=== PATIENT | male | born 1945 | race African-American/Black ===

== ENCOUNTER 2017-02-12 17:04 | Emergency (ER) | payer MEDICARE ==
[~2017-02-12] VITALS: Ht 185.4 cm; Wt 130.0 kg
[~2017-02-12 17:04] MED LIST: ARTISOL2 EACH EYE; ATOR40TA49 PO; BENA25TA5 PO; DILT90 PO; DOXA1 PO; GABA400C5 PO; METO25 PO; MORP30SU PO; MSIR15 PO; PRIL20CA PO; REME30TA PO; SERT100 PO; WARF7.5 PO
[2017-02-12] MEDS ORDERED: SODIUM CHLOR 0.9% 1000 ML INJ 1,000 ML IV ONE (17:12)
[2017-02-12] MEDS ORDERED: NALOXONE HCL 0.4 MG/ML AMP ONE (17:12)
--- NOTE | 2017-02-12 17:14 | PD ---
Physical Exam Time Seen by Provider: 17:14 Narrative 71 year old male presents to the ED by EVAC for evaluation following a fall. Family is concerned the patient has been acting differently than he typically does. Pt was assisted to the stretcher by EVAC and has appeared altered. Per EVAC reports using heroin since his pain medication has been stopped. His family does not know this. Currently patient is not offering any information for me. He arouses briefly with clear speech but does not answer any of my questions. GENERAL: Pt lying on the stretcher, diaphoretic, humming to self, uncooperative with exam. SKIN: Warm and diaphoretic. HEAD: Atraumatic. Normocephalic. EYES: Pupils equal; pinpoint. No scleral icterus. No injection or drainage. ENT: No nasal bleeding or discharge. Mucous membranes pink and moist. NECK: Trachea midline. No JVD. CARDIOVASCULAR: Elevated rate and rhythm. RESPIRATORY: No accessory muscle use. Diminshed; likely due to poor inspiratory effort. to auscultation. Breath sounds equal bilaterally. GASTROINTESTINAL: Abdomen soft, non-tender, nondistended. Hepatic and splenic margins not palpable. MUSCULOSKELETAL: Extremities without clubbing, cyanosis, or edema. No obvious deformities. NEUROLOGICAL: Pt arouses to voice and painful stimuli. Unable to assess cranial nerves at this time Moves all extremities. Normal speech and clear when patient does respond. Data Data Orders Orders Naloxone Inj (Narcan Inj) (02/12/17 17:12) Electrocardiogram (02/12/17 17:12) Complete Blood Count With Diff (02/12/17 17:12) Comprehensive Metabolic Panel (02/12/17 17:12) Prothrombin Time / Inr (Pt) (02/12/17 17:12) Act Partial Throm Time (Ptt) (02/12/17 17:12) Urinalysis - C+S If Indicated (02/12/17 17:12) Chest, Single Ap (02/12/17 17:12) Ct Brain W/O Iv Contrast(Rout) (02/12/17 17:12) Iv Access Insert/Monitor (02/12/17 17:12) Ecg Monitoring (02/12/17 17:12) Oximetry (02/12/17 17:12) Naloxone Inj (Narcan Inj) (02/12/17 17:15) Sodium Chloride 0.9% Flush (Ns Flush) (02/12/17 17:15) Sodium Chlor 0.9% 1000 Ml Inj (Ns 1000 M (02/12/17 17:12) Drug Screen, Random Urine (02/12/17 17:12) Alcohol (Ethanol) (02/12/17 17:12) Salicylates (Aspirin) (02/12/17 17:12) Tylenol (Acetaminophen) (02/12/17 17:12) MDM Medical Record Reviewed: Yes Supervised Visit with YESSI: No Narrative Course Pt arrives via EVAC; diaphoretic, limited responsiveness with pinpoint pupils. IV access has been unable to be obtained by both EVAC and nursing staff. NARCAN 2mg IM is given. Workup has been initiated in the ambulance young. Once a medical bed becomes available, patient will be transferred and care assumed by that provider. Condition: Stable Laurel Bear Feb 12, 2017 17:14
[2017-02-12] MEDS ORDERED: SODIUM CHLORIDE 0.9% FLUSH 10 ML FLUSH IVF PRN (17:15)
[2017-02-12] MEDS ORDERED: NALOXONE HCL 2 MG/2 ML VIAL IM ONE (17:15)
[2017-02-12 17:37] VITALS: BP 131/75; PULSE 94; RESP 20; TEMP 99; O2SAT 96
[2017-02-12 17:40] VITALS: O2SAT 95
--- NOTE | 2017-02-12 17:43 | PD ---
HPI Chief Complaint: fall Time Seen by Provider: 17:28 Travel History International Travel<30 days: No Contact w/Intl Traveler<30days: No Traveled to known affect area: No History of Present Illness HPI Patient is a 71-year-old male brought in EMS after a fall today. Patient was confused and somnolent on arrival, he was given 2 mg of Narcan IM and woke up. He currently has no complaints. He does admit to using morphine and heroin today. He says he has chronic back pain and he was recently taken off of his medications, so he used the drugs due to the pain. His daughter reports that he has had issues with drugs for a while. She lives with him, and says that they went to his doctor's appointments this morning, and she dropped him off at the house where she went to poultry picking machine tender her son. She said she then left the room at the house where she went to the store quickly, when she came back her son said that he had fallen. He denied his head. There was no loss of consciousness. Currently he has no complaints. He denies chest pain or shortness of breath. He denies nausea or vomiting. PFSH Past Medical History Arthritis: Yes Asthma: No Atrial Fibrillation: Yes Autoimmune Disease: No Anxiety: Yes Depression: Yes Heart Rhythm Problems: No Cancer: No Cardiovascular Problems: Yes High Cholesterol: Yes Chemotherapy: No Chest Pain: Yes Congestive Heart Failure: No COPD: No Cerebrovascular Accident: No Coronary Artery Disease: Yes Diabetes: Yes Diminished Hearing: No Diverticulitis: Yes Endocrine: No Gastrointestinal Disorders: Yes GERD: Yes Genitourinary: No Headaches: No Hepatitis: Yes (HEP C) Hypertension: Yes Immune Disorder: No Implanted Vascular Access Dvce: Yes Musculoskeletal: Yes (CHRONIC BACK PAIN) Neurologic: No Psychiatric: No Reproductive: No Respiratory: Yes Immunizations Current: Yes Migraines: No Myocardial Infarction: Yes (2014) Pneumonia: Yes Radiation Therapy: No Renal Failure: No Seizures: No Sickle Cell Disease: No Sleep Apnea: No Thyroid Disease: No Past Surgical History Abdominal Surgery: No AICD: No Arteriovenous Shunt: No Body Medical Devices: CARDIAC STENTS Cardiac Surgery: No Ear Surgery: No Endocrine Surgery: No Eye Surgery: No Genitourinary Surgery: Yes Joint Replacement: No Neurologic Surgery: No Oral Surgery: No Pacemaker: No Thoracic Surgery: No Other Surgery: Yes Social History Alcohol Use: No Tobacco Use: Yes Substance Use: No Allergies-Medications (Allergen,Severity, Reaction): Coded Allergies: diatrizoate meglumine (Unverified Adverse Reaction, Severe, SEVERE VOMITING, 01/30/17) gadobenic acid (Unverified Adverse Reaction, Severe, SEVERE VOMITING, 01/30) gadodiamide (Unverified Adverse Reaction, Severe, SEVERE VOMITING, 01/30/17 ) gadoteridol (Unverified Adverse Reaction, Severe, SEVERE VOMITING, 01/30/17 ) iodixanol (Unverified Adverse Reaction, Severe, SEVERE VOMITING, 01/30/17) iohexol (Unverified Adverse Reaction, Severe, SEVERE VOMITING, 01/30/17) Reported Meds & Prescriptions Reported Meds & Active Scripts Active Reported Zoloft (Sertraline HCl) 100 Mg Tab 150 Mg PO HS Diphenhydramine (Diphenhydramine HCl) 25 Mg Cap 25 Mg PO Q6HR PRN Doxazosin (Doxazosin Mesylate) 2 Mg Tab 2 Mg PO HS Gabapentin 800 Mg Tab 1,200 Mg PO TID Metoprolol Tartrate 25 Mg Tab 25 Mg PO Q12HR Mirtazapine 30 Mg Tab 30 Mg PO HS Diltiazem (Diltiazem HCl) 90 Mg Tab 90 Mg PO Q6HR Warfarin 7.5 Mg Tab 7.5 Mg PO DAILY Artificial Tears Opth Drops (Propylene Glycol-Glycerin Opth Drops) 1-0.3% Drops 1-2 Drop EACH EYE QID PRN Atorvastatin (Atorvastatin Calcium) 40 Mg Tab 40 Mg PO HS Review of Systems Except as stated in HPI: all other systems reviewed are Neg General / Constitutional: No: Fever, Chills Eyes: No: Blurred Vision HENT: No: Headaches, Lightheadedness Cardiovascular: No: Chest Pain or Discomfort Respiratory: No: Shortness of Breath Gastrointestinal: No: Nausea, Vomiting, Abdominal Pain Genitourinary: No: Dysuria Skin: No Rash, No Itching Neurologic: No: Weakness, Dizziness, Syncope Physical Exam Narrative GENERAL: Awake and alert, in no acute distress. SKIN: Focused skin assessment warm/dry. HEAD: Atraumatic. Normocephalic. EYES: Pupils equal and round. No scleral icterus. ENT: Mucous membranes pink and moist. NECK: Trachea midline. No JVD. CARDIOVASCULAR: Regular rate and rhythm. No murmur appreciated. RESPIRATORY: No accessory muscle use. Clear to auscultation. Breath sounds equal bilaterally. GASTROINTESTINAL: Abdomen soft, non-tender, nondistended. MUSCULOSKELETAL: No obvious deformities. No clubbing. No cyanosis. Mild bilateral lower extremity edema. NEUROLOGICAL: Awake and alert. No obvious cranial nerve deficits. Motor grossly within normal limits. Normal speech. PSYCHIATRIC: Appropriate mood and affect; insight and judgment normal. Data Data Last Documented VS Vital Signs Date Time Temp Pulse Resp B/P (MAP) Pulse Ox O2 Delivery O2 Flow Rate FiO2 02/12/17 19:40 02/12/17 19:16 92 19 95 Room Air 02/12/17 17:37 99.0 Orders Orders Naloxone Inj (Narcan Inj) (02/12/17 17:12) Electrocardiogram (02/12/17 17:12) Complete Blood Count With Diff (02/12/17 17:12) Comprehensive Metabolic Panel (02/12/17 17:12) Prothrombin Time / Inr (Pt) (02/12/17 17:12) Act Partial Throm Time (Ptt) (02/12/17 17:12) Chest, Single Ap (02/12/17 17:12) Ct Brain W/O Iv Contrast(Rout) (02/12/17 17:12) Iv Access Insert/Monitor (02/12/17 17:12) Ecg Monitoring (02/12/17 17:12) Oximetry (02/12/17 17:12) Naloxone Inj (Narcan Inj) (02/12/17 17:15) Sodium Chloride 0.9% Flush (Ns Flush) (02/12/17 17:15) Sodium Chlor 0.9% 1000 Ml Inj (Ns 1000 M (02/12/17 17:12) Alcohol (Ethanol) (02/12/17 17:12) Troponin I (02/12/17 17:45) Labs Laboratory Tests Test 02/12/17 17:45 White Blood Count 6.2 TH/MM3 Red Blood Count 5.28 MIL/MM3 Hemoglobin 14.5 GM/DL Hematocrit 44.2 % Mean Corpuscular Volume 83.7 FL Mean Corpuscular Hemoglobin 27.4 PG Mean Corpuscular Hemoglobin Concent 32.7 % Red Cell Distribution Width 17.9 % Platelet Count 212 TH/MM3 Mean Platelet Volume 9.0 FL Neutrophils (%) (Auto) 71.8 % Lymphocytes (%) (Auto) 18.3 % Monocytes (%) (Auto) 8.8 % Eosinophils (%) (Auto) 0.8 % Basophils (%) (Auto) 0.3 % Neutrophils # (Auto) 4.4 TH/MM3 Lymphocytes # (Auto) 1.1 TH/MM3 Monocytes # (Auto) 0.5 TH/MM3 Eosinophils # (Auto) 0.1 TH/MM3 Basophils # (Auto) 0.0 TH/MM3 CBC Comment DIFF FINAL Differential Comment Prothrombin Time 27.1 SEC Prothromb Time International Ratio 2.4 RATIO Activated Partial Thromboplast Time 30.6 SEC Blood Urea Nitrogen 10 MG/DL Creatinine 1.28 MG/DL Random Glucose 124 MG/DL Total Protein 9.6 GM/DL Albumin 3.7 GM/DL Calcium Level 8.6 MG/DL Alkaline Phosphatase 121 U/L Aspartate Amino Transf (AST/SGOT) 11 U/L Alanine Aminotransferase (ALT/SGPT) 21 U/L Total Bilirubin 0.4 MG/DL Sodium Level 136 MEQ/L Potassium Level 3.9 MEQ/L Chloride Level 103 MEQ/L Carbon Dioxide Level 26.2 MEQ/L Anion Gap 7 MEQ/L Estimat Glomerular Filtration Rate 68 ML/MIN Troponin I LESS THAN 0.02 NG/ML Ethyl Alcohol Level 3 MG/DL [facility] Medical Decision Making Medical Screen Exam Complete: Yes Emergency Medical Condition: Yes Medical Record Reviewed: Yes Interpretation(s) ECG shows atrial fibrillation, rate controlled at 92, no ST elevation or depression. Differential Diagnosis Drug overdose versus intoxication versus electrolyte abnormality versus UTI versus pneumonia Narrative Course Patient is a 71-year-old male who comes in after she took morphine and heroin today. He was given Narcan due to unresponsiveness. He has been awake and alert in the ED since then. He currently has no complaints. IV established, labs sent. Labs show no acute abnormalities. Patient was unable to provide a urine for sample while here, and his daughter needs to take him home. He has no urinary symptoms or signs or symptoms of infection, I believe it is safe for him to be discharged at this time. CT head and chest x-ray show no acute abnormalities. Patient has a history of atrial fibrillation, and ECG shows A. fib that is rate controlled. Patient is advised to avoid opiate use. He is advised follow-up with his doctor. Advised to return to the ED as needed for any worsening symptoms. Diagnosis Primary Impression: Accidental drug overdose Qualified Codes: T50.901A - Poisoning by unspecified drugs, medicaments and biological substances, accidental (unintentional), initial encounter Patient Instructions: General Instructions, Narcotic Abuse (ED) Additional Instructions: Avoid drug use. Follow-up with her doctor. Return to the ED as needed for any worsening symptoms. Disposition: 01 DISCHARGE HOME Condition: Stable Halley Carter MD Feb 12, 2017 17:43
--- NOTE | 2017-02-12 18:00 | RADRPT ---
EXAM DATE/TIME: 02/12/2017 17:32 [facility] COMPARISON: CHEST SINGLE AP, January 31, 2015, 13:56. INDICATIONS : Overdose. MEDICAL HISTORY : Hypertension. Myocardial infarction. Hypercholesterolemia. AFIB, Coronary artery disease, pneumon ia. SURGICAL HISTORY : None. ENCOUNTER: Initial ACUITY: 1 day PAIN SCORE: 5/10 LOCATION: Bilateral chest FINDINGS: There is cardiomegaly with mild interstitial edema. There is no outlet consolidation, pleural effusi on or pneumothorax. Patient status post corpectomy and fixation of lower thoracic spine. CONCLUSION: Mild interstitial edema with cardiomegaly. Jerzy Brown MD FACR on February 12, 2017 at 17:58 Board Certified Radiologist. This report was verified electronically.
[2017-02-12 18:15] LABS: AUTOMATED NEUTROPHIL # 4.4 TH/MM3 (1.8-7.7); BASOPHIL % 0.3 % (0.0-2.0); EOSINOPHIL # 0.1 TH/MM3 (0-0.4); EOSINOPHIL % 0.8 % (0.0-4.0); HEMATOCRIT 44.2 % (39.0-51.0); HEMO FLAGS DIFF FINAL; LYMPH % 18.3 % (9.0-44.0); LYMPHOCYTE # 1.1 TH/MM3 (1.0-4.8); MEAN CELL VOLUME 83.7 FL (80.0-100.0); MEAN CORPUSCULAR HEMOGLOBIN 27.4 PG (27.0-34.0); MEAN CORPUSCULAR HGB CONC 32.7 % (32.0-36.0); MONO % 8.8 % (0.0-8.0); NEUT % 71.8 % (16.0-70.0); PLATELET COUNT 212 TH/MM3 (150-450); RED BLOOD COUNT 5.28 MIL/MM3 (4.50-5.90); RED CELL DISTRIBUTION WIDTH 17.9 % (11.6-17.2); WHITE BLOOD COUNT 6.2 TH/MM3 (4.0-11.0)
[2017-02-12 18:23] LABS: APTT (PATIENT) 30.6 SEC (24.3-30.1); INTERNATIONAL NORMALIZED RATIO 2.4 RATIO; PROTHROMBIN TIME - PATIENT 27.1 SEC (9.8-11.6)
[2017-02-12 18:38] LABS: ANION GAP 7 MEQ/L (5-15); AST (GOT) 11 U/L (15-37); BICARBONATE 26.2 MEQ/L (21.0-32.0); BLOOD UREA NITROGEN 10 MG/DL (7-18); CHLORIDE 103 MEQ/L (98-107); GLOMERULAR FILTRATION RATE 68 ML/MIN (>89); POTASSIUM 3.9 MEQ/L (3.5-5.1); SODIUM (NA) 136 MEQ/L (136-145)
[2017-02-12 18:39] LABS: ALT (GPT) 21 U/L (12-78)
[2017-02-12 18:42] LABS: ALKALINE PHOSPHATASE 121 U/L (45-117); TOTAL BILIRUBIN ADULT 0.4 MG/DL (0.2-1.0)
[2017-02-12 18:45] LABS: ALCOHOL 3 MG/DL (0-5)
--- NOTE | 2017-02-12 19:11 | RADRPT ---
EXAM DATE/TIME: 02/12/2017 18:14 [facility] COMPARISON: CT BRAIN W/O CONTRAST, September 01, 2014, 21:07. INDICATIONS : Altered mental status. Patient fell today. RADIATION DOSE: 56.35 CTDIvol (mGy) MEDICAL HISTORY : Cerebrovascular disease. Hypertension. Diabetes mellitus type 1.Hepatitis C SURGICAL HISTORY : None. ENCOUNTER: Initial ACUITY: 1 day PAIN SCALE: 7/10 LOCATION: cranial TECHNIQUE: Multiple contiguous axial images were obtained of the head. Using automated exposure control and adj ustment of the mA and/or kV according to patient size, radiation dose was kept as low as reasonably a chievable to obtain optimal diagnostic quality images. DICOM format image data is available electro nically for review and comparison. FINDINGS: CEREBRUM: The ventricles are normal for age. No evidence of midline shift, mass lesion, hemorrhage or acute in farction. No extra-axial fluid collections are seen. There is a small stable calcification in the le ft caudate POSTERIOR FOSSA: The cerebellum and brainstem are intact. The 4th ventricle is midline. The cerebellopontine angle i s unremarkable. EXTRACRANIAL: The visualized portion of the orbits is intact. SKULL: The calvaria is intact. No evidence of skull fracture. CONCLUSION: No acute disease. Remi Mcgill MD on February 12, 2017 at 19:07 Board Certified Radiologist. This report was verified electronically.
[2017-02-12 19:16] VITALS: BP 101/69; PULSE 92; RESP 19; O2SAT 95
[2017-02-12] MEDS ORDERED: WARF-21 PO (19:29)
[2017-02-12] MEDS ORDERED: ARTIDRO EACH EYE (19:29)
[2017-02-12] MEDS ORDERED: ATOR40TA16 PO (19:29)
[2017-02-12] MEDS ORDERED: DOXA1TAB35 PO (19:34)
[2017-02-12] MEDS ORDERED: DILT90TA PO (19:34)
[2017-02-12] MEDS ORDERED: MIRT30TA PO (19:34)
[2017-02-12] MEDS ORDERED: METO25TA3 PO (19:34)
[2017-02-12] MEDS ORDERED: GABA800T PO (19:34)
[2017-02-12] MEDS ORDERED: DIPH25CA PO (19:34)
[2017-02-12] MEDS ORDERED: ZOLO100T PO (19:34)
--- NOTE | 2017-02-13 11:21 | EKG ---
Date Performed: 02/12/2017 Time Performed: 18:29:21 PTAGE: 71 years EKG: ATRIAL FIBRILLATION ABNORMAL RHYTHM ECG PREVIOUS TRACING : 01/31/2015 17.34 Atrial fibrillation is new from the old tracing. DOCTOR: Naveen Garibay Interpretating Date/Time 02/13/2017 11:19:17
== END 2017-02-12 20:26 | disposition home or self-care (01) ==
LOC: NEPD 17:04
DX: T40.1X1A Poisoning by heroin, accidental (unintentional), initial encounter (principal); I48.91 Unspecified atrial fibrillation; Z72.0 Tobacco use
CPT/HCPCS: 70450; 71010; 80053; 80307; 84484; 85025; 85610; 85730; 93005; 96372; 99285; J2310

== ENCOUNTER 2017-02-16 17:38 | Emergency (ER) | payer MEDICARE ==
[~2017-02-16] VITALS: Ht 182.9 cm; Wt 125.0 kg
[~2017-02-16 17:38] MED LIST changes: +ARTIDRO EACH EYE; -ARTISOL2 EACH EYE; +ATOR40TA16 PO; -ATOR40TA49 PO; -BENA25TA5 PO; -DILT90 PO; +DILT90TA PO; +DIPH25CA PO; -DOXA1 PO; +DOXA1TAB35 PO; -GABA400C5 PO; +GABA800T PO; -METO25 PO; +METO25TA3 PO; +MIRT30TA PO; -MORP30SU PO; -MSIR15 PO; -PRIL20CA PO; -REME30TA PO; -SERT100 PO; +WARF-21 PO; -WARF7.5 PO; +ZOLO100T PO
[2017-02-16 17:43] VITALS: PULSE 77; RESP 18; TEMP 97.5; O2SAT 96
[2017-02-16 18:02] VITALS: BP 98/55
== END 2017-02-16 18:56 | disposition left against medical advice (07) ==
LOC: NED 17:38
DX: R53.1 Weakness (principal); R55 Syncope and collapse; Z53.21 Procedure and treatment not carried out due to patient leaving prior to being seen by health care provider
CPT/HCPCS: 99281

== ENCOUNTER 2017-02-17 09:29 | Observation (INO) | payer MEDICARE, OTHER ==
[~2017-02-17] VITALS: Ht 185.4 cm; Wt 125.5 kg
[2017-02-17] VITALS (8 sets, daily range): BP systolic 106–138; BP diastolic 67–90; PULSE 65–77; RESP 16–20; TEMP 98–98.2; O2SAT 96–99
[2017-02-17] MEDS ORDERED: SODIUM CHLORID 0.9% 500 ML INJ 500 ML IV ONE (10:15)
[2017-02-17] MEDS ORDERED: SODIUM CHLORIDE 0.9% FLUSH 10 ML FLUSH IVF PRN (10:15)
--- NOTE | 2017-02-17 10:37 | PD ---
HPI Chief Complaint: Syncope/Near-Syncope Time Seen by Provider: 09:56 Travel History International Travel<30 days: No Contact w/Intl Traveler<30days: No Traveled to known affect area: No History of Present Illness HPI Is a 71-year-old man who presents to the emergency department complaining of a syncopal episode. He reports that he was in the [employer] store yesterday sitting in a chair where he began to feel dizzy. Almost immediately after he told his started he felt dizzy he collapsed, fell backward, and was shaking some. She reports that he appeared sweaty. She denies any chest pain or shortness of breath at that time. He's had several falls recently decubitus his legs going out on him but denies any previous syncopal episodes. He reports that a month or so ago he had some left-sided chest pain that went away shortly after. He was taken off [facility] his [facility]. She had a previous visit for opiate overdose were he apparently is related to using illicit opiates. His family apparently is unaware of this. His daughter is now moved in with him because of his falls. He's not had any syncopal episodes or seizures in the past. He does have a history of A. fib and is on warfarin. He also has a history of CAD and AR. History Past Medical History Narrative Medical A. fib, warfarin Arthritis and chronic back pain Anxiety/depression Hyperlipidemia CAD, history of AR Hepatitis C Denies any history diabetes. Social History Alcohol Use: No Tobacco Use: Yes Allergies-Medications (Allergen,Severity, Reaction): Coded Allergies: diatrizoate meglumine (Unverified Adverse Reaction, Severe, SEVERE VOMITING, 02/17/17) gadobenic acid (Unverified Adverse Reaction, Severe, SEVERE VOMITING, ) gadodiamide (Unverified Adverse Reaction, Severe, SEVERE VOMITING, 02/17/17) gadoteridol (Unverified Adverse Reaction, Severe, SEVERE VOMITING, 02/17/17) iodixanol (Unverified Adverse Reaction, Severe, SEVERE VOMITING, 02/17/17) iohexol (Unverified Adverse Reaction, Severe, SEVERE VOMITING, 02/17/17) Reported Meds & Prescriptions Reported Meds & Active Scripts Active Reported Zoloft (Sertraline HCl) 100 Mg Tab 150 Mg PO HS Diphenhydramine (Diphenhydramine HCl) 25 Mg Cap 25 Mg PO Q6HR PRN Doxazosin (Doxazosin Mesylate) 2 Mg Tab 2 Mg PO HS Gabapentin 800 Mg Tab 1,200 Mg PO TID Metoprolol Tartrate 25 Mg Tab 25 Mg PO Q12HR Diltiazem (Diltiazem HCl) 90 Mg Tab 90 Mg PO Q6HR Warfarin 7.5 Mg Tab 7.5 Mg PO DAILY Artificial Tears Opth Drops (Propylene Glycol-Glycerin Opth Drops) 1-0.3% Drops 1-2 Drop EACH EYE QID PRN Atorvastatin (Atorvastatin Calcium) 40 Mg Tab 40 Mg PO HS Review of Systems Except as stated in HPI: all other systems reviewed are Neg Physical Exam Narrative GENERAL: Generally well-appearing 71-year-old man, no acute distress. SKIN: Focused skin assessment warm/dry. HEAD: Atraumatic. Normocephalic. EYES: Pupils equal and round. No scleral icterus. No injection or drainage. ENT: No nasal bleeding or discharge. Mucous membranes pink and moist. NECK: Trachea midline. No JVD. CARDIOVASCULAR: Heart rates little bit irregular. No appreciable murmurs. RESPIRATORY: No accessory muscle use. Clear to auscultation. Breath sounds equal bilaterally. GASTROINTESTINAL: Abdomen soft, non-tender, nondistended. Hepatic and splenic margins not palpable. MUSCULOSKELETAL: No obvious deformities. No edema. NEUROLOGICAL: Awake and alert. No obvious cranial nerve deficits. Motor grossly within normal limits. Normal speech. PSYCHIATRIC: Appropriate mood and affect; insight and judgment normal. Data Data Last Documented VS Vital Signs Date Time Temp Pulse Resp B/P (MAP) Pulse Ox O2 Delivery O2 Flow Rate FiO2 02/17/17 13:44 18 02/17/17 12:07 97 Room Air 02/17/17 12:07 74 106/75 (85) 02/17/17 09:30 98.1 Orders Orders Electrocardiogram (02/17/17 10:10) Complete Blood Count With Diff (02/17/17 10:10) Comprehensive Metabolic Panel (02/17/17 10:10) Magnesium (Mg) (02/17/17 10:10) Prothrombin Time / Inr (Pt) (02/17/17 10:10) Act Partial Throm Time (Ptt) (02/17/17 10:10) Troponin I (02/17/17 10:10) Chest, Single Ap (02/17/17 10:10) Ecg Monitoring (02/17/17 10:10) Iv Access Insert/Monitor (02/17/17 10:10) Oximetry (02/17/17 10:10) Oxygen Administration (02/17/17 10:10) Sodium Chloride 0.9% Flush (Ns Flush) (02/17/17 10:15) Sodium Chlorid 0.9% 500 Ml Inj (Ns 500 M (02/17/17 10:15) Urinalysis - C+S If Indicated (02/17/17 10:10) Drug Screen, Random Urine (02/17/17 10:10) Acetaminophen (Tylenol) (02/17/17 11:15) Vascular Access Team Consult/P PRN (02/17/17 11:06) Vascular Poc Ultrasound (02/17/17 ) Labs Laboratory Tests Test 02/17/17 10:20 02/17/17 10:35 02/17/17 11:40 White Blood Count 7.3 TH/MM3 Red Blood Count 5.23 MIL/MM3 Hemoglobin 14.5 GM/DL Hematocrit 43.3 % Mean Corpuscular Volume 82.8 FL Mean Corpuscular Hemoglobin 27.7 PG Mean Corpuscular Hemoglobin Concent 33.5 % Red Cell Distribution Width 18.3 % Platelet Count 218 TH/MM3 Mean Platelet Volume 9.1 FL Neutrophils (%) (Auto) 77.0 % Lymphocytes (%) (Auto) 14.7 % Monocytes (%) (Auto) 6.0 % Eosinophils (%) (Auto) 1.9 % Basophils (%) (Auto) 0.4 % Neutrophils # (Auto) 5.6 TH/MM3 Lymphocytes # (Auto) 1.1 TH/MM3 Monocytes # (Auto) 0.4 TH/MM3 Eosinophils # (Auto) 0.1 TH/MM3 Basophils # (Auto) 0.0 TH/MM3 CBC Comment DIFF FINAL Differential Comment Urine Color YELLOW Urine Turbidity CLEAR Urine pH 5.5 Urine Specific [place] 1.014 Urine Protein TRACE mg/dL Urine Glucose (UA) NEG mg/dL Urine Ketones NEG mg/dL Urine Occult Blood TRACE Urine Nitrite NEG Urine Bilirubin NEG Urine Urobilinogen 2.0 MG/DL Urine Leukocyte Esterase TRACE Urine RBC 1 /hpf Urine WBC 1 /hpf Urine Squamous Epithelial Cells 2 /hpf Urine Mucus FEW /lpf Microscopic Urinalysis Comment CULT NOT INDICATED Urine Opiates Screen NEG Urine Barbiturates Screen NEG Urine Amphetamines Screen NEG Urine Benzodiazepines Screen NEG Urine Cocaine Screen NEG Urine Cannabinoids Screen POS Prothrombin Time 22.6 SEC Prothromb Time International Ratio 2.0 RATIO Activated Partial Thromboplast Time 30.6 SEC Blood Urea Nitrogen 12 MG/DL Creatinine 0.97 MG/DL Random Glucose 101 MG/DL Total Protein 9.2 GM/DL Albumin 3.4 GM/DL Calcium Level 8.6 MG/DL Magnesium Level 2.0 MG/DL Alkaline Phosphatase 110 U/L Aspartate Amino Transf (AST/SGOT) 11 U/L Alanine Aminotransferase (ALT/SGPT) 16 U/L Total Bilirubin 0.6 MG/DL Sodium Level 137 MEQ/L Potassium Level 4.1 MEQ/L Chloride Level 101 MEQ/L Carbon Dioxide Level 30.2 MEQ/L Anion Gap 6 MEQ/L Estimat Glomerular Filtration Rate 93 ML/MIN Troponin I LESS THAN 0.02 NG/ML MDM Medical Decision Making Medical Screen Exam Complete: Yes Emergency Medical Condition: Yes Interpretation(s) My review of EKG: A. fib, QTC of 485, no definite evidence of acute ischemia. LABS: CBC is unremarkable. CMP is unremarkable. Trouble troponin 9.2 Coags mildly elevated, INR 2.0 UA unremarkable. Urine drug screen positive for cannabinoids. Chest x-ray negative. Differential Diagnosis Arrhythmia, seizure, syncope, adverse effect of illicit drugs, other Narrative Course Medical decision making 71-year-old male with a syncopal episode yesterday. Of concern is his long QT but could suggest an arrhythmia as etiology. 485 is not super high. We'll check labs, EKG, x-ray. Of concern is his recent opiate overdose. Denies taking anything now. We'll check urine drug screen. Diagnosis Primary Impression: Syncope Joel Hickman MD Feb 17, 2017 10:37
--- NOTE | 2017-02-17 10:39 | RADRPT ---
EXAM DATE/TIME: 02/17/2017 10:31 [facility] COMPARISON: CHEST SINGLE AP, February 12, 2017, 17:32. INDICATIONS : Head, neck, and chest pain. MEDICAL HISTORY : Hypertension. Myocardial infarction. Hypercholesterolemia. AFIB, Coronary artery disease, pneumonia. SURGICAL HISTORY : None. ENCOUNTER: Initial ACUITY: 2 days PAIN SCORE: 1/10 LOCATION: Bilateral chest FINDINGS: A single view of the chest demonstrates the lungs to be symmetrically aerated without evidence of mas s, infiltrate or effusion. The cardiomediastinal contours are unremarkable. Osseous structures demo nstrate lateral chanel and screw fixation of the lower thoracic spine with metallic cage placement.. CONCLUSION: No acute disease. Sohail Willett MD on February 17, 2017 at 10:37 Board Certified Radiologist. This report was verified electronically.
[2017-02-17 10:44] LABS: AUTOMATED NEUTROPHIL # 5.6 TH/MM3 (1.8-7.7); BASOPHIL % 0.4 % (0.0-2.0); EOSINOPHIL # 0.1 TH/MM3 (0-0.4); EOSINOPHIL % 1.9 % (0.0-4.0); HEMATOCRIT 43.3 % (39.0-51.0); HEMO FLAGS DIFF FINAL; LYMPH % 14.7 % (9.0-44.0); LYMPHOCYTE # 1.1 TH/MM3 (1.0-4.8); MEAN CELL VOLUME 82.8 FL (80.0-100.0); MEAN CORPUSCULAR HEMOGLOBIN 27.7 PG (27.0-34.0); MEAN CORPUSCULAR HGB CONC 33.5 % (32.0-36.0); PLATELET COUNT 218 TH/MM3 (150-450); RED BLOOD COUNT 5.23 MIL/MM3 (4.50-5.90); RED CELL DISTRIBUTION WIDTH 18.3 % (11.6-17.2); WHITE BLOOD COUNT 7.3 TH/MM3 (4.0-11.0)
[2017-02-17 11:06] LABS: BLOOD, URINE TRACE (NEG); COMMENT (UR) CULT NOT INDICATED; CULTURE IF INDICATED CULT NOT INDICATED; GLUCOSE,URINE NEG (NEG); KETONE, URINE NEG (NEG); MUCUS URINE FEW /lpf (OCC); NITRITE,URINE NEG (NEG); PH, URINE 5.5 (5.0-8.5); SQUAMOUS EPITHELIAL CELL URINE 2 /hpf (0-5); URINE COLOR YELLOW (YELLW/STRAW)
[2017-02-17] MEDS ORDERED: ACETAMINOPHEN 500 MG CPLT PO ONE (11:15)
[2017-02-17 12:22] LABS: APTT (PATIENT) 30.6 SEC (24.3-30.1); PROTHROMBIN TIME - PATIENT 22.6 SEC (9.8-11.6)
[2017-02-17 12:51] LABS: ALT (GPT) 16 U/L (12-78); ANION GAP 6 MEQ/L (5-15); AST (GOT) 11 U/L (15-37); BICARBONATE 30.2 MEQ/L (21.0-32.0); BLOOD UREA NITROGEN 12 MG/DL (7-18); CHLORIDE 101 MEQ/L (98-107); GLOMERULAR FILTRATION RATE 93 ML/MIN (>89); POTASSIUM 4.1 MEQ/L (3.5-5.1); SODIUM (NA) 137 MEQ/L (136-145)
[2017-02-17 12:55] LABS: ALKALINE PHOSPHATASE 110 U/L (45-117); TOTAL BILIRUBIN ADULT 0.6 MG/DL (0.2-1.0)
[2017-02-17] MEDS ORDERED: diphenhydrAMINE HCL 25 MG CAP PO PRN (14:00)
[2017-02-17] MEDS ORDERED: ARTIFICIAL TEARS OPTH SOLN 15 ML BTL EACH EYE PRN (14:00)
[2017-02-17] MEDS: NS + KCL 20 MEQ INJ 1,000 ML IV SCH (14:48)
--- NOTE | 2017-02-17 15:33 | HHI.HP ---
[facility] Admission Diagnosis Syncope Diagnoses: (1) Syncope Chief Complaint: Syncopal episode. Travel History International Travel<30 Days: No Contact w/Intl Traveler <30 Da: No Traveled to Known Affected Are: No History of Present Illness Written by Halley Matias, acting as scribe for Dr. Brown on 02/17/17 at 15: 33. Mr. Chatterjee is a 71-year-old male patient with a known medical history of atrial fibrillation on Coumadin, CAD with history of WA, Hepatitic C history, and borderline diabetes who presented to the ED after a syncopal episode. Patient states he was in [employer] with his daughter, sitting watching her pick out phones when all of a sudden he started to feel dizzy and passed out. He also admits to urine incontinence and headache upon awakening. Per his daughter, one of his arms was shaking. Denies any prior similar episodes or seizure history. Denies any associated nausea or vomiting. Per records patient has had multiple falls in the past. Denies any recent illness including fever, chills, cough, shortness of breath, abdominal pain, nausea, vomiting, diarrhea or dysuria. Review of Systems Constitutional: COMPLAINS OF: Diaphoretic episodes, Dizziness Genitourinary: COMPLAINS OF: Urinary incontinence Neurologic: COMPLAINS OF: Headache Except as stated in HPI: all other systems reviewed are Neg Past Family Social History Past Medical History Atrial fibrillation on Coumadin Arthritis Chronic back pain Anxiety Depression Hyperlipidemia CAD with history of [place] Hepatitis C Borderline diabetes Hypertension Past Surgical History Back fusion Left temporal cyst removal. Reported Medications Reported Meds & Active Scripts Active Reported Zoloft (Sertraline HCl) 100 Mg Tab 150 Mg PO HS Diphenhydramine (Diphenhydramine HCl) 25 Mg Cap 25 Mg PO Q6HR PRN Doxazosin (Doxazosin Mesylate) 2 Mg Tab 2 Mg PO HS Gabapentin 800 Mg Tab 1,200 Mg PO TID Metoprolol Tartrate 25 Mg Tab 25 Mg PO Q12HR Diltiazem (Diltiazem HCl) 90 Mg Tab 90 Mg PO Q6HR Warfarin 7.5 Mg Tab 7.5 Mg PO DAILY Artificial Tears Opth Drops (Propylene Glycol-Glycerin Opth Drops) 1-0.3% Drops 1-2 Drop EACH EYE QID PRN Atorvastatin (Atorvastatin Calcium) 40 Mg Tab 40 Mg PO HS Allergies: Coded Allergies: diatrizoate meglumine (Unverified Adverse Reaction, Severe, SEVERE VOMITING, 02/17/17) gadobenic acid (Unverified Adverse Reaction, Severe, SEVERE VOMITING, ) gadodiamide (Unverified Adverse Reaction, Severe, SEVERE VOMITING, 02/17/17) gadoteridol (Unverified Adverse Reaction, Severe, SEVERE VOMITING, 02/17/17) iodixanol (Unverified Adverse Reaction, Severe, SEVERE VOMITING, 02/17/17) iohexol (Unverified Adverse Reaction, Severe, SEVERE VOMITING, 02/17/17) Active Ordered Medications Current Medications Medications (Trade) Dose Ordered Sig/Raeann Route Start Time Stop Time Status Last Admin (NS Flush) 2 ml UNSCH PRN IVF 02/17/17 10:15 Potassium Chloride/Sodium Chloride 1,000 ml @ 70 mls/hr [id number] IV 02/17/17 14:00 02/17/17 14:48 (Lipitor) 40 mg HS PO 02/17/17 21:00 (Cardizem) 90 mg Q6HR PO 02/17/17 18:00 (Benadryl) 25 mg Q6HR PRN PO 02/17/17 14:00 (Cardura) 2 mg HS PO 02/17/17 21:00 (Neurontin) 1,200 mg TID PO 02/17/17 18:00 (Tears Naturale Opth Soln) 1 drop QID PRN EACH EYE 02/17/17 14:00 (Zoloft) 150 mg HS PO 02/17/17 21:00 (Coumadin Booklet) 1 ONCE ONCE OTHER 02/18/17 09:00 02/18/17 09:01 (Coumadin) 7.5 mg DAILY@1600 PO 02/17/17 16:00 Family History Patient states that both his mother and father had cardiovascular disease. Denies any seizure history. Social History Admits to smoking 1/2ppd cigarettes for almost 50 years. Denies any alcohol use. Does admit to occasional marijuana use. Physical Exam Vital Signs Vital Signs Date Time Temp Pulse Resp B/P (MAP) Pulse Ox O2 Delivery O2 Flow Rate FiO2 02/17/17 14:51 72 20 112/67 (82) 97 Room Air 02/17/17 13:44 18 02/17/17 12:07 97 Room Air 02/17/17 12:07 74 18 106/75 (85) 97 Room Air 02/17/17 12:07 65 18 106/75 (85) 97 Room Air 02/17/17 09:49 18 02/17/17 09:30 98.1 69 17 126/77 (93) 99 Physical Exam GENERAL: This is a well-nourished, well-developed patient, in no apparent distress. SKIN: No rashes, ecchymoses or lesions. Warm and dry. HEAD: Atraumatic. Normocephalic. EYES: Pupils equal round and reactive. Extraocular motions intact. No scleral icterus. No injection or drainage. ENT: Nose without bleeding, purulent drainage or septal hematoma. Throat without erythema, tonsillar hypertrophy or exudate. Uvula midline. Airway patent. NECK: Trachea midline. No JVD. Supple. CARDIOVASCULAR: Irregularly irregular rhythm, controlled. RESPIRATORY: Clear to auscultation. Breath sounds equal bilaterally. No wheezes , rales, or rhonchi. GASTROINTESTINAL: Abdomen soft, non-tender, nondistended. No guarding. MUSCULOSKELETAL: Extremities without clubbing, cyanosis, or edema. No joint tenderness, effusion, or edema noted. NEUROLOGICAL: Awake and alert. Cranial nerves II through XII intact. Motor and sensory grossly within normal limits. Five out of 5 muscle strength in all muscle groups. Normal speech. Laboratory Laboratory Tests Test 02/17/17 10:20 02/17/17 10:35 02/17/17 11:40 White Blood Count 7.3 Red Blood Count 5.23 Hemoglobin 14.5 Hematocrit 43.3 Mean Corpuscular Volume 82.8 Mean Corpuscular Hemoglobin 27.7 Mean Corpuscular Hemoglobin Concent 33.5 Red Cell Distribution Width 18.3 Platelet Count 218 Mean Platelet Volume 9.1 Neutrophils (%) (Auto) 77.0 Lymphocytes (%) (Auto) 14.7 Monocytes (%) (Auto) 6.0 Eosinophils (%) (Auto) 1.9 Basophils (%) (Auto) 0.4 Neutrophils # (Auto) 5.6 Lymphocytes # (Auto) 1.1 Monocytes # (Auto) 0.4 Eosinophils # (Auto) 0.1 Basophils # (Auto) 0.0 CBC Comment DIFF FINAL Differential Comment Urine Color YELLOW Urine Turbidity CLEAR Urine pH 5.5 Urine Specific [place] 1.014 Urine Protein TRACE Urine Glucose (UA) NEG Urine Ketones NEG Urine Occult Blood TRACE Urine Nitrite NEG Urine Bilirubin NEG Urine Urobilinogen 2.0 Urine Leukocyte Esterase TRACE Urine RBC 1 Urine WBC 1 Urine Squamous Epithelial Cells 2 Urine Mucus FEW Microscopic Urinalysis Comment CULT NOT INDICATED Urine Opiates Screen NEG Urine Barbiturates Screen NEG Urine Amphetamines Screen NEG Urine Benzodiazepines Screen NEG Urine Cocaine Screen NEG Urine Cannabinoids Screen POS Prothrombin Time 22.6 Prothromb Time International Ratio 2.0 Activated Partial Thromboplast Time 30.6 Blood Urea Nitrogen 12 Creatinine 0.97 Random Glucose 101 Total Protein 9.2 Albumin 3.4 Calcium Level 8.6 Magnesium Level 2.0 Alkaline Phosphatase 110 Aspartate Amino Transf (AST/SGOT) 11 Alanine Aminotransferase (ALT/SGPT) 16 Total Bilirubin 0.6 Sodium Level 137 Potassium Level 4.1 Chloride Level 101 Carbon Dioxide Level 30.2 Anion Gap 6 Estimat Glomerular Filtration Rate 93 Troponin I LESS THAN 0.02 Result Diagram: 02/17/17 1020 02/17/17 1140 Imaging Last Impressions Chest X-Ray 02/17/17 1010 Signed Impressions: Service Date/Time: Friday, February 17, 2017 10:31 - CONCLUSION: No acute disease. MD Cheyenne Weissi VTE Risk Assessment Caprini VTE Risk Assessment: Mod/High Risk (score >= 2) Caprini Risk Assessment Model Point Value = 1 Point Value = 2 Point Value = 3 Point Value = 5 Age 41-60 Minor surgery BMI > 25 kg/m2 Swollen legs Varicose veins or History of unexplained or recurrent spontaneous Oral contraceptives or hormone replacement Sepsis (< 1 month) Serious lung disease, including pneumonia (< 1 month) Abnormal pulmonary function Acute myocardial infarction Congestive heart failure (< 1 month) History of inflammatory bowel disease Medical patient at bed rest Age 61-74 Arthroscopic surgery Major open surgery (> 45 min) Laparoscopic surgery (> 45 min) Malignancy Confined to bed (> 72 hours) Immobilizing plaster cast Central venous access Age >= 75 History of VTE Family history of VTE Factor V Leiden Prothrombin [id number] Lupus anticoagulant Anticardiolipin antibodies Elevated serum homocysteine Heparin-induced thrombocytopenia Other congenital or acquired thrombophilia Stroke (< 1 month) Elective arthroplasty Hip, pelvis, or leg fracture Acute spinal cord injury (< 1 month) Prophylaxis Regimen Total Risk Factor Score Risk Level Prophylaxis Regimen 0-1 Low Early ambulation 2 Moderate Order ONE of the following: *Sequential Compression Device (SCD) *Heparin 5000 units SQ BID 3-4 Higher Order ONE of the following medications: *Heparin 5000 units SQ TID *Enoxaparin/Lovenox 40 mg SQ daily (WT < 150 kg, CrCl > 30 mL/min) *Enoxaparin/Lovenox 30 mg SQ daily (WT < 150 kg, CrCl > 10-29 mL/min) *Enoxaparin/Lovenox 30 mg SQ BID (WT < 150 kg, CrCl > 30 mL/min) AND/OR *Sequential Compression Device (SCD) 5 or more Highest Order ONE of the following medications: *Heparin 5000 units SQ TID (Preferred with Epidurals) *Enoxaparin/Lovenox 40 mg SQ daily (WT < 150 kg, CrCl > 30 mL/min) *Enoxaparin/Lovenox 30 mg SQ daily (WT < 150 kg, CrCl > 10-29 mL/min) *Enoxaparin/Lovenox 30 mg SQ BID (WT < 150 kg, CrCl > 30 mL/min) AND *Sequential Compression Device (SCD) Assessment and Plan Assessment and Plan Mr. Chatterjee is a 71-year-old male patient with a known medical history of atrial fibrillation on Coumadin, CAD with history of [place], Hepatitic C history, and borderline diabetes who presented to the ED after a syncopal episode. Patient states he was in [employer] with his daughter, sitting watching her pick out phones when all of a sudden he started to feel dizzy and passed out. He also admits to urine incontinence and headache upon awakening. Syncopal episode - Will consult Neurology for further recommendations, appreciate input. - EEG to rule out seizures. - Will obtain 2D-ECHO. Follow. - Cardiology consulted, appreciate input. - Chest x-ray reviewed showing no acute disease. - Continue neuro checks. - Initial troponin flat. Monitor serial troponins. Follow. EKG reviewed with lengthen OTC. Atrial fibrillation, chronic: Continue home Coumadin. Continue Cardizem. Continue telemetry. Monitor INR. 2.0 today. Hypertension, chronic: Continue home Cardura 2 mg PO HS. Dyslipidemia, chronic: Continue home atorvastatin. Tobacco abuse: Encouraged cessation. Cannibis use: Encouraged cessation. DVT prophylaxis: SCDs/Coumadin This note was transcribed by kristofer Matias. I, Dr. Benito Brown personally performed the history, physical exam, and medical decision making; and confirmed the accuracy of the information in the transcribed note. Authenticated by Dr. Benito Brown on 02/17/17 at 15:44. Halley Matias Feb 17, 2017 15:33 Benito Brown MD Feb 17, 2017 15:45
[2017-02-17] MEDS: GABAPENTIN 400 MG CAP PO SCH (17:08)
[2017-02-17] MEDS: DILTIAZEM HCL 90 MG TAB PO SCH (17:09)
[2017-02-17] MEDS: WARFARIN SOD 7.5 MG TAB PO SCH (17:09)
--- NOTE | 2017-02-17 17:42 | EKG ---
Date Performed: 02/17/2017 Time Performed: 09:49:37 PTAGE: 71 years EKG: ATRIAL FIBRILLATION PROLONGED QT INTERVAL ABNORMAL ECG PREVIOUS TRACING : 02/12/2017 18.29 DOCTOR: Joel Soliman Interpretating Date/Time 02/17/2017 17:41:16
[2017-02-17 19:02] LABS: CREATINE KINASE 38 U/L (39-308)
--- NOTE | 2017-02-17 21:20 | MB ---
cc: TIBURCIO JANG M.D. DATE OF CONSULTATION 02/17/17 HISTORY OF PRESENT ILLNESS Breann is a very pleasant 71-year-old gentleman with no significant past cardiovascular history per him, although, in the ER it says he has a history of coronary artery disease and myocardial infarction and he is on Coumadin for a-fib. The patient had a syncopal episode. He does not recall the onset of it. There appeared to be some confusion post syncopal event. ER notes that he felt dizzy prior to the event. There was some shaking noted and diaphoresis. He told me he is not having any chest pain but again per the ER note he had left-sided chest pain about a month ago. He was recently taken off morphine at the [place]. He otherwise denies any fevers, chills, cough, GI or bleeding, PND, orthopnea. PAST MEDICAL HISTORY As per history of present illness. He has a history of arthritis, chronic back pain, anxiety, depression, hyperlipidemia, coronary artery disease, history of myocardial infarction, hepatitis C. SOCIAL HISTORY He smokes. Denies alcohol use. ALLERGIES DIATRIZOATE, GADOBENIC ACID, GADODIAMIDE, GADOTERIDOL, IODIXANOL, IOHEXOL. MEDICATIONS PRIOR TO ADMISSION 1. Zoloft. 2. Diphenhydramine. 3. Doxazosin. 4. Gabapentin. 5. Metoprolol 25 q. 12 hours. 6. Diltiazem 90 q. 6 hours. 7. Warfarin 7.5 milligrams daily. 8. Artificial tears. 9. Atorvastatin 40 h.s. MEDICATIONS IN THE HOSPITAL 1. Atorvastatin 40 h.s. 2. Cardura 10 milligrams h.s. 3. Zoloft 150 h.s. 4. Diltiazem 90 q. 6 hours. 5. Gabapentin 1200 milligrams t.i.d. 6. Warfarin 7.5 milligrams daily. 7. Potassium supplementation. PHYSICAL EXAMINATION VITAL SIGNS: Pulse ranging between 65 and 78, respiratory rate 16, blood pressure 138/76, sats 96% on room air. GENERAL: He is alert and oriented times three. In no acute distress. NECK: Supple. No JVD or bruit. CARDIOVASCULAR: S1-S2. No murmurs, rubs or gallops. LUNGS: Clear to auscultation bilaterally. ABDOMEN: Soft, nontender, nondistended with positive bowel sounds EXTREMITIES: No lower extremity edema. LABORATORY DATA White count is 7.3, hemoglobin 14.5, hematocrit 42.3, platelet count is 218, sodium 317, potassium 4.1, chloride 101, bicarb 30.2, BUN 12, creatinine 0.97. Troponin is less than 0.02. INR is 2.0. Toxicology positive for cannabinoids. IMAGING STUDIES Chest x-ray no acute disease. CARDIOLOGY STUDIES EKG a-fib at a rate of 69 beats per minute. DIAGNOSIS 1. Syncope. 2. A-fib. 3. Cannabis use. 4. History of coronary artery disease. 5. History of myocardial infarction. 6. Remote history of chest pain. 7. Arthritis. 8. Anxiety, depression. 9. Hyperlipidemia. 10. Hepatitis C. 11. Tobacco use. 12. Prolonged corrected QT interval equal to 483 milliseconds. DISCUSSION Recommend 2-D echo, carotid ultrasound, consider neurology consult. Recommend tobacco and inhaled marijuana cessation. Continue Coumadin. INR is therapeutic currently. Continue telemetry monitoring. Further recommendations based on the results of carotid ultrasound, 2-D echo and neurologic evaluation. MD MARISELA Jean/DANII /6:19 PM /8:54 PM
[2017-02-17] MEDS: DOXAZOSIN MESYLATE 2 MG TAB PO SCH (22:18)
[2017-02-17] MEDS: ATORVASTATIN 40 MG TAB PO SCH (22:19)
[2017-02-17] MEDS: SERTRALINE HCL 50 MG TAB PO SCH (22:19)
[2017-02-18] VITALS (9 sets, daily range): BP systolic 103–153; BP diastolic 60–90; PULSE 57–90; RESP 18–20; TEMP 97.9–98.2; O2SAT 96–98
[2017-02-18] MEDS: DILTIAZEM HCL 90 MG TAB PO SCH ×5 (00:07→22:26)
[2017-02-18 00:09] LABS: CREATINE KINASE 47 U/L (39-308)
[2017-02-18] MEDS: ACETAMINOPHEN 325 MG TAB PO PRN ×2 (01:25→09:03)
[2017-02-18] MEDS: NS + KCL 20 MEQ INJ 1,000 ML IV SCH ×2 (05:15→17:42)
[2017-02-18] MEDS ORDERED: WARFARIN SOD 7.5 MG TAB PO SCH (09:00)
[2017-02-18] MEDS: GABAPENTIN 400 MG CAP PO SCH ×3 (09:05→17:41)
--- NOTE | 2017-02-18 11:43 | HHI.PR ---
Subjective Remarks Follow-up syncopal episode. Patient denies headache, dizziness, lightheadedness , chest pain, dyspnea. No nausea or vomiting. No numbness/tingling/weakness of his extremities. He had short runs of V. tach, approximately 7 beats. He remained asymptomatic during these episodes. Objective Vitals Vital Signs Date Time Temp Pulse Resp B/P (MAP) Pulse Ox O2 Delivery O2 Flow Rate FiO2 02/18/17 08:28 98.2 60 20 103/60 (74) 97 02/18/17 07:30 57 02/18/17 06:04 98.1 66 18 119/80 (93) 97 02/18/17 06:02 63 02/18/17 00:43 74 02/17/17 23:16 98.0 66 18 135/90 (105) 98 02/17/17 20:06 98.2 76 18 133/73 (93) 98 02/17/17 18:33 75 02/17/17 16:28 98.0 77 16 138/76 (96) 96 02/17/17 16:20 78 126/78 (94) 98 02/17/17 14:51 72 20 112/67 (82) 97 Room Air 02/17/17 13:44 18 02/17/17 12:07 97 Room Air 02/17/17 12:07 74 18 106/75 (85) 97 Room Air 02/17/17 12:07 65 18 106/75 (85) 97 Room Air I/O 02/17/17 02/17/17 02/17/17 02/18/17 02/18/17 02/18/17 07:00 15:00 23:00 07:00 15:00 23:00 Intake Total 500 ml 500 ml Output Total 1600 ml Balance 500 ml 500 ml -1600 ml Intake Oral 500 ml IV Total 500 ml Output Urine Total 1600 ml # Voids 5 Result Diagram: 02/17/17 1020 02/17/17 1140 Imaging Last Impressions Chest X-Ray 02/17/17 1010 Signed Impressions: Service Date/Time: Friday, February 17, 2017 10:31 - CONCLUSION: No acute disease. Sohail Willett MD Objective Remarks General: No acute distress. Heart: Irregular rhythm. Lungs: Clear to auscultation bilaterally. No wheezes, rales, or rhonchi. Breathing is nonlabored. Abdomen: Soft, nontender, nondistended. Extremities: No lower extremity edema. Psych: Alert and oriented. Procedures None Urinary Catheter: No Vascular Central Line Catheter: No A/P Problem List: (1) Syncope ICD Code: R55 - Syncope and collapse Status: Acute (2) Hypertension ICD Code: I10 - Essential (primary) hypertension Status: Chronic (3) Hyperlipidemia ICD Code: E78.5 - Hyperlipidemia, unspecified Status: Chronic (4) Atrial fibrillation ICD Code: I48.91 - Atrial fibrillation Status: Chronic (5) CAD (coronary artery disease) ICD Code: I25.10 - CAD (coronary artery disease) Status: Chronic Assessment and Plan 1. Syncopal episode: Appreciate cardiology recommendations. Continue telemetry monitoring. Echocardiogram ordered. Neurology consult pending. EEG and carotid artery ultrasound ordered. No further symptoms today. Patient did have apparent 7 beat runs of V. tach today remained asymptomatic. 2. Atrial fibrillation: Chronic. Continue Coumadin. INR is therapeutic. 3. Hypertension: Continue Cardura. 4. Hyperlipidemia: Continue atorvastatin. 5. Tobacco abuse: Counseled to quit. 6. Marijuana abuse: Counseled. 7. DVT prophylaxis: INR is therapeutic on Coumadin. Benito Brown MD Feb 18, 2017 11:43
--- NOTE | 2017-02-18 12:04 | RADRPT ---
EXAM DATE/TIME: 02/18/2017 11:15 [facility] COMPARISON: No previous studies available for comparison. INDICATIONS : Syncope. MEDICAL HISTORY : Myocardial infarction. Hypercholesterolemia. Hypertension. Glasses. Missing teeth. Dizziness. Syncope . Coronary artery disease. Anticoagulant therapy, warfarin. Chest pain. Atrial fibrillation. Dyspnea. Gastroesophageal reflux disease. Arthritis. Chronic back pain. Hepatitis C. Substance abuse. SURGICAL HISTORY : Back surgery. ENCOUNTER: Initial ACUITY: 1 day PAIN SCORE: 0/10 LOCATION: Bilateral neck PEAK SYSTOLIC VELOCITIES (cm/sec): ICA/CCA RATIO: Right: 0.8 Left: 0.5 ICA: Right: 45.3 Left: 37.0 CCA: Right: 56.8 Left: 81.4 ECA: Right: 42.7 Left: 49.3 VERTEBRAL: Right: 53.2 antegrade Left: 42.0 antegrade Elevated flow velocities and ICA/CCA ratios have been found to correlate with increased degrees of vessel stenosis, calculated as percentage of diameter relative to a normal segment of distal ICA/CCA FINDINGS: RIGHT CAROTID: No significant stenosis is visualized. The waveforms are within normal limits. LEFT CAROTID: No significant stenosis is visualized. The waveforms are within normal limits. VERTEBRAL ARTERIES: Antegrade flow is seen in both vertebral arteries. MISCELLANEOUS: None. CONCLUSION: 1. No evidence for hemodynamically significant stenosis. 2. Antegrade flow in the bilateral vertebral arteries. Sohail Willett MD on February 18, 2017 at 12:02 Board Certified Radiologist. This report was verified electronically.
--- NOTE | 2017-02-18 12:34 | PD.CARD.PN ---
Subjective Subjective Remarks alert in nad Objective Vital Signs / I&O Vital Signs Date Time Temp Pulse Resp B/P (MAP) Pulse Ox O2 Delivery O2 Flow Rate FiO2 02/18/17 08:28 98.2 60 20 103/60 (74) 97 02/18/17 07:30 57 02/18/17 06:04 98.1 66 18 119/80 (93) 97 02/18/17 06:02 63 02/18/17 00:43 74 02/17/17 23:16 98.0 66 18 135/90 (105) 98 02/17/17 20:06 98.2 76 18 133/73 (93) 98 02/17/17 18:33 75 02/17/17 16:28 98.0 77 16 138/76 (96) 96 02/17/17 16:20 78 126/78 (94) 98 02/17/17 14:51 72 20 112/67 (82) 97 Room Air 02/17/17 13:44 18 I/O 02/17/17 02/17/17 02/17/17 02/18/17 02/18/17 02/18/17 07:00 15:00 23:00 07:00 15:00 23:00 Intake Total 500 ml 500 ml Output Total 1600 ml Balance 500 ml 500 ml -1600 ml Intake Oral 500 ml IV Total 500 ml Output Urine Total 1600 ml # Voids 5 Physical Exam GENERAL: SKIN: Warm and dry. HEAD: Normocephalic. EYES: No scleral icterus. No injection or drainage. NECK: Supple, trachea midline. No JVD or lymphadenopathy. CARDIOVASCULAR: Regular rate and rhythm without murmurs, gallops, or rubs. RESPIRATORY: Breath sounds equal bilaterally. No accessory muscle use. GASTROINTESTINAL: Abdomen soft, non-tender, nondistended. MUSCULOSKELETAL: No cyanosis, or edema. BACK: Nontender without obvious deformity. No CVA tenderness. Laboratory Laboratory Tests Test 02/17/17 18:05 02/17/17 23:09 Total Creatine Kinase 38 U/L 47 U/L Troponin I LESS THAN 0.02 NG/ML LESS THAN 0.02 NG/ML Assessment and Plan Problem List: (1) Syncope ICD Codes: R55 - Syncope and collapse Status: Acute (2) Hypertension ICD Codes: I10 - Essential (primary) hypertension Status: Chronic (3) Hyperlipidemia ICD Codes: E78.5 - Hyperlipidemia, unspecified Status: Chronic (4) Mural thrombus of heart ICD Codes: I21.3 - Mural thrombus of heart Status: Acute (5) Atrial fibrillation ICD Codes: I48.91 - Atrial fibrillation Status: Chronic (6) CAD (coronary artery disease) ICD Codes: I25.10 - CAD (coronary artery disease) Status: Chronic (7) Chronic anticoagulation ICD Codes: Z79.01 - Chronic anticoagulation Status: Chronic Assessment and Plan 1.) Syncope - carotid us wnl, f/u echo, neurology consult 2.) Afib - continue coumadin, rate controlled, assymptomatic 3.) CAD - continue coumadin, check lipids Michael Torre MD Feb 18, 2017 12:34
[2017-02-18] MEDS: WARFARIN SOD 7.5 MG TAB PO SCH (17:41)
--- NOTE | 2017-02-18 19:06 | ECHRPT ---
Indication: syncope CONCLUSIONS The left ventricular systolic function is normal with an estimated ejection fraction in the range of 55-60%. Normal left ventricular size. [id number] mitral valve regurgitation. No mitral valve stenosis. Mild aortic valve regurgitation. No aortic valve stenosis. There is mild tricuspid valve regurgitation. The pulmonary valve is not well visualized. BP: / HR: Rhythm: MEASUREMENTS (Male / Female) Normal Values Technical Quality:Fair 2D ECHO LV Diastolic Diameter PLAX 5.5 cm 4.2 - 5.9 / 3.9 - 5.3 cm LV Systolic Diameter PLAX 4.2 cm IVS Diastolic Thickness 1.4 cm 0.6 - 1.0 / 0.6 - 0.9 cm LVPW Diastolic Thickness 1.3 cm 0.6 - 1.0 / 0.6 - 0.9 cm LV Relative Wall Thickness 0.5 RV Internal Dim ED PLAX 3.3 cm M-MODE Aortic Root Diameter MM 4.2 cm LA Systolic Diameter MM 5.0 cm LA Ao Ratio MM 1.2 AV Cusp Separation MM 2.8 cm DOPPLER TR Peak Velocity 274.0 cm/s TR Peak Gradient 30.0 mmHg FINDINGS LEFT VENTRICLE The left ventricular systolic function is normal with an estimated ejection fraction in the range of 55-60%. Normal left ventricular size. RIGHT VENTRICLE Normal right ventricular size and systolic function. LEFT ATRIUM The left atrial size is normal. RIGHT ATRIUM The right atrial size is normal. ATRIAL SEPTUM Normal atrial septal thickness without atrial level shunting by limited color doppler interrogation. AORTA The aortic root and proximal ascending aorta are normal in size on limited imaging. MITRAL VALVE Structurally normal mitral valve. [id number]-zv-[id number] mitral valve regurgitation. No mitral valve stenosis. AORTIC VALVE Trileaflet aortic valve. Mild aortic valve regurgitation. No aortic valve stenosis. TRICUSPID VALVE Structurally normal tricuspid valve. There is mild tricuspid valve regurgitation. PULMONARY VALVE The pulmonary valve is not well visualized. VESSELS The inferior vena cava is normal in size. PERICARDIUM No pericardial effusion. Bibiana Reaves MD (Electronically Signed) Final Date:18 February 2017 19:04
--- NOTE | 2017-02-18 19:50 | MB ---
cc: JES DOUGLAS M.D. DATE OF 1945, 71 years old DATE OF CONSULTATION 02/18/2017 REASON FOR CONSULTATION Seizure versus syncope. HISTORY OF THE PRESENT ILLNESS A 71-year-old man with a history of atrial fibrillation on anticoagulation, Coumadin, heart disease, myocardial infarction, hep C, borderline diabetes presented after he had a spell that was described as sitting, shaking of the extremities, incontinence. When he came to he was very fatigued afterwards. Apparently this is never happened to him before. Per chart notes states that he was picking out phones when he became dizzy. As stated he did have urinary incontinence and shaking. He denies ever having such episode and currently in the hospital has not had anything like this. PAST MEDICAL HISTORY He has a history of: 1. Atrial fibrillation on Coumadin. 2. Arthritis. 3. Chronic back pain. 4. Anxiety. 5. Depression. 6. Hyperlipidemia. 7. Heart disease with PR. 8. Hepatitis C. 9. Borderline diabetes. 10. Hypertension. PAST SURGICAL HISTORY 1. Back fusion. 2. Left temporal cyst removal. MEDICATIONS Home medications are: 1. Zoloft. 2. Diphenhydramine. 3. Doxazosin. 4. Gabapentin. 5. Metoprolol. 6. Diltiazem. 7. Warfarin. 8. Tears. 9. Atorvastatin. ALLERGIES Please refer to chart. FAMILY HISTORY Noncontributory. SOCIAL HISTORY Smokes half a pack a day. No alcohol. Occasional marijuana. PHYSICAL EXAMINATION VITAL SIGNS: Temperature 97.9, pulse 90, respiratory rate 28, blood pressure 142/89. NEUROLOGIC: He is awake and alert and fluent. Pupils reactive. His face symmetrical. Tongue midline. Motor: No significant weakness noted. No lateralizing weakness. DTRs are trace. Sensory normal. Gait is with baseline a cane, I did not assess at this time. HEART: Regular. NECK: Carotids no bruit. LABORATORY DATA The labs are reviewed. Cardiac enzymes were negative. INR is 2.0. Toxicology positive for marijuana. Carotid ultrasound unremarkable. IMPRESSION Syncope versus seizure. EEG is still pending to be reported. However, it was just completed today. Carotid ultrasound was negative. Echocardiogram has not been completed thus far. Continue to monitor him. Apparently had some short run of V-tach, 7 beats per chart note. May have been asymptomatic but if his workup from my perspective is unremarkable, I would probably recommend that he have an outpatient Holter versus loop recorder as well. Continue current care and recommendations. MD JOS Blandon/JOSEPHINE /6:09 PM /7:40 PM
--- NOTE | 2017-02-18 21:29 | MG ---
cc: JES DOUGLAS M.D. Lab No: Date: 02/18/2017 Age: Sex: M Race: DATE OF 1945, 71 years old EEG NUMBER [id number]. REFERRING PHYSICIAN Dr. Brown. ROOM H88. Hyperventilation was not done only photic. Awake, drowsy, asleep study EEG in 15 showed mild theta slowing. This is a 71-year-old man who had possible syncope versus seizure while sitting with some incontinence and shaking. History of head trauma as a child. Hyperlipidemia. Substance use in the past. On warfarin for atrial fibrillation. Hepatitis C. DESCRIPTION OF RECORD The patient has an alpha rhythm of 8-9 Hz, 20-40 microvolts, well-organized symmetrical background with a bit of eye movement artifact. EKG looks irregular like atrial fibrillation pattern. There is a definitely a dysrhythmia noted. Overall EEG is fairly well-organized. Photic stimulation does elicit a posterior driving response. IMPRESSION Normal EEG. No epileptiform features in this one recording. Clinical correlation with the patient's history and examination. MD JOS Blandon/JOSEPHINE /8:28 PM /9:19 PM
[2017-02-18 21:31] LABS: INTERNATIONAL NORMALIZED RATIO 2.6 RATIO; PROTHROMBIN TIME - PATIENT 29.6 SEC (9.8-11.6)
[2017-02-18 21:48] LABS: BICARBONATE 26.1 MEQ/L (21.0-32.0); POTASSIUM 4.5 MEQ/L (3.5-5.1)
[2017-02-18] MEDS: ATORVASTATIN 40 MG TAB PO SCH (22:26)
[2017-02-18] MEDS: DOXAZOSIN MESYLATE 2 MG TAB PO SCH (22:26)
[2017-02-18] MEDS: SERTRALINE HCL 50 MG TAB PO SCH (22:26)
[2017-02-19] VITALS (11 sets, daily range): BP systolic 139–176; BP diastolic 74–94; PULSE 66–90; RESP 18–20; TEMP 98–98.6; O2SAT 93–98
[2017-02-19] MEDS: DILTIAZEM HCL 90 MG TAB PO SCH ×3 (06:55→19:10)
[2017-02-19] MEDS: NS + KCL 20 MEQ INJ 1,000 ML IV SCH (08:33)
[2017-02-19] MEDS: GABAPENTIN 400 MG CAP PO SCH ×3 (08:34→19:10)
[2017-02-19] MEDS: ACETAMINOPHEN 325 MG TAB PO PRN (08:35)
--- NOTE | 2017-02-19 11:48 | HHI.PR ---
Subjective Remarks Follow-up syncopal episode. Patient has not had any lightheadedness or dizziness. Denies chest pain, dyspnea, nausea, vomiting. Objective Vitals Vital Signs Date Time Temp Pulse Resp B/P (MAP) Pulse Ox O2 Delivery O2 Flow Rate FiO2 02/19/17 11:23 98.2 76 19 139/84 (102) 96 02/19/17 08:15 83 02/19/17 07:42 98.0 72 18 176/94 (121) 97 02/19/17 03:25 98.2 70 18 152/84 (106) 93 02/19/17 00:22 98.6 80 18 141/74 (96) 98 02/18/17 21:00 98.2 72 18 153/90 (111) 98 02/18/17 16:42 97.9 90 20 142/89 (106) 96 02/18/17 15:26 71 02/18/17 12:32 98.0 60 20 103/60 (74) 96 I/O 02/18/17 02/18/17 02/18/17 02/19/17 02/19/17 02/19/17 07:00 15:00 23:00 07:00 15:00 23:00 Intake Total 200 ml Output Total 1600 ml Balance -1600 ml 200 ml Intake Oral 200 ml Output Urine Total 1600 ml # Voids 5 2 # Bowel Movements 1 Result Diagram: 02/17/17 1020 02/18/17 2040 Imaging Last Impressions Carotid Artery Ultrasound 02/18/17 0000 Signed Impressions: Service Date/Time: Saturday, February 18, 2017 11:15 - CONCLUSION: 1. No evidence for hemodynamically significant stenosis. 2. Antegrade flow in the bilateral vertebral arteries. Sohail Willett MD Chest X-Ray 02/17/17 1010 Signed Impressions: Service Date/Time: Friday, February 17, 2017 10:31 - CONCLUSION: No acute disease. Sohail Willett MD Objective Remarks General: No acute distress. Heart: Irregular rhythm. Lungs: Clear to auscultation bilaterally. No wheezes, rales, or rhonchi. Breathing is nonlabored. Abdomen: Soft, nontender, nondistended. Extremities: No lower extremity edema. Psych: Alert and oriented. Procedures None Urinary Catheter: No Vascular Central Line Catheter: No A/P Problem List: (1) Syncope ICD Code: R55 - Syncope and collapse Status: Acute (2) Hypertension ICD Code: I10 - Essential (primary) hypertension Status: Chronic (3) Hyperlipidemia ICD Code: E78.5 - Hyperlipidemia, unspecified Status: Chronic (4) Atrial fibrillation ICD Code: I48.91 - Atrial fibrillation Status: Chronic (5) CAD (coronary artery disease) ICD Code: I25.10 - CAD (coronary artery disease) Status: Chronic Assessment and Plan 1. Syncopal episode: Appreciate cardiology recommendations. Continue telemetry monitoring. Echocardiogram report reviewed. Appreciate neurology recommendations. EEG is unremarkable. Carotid artery ultrasound negative. No further symptoms today. Patient did have apparent 7 beat runs of V. tach yesterday, but remained asymptomatic. No further episodes of V. tach noted on telemetry overnight. 2. Atrial fibrillation: Chronic. Continue Coumadin. INR is therapeutic. 3. Hypertension: Continue Cardura. 4. Hyperlipidemia: Continue atorvastatin. 5. Tobacco abuse: Counseled to quit. 6. Marijuana abuse: Counseled. 7. DVT prophylaxis: INR is therapeutic on Coumadin. Benito Brown MD Feb 19, 2017 11:48
[2017-02-19] MEDS: WARFARIN SOD 7.5 MG TAB PO SCH (13:01)
--- NOTE | 2017-02-19 14:35 | PD.CARD.PN ---
Subjective Subjective Remarks alert in nad Objective Vital Signs / I&O Vital Signs Date Time Temp Pulse Resp B/P (MAP) Pulse Ox O2 Delivery O2 Flow Rate FiO2 02/19/17 11:23 98.2 76 19 139/84 (102) 96 02/19/17 08:15 83 02/19/17 07:42 98.0 72 18 176/94 (121) 97 02/19/17 03:25 98.2 70 18 152/84 (106) 93 02/19/17 00:22 98.6 80 18 141/74 (96) 98 02/18/17 21:00 98.2 72 18 153/90 (111) 98 02/18/17 16:42 97.9 90 20 142/89 (106) 96 02/18/17 15:26 71 I/O 02/18/17 02/18/17 02/18/17 02/19/17 02/19/17 02/19/17 06:59 14:59 22:59 06:59 14:59 22:59 Intake Total 200 ml Output Total 1600 ml Balance -1600 ml 200 ml Intake Oral 200 ml Output Urine Total 1600 ml # Voids 5 2 # Bowel Movements 1 Physical Exam GENERAL: SKIN: Warm and dry. HEAD: Normocephalic. EYES: No scleral icterus. No injection or drainage. NECK: Supple, trachea midline. No JVD or lymphadenopathy. CARDIOVASCULAR: Regular rate and rhythm without murmurs, gallops, or rubs. RESPIRATORY: Breath sounds equal bilaterally. No accessory muscle use. GASTROINTESTINAL: Abdomen soft, non-tender, nondistended. MUSCULOSKELETAL: No cyanosis, or edema. BACK: Nontender without obvious deformity. No CVA tenderness. Laboratory Laboratory Tests Test 02/18/17 20:40 Prothrombin Time 29.6 SEC Prothromb Time International Ratio 2.6 RATIO Blood Urea Nitrogen 13 MG/DL Creatinine 0.97 MG/DL Random Glucose 116 MG/DL Calcium Level 8.5 MG/DL Sodium Level 137 MEQ/L Potassium Level 4.5 MEQ/L Chloride Level 106 MEQ/L Carbon Dioxide Level 26.1 MEQ/L Anion Gap 5 MEQ/L Estimat Glomerular Filtration Rate 93 ML/MIN Assessment and Plan Problem List: (1) Syncope ICD Codes: R55 - Syncope and collapse Status: Acute (2) Hypertension ICD Codes: I10 - Essential (primary) hypertension Status: Chronic (3) Hyperlipidemia ICD Codes: E78.5 - Hyperlipidemia, unspecified Status: Chronic (4) Mural thrombus of heart ICD Codes: I21.3 - Mural thrombus of heart Status: Acute (5) Atrial fibrillation ICD Codes: I48.91 - Atrial fibrillation Status: Chronic (6) CAD (coronary artery disease) ICD Codes: I25.10 - CAD (coronary artery disease) Status: Chronic (7) Chronic anticoagulation ICD Codes: Z79.01 - Chronic anticoagulation Status: Chronic Assessment and Plan 1.) Syncope - carotid us wnl, f/u echo, neurology consult 2.) Afib - continue coumadin, rate controlled, assymptomatic 3.) CAD - continue coumadin, check lipids 4.) NSVT - rec [facility], patient undecided, nurse, Carolynn Owen at the bedside Michael Torre MD Feb 19, 2017 14:35
[2017-02-19] MEDS: DOXAZOSIN MESYLATE 2 MG TAB PO SCH (20:38)
[2017-02-19] MEDS: SERTRALINE HCL 50 MG TAB PO SCH (20:38)
[2017-02-19] MEDS: ATORVASTATIN 40 MG TAB PO SCH (20:38)
[2017-02-20] VITALS (8 sets, daily range): BP systolic 128–180; BP diastolic 69–92; PULSE 76–102; RESP 18–20; TEMP 97.6–98.7; O2SAT 94–97
[2017-02-20] MEDS: DILTIAZEM HCL 90 MG TAB PO SCH ×4 (01:33→18:23)
[2017-02-20] MEDS: NS + KCL 20 MEQ INJ 1,000 ML IV SCH ×2 (01:35→12:06)
[2017-02-20 06:46] LABS: INTERNATIONAL NORMALIZED RATIO 2.3 RATIO; PROTHROMBIN TIME - PATIENT 26.2 SEC (9.8-11.6)
[2017-02-20] MEDS: GABAPENTIN 400 MG CAP PO SCH ×3 (09:48→18:23)
--- NOTE | 2017-02-20 12:43 | HHI.PR ---
Subjective Remarks Follow up for syncope, NSVT. The patient denies any lightheadedness, dizziness, chest pain, palpitations, or shortness of breath. He would like to proceed with cardiac catheterization. Objective Vitals Vital Signs Date Time Temp Pulse Resp B/P (MAP) Pulse Ox O2 Delivery O2 Flow Rate FiO2 02/20/17 11:35 98.2 90 19 139/85 (103) 97 02/20/17 07:38 98.4 79 19 165/88 (113) 95 02/20/17 03:44 98.4 79 18 151/92 (111) 97 02/20/17 03:35 76 02/19/17 23:56 66 02/19/17 23:24 98.3 88 19 144/91 (108) 94 02/19/17 21:25 90 02/19/17 19:26 98.2 85 18 152/81 (104) 98 02/19/17 15:22 98.5 83 20 150/78 (102) 96 02/19/17 15:00 70 I/O 02/19/17 02/19/17 02/19/17 02/20/17 02/20/17 02/20/17 07:00 15:00 23:00 07:00 15:00 23:00 Output Total 710 ml 500 ml Balance -710 ml -500 ml Output Urine Total 710 ml 500 ml Result Diagram: 02/17/17 1020 02/18/17 2040 Imaging Last Impressions Carotid Artery Ultrasound 02/18/17 0000 Signed Impressions: Service Date/Time: Saturday, February 18, 2017 11:15 - CONCLUSION: 1. No evidence for hemodynamically significant stenosis. 2. Antegrade flow in the bilateral vertebral arteries. Sohail Willett MD Chest X-Ray 02/17/17 1010 Signed Impressions: Service Date/Time: Friday, February 17, 2017 10:31 - CONCLUSION: No acute disease. Sohail Willett MD Objective Remarks GENERAL: Well-nourished, well-developed obese male patient in [facility]. SKIN: Warm and dry. No rash. HEENT: Normocephalic. Atraumatic.Pupils equal and round. Mucous membranes pink and moist. CARDIOVASCULAR: Regular rate and rhythm. S1, S2 noted. No murmur appreciated. RESPIRATORY: No accessory muscle use. Clear to auscultation. Breath sounds equal bilaterally. GASTROINTESTINAL: Abdomen soft, non-tender, nondistended. Normoactive bowel sounds x4. MUSCULOSKELETAL: No obvious deformities. Extremities without clubbing, cyanosis , or edema. BLE chronic venous stasis changes. NEUROLOGICAL: Awake and alert. No obvious cranial nerve deficits. Motor grossly within normal limits. Normal speech. PSYCHIATRIC: Appropriate mood and affect; insight and judgment normal. Procedures None Medications and IVs Current Medications Medications (Trade) Dose Ordered Sig/Raeann Route Start Time Stop Time Status Last Admin (NS Flush) 2 ml UNSCH PRN IVF 02/17/17 10:15 Potassium Chloride/Sodium Chloride 1,000 ml @ 70 mls/hr [id number] IV 02/17/17 14:00 02/20/17 12:06 (Lipitor) 40 mg HS PO 02/17/17 21:00 02/19/17 20:38 (Cardizem) 90 mg Q6HR PO 02/17/17 18:00 02/20/17 12:05 (Benadryl) 25 mg Q6HR PRN PO 02/17/17 14:00 02/18/17 22:26 (Cardura) 2 mg HS PO 02/17/17 21:00 02/19/17 20:38 (Neurontin) 1,200 mg TID PO 02/17/17 18:00 02/20/17 12:05 (Tears Naturale Opth Soln) 1 drop QID PRN EACH EYE 02/17/17 14:00 (Zoloft) 150 mg HS PO 02/17/17 21:00 02/19/17 20:38 (Coumadin) 7.5 mg DAILY@1600 PO 02/17/17 16:00 02/18/17 17:41 (Tylenol) 650 mg Q4H PRN PO 02/18/17 01:00 02/19/17 08:35 A/P Problem List: (1) Syncope ICD Code: R55 - Syncope and collapse Status: Acute (2) Hypertension ICD Code: I10 - Essential (primary) hypertension Status: Chronic (3) Hyperlipidemia ICD Code: E78.5 - Hyperlipidemia, unspecified Status: Chronic (4) Atrial fibrillation ICD Code: I48.91 - Atrial fibrillation Status: Chronic (5) CAD (coronary artery disease) ICD Code: I25.10 - CAD (coronary artery disease) Status: Chronic Assessment and Plan 71-year-old male with history of afib on Coumadin, CAD, borderline DM, HTN, HLD , anxiety, depression, chronic back pain, arthritis, presents after a syncopal episode Syncope: patient felt dizzy and passed out, with urinary incontinence and headache upon awakening. -Carotid U/S unremarkable. -CXR images reviewed, unremarkable. -Echocardiogram with normal systolic function EF 55-60%, trace MR, mild AR, mild TR. -EEG unremarkable. -Monitor on telemetry, patient had 7beat run of V. tach -Appreciate neurology recommendations. -Appreciate cardiology recommendations, Dr. Torre plan for [facility] likely tomorrow, hold coumadin, NPO after midnight. Atrial fibrillation: Chronic. Continue Coumadin. INR is therapeutic, however hold Coumadin today for possible cath tomorrow. Hypertension: Continue Cardura. Hyperlipidemia: Continue atorvastatin. Tobacco abuse: Counseled to quit. Marijuana abuse: Counseled. Obesity: will camp head counselor on weight reduction. Heart Healthy diet. DVT prophylaxis: INR is therapeutic on Coumadin. Discharge Planning Patient likely going for [facility] tomorrow or next day with INR within range. Laura Garza PA-C Feb 20, 2017 12:43 pm
[2017-02-20] MEDS: SERTRALINE HCL 50 MG TAB PO SCH (21:08)
[2017-02-20] MEDS: DOXAZOSIN MESYLATE 2 MG TAB PO SCH (21:08)
[2017-02-20] MEDS: ATORVASTATIN 40 MG TAB PO SCH (21:08)
[2017-02-21] VITALS (12 sets, daily range): BP systolic 132–159; BP diastolic 78–98; PULSE 71–97; RESP 18–20; TEMP 97.7–98.6; O2SAT 95–98
[2017-02-21] MEDS: DILTIAZEM HCL 90 MG TAB PO SCH ×4 (00:11→18:15)
[2017-02-21] MEDS: NS + KCL 20 MEQ INJ 1,000 ML IV SCH ×2 (06:04→18:06)
--- NOTE | 2017-02-21 08:29 | HHI.PR ---
Subjective Remarks Follow up for syncope, NSVT, chest pain. The patient reports an episode of chest pain last night, described as sharp, radiated across anterior chest, lasted less than a minute then went away on its own. He denies any lightheadedness, dizziness, palpitations, or shortness of breath. Objective Vitals Vital Signs Date Time Temp Pulse Resp B/P (MAP) Pulse Ox O2 Delivery O2 Flow Rate FiO2 02/21/17 07:56 98.0 84 20 132/78 (96) 97 02/21/17 05:29 97.7 82 19 139/81 (100) 96 02/21/17 04:00 84 02/21/17 00:48 98.0 84 18 139/79 (99) 95 02/21/17 00:01 78 02/21/17 00:00 90 02/20/17 20:35 98.7 95 18 136/82 (100) 94 180/86 (117) 02/20/17 20:00 102 02/20/17 15:48 97.6 98 20 128/69 (88) 95 02/20/17 15:00 83 02/20/17 11:35 98.2 90 19 139/85 (103) 97 I/O 02/20/17 02/20/17 02/20/17 02/21/17 02/21/17 02/21/17 06:59 14:59 22:59 06:59 14:59 22:59 Output Total 500 ml Balance -500 ml Output Urine Total 500 ml Result Diagram: 02/17/17 1020 02/18/17 2040 Imaging Last Impressions Carotid Artery Ultrasound 02/18/17 0000 Signed Impressions: Service Date/Time: Saturday, February 18, 2017 11:15 - CONCLUSION: 1. No evidence for hemodynamically significant stenosis. 2. Antegrade flow in the bilateral vertebral arteries. Sohail Willett MD Chest X-Ray 02/17/17 1010 Signed Impressions: Service Date/Time: Friday, February 17, 2017 10:31 - CONCLUSION: No acute disease. Sohail Willett MD Objective Remarks GENERAL: Well-nourished, well-developed obese male patient in [facility]. SKIN: Warm and dry. No rash. HEENT: Normocephalic. Atraumatic.Pupils equal and round. Mucous membranes pink and moist. CARDIOVASCULAR: Regular rate and rhythm. S1, S2 noted. No murmur appreciated. RESPIRATORY: No accessory muscle use. Clear to auscultation. Breath sounds equal bilaterally. GASTROINTESTINAL: Abdomen soft, non-tender, nondistended. Normoactive bowel sounds x4. MUSCULOSKELETAL: No obvious deformities. Extremities without clubbing, cyanosis , or edema. BLE chronic venous stasis changes. NEUROLOGICAL: Awake and alert. No obvious cranial nerve deficits. Motor grossly within normal limits. Normal speech. PSYCHIATRIC: Appropriate mood and affect; insight and judgment normal. Procedures None Medications and IVs Current Medications Medications (Trade) Dose Ordered Sig/Raeann Route Start Time Stop Time Status Last Admin (NS Flush) 2 ml UNSCH PRN IVF 02/17/17 10:15 02/20/17 21:07 Potassium Chloride/Sodium Chloride 1,000 ml @ 70 mls/hr [id number] IV 02/17/17 14:00 02/21/17 06:04 (Lipitor) 40 mg HS PO 02/17/17 21:00 02/20/17 21:08 (Cardizem) 90 mg Q6HR PO 02/17/17 18:00 02/21/17 06:03 (Benadryl) 25 mg Q6HR PRN PO 02/17/17 14:00 02/18/17 22:26 (Cardura) 2 mg HS PO 02/17/17 21:00 02/20/17 21:08 (Neurontin) 1,200 mg TID PO 02/17/17 18:00 02/20/17 18:23 (Tears Naturale Opth Soln) 1 drop QID PRN EACH EYE 02/17/17 14:00 (Zoloft) 150 mg HS PO 02/17/17 21:00 02/20/17 21:08 (Coumadin) 7.5 mg DAILY@1600 PO 02/17/17 16:00 Future Hold 02/18/17 17:41 (Tylenol) 650 mg Q4H PRN PO 02/18/17 01:00 02/19/17 08:35 A/P Problem List: (1) Syncope ICD Code: R55 - Syncope and collapse Status: Acute (2) Hypertension ICD Code: I10 - Essential (primary) hypertension Status: Chronic (3) Hyperlipidemia ICD Code: E78.5 - Hyperlipidemia, unspecified Status: Chronic (4) Atrial fibrillation ICD Code: I48.91 - Atrial fibrillation Status: Chronic (5) CAD (coronary artery disease) ICD Code: I25.10 - CAD (coronary artery disease) Status: Chronic Assessment and Plan 71-year-old male with history of afib on Coumadin, CAD, borderline DM, HTN, HLD , anxiety, depression, chronic back pain, arthritis, presents after a syncopal episode Syncope: patient felt dizzy and passed out, with urinary incontinence and headache upon awakening. -Carotid U/S unremarkable. -CXR images reviewed, unremarkable. -Echocardiogram with normal systolic function EF 55-60%, trace MR, mild AR, mild TR. -EEG unremarkable. -Monitor on telemetry, patient had 7beat run of V. tach -Appreciate neurology recommendations. -Appreciate cardiology recommendations, Dr. Torre plan for [facility], when INR within range, hold coumadin, NPO after midnight. Atrial fibrillation: Chronic. Continue Coumadin. INR is therapeutic, however hold Coumadin for heart cath. Hypertension: Continue Cardura. Hyperlipidemia: Continue atorvastatin. Tobacco abuse: Counseled to quit. Marijuana abuse: Counseled. Obesity: will branch credit counselor on weight reduction. Heart Healthy diet. DVT prophylaxis: INR is therapeutic on Coumadin. Discharge Planning Patient going for [facility] today or tomorrow when INR within range. Laura Garza PA-C Feb 21, 2017 8:29 am
[2017-02-21] MEDS: GABAPENTIN 400 MG CAP PO SCH ×3 (08:48→18:15)
[2017-02-21] MEDS: ACETAMINOPHEN 325 MG TAB PO PRN (08:49)
[2017-02-21 10:50] LABS: HEMATOCRIT 44.7 % (39.0-51.0); MEAN CELL VOLUME 83.7 FL (80.0-100.0); MEAN CORPUSCULAR HEMOGLOBIN 27.1 PG (27.0-34.0); MEAN CORPUSCULAR HGB CONC 32.4 % (32.0-36.0); PLATELET COUNT 152 TH/MM3 (150-450); RED BLOOD COUNT 5.35 MIL/MM3 (4.50-5.90); RED CELL DISTRIBUTION WIDTH 18.1 % (11.6-17.2); REVIEW FLAG FINAL; WHITE BLOOD COUNT 5.3 TH/MM3 (4.0-11.0)
[2017-02-21 10:58] LABS: INTERNATIONAL NORMALIZED RATIO 1.5 RATIO; PROTHROMBIN TIME - PATIENT 16.9 SEC (9.8-11.6)
[2017-02-21 11:09] LABS: MAGNESIUM 2.1 MG/DL (1.5-2.5); POTASSIUM 4.2 MEQ/L (3.5-5.1)
[2017-02-21] MEDS ORDERED: HEPARIN SODIUM - IV 10,000 UNITS/10 ML VIAL IV ONE (12:45)
--- NOTE | 2017-02-21 13:30 | PD.CARD.PN ---
Subjective Subjective Remarks alert in nad Objective Vital Signs / I&O Vital Signs Date Time Temp Pulse Resp B/P (MAP) Pulse Ox O2 Delivery O2 Flow Rate FiO2 02/21/17 12:32 98.3 90 18 159/98 (118) 96 02/21/17 07:56 98.0 84 20 132/78 (96) 97 02/21/17 05:29 97.7 82 19 139/81 (100) 96 02/21/17 04:00 84 02/21/17 00:48 98.0 84 18 139/79 (99) 95 02/21/17 00:01 78 02/21/17 00:00 90 02/20/17 20:35 98.7 95 18 136/82 (100) 94 180/86 (117) 02/20/17 20:00 102 02/20/17 15:48 97.6 98 20 128/69 (88) 95 02/20/17 15:00 83 I/O 02/20/17 02/20/17 02/20/17 02/21/17 02/21/17 02/21/17 06:59 14:59 22:59 06:59 14:59 22:59 Output Total 500 ml Balance -500 ml Output Urine Total 500 ml Physical Exam GENERAL: SKIN: Warm and dry. HEAD: Normocephalic. EYES: No scleral icterus. No injection or drainage. NECK: Supple, trachea midline. No JVD or lymphadenopathy. CARDIOVASCULAR: Regular rate and rhythm without murmurs, gallops, or rubs. RESPIRATORY: Breath sounds equal bilaterally. No accessory muscle use. GASTROINTESTINAL: Abdomen soft, non-tender, nondistended. MUSCULOSKELETAL: No cyanosis, or edema. BACK: Nontender without obvious deformity. No CVA tenderness. Laboratory Laboratory Tests Test 02/21/17 09:32 White Blood Count 5.3 TH/MM3 Red Blood Count 5.35 MIL/MM3 Hemoglobin 14.5 GM/DL Hematocrit 44.7 % Mean Corpuscular Volume 83.7 FL Mean Corpuscular Hemoglobin 27.1 PG Mean Corpuscular Hemoglobin Concent 32.4 % Red Cell Distribution Width 18.1 % Platelet Count 152 TH/MM3 Mean Platelet Volume 8.7 FL Prothrombin Time 16.9 SEC Prothromb Time International Ratio 1.5 RATIO Blood Urea Nitrogen 11 MG/DL Creatinine 0.85 MG/DL Random Glucose 100 MG/DL Calcium Level 9.1 MG/DL Magnesium Level 2.1 MG/DL Sodium Level 136 MEQ/L Potassium Level 4.2 MEQ/L Chloride Level 103 MEQ/L Carbon Dioxide Level 28.0 MEQ/L Anion Gap 5 MEQ/L Estimat Glomerular Filtration Rate 108 ML/MIN Assessment and Plan Problem List: (1) Syncope ICD Codes: R55 - Syncope and collapse Status: Acute (2) Hypertension ICD Codes: I10 - Essential (primary) hypertension Status: Chronic (3) Hyperlipidemia ICD Codes: E78.5 - Hyperlipidemia, unspecified Status: Chronic (4) Mural thrombus of heart ICD Codes: I21.3 - Mural thrombus of heart Status: Acute (5) Atrial fibrillation ICD Codes: I48.91 - Atrial fibrillation Status: Chronic (6) CAD (coronary artery disease) ICD Codes: I25.10 - CAD (coronary artery disease) Status: Chronic (7) Chronic anticoagulation ICD Codes: Z79.01 - Chronic anticoagulation Status: Chronic Assessment and Plan 1.) Syncope - carotid us wnl, f/u echo, neurology consult 2.) Afib - coumadin held, rate controlled, assymptomatic, heparin drio started 3.) CAD/nsvt/syncope - cath 02/22/17 Michael Torre MD Feb 21, 2017 13:30
[2017-02-21] MEDS: HEPARIN 25,000 UNITS-D5W 250 ML - PREMIX IV SCH (14:23)
[2017-02-21 15:55] LABS: APTT (PATIENT) 145.9 SEC (24.3-30.1)
[2017-02-21 17:38] LABS: APTT (PATIENT) 69.3 SEC (24.3-30.1)
[2017-02-21] MEDS: SERTRALINE HCL 50 MG TAB PO SCH (20:55)
[2017-02-21] MEDS: DOXAZOSIN MESYLATE 2 MG TAB PO SCH (20:55)
[2017-02-21] MEDS: ATORVASTATIN 40 MG TAB PO SCH (20:55)
[2017-02-22] VITALS: PULSE 94
[2017-02-22 00:01] VITALS: BP 113/57; PULSE 87; RESP 18; TEMP 98.1; O2SAT 96
[2017-02-22] MEDS: DILTIAZEM HCL 90 MG TAB PO SCH ×5 (00:03→23:16)
[2017-02-22 01:02] LABS: APTT (PATIENT) 51.3 SEC (24.3-30.1)
[2017-02-22 04:00] VITALS: BP 130/74; PULSE 79; PULSE 84; RESP 18; TEMP 98; O2SAT 96
[2017-02-22] MEDS: ACETAMINOPHEN 325 MG TAB PO PRN (06:27)
[2017-02-22] MEDS: HEPARIN 25,000 UNITS-D5W 250 ML - PREMIX IV SCH (06:52)
[2017-02-22 08:32] LABS: APTT (PATIENT) 68.9 SEC (24.3-30.1)
[2017-02-22 08:42] LABS: INTERNATIONAL NORMALIZED RATIO 1.3 RATIO; PROTHROMBIN TIME - PATIENT 14.9 SEC (9.8-11.6)
[2017-02-22 09:00] VITALS: BP 137/88; PULSE 73; RESP 18; TEMP 98.2; O2SAT 95
[2017-02-22] MEDS: GABAPENTIN 400 MG CAP PO SCH ×3 (09:09→20:33)
[2017-02-22] MEDS: NS + KCL 20 MEQ INJ 1,000 ML IV SCH ×2 (09:09→23:18)
--- NOTE | 2017-02-22 09:33 | HHI.PR ---
Subjective Remarks Follow up for syncope, NSVT, chest pain. The patient reports feeling well today. Denies any further chest pains. Denies any shortness of breath. He's going for heart cath today. He has no other medical complaints at this time. Objective Vitals Vital Signs Date Time Temp Pulse Resp B/P (MAP) Pulse Ox O2 Delivery O2 Flow Rate FiO2 02/22/17 07:27 12 02/22/17 04:00 98.0 84 18 130/74 (92) 96 02/22/17 04:00 79 02/22/17 00:01 98.1 87 18 113/57 (75) 96 02/22/17 00:00 94 02/21/17 20:09 98.0 88 18 143/85 (104) 97 02/21/17 20:00 97 02/21/17 17:00 98.6 79 20 156/98 (117) 98 02/21/17 12:38 71 02/21/17 12:32 98.3 90 18 159/98 (118) 96 Result Diagram: 02/21/17 0932 02/21/17 0932 Imaging Last Impressions Carotid Artery Ultrasound 02/18/17 0000 Signed Impressions: Service Date/Time: Saturday, February 18, 2017 11:15 - CONCLUSION: 1. No evidence for hemodynamically significant stenosis. 2. Antegrade flow in the bilateral vertebral arteries. Sohail Willett MD Chest X-Ray 02/17/17 1010 Signed Impressions: Service Date/Time: Friday, February 17, 2017 10:31 - CONCLUSION: No acute disease. Sohail Willett MD Objective Remarks GENERAL: Well-nourished, well-developed obese male patient in [facility]. SKIN: Warm and dry. No rash. HEENT: Normocephalic. Atraumatic.Pupils equal and round. Mucous membranes pink and moist. CARDIOVASCULAR: Regular rate and rhythm. S1, S2 noted. No murmur appreciated. RESPIRATORY: No accessory muscle use. Clear to auscultation. Breath sounds equal bilaterally. GASTROINTESTINAL: Abdomen soft, non-tender, nondistended. Normoactive bowel sounds x4. MUSCULOSKELETAL: No obvious deformities. Extremities without clubbing, cyanosis , or edema. BLE chronic venous stasis changes. NEUROLOGICAL: Awake and alert. No obvious cranial nerve deficits. Motor grossly within normal limits. Normal speech. PSYCHIATRIC: Appropriate mood and affect; insight and judgment normal. Procedures None Medications and IVs Current Medications Medications (Trade) Dose Ordered Sig/Raeann Route Start Time Stop Time Status Last Admin (NS Flush) 2 ml UNSCH PRN IVF 02/17/17 10:15 02/20/17 21:07 Potassium Chloride/Sodium Chloride 1,000 ml @ 70 mls/hr [id number] IV 02/17/17 14:00 02/22/17 09:09 (Lipitor) 40 mg HS PO 02/17/17 21:00 02/21/17 20:55 (Cardizem) 90 mg Q6HR PO 02/17/17 18:00 02/22/17 05:55 (Benadryl) 25 mg Q6HR PRN PO 02/17/17 14:00 02/18/17 22:26 (Cardura) 2 mg HS PO 02/17/17 21:00 02/21/17 20:55 (Neurontin) 1,200 mg TID PO 02/17/17 18:00 02/22/17 09:09 (Tears Naturale Opth Soln) 1 drop QID PRN EACH EYE 02/17/17 14:00 (Zoloft) 150 mg HS PO 02/17/17 21:00 02/21/17 20:55 (Coumadin) 7.5 mg DAILY@1600 PO 02/17/17 16:00 Future Hold 02/18/17 17:41 (Tylenol) 650 mg Q4H PRN PO 02/18/17 01:00 02/22/17 06:27 Heparin Sodium/ Dextrose 250 ml @ 18 mls/hr TITRATE IV 02/21/17 12:30 02/22/17 06:52 A/P Problem List: (1) Syncope ICD Code: R55 - Syncope and collapse Status: Acute (2) Hypertension ICD Code: I10 - Essential (primary) hypertension Status: Chronic (3) Hyperlipidemia ICD Code: E78.5 - Hyperlipidemia, unspecified Status: Chronic (4) Atrial fibrillation ICD Code: I48.91 - Atrial fibrillation Status: Chronic (5) CAD (coronary artery disease) ICD Code: I25.10 - CAD (coronary artery disease) Status: Chronic Assessment and Plan 71-year-old male with history of afib on Coumadin, CAD, borderline DM, HTN, HLD , anxiety, depression, chronic back pain, arthritis, presents after a syncopal episode Syncope: patient felt dizzy and passed out, with urinary incontinence and headache upon awakening. -Carotid U/S unremarkable. -CXR images reviewed, unremarkable. -Echocardiogram with normal systolic function EF 55-60%, trace MR, mild AR, mild TR. -EEG unremarkable. -Monitor on telemetry, patient had 7beat run of V. tach -Appreciate neurology recommendations. -Appreciate cardiology recommendations, Dr. Torre plan for [facility] today, coumadin on hold, on heparin drip. Atrial fibrillation: Chronic. Continue Coumadin. INR is therapeutic, however hold Coumadin for heart cath. Hypertension: Continue Cardura. Hyperlipidemia: Continue atorvastatin. Tobacco abuse: Counseled to quit. Marijuana abuse: Counseled. Obesity: will counseling services manager on weight reduction. Heart Healthy diet. DVT prophylaxis: on heparin drip Discharge Planning Patient going for [facility] today. Further disposition to follow. Laura Garza PA-C Feb 22, 2017 9:33 am
[2017-02-22] MEDS ORDERED: IOHEXOL 350 MG/ML 100 ML BTL (for Cath Lab) OTHER ONE (10:42)
[2017-02-22] MEDS ORDERED: HEPARIN-NS/PF INJ 500 ML ONE (10:47)
[2017-02-22] MEDS ORDERED: methylPREDNISolone SOD SUCC 125 MG/2 ML VIAL ONE (10:53)
[2017-02-22] MEDS ORDERED: FAMOTIDINE 20 MG/2 ML VIAL ONE (10:53)
[2017-02-22] MEDS ORDERED: diphenhydrAMINE HCL 50 MG/ML VIAL ONE (10:53)
[2017-02-22] MEDS ORDERED: MIDAZOLAM HCL 2 MG/2 ML VIAL ONE ×2 (10:53→11:50)
[2017-02-22] MEDS ORDERED: NITROGLYCERIN 2% OINT 1 GM PACKET ONE (11:51)
--- NOTE | 2017-02-22 12:01 | CATHPROC ---
[facility]ura Processing HIS Report Study Information Study Number Admission Scheduled Start Study Start [id number] Feb 17 2017 1:48PM 02/22/2017 Feb 22 2017 10:42AM [place] [facility] Cardiac Catheterization Admit Source Facility Department Emergency department [facility] - Repairer Screen Crusher Physician and Clinical Staff Initial Michael Berumen Auxiliary Power Equipment OperatorXochitl Ordaz RN Auxiliary Power Equipment Operatoreliza Haas RN, Noah Recorder Sneha Peters,RT(R) Recorder Ray Verma RCIS(BS) Scrub Yoly Woodard,RT(R) (BS) Procedures Performed Procedure Location (Site) Vessel Name Coronary Angiograms LCA Left Coronary Coronary Angiograms RCA Right Coronary L Heart Cath Equipment Time Mathematics Teacher Description Size Mfg Part Number Used/Scraped TRANSDUCER, TRUWAVE [id number] 11:01 JOHNSON MORALES * Used W/STOCKCOCK *[id number] 533-422 *[id number] [id number] *[id number] 11:01 MEDLINE [employer] PACK, CCL CUSTOM * Used *[id number] 11:01 [employer] PACER PEN, SKIN DUAL W/ RULER * Used *[id number] 11:01 Cirrascale WIRE, 3MMJ .035 180CM 180CM Used *[id number] 11:01 NAMIC MANIFOLD, 4 PORT * Used *[id number] 11:01 NYCOMED OMNIPAQUE, 350 MG, 150ML 150ML [id number] Used [id number] 11:01 AGUILAR MEDICAL BLANKET,WARM AIR CCL * Used *[id number] 11:01 TERUMO MEDICAL SHEATH, FR4 TERUMO (10CM) FR 4 Used *[id number] [id number] Scrap: Physician *[id number] choice History: Current Medications Medication Dosage/Unit Route Frequency Last Date/Time Taken Coumadin Beta Nidia Statins (any) History: Allergies Allergy Reaction iohexol SEVERE VOMITING diatrizoate meglumine SEVERE VOMITING gadoteridol SEVERE VOMITING gadodiamide SEVERE VOMITING iodixanol SEVERE VOMITING gadobenic acid SEVERE VOMITING History: Risk Factors Family History of Hypertension Dyslipidemia Previous [place] Previous Heart Failure Premature CAD Yes Yes No Yes No Prior Valve Prior PCI Prior CABG Surgery No No No Cerebrovascular Peripheral Artery Chronic Lung On Dialysis Diabetes Disease Disease Disease No No No No No History: Symptoms/Diagnosis Selection Items Chest pain History: Stress Tests Stress or Imaging Studies Performed No History: Arrhythmias Selection Items Atrial fibrillation History: Other Disease Selection Items CAD Hepatitis HTN History: Other Current Smoker Method Packs a Day Years Used Pack Years Yes Cigarettes 1 25 25 Labs Hgb (g/dl) Hct (%) WBC (l/cumm) Platelets (thousands) 11.60-17.00 35.00-51.00 4.00-11.00 150.00-450.00 14.5 44.7 5.3 152 Glucose (mg/dl) BUN (mg/dl) Creatinine (mg/dl) BUN:Creatinine (1:x) 74.00-106.00 7.00-18.00 0.50-1.30 10.00-20.00 100 5 0.8 6.3 Na (meq/l) K (meq/l) 136.00-145.00 3.50-5.10 136 4.2 INR (PTT:PT) 0.90-1.10 1.3 Troponin I (ng/ml) CPK (u/l) CPK-MB (ng/ML) 0.02-0.05 26.00-308.00 0.50-3.60 0.02 47 Not Drawn Medication Medication Total Dose (Bolus/Oral) Medication Total Dosage/Unit 1% XYLOCAINE 10 mL BENADRYL 50 mg NITRO OINTMENT 2 inches PEPCID 20 mg SOLU-MEDROL 125 mg VERSED 2 mg Medications (Bolus/Oral) Medication Time Given Dosage/Unit Administered By Reason SOLU-MEDROL 02/22/2017 11:27:00 AM 125 mg Noah Haas RN 125 mg SOLU-MEDROL given in lab by Noah Haas RN in Right Forearm via Peripheral IV. Ordered by Michael Stewart. BENADRYL 02/22/2017 11:28:00 AM 50 mg Noah Haas RN 50 mg BENADRYL given in lab by Noah Haas RN in Right Forearm via Peripheral IV. Ordered by Michael Edge. PEPCID 02/22/2017 11:29:00 AM 20 mg Noah Haas RN 20 mg PEPCID given in lab by Noah Haas RN in Right Forearm via Peripheral IV. Ordered by Michael Torre. VERSED 02/22/2017 11:30:00 AM 1 mg Noah Haas RN 1 mg VERSED given in lab by Noah Haas RN in Right Forearm via Peripheral IV. Ordered by Michael Torre. 1% XYLOCAINE 02/22/2017 11:31:32 AM 10 mL Michael Torre 10 mL 1% XYLOCAINE given in lab by Michael Torre in Right Groin via Subcutaneous. Ordered by Michael Fierro. VERSED 02/22/2017 11:50:00 AM 1 mg Waldo BOSS, Noah 1 mg VERSED given in lab by Noah Haas RN in Right Forearm via Peripheral IV. Ordered by Michael Torre. NITRO OINTMENT 02/22/2017 11:50:00 AM 2 inches Waldo BOSS, Noah 2 inches NITRO OINTMENT given in lab by Noah Haas RN via Topical. Ordered by Michael Torer. Initial Case Assessment Cardiovascular HR Rhythm NIBP Chest Pain 88 A-fib 160/99 0 Edema Present Skin color Skin None Normal Warm Dry Neurological State Oriented to time-place- Alert Moves all extremities person Respiration - General Respiration Rate SpO2 (%) (B/min) 11 98 Chronological Log Time Study Chronological Log 10:42:16 Patient arrived via Bed. 10:42:17 Patient Name, D.O.B, / Armband Verified By R.N. 10:42:18 Consent signed by the physician and the patient and verified by the Repairer Screen Crusher staff. 10:42:20 Pre-op and post- op instructions given; patient acknowledges understanding of instructions . 10:42:21 Verbal Stimulation=2 Physical Stimulation=2 Airway=2 Respiration=2 TOTAL=8. (0=absent, 1=l imited, 2=present) 10:42:28 Patient has been NPO for Less than 6Hrs. 10:42:31 Skin Breakdown- none per pt 10:42:35 Patient Warmer Placed on the Table. 10:42:38 A # 20 IV was noted in the Forearm (right). Grade = 0 10:42:39 History and physical on the chart or being dictated. Assessment: Initial Case, HR=88 BPM, Rhythm=A-fib, OXSC=080/99 mmhg, Chest Pain=0, Edema=None, Color=Normal, Skin = Warm, Dry 10:42:40 Neurological: State=Alert, Ox3, KEEN Respiration: Resp=11 B/min, SpO2=98 % 10:42:42 Bilateral groins prepped with 2% chlorhexidine, and with a 3 min. waiting time. 10:44:40 Reference ECG taken Vitals capture started with the following parameters, Patient=Adult, Interval=5 min, Initial Pr jhfggu=898 mmHg, 10:45:46 Deflation Rate=5 mmHg, Cuff placed on Left Arm 10:46:24 HR=75 bpm, AGRF=191/99 mmhg, SpO2=99.0 %, Resp=14 B/min, Pain=0, Palak=10, Bailey=2 10:51:25 HR=79 bpm, TSHU=217/99 mmhg, SpO2=98.0 %, Resp=16 B/min, Pain=0, Palak=10, Bailey=2 10:56:26 HR=87 bpm, KFCU=734/91 mmhg, SpO2=98.0 %, Resp=18 B/min, Pain=0, Palak=10, Bailey=2 10:59:57 MD paged 11:00:34 MD responded 11:01:27 HR=77 bpm, OBRN=821/100 mmhg, SpO2=98.0 %, Resp=12 B/min, Pain=0, Palak=10, Bailey=2 11:01:29 Pressure channel 1 zeroed. 11:06:29 HR=84 bpm, XBEK=219/90 mmhg, SpO2=99.0 %, Resp=9 B/min, Pain=0, Palak=10, Bailey=2 11:11:23 HR=80 bpm, PFGT=811/96 mmhg, SpO2=98.0 %, Resp=13 B/min, Pain=0, Palak=10, Bailey=2 11:16:29 HR=69 bpm, HBLI=430/85 mmhg, SpO2=97.0 %, Resp=12 B/min, Pain=0, Palak=10, Bailey=2 11:21:56 HR=78 bpm, OBCN=817/92 mmhg, SpO2=97.0 %, Resp=8 B/min, Pain=0, Palak=10, Bailey=2 11:25:47 MD arrived. 11:26:29 HR=77 bpm, IMJH=186/88 mmhg, SpO2=96.0 %, Resp=16 B/min, Pain=0, Palak=10, Bailey=2 125 mg SOLU-MEDROL given in lab by Noah Haas RN in Right Forearm via Peripheral IV. Ordered by Nicho 11:27:00 Michael. 11:28:00 50 mg BENADRYL given in lab by Noah Haas RN in Right Forearm via Peripheral IV. Ordered by Michael Torre. 11:29:00 20 mg PEPCID given in lab by Noah Haas RN in Right Forearm via Peripheral IV. Ordered by Michael Torre. 11:30:00 1 mg VERSED given in lab by Waldo BOSS, Noah in Right Forearm via Peripheral IV. Ordered by Michael Torre. Time Out. Correct patient, correct procedure, correct physician, power injector not loaded with contrast with surgical 11::42 team present. Time Out Concurred by MD, individual staff in procedure. 11:31:25 Case Start 11::26 HR=77 bpm, KJRD=666/101 mmhg, SpO2=97.0 %, Resp=16 B/min, Pain=0, Palak=10, Bailey=2 10 mL 1% XYLOCAINE given in lab by Michael Torre in Right Groin via Subcutaneous. Ordered by Nicho, 11:31:32 Michael. 11:32:52 Access site was Right Femoral Artery. 11:33:03 A SHEATH, FR4 TERUMO (10CM) FR 4 was advanced into the Fem Art (right) using the Percutaneo us technique. A JR 4.0 INFINITI CATHETER FR 4 was advanced over a wire. OMNIPAQUE, 350 MG, 150ML 150ML was us ed for 11:34:08 injections. 11:35:32 The RCA was injected and visualized at various angles. OMNIPAQUE, 350 MG, 150ML 150ML used . Recorded Pressure: LV, HR=50, Condition=Condition 1 11:35:38 (Left Ventricle) LV 161/13/17 Recorded Pressure: LV, Ao, HR=75, Condition=Condition 1 11:35:42 (Left Ventricle) LV 164/12/19, (Aorta) Ao 157/87/118 11:36:29 HR=73 bpm, QRXB=791/99 mmhg, SpO2=97.0 %, Resp=15 B/min, Pain=0, Palak=10, Bailey=2 After removing the current catheter a JL 5.0 INFINITI CATHETER FR 4 was advanced over a WIRE, 3 MMJ .035 180CM 11:37:32 180CM. 11:37:43 The LCA was injected and visualized at various angles. OMNIPAQUE, 350 MG, 150ML 150ML used . Recorded Pressure: Ao, HR=77, Condition=Condition 1 11:38:25 (Aorta) Ao 158/90/120 11:41:26 Catheter was removed 11:41:30 HR=92 bpm, LHZM=828/100 mmhg, SpO2=96.0 %, Resp=15 B/min, Pain=0, Palak=10, Bailey=2 11:41:33 Case End 11:46:06 Vitals capture stopped. 11:46:12 Sterile dressing applied to site 11:46:13 No case complications noted. 11:46:14 Cine recording checked. 11:46:26 Bedside Report will be given. 11:46:28 Contrast Scanned 11:46:31 A Left Heart Cath was performed. 11:50:00 1 mg VERSED given in lab by Noah Haas RN in Right Forearm via Peripheral IV. Ordered by Michael Torre. 11:50:00 2 inches NITRO OINTMENT given in lab by Noah Haas RN via Topical. Ordered by Michael Torre. 11:51:00 Patient moved to [facility] End Study - Contrast Media Used In Study Contrast Total Opened (mL) Total Used (mL) Total Wasted (mL) Omnipaque 60 60 0 End Study - Maximum Contrast Load Max Contrast Load (mL) 784.1 End Study - Radiation Exposure Fluoro Time (minutes) 2.0 End Study - Patient Disposition Complications Transferred To Interventional Outcome No Telemetry Bed No attempt made
[2017-02-22] MEDS ORDERED: BACITRACIN OINT 0.9 GM PKT TOP ONE (12:45)
[2017-02-22] MEDS ORDERED: MISC INFORMATION XX ONE (12:45)
[2017-02-22] MEDS ORDERED: SODIUM CHLORIDE 0.9% FLUSH 10 ML FLUSH PRN (12:45)
--- NOTE | 2017-02-22 13:39 | MA ---
cc: TIBURCIO JANG M.D. DATE 02/22/2017 PROCEDURE PERFORMED A left heart catheterization, left ventriculography, coronary angiography INDICATIONS Arrhythmia, nonsustained V-tach, syncope, coronary artery disease, A. Fib, multiple cardiac risk factors. PROCEDURAL STATEMENT The patient was brought to the cardiac catheterization laboratory, prepped and draped in the usual sterile fashion. 10 cc's of 1% lidocaine was used to locally anesthetize the right common femoral artery. A 4-Moldovan sheath was successfully placed in the right common femoral artery. A 4-Moldovan sheath. JR-4, JL-5 catheters were used to perform left and right coronary angiography, left ventriculography. FINDINGS LV pressure is 125/15-6, EF 60%. The right coronary artery is codominant. It is a small vessel probably 2 mm in diameter throughout most of its length. It has a focal aneurysmal/ectatic segment in the proximal mid segment that is slightly oval-shaped in two dimensions with the longest diameter probably being 7 mm, shortest diameter of 5-6 mm, otherwise there is no focal stenosis identified. The left main coronary artery has no significant disease angiographically. The left circumflex is a large codominant vessel with mild diffuse disease up to 20% angiographically. The first obtuse marginal vessel has an ostial 50% stenosis. It is difficult to tell whether this is actually obstruction or if is relative ectasia distal to it. It does appear to be slightly ectatic distal to the lesion so it is really difficult to determine what the actual normal reference vessel diameter is. Again, compared to the ectatic segment it appears to be 50% stenotic. There is a second obtuse marginal vessel which is a medium to large-sized vessel which also appears to have possibly a 60-70% ostial proximal stenosis. However, just distal to this lesion, the vessel appears to be ectatic and again it is difficult to determine whether this is truly a 70% stenosis as there is no definite normal reference vessel diameter to compare to. There is a distal posterolateral artery which is poorly imaged and does not appear to have any significant obstructive disease. The LAD is transapical. There is possibly a 50% stenosis in the proximal mid LAD and it has a bifurcation with a medium to large size diagonal vessel in the mid segment. There is also diffuse disease up to 20%. Again, the vessel appears to be diffusely ectatic with a more focal ectatic segment in the [id number] segment. The second diagonal artery is a small to medium sized vessel with no significant disease angiographically. CONCLUSION 1. Moderate to severe two-vessel coronary disease in a co-dominant system as detailed above. 2. Normal LV systolic function with ejection fraction 60%. 3. 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 RECOMMENDATIONS 1. Recommend medical management of coronary disease. 2. We will resume the patient's Coumadin today to achieve an INR of 2.0 to 3.0. In the meantime, we will continue IV heparin given the patient's history of A. fib and pulmonary embolus. MD MARISELA Jean/EMILEE /11:45 AM /1:21 PM
[2017-02-22] MEDS ORDERED: cloNIDine HCL 0.1 MG TAB ONE (15:42)
[2017-02-22 18:00] VITALS: BP 140/90; PULSE 130; RESP 20; TEMP 99; O2SAT 95
[2017-02-22 20:30] VITALS: BP 135/84; PULSE 107; RESP 17; TEMP 97.6; O2SAT 96
[2017-02-22] MEDS: cloNIDine HCL 0.1 MG TAB PO SCH ×2 (22:00→23:17)
[2017-02-22] MEDS: DOXAZOSIN MESYLATE 2 MG TAB PO SCH (23:16)
[2017-02-22] MEDS: ATORVASTATIN 40 MG TAB PO SCH (23:16)
[2017-02-22] MEDS: SERTRALINE HCL 50 MG TAB PO SCH (23:17)
[2017-02-22] MEDS: SODIUM CHLORIDE 0.9% FLUSH 10 ML FLUSH SCH (23:18)
[2017-02-23 00:07] LABS: APTT (PATIENT) 27.8 SEC (24.3-30.1)
[2017-02-23 00:30] VITALS: BP 121/86; PULSE 97; RESP 17; TEMP 98.4; O2SAT 96
[2017-02-23] MEDS: HEPARIN 25,000 UNITS-D5W 250 ML - PREMIX IV SCH (01:43)
[2017-02-23] MEDS: cloNIDine HCL 0.1 MG TAB PO SCH ×3 (04:00→14:58)
[2017-02-23 04:30] VITALS: BP 151/76; PULSE 87; RESP 16; TEMP 98.1; O2SAT 95
[2017-02-23] MEDS: ACETAMINOPHEN 325 MG TAB PO PRN (05:20)
[2017-02-23] MEDS: DILTIAZEM HCL 90 MG TAB PO SCH ×2 (05:21→14:58)
[2017-02-23 08:00] VITALS: BP 153/113; PULSE 85; RESP 20; TEMP 97.3; O2SAT 97
[2017-02-23] MEDS: GABAPENTIN 400 MG CAP PO SCH ×2 (08:52→14:57)
[2017-02-23] MEDS: SODIUM CHLORIDE 0.9% FLUSH 10 ML FLUSH SCH (09:00)
--- NOTE | 2017-02-23 09:11 | PD.CARD.PN ---
Subjective Subjective Remarks alert in nad Objective Vital Signs / I&O Vital Signs Date Time Temp Pulse Resp B/P (MAP) Pulse Ox O2 Delivery O2 Flow Rate FiO2 02/23/17 04:30 98.1 87 16 151/76 (101) 95 02/23/17 00:30 98.4 97 17 121/86 (98) 96 02/22/17 20:30 97.6 107 17 135/84 (101) 96 02/22/17 18:00 99.0 130 20 140/90 (107) 95 02/22/17 12:04 96 Room Air I/O 02/22/17 02/22/17 02/22/17 02/23/17 02/23/17 02/23/17 06:59 14:59 22:59 06:59 14:59 22:59 Intake Total 480 ml Output Total 850 ml Balance -370 ml Intake Oral 480 ml Output Urine Total 850 ml Physical Exam GENERAL: SKIN: Warm and dry. HEAD: Normocephalic. EYES: No scleral icterus. No injection or drainage. NECK: Supple, trachea midline. No JVD or lymphadenopathy. CARDIOVASCULAR: Regular rate and rhythm without murmurs, gallops, or rubs. RESPIRATORY: Breath sounds equal bilaterally. No accessory muscle use. GASTROINTESTINAL: Abdomen soft, non-tender, nondistended. MUSCULOSKELETAL: No cyanosis, or edema. BACK: Nontender without obvious deformity. No CVA tenderness. Laboratory Laboratory Tests Test 02/22/17 23:12 Activated Partial Thromboplast Time 27.8 SEC Assessment and Plan Problem List: (1) Syncope ICD Codes: R55 - Syncope and collapse Status: Acute (2) Hypertension ICD Codes: I10 - Essential (primary) hypertension Status: Chronic (3) Hyperlipidemia ICD Codes: E78.5 - Hyperlipidemia, unspecified Status: Chronic (4) Mural thrombus of heart ICD Codes: I21.3 - Mural thrombus of heart Status: Acute (5) Atrial fibrillation ICD Codes: I48.91 - Atrial fibrillation Status: Chronic (6) CAD (coronary artery disease) ICD Codes: I25.10 - CAD (coronary artery disease) Status: Chronic (7) Chronic anticoagulation ICD Codes: Z79.01 - Chronic anticoagulation Status: Chronic Assessment and Plan 1.) Syncope - carotid us wnl, f/u echo, neurology consult 2.) Afib - coumadin held, rate controlled, assymptomatic, heparin drio started 3.) CAD/nsvt/syncope - moderate cad, continue coumadin, heparin until inr>2 Michael Torre MD Feb 23, 2017 09:11
[2017-02-23 11:17] LABS: AUTOMATED NEUTROPHIL # 16.6 TH/MM3 (1.8-7.7); BASOPHIL % 0.2 % (0.0-2.0); HEMATOCRIT 43.6 % (39.0-51.0); HEMO FLAGS DIFF FINAL; LYMPHOCYTE # 0.5 TH/MM3 (1.0-4.8); MEAN CELL VOLUME 83.4 FL (80.0-100.0); MEAN CORPUSCULAR HEMOGLOBIN 27.1 PG (27.0-34.0); MEAN CORPUSCULAR HGB CONC 32.4 % (32.0-36.0); MONO % 1.8 % (0.0-8.0); PLATELET COUNT 141 TH/MM3 (150-450); RED BLOOD COUNT 5.22 MIL/MM3 (4.50-5.90); WHITE BLOOD COUNT 17.5 TH/MM3 (4.0-11.0)
[2017-02-23 11:27] LABS: INTERNATIONAL NORMALIZED RATIO 1.1 RATIO; PROTHROMBIN TIME - PATIENT 12.5 SEC (9.8-11.6)
[2017-02-23 11:28] LABS: APTT (PATIENT) 42.3 SEC (24.3-30.1)
[2017-02-23 11:42] LABS: BICARBONATE 23.8 MEQ/L (21.0-32.0); POTASSIUM 4.2 MEQ/L (3.5-5.1)
[2017-02-23 12:00] VITALS: BP 128/78; PULSE 85; RESP 20; TEMP 98; O2SAT 97
[2017-02-23] MEDS ORDERED: APIX5TAB PO (14:44)
[2017-02-23] MEDS ORDERED: APIXABAN 5 MG TABLET PO ONE (14:45)
[2017-02-23] MEDS ORDERED: DILT-64 PO (14:45)
--- NOTE | 2017-02-23 14:47 | HHI.DS ---
Discharge Summary Admission Date Feb 17, 2017 at 13:48 Discharge Date: Feb 23, 2017 Admitting Diagnosis Syncope (1) Syncope ICD Code: R55 - Syncope and collapse Status: Acute (2) Hypertension ICD Code: I10 - Essential (primary) hypertension Status: Chronic (3) Hyperlipidemia ICD Code: E78.5 - Hyperlipidemia, unspecified Status: Chronic (4) Atrial fibrillation ICD Code: I48.91 - Atrial fibrillation Status: Chronic (5) CAD (coronary artery disease) ICD Code: I25.10 - CAD (coronary artery disease) Status: Chronic Procedures None Brief History - From Admission Written by Halley Matias, acting as scribe for Dr. Brown on 02/17/17 at 15: 33. Mr. Chatterjee is a 71-year-old male patient with a known medical history of atrial fibrillation on Coumadin, CAD with history of SC, Hepatitic C history, and borderline diabetes who presented to the ED after a syncopal episode. Patient states he was in [employer] with his daughter, sitting watching her pick out phones when all of a sudden he started to feel dizzy and passed out. He also admits to urine incontinence and headache upon awakening. Per his daughter, one of his arms was shaking. Denies any prior similar episodes or seizure history. Denies any associated nausea or vomiting. Per records patient has had multiple falls in the past. Denies any recent illness including fever, chills, cough, shortness of breath, abdominal pain, nausea, vomiting, diarrhea or dysuria. CBC/BMP: 02/23/17 1007 02/23/17 1007 Significant Findings Laboratory Tests Test 02/21/17 09:32 02/21/17 14:30 02/21/17 16:48 02/21/17 23:49 Red Cell Distribution Width 18.1 % (11.6-17.2) Prothrombin Time 16.9 SEC (9.8-11.6) Activated Partial Thromboplast Time 145.9 SEC (24.3-30.1) 69.3 SEC (24.3-30.1) 51.3 SEC (24.3-30.1) Test 02/22/17 07:51 02/22/17 23:12 02/23/17 10:07 Prothrombin Time 14.9 SEC (9.8-11.6) 12.5 SEC (9.8-11.6) Activated Partial Thromboplast Time 68.9 SEC (24.3-30.1) 42.3 SEC (24.3-30.1) White Blood Count 17.5 TH/MM3 (4.0-11.0) Red Cell Distribution Width 18.0 % (11.6-17.2) Platelet Count 141 TH/MM3 (150-450) Neutrophils (%) (Auto) 95.0 % (16.0-70.0) Lymphocytes (%) (Auto) 3.0 % (9.0-44.0) Neutrophils # (Auto) 16.6 TH/MM3 (1.8-7.7) Lymphocytes # (Auto) 0.5 TH/MM3 (1.0-4.8) Random Glucose 166 MG/DL (74-106) Sodium Level 134 MEQ/L (136-145) Estimat Glomerular Filtration Rate 86 ML/MIN (>89) Imaging Last Impressions Carotid Artery Ultrasound 02/18/17 0000 Signed Impressions: Service Date/Time: Saturday, February 18, 2017 11:15 - CONCLUSION: 1. No evidence for hemodynamically significant stenosis. 2. Antegrade flow in the bilateral vertebral arteries. Sohail Willett MD Chest X-Ray 02/17/17 1010 Signed Impressions: Service Date/Time: Friday, February 17, 2017 10:31 - CONCLUSION: No acute disease. Sohail Willett MD PE at Discharge GENERAL: Well-nourished, well-developed obese male patient in [facility]. SKIN: Warm and dry. No rash. HEENT: Normocephalic. Atraumatic.Pupils equal and round. Mucous membranes pink and moist. CARDIOVASCULAR: Regular rate and rhythm. S1, S2 noted. No murmur appreciated. RESPIRATORY: No accessory muscle use. Clear to auscultation. Breath sounds equal bilaterally. GASTROINTESTINAL: Abdomen soft, non-tender, nondistended. Normoactive bowel sounds x4. MUSCULOSKELETAL: No obvious deformities. Extremities without clubbing, cyanosis , or edema. BLE chronic venous stasis changes. NEUROLOGICAL: Awake and alert. No obvious cranial nerve deficits. Motor grossly within normal limits. Normal speech. PSYCHIATRIC: Appropriate mood and affect; insight and judgment normal. Pt update on day of discharge Mr. Chatterjee is doing well. He is resting in bed, currently on room air. No fever , chills. He reports no CP, SOB. Tolerating diet well and had BM. Hospital Course 71-year-old male with history of afib on Coumadin, CAD, borderline DM, HTN, HLD , anxiety, depression, chronic back pain, arthritis, presents after a syncopal episode Syncope: patient felt dizzy and passed out, with urinary incontinence and headache upon awakening. -Carotid U/S unremarkable. -CXR images reviewed, unremarkable. -Echocardiogram with normal systolic function EF 55-60%, trace MR, mild AR, mild TR. -EEG unremarkable. -Monitor on telemetry, patient had 7beat run of V. tach - non-sustained -Appreciate neurology recommendations. -Appreciate cardiology recommendations, Dr. Torre performed cardiac cath. Atrial fibrillation: Chronic. Continue metoprolol 25mg Q12hrs. Continue Diltiazem 240mg Qday. - Although patient was started on warfarin. INR was 1.1. Patient does not have any artificial heart valves. Does not have any contraindications to use one of the newer anti-coagulation meds (Apixaban). - I discussed with patient at length regarding positive and negatives of both anti-coagulation medications (warfarin, apixaban) - Patient decided to go with Apixaban. - We discontinued warfarin and heparin drip. We then gave patient first dose of Apixaban and few hours after the first dose, patient was discharged home. Hypertension: Continue Cardura. Hyperlipidemia: Continue atorvastatin. Tobacco abuse: Counseled to quit. Marijuana abuse: Counseled. Obesity: will counseling specialist on weight reduction. Heart Healthy diet. Pt Condition on Discharge: Good Discharge Disposition: Discharge Home Discharge Time: > 30 minutes Discharge Instructions DIET: Follow Instructions for: Heart Healthy Diet Activities you can perform: Regular-No Restrictions Follow up Referrals: Cardiology - 2 Weeks with Randy Oglesby MD PCP Follow-up - 1 Week New Medications: Diltiazem CD 24 HR (Diltiazem CD 24 HR) 240 Mg Caper 240 MG PO DAILY, #30 CAP 0 Refills Apixaban (Eliquis) 5 Mg Tab 5 MG PO Q12HR for Blood Clot Prevention, #60 TAB START at 8AM on 02/24/2017. Continued Medications: Atorvastatin (Atorvastatin) 40 Mg Tab 40 MG PO HS for Cholesterol Management, #30 TAB 0 Refills Diphenhydramine (Diphenhydramine) 25 Mg Cap 25 MG PO Q6HR PRN for INSOMNIA, CAP 0 Refills Doxazosin (Doxazosin) 2 Mg Tab 2 MG PO HS, #30 TAB 0 Refills Gabapentin (Gabapentin) 800 Mg Tab 1200 MG PO TID, #90 TAB 0 Refills Metoprolol Tartrate (Metoprolol Tartrate) 25 Mg Tab 25 MG PO Q12HR, #60 TAB 0 Refills Propylene Glycol-Glycerin Opth Drops (Artificial Tears Opth Drops) 1-0.3% Drops 1-2 DROP EACH EYE QID PRN for DRY EYE, #15 ML 0 Refills Sertraline (Zoloft) 100 Mg Tab 150 MG PO HS, #30 TAB 0 Refills Discontinued Medications: Diltiazem (Diltiazem) 90 Mg Tab 90 MG PO Q6HR for Angina, #120 TAB 0 Refills Warfarin (Warfarin) 7.5 Mg Tab 7.5 MG PO DAILY for Blood Clot Prevention, #30 TAB 0 Refills Keisha Conklin DO Feb 23, 2017 14:47
[2017-02-23] MEDS ORDERED: APIXABAN 5 MG TABLET PO SCH (21:00)
== END 2017-02-23 16:54 | disposition home or self-care (01) ==
LOC: NEPC 09:29 → NEDA 13:48 → NEPHCDU 16:15 → HCIS 02-22 11:38 → INTOOBSV 02-22 12:33 → OBSVTOIN 02-22 12:33 → N05A 02-22 16:50
PROVIDERS: ADMIT Hospitalist; ATTEND Hospitalist
DX: R55 Syncope and collapse (principal); I25.10 Atherosclerotic heart disease of native coronary artery without angina pectoris; I48.2 Chronic atrial fibrillation; I10 Essential (primary) hypertension; E78.5 Hyperlipidemia, unspecified; F17.200 Nicotine dependence, unspecified, uncomplicated; F12.10 Cannabis abuse, uncomplicated; E66.9 Obesity, unspecified; Z68.36 Body mass index [BMI] 36.0-36.9, adult; I47.2 Ventricular tachycardia; I26.99 Other pulmonary embolism without acute cor pulmonale; R73.03 Prediabetes
CPT/HCPCS: 71010; 76937; 80048; 80053; 80307; 81001; 82550; 83735; 84484; 85025; 85027; 85610; 85730; 93005; 93306; 93458; 93880; 95819; 96361; 96365; 96366; 96375; 99285; C1769; C1893; G0378; J1200; J1644; J2250; J2930; J3480; J7040; Q9967

== ENCOUNTER 2017-06-12 11:27 | Emergency (ER) | payer OTHER ==
[~2017-06-12 11:27] MED LIST changes: +APIX5TAB PO; +DILT240C44 PO; -DILT90TA PO; -MIRT30TA PO; -WARF-21 PO
[2017-06-12 11:29] VITALS: BP 156/87; PULSE 97; RESP 16; TEMP 97.7; O2SAT 97
[2017-06-12] MEDS ORDERED: SODIUM CHLOR 0.9% 1000 ML INJ 1,000 ML IV SCH (11:35)
--- NOTE | 2017-06-12 11:40 | PD ---
HPI Chief Complaint: Abdominal Pain Time Seen by Provider: 11:34 Travel History International Travel<30 days: No Contact w/Intl Traveler<30days: No Traveled to known affect area: No History of Present Illness HPI 71 YO M with PMH of NSTEMI, A. fib, PE, DVT, HTN, diverticulitis on ELIQUIS presents to the ED for evaluation of "over a year" history of intermittent, sharp, right upper quadrant pain with associated nausea. No pain on presentation. Patient endorses occasional loose stools. He states that he's had "very thin" stools times weeks. States that he feels as if his belly is a little more bloated than usual. He endorses passing gas from above and below. Patient denies fever, chills, changes in appetite, vomiting, melena, hematochezia, dysuria, back pain. States that he had a colonoscopy over 10 years ago. He states that he is expecting an upcoming appointment for [place] sometime early next [place]. He endorses a history of chronic alcoholism, stopped drinking over 15 years ago. He states that he had an outpatient CT with oral contrast through [place] and was told that he has "a cyst" and to come to the emergency room for evaluation. PFSH Past Medical History Hx Anticoagulant Therapy: Yes (Eloquis) Arthritis: Yes Asthma: No Atrial Fibrillation: Yes Autoimmune Disease: No Blood Disorders: No Anxiety: No Depression: No Heart Rhythm Problems: No Cancer: No Cardiovascular Problems: Yes (htn, mi) High Cholesterol: Yes Chemotherapy: No Chest Pain: Yes Congestive Heart Failure: No COPD: No Cerebrovascular Accident: No Coronary Artery Disease: Yes Diabetes: No Diminished Hearing: No Diverticulitis: Yes Endocrine: No Gastrointestinal Disorders: Yes GERD: Yes Genitourinary: No Headaches: No Hepatitis: Yes (HEP C) Hiatal Hernia: No Hypertension: Yes Immune Disorder: No Implanted Vascular Access Dvce: No Musculoskeletal: Yes (CHRONIC BACK PAIN) Neurologic: No Psychiatric: No Reproductive: No Respiratory: No Immunizations Current: Yes Migraines: No Myocardial Infarction: Yes (2014) Pneumonia: Yes Radiation Therapy: No Renal Failure: No Seizures: No Sickle Cell Disease: No Sleep Apnea: No Thyroid Disease: No Ulcer: No Past Surgical History Abdominal Surgery: No AICD: No Arteriovenous Shunt: No Body Medical Devices: CARDIAC STENTS Cardiac Surgery: No Ear Surgery: No Endocrine Surgery: No Eye Surgery: No Genitourinary Surgery: Yes (urethral dilation) Insulin Pump: No Joint Replacement: No Neurologic Surgery: No Oral Surgery: No Pacemaker: No Thoracic Surgery: No Other Surgery: Yes Social History Alcohol Use: No Tobacco Use: Yes Substance Use: Yes (heroin, morphine, marijuana (per pt he used them in the past) Allergies-Medications (Allergen,Severity, Reaction): Coded Allergies: diatrizoate meglumine (Unverified Adverse Reaction, Severe, SEVERE VOMITING, 06/12/17) gadobenic acid (Unverified Adverse Reaction, Severe, SEVERE VOMITING, ) gadodiamide (Unverified Adverse Reaction, Severe, SEVERE VOMITING, ) gadoteridol (Unverified Adverse Reaction, Severe, SEVERE VOMITING, ) iodixanol (Unverified Adverse Reaction, Severe, SEVERE VOMITING, 06/12/17) iohexol (Unverified Adverse Reaction, Severe, SEVERE VOMITING, 06/12/17) Reported Meds & Prescriptions Reported Meds & Active Scripts Active Diltiazem CD 24 HR 240 Mg Caper 240 Mg PO DAILY Eliquis (Apixaban) 5 Mg Tab 5 Mg PO Q12HR START at 8AM on 02/24/2017. Reported Zoloft (Sertraline HCl) 100 Mg Tab 150 Mg PO HS Diphenhydramine (Diphenhydramine HCl) 25 Mg Cap 25 Mg PO Q6HR PRN Doxazosin (Doxazosin Mesylate) 2 Mg Tab 2 Mg PO HS Gabapentin 800 Mg Tab 1,200 Mg PO TID Metoprolol Tartrate 25 Mg Tab 25 Mg PO Q12HR Artificial Tears Opth Drops (Propylene Glycol-Glycerin Opth Drops) 1-0.3% Drops 1-2 Drop EACH EYE QID PRN Atorvastatin (Atorvastatin Calcium) 40 Mg Tab 40 Mg PO HS Review of Systems Except as stated in HPI: all other systems reviewed are Neg Physical Exam Narrative GENERAL: Well-nourished, well-developed obese black male in no acute distress. SKIN: Focused skin assessment warm/dry. HEAD: Normocephalic. EYES: No scleral icterus. No injection or drainage. NECK: Supple, trachea midline. No JVD or lymphadenopathy. CARDIOVASCULAR: Regular rate and rhythm without murmurs, gallops, or rubs. RESPIRATORY: Breath sounds clear and equal bilaterally. No accessory muscle use. GASTROINTESTINAL: Abdomen protuberant, nontender. No palpable masses. Active bowel sounds. MUSCULOSKELETAL: No cyanosis, or edema. BACK: Nontender without obvious deformity. No CVA tenderness. Data Data Last Documented VS Vital Signs Date Time Temp Pulse Resp B/P (MAP) Pulse Ox O2 Delivery O2 Flow Rate FiO2 06/12/17 12:15 97 Room Air 06/12/17 11:29 97.7 97 16 Orders Orders Complete Blood Count With Diff (06/12/17 11:35) Comprehensive Metabolic Panel (06/12/17 11:35) Lipase (06/12/17 11:35) Lactic Acid (06/12/17 11:35) Prothrombin Time / Inr (Pt) (06/12/17 11:35) Act Partial Throm Time (Ptt) (06/12/17 11:35) Iv Access Insert/Monitor (06/12/17 11:35) Ecg Monitoring (06/12/17 11:35) Oximetry (06/12/17 11:35) Ondansetron Inj (Zofran Inj) (06/12/17 11:45) Sodium Chloride 0.9% Flush (Ns Flush) (06/12/17 11:45) Ct Abd/Pel W/O Iv Contrast (06/12/17 ) Oral Contrast - Adult (06/12/17 12:09) Diatrizoate Liq ( Gastroaminata Liq) (06/12/17 12:26) Oral Contrast - Adult (06/12/17 12:42) Ed Discharge Order (06/12/17 15:44) Labs Laboratory Tests Test 06/12/17 13:00 White Blood Count 6.1 TH/MM3 Red Blood Count 4.93 MIL/MM3 Hemoglobin 14.1 GM/DL Hematocrit 42.5 % Mean Corpuscular Volume 86.3 FL Mean Corpuscular Hemoglobin 28.7 PG Mean Corpuscular Hemoglobin Concent 33.3 % Red Cell Distribution Width 16.8 % Platelet Count 210 TH/MM3 Mean Platelet Volume 9.5 FL Neutrophils (%) (Auto) 72.4 % Lymphocytes (%) (Auto) 16.0 % Monocytes (%) (Auto) 9.7 % Eosinophils (%) (Auto) 1.4 % Basophils (%) (Auto) 0.5 % Neutrophils # (Auto) 4.4 TH/MM3 Lymphocytes # (Auto) 1.0 TH/MM3 Monocytes # (Auto) 0.6 TH/MM3 Eosinophils # (Auto) 0.1 TH/MM3 Basophils # (Auto) 0.0 TH/MM3 CBC Comment DIFF FINAL Differential Comment Prothrombin Time 10.9 SEC Prothromb Time International Ratio 1.1 RATIO Activated Partial Thromboplast Time 26.1 SEC Blood Urea Nitrogen 19 MG/DL Creatinine 0.93 MG/DL Random Glucose 102 MG/DL Total Protein 9.2 GM/DL Albumin 3.4 GM/DL Calcium Level 9.7 MG/DL Alkaline Phosphatase 111 U/L Aspartate Amino Transf (AST/SGOT) 29 U/L Alanine Aminotransferase (ALT/SGPT) 17 U/L Total Bilirubin 1.0 MG/DL Sodium Level 135 MEQ/L Potassium Level 5.5 MEQ/L Chloride Level 101 MEQ/L Carbon Dioxide Level 29.8 MEQ/L Anion Gap 4 MEQ/L Estimat Glomerular Filtration Rate 98 ML/MIN Lactic Acid Level 1.1 mmol/L Lipase 107 U/L [facility] Medical Decision Making Medical Screen Exam Complete: Yes Emergency Medical Condition: Yes Differential Diagnosis Intra-abdominal mass versus cholecystitis versus pancreatitis versus colon ca versus other Narrative Course 71-year-old male presents to the ED for evaluation of abnormal result. Patient states that he had a [place] with oral contrast [place] and was told that he had "a cyst" and needed to come to [place] for evaluation. On presentation he states that he's had intermittent right upper quadrant abdominal pain with nausea for "about a year or so." Currently asymptomatic. Vitals reviewed. Physical exam reveals an obese black male in no acute distress. Abdominal exam is completely unremarkable. IV was established. Patient was administered 4 mg Zofran. CBC, CMP, coags all very reassuring. CT of the abdomen does reveal a hepatic cyst but in light of the fact that his LFTs are all normal and the patient is asymptomatic I don't think this needs further evaluation on an inpatient basis. I discussed the results of the workup with the patient. He was provided a copy of his CT. He is instructed to follow up on an outpatient basis for further evaluation. He indicated understanding of these instructions and is agreeable to the care plan. The patient is stable and discharged home. Diagnosis Primary Impression: Renal cyst Additional Impression: Hepatic cyst Referrals: Primary Care Physician Additional Instructions: Rest, hydrate. Resume normal, gentle activities as tolerated. Take the CT report to your primary care for further evaluation. Return to ED for any urgent or emergent medical condition. Disposition: 01 DISCHARGE HOME Condition: Stable Cha Skinner Jun 12, 2017 11:39
[2017-06-12] MEDS ORDERED: ONDANSETRON HCL 4 MG/2 ML VIAL IVP ONE (11:45)
[2017-06-12] MEDS ORDERED: SODIUM CHLORIDE 0.9% FLUSH 10 ML FLUSH IV FLUSH PRN (11:45)
[2017-06-12 12:15] VITALS: O2SAT 97
[2017-06-12] MEDS ORDERED: DIATRIZOATE MEGLUM/DIATRIZOATE SOD 9 ML CUP ONE (12:26)
[2017-06-12 13:18] LABS: AUTOMATED NEUTROPHIL # 4.4 TH/MM3 (1.8-7.7); BASOPHIL % 0.5 % (0.0-2.0); EOSINOPHIL # 0.1 TH/MM3 (0-0.4); EOSINOPHIL % 1.4 % (0.0-4.0); HEMATOCRIT 42.5 % (39.0-51.0); HEMOGLOBIN 14.1 GM/DL (13.0-17.0); INTERNATIONAL NORMALIZED RATIO 1.1 RATIO; MEAN CELL VOLUME 86.3 FL (80.0-100.0); MEAN CORPUSCULAR HEMOGLOBIN 28.7 PG (27.0-34.0); MEAN CORPUSCULAR HGB CONC 33.3 % (32.0-36.0); MEAN PLATELET VOLUME 9.5 FL (7.0-11.0); MONO % 9.7 % (0.0-8.0); MONOCYTE # 0.6 TH/MM3 (0-0.9); NEUT % 72.4 % (16.0-70.0); PLATELET COUNT 210 TH/MM3 (150-450); PROTHROMBIN TIME - PATIENT 10.9 SEC (9.8-11.6); RED BLOOD COUNT 4.93 MIL/MM3 (4.50-5.90); RED CELL DISTRIBUTION WIDTH 16.8 % (11.6-17.2); WHITE BLOOD COUNT 6.1 TH/MM3 (4.0-11.0)
[2017-06-12 13:36] LABS: ALKALINE PHOSPHATASE 111 U/L (45-117); TOTAL PROTEIN 9.2 GM/DL (6.4-8.2)
[2017-06-12 13:43] LABS: ALBUMIN 3.4 GM/DL (3.4-5.0); ALT (GPT) 17 U/L (12-78); AST (GOT) 29 U/L (15-37); BICARBONATE 29.8 MEQ/L (21.0-32.0); BLOOD UREA NITROGEN 19 MG/DL (7-18); CALCIUM 9.7 MG/DL (8.5-10.1); CHLORIDE 101 MEQ/L (98-107); CREATININE 0.93 MG/DL (0.60-1.30); GLOMERULAR FILTRATION RATE 98 ML/MIN (>89); GLUCOSE,RANDOM 102 MG/DL (74-106); LIPASE 107 U/L (73-393); SODIUM (NA) 135 MEQ/L (136-145)
[2017-06-12] MEDS ORDERED: POTASSIUM CHLORIDE 20 MEQ CONTROLLED RELEASE TAB PO ONE (14:00)
--- NOTE | 2017-06-12 15:38 | RADRPT ---
EXAM DATE/TIME: 06/12/2017 13:28 [facility] COMPARISON: CT ABDOMEN & PELVIS W/O CONTRAST, September 01, 2014, 23:22. INDICATIONS : Abdomen pain in right lower region for one year. ORAL CONTRAST: Prescribed oral contrast ingested. RADIATION DOSE: 29.12 CTDIvol (mGy) ; Patient body habitus MEDICAL HISTORY : Cardiovascular disease. Hypertension. Hepatitis C.Diverticulitus. SURGICAL HISTORY : Fusion, thoracic. ENCOUNTER: Initial ACUITY: >1 yr PAIN SCALE: 7/10 LOCATION: Right lower quadrant TECHNIQUE: Volumetric scanning of the abdomen and pelvis was performed. Using automated exposure control and ad justment of the mA and/or kV according to patient size, radiation dose was kept as low as reasonably achievable to obtain optimal diagnostic quality images. DICOM format image data is available electro nically for review and comparison. FINDINGS: LOWER LUNGS: The visualized lower lungs are clear. LIVER: Homogeneous density without lesion. There is no dilation of the biliary tree. A 1.3 cm cyst is ident ified in the right hepatic lobe. No calcified gallstones. SPLEEN: Normal size without lesion. PANCREAS: Within normal limits. KIDNEYS: A 2.2 cm cyst is identified in the mid to upper pole of the right kidney. Left kidney demonstrates perinephric soft tissue or fluid extending from the upper pole to the l ower pole. It is crescent shape outlining the kidney margin. Kidneys are otherwise unremarkable. Ther e is no evidence of hydronephrosis. ADRENAL GLANDS: Small low density nodules in the left adrenal gland are stable.. VASCULAR: There is no aortic aneurysm. Inferior vena cava filter is identified. BOWEL/MESENTERY: Scattered diverticula are present throughout the colon especially in the descending and sigmoid segme nts. In the mid sigmoid colon appears adherent to the dome of the bladder. There is focal of the blad mary wall and adjacent soft tissue appears small air collections are identified within the soft tissue extending beyond the lumen of the sigmoid colon. The surrounding fat a lies fails to reveal any sign ificant induration or inflammatory change. ABDOMINAL WALL: Within normal limits. RETROPERITONEUM: There is no lymphadenopathy. BLADDER: Focal thickening and scarring is seen along the superior anterior margin of the urinary bladder which appears adherent to the mid sigmoid colon. REPRODUCTIVE: Within normal limits. INGUINAL: There is no lymphadenopathy or hernia. MUSCULOSKELETAL: Within normal limits for patient age. CONCLUSION: 1. Focal thickening along the anterior dome of the urinary bladder which appears adherent to the sigm oid colon most characteristic of post inflammatory scarring from diverticulitis. Small localized air collection adjacent to sigmoid colon likely represents a chronic walled off contained perforation. 2. Left perinephric fluid and/or soft tissue. Focal contained perinephric hemorrhage should be consid ered. 3. Stable left adrenal gland nodules. 4. Colonic diverticulosis without other acute or chronic findings. Wilbur Wolff MD on June 12, 2017 at 15:17 Board Certified Radiologist. This report was verified electronically.
== END 2017-06-12 16:33 | disposition home or self-care (01) ==
LOC: NEPC 11:27
DX: N28.1 Cyst of kidney, acquired (principal); K76.89 Other specified diseases of liver; I10 Essential (primary) hypertension; I48.91 Unspecified atrial fibrillation; E78.00 Pure hypercholesterolemia, unspecified; B19.20 Unspecified viral hepatitis C without hepatic coma; Z79.01 Long term (current) use of anticoagulants; Z72.0 Tobacco use
CPT/HCPCS: 74176; 80053; 83605; 83690; 85025; 85610; 85730; 96374; 99285; J2405; Q9963

== ENCOUNTER 2017-07-13 17:01 | Inpatient (IN) | payer OTHER, MEDICARE ==
[~2017-07-13] VITALS: Ht 185.4 cm; Wt 136.6 kg
[2017-07-13 17:03] VITALS: BP 203/88; PULSE 93; RESP 16; TEMP 98; O2SAT 97
[2017-07-13] MEDS ORDERED: ONDANSETRON HCL 4 MG/2 ML VIAL IV PUSH ONE (18:30)
[2017-07-13] MEDS ORDERED: metroNIDAZOLE 500 MG INJ 100 ML IV ONE (18:30)
[2017-07-13] MEDS ORDERED: CIPROFLOXACIN 400 MG PREMIX 200 ML IV ONE (18:30)
[2017-07-13] MEDS ORDERED: MORPHINE SULFATE 4 MG/ML INJ IV PUSH ONE (18:30)
--- NOTE | 2017-07-13 18:49 | PD ---
HPI Chief Complaint: Abdominal Pain Time Seen by Provider: 17:54 Travel History International Travel<30 days: No Contact w/Intl Traveler<30days: No Traveled to known affect area: No History of Present Illness HPI 72-year-old male that presents to the ED for evaluation of abdominal pain. Patient has been having right lower quadrant pain for about "2 months ". Per patient he has been evaluated multiple times and had CAT scans that showed diverticulitis. He has a history of diverticulitis. Per patient he went to the MD to see his doctor who ordered CAT scans for him. He got called back today after getting his CAT scan to his CAT scan showed severe diverticulitis with possible abscesses. He was sent here for evaluation. Per patient the MD send records and we were able to get them from the MD. Patient voices to his pain is 5 out of 10. He denies any blood in his stool. Patient states only in the right lower quadrant does not radiate anywhere else. He states having some chills and sweats on occasion. He denies any recent surgeries. He last ate around 2:00. He has no general surgeon or colorectal surgeon at this time. She does have a history of chronic back pain as well as history of atrial fibrillation and cardiac disease taking eliquis, history of hepatitis C. He denies any trauma or injury. No nausea or vomiting. Allergies to different medications. Has not taken anything for this. He was told to come here from home to the ED. PFSH Past Medical History Hx Anticoagulant Therapy: Yes (Eloquis) Arthritis: Yes Asthma: No Atrial Fibrillation: Yes Autoimmune Disease: No Blood Disorders: No Anxiety: No Depression: No Heart Rhythm Problems: No Cancer: No Cardiac Catheterization: Yes Cardiovascular Problems: Yes (htn, mi) High Cholesterol: Yes Chemotherapy: No Chest Pain: Yes Congestive Heart Failure: No COPD: No Cerebrovascular Accident: No Coronary Artery Disease: Yes Diabetes: No Diminished Hearing: No Diverticulitis: Yes Endocrine: No Gastrointestinal Disorders: Yes GERD: Yes Genitourinary: No Headaches: No Hepatitis: Yes (HEP C) Hiatal Hernia: No Hypertension: Yes Immune Disorder: No Implanted Vascular Access Dvce: No Musculoskeletal: Yes (CHRONIC BACK PAIN) Neurologic: No Psychiatric: No Reproductive: No Respiratory: No Immunizations Current: Yes Migraines: No Myocardial Infarction: Yes (2014) Pneumonia: Yes Radiation Therapy: No Renal Failure: No Seizures: No Sickle Cell Disease: No Sleep Apnea: No Thyroid Disease: No Ulcer: No ?: Not Past Surgical History Abdominal Surgery: No AICD: No Arteriovenous Shunt: No Body Medical Devices: CARDIAC STENTS Cardiac Surgery: No Ear Surgery: No Endocrine Surgery: No Eye Surgery: No Genitourinary Surgery: Yes (urethral dilation) Insulin Pump: No Joint Replacement: No Neurologic Surgery: No Oral Surgery: No Pacemaker: No Thoracic Surgery: No Other Surgery: Yes (back surgery) Social History Alcohol Use: No Tobacco Use: Yes (1/2ppd) Substance Use: No (heroin, morphine, marijuana (per pt he used them in the past ) Allergies-Medications (Allergen,Severity, Reaction): Coded Allergies: diatrizoate meglumine (Unverified Adverse Reaction, Severe, SEVERE VOMITING, 06/12/17) gadobenic acid (Unverified Adverse Reaction, Severe, SEVERE VOMITING, ) gadodiamide (Unverified Adverse Reaction, Severe, SEVERE VOMITING, ) gadoteridol (Unverified Adverse Reaction, Severe, SEVERE VOMITING, ) iodixanol (Unverified Adverse Reaction, Severe, SEVERE VOMITING, 06/12/17) iohexol (Unverified Adverse Reaction, Severe, SEVERE VOMITING, 06/12/17) Reported Meds & Prescriptions Reported Meds & Active Scripts Active Diltiazem CD 24 HR 240 Mg Caper 240 Mg PO DAILY Eliquis (Apixaban) 5 Mg Tab 5 Mg PO Q12HR START at 8AM on 02/24/2017. Reported Zoloft (Sertraline HCl) 100 Mg Tab 150 Mg PO HS Diphenhydramine (Diphenhydramine HCl) 25 Mg Cap 25 Mg PO Q6HR PRN Doxazosin (Doxazosin Mesylate) 2 Mg Tab 2 Mg PO HS Gabapentin 800 Mg Tab 1,200 Mg PO TID Metoprolol Tartrate 25 Mg Tab 25 Mg PO Q12HR Artificial Tears Opth Drops (Propylene Glycol-Glycerin Opth Drops) 1-0.3% Drops 1-2 Drop EACH EYE QID PRN Atorvastatin (Atorvastatin Calcium) 40 Mg Tab 40 Mg PO HS Review of Systems Except as stated in HPI: all other systems reviewed are Neg Physical Exam Narrative GENERAL: SKIN: Warm and dry. HEAD: Atraumatic. Normocephalic. EYES: Pupils equal and round. No scleral icterus. No injection or drainage. ENT: No nasal bleeding or discharge. Mucous membranes pink and moist. Tongue is midline. No uvula deviation. NECK: Trachea midline. No JVD. CARDIOVASCULAR: Regular rate and rhythm. No murmurs, S3, S4. RESPIRATORY: No accessory muscle use. Clear to auscultation. Breath sounds equal bilaterally. GASTROINTESTINAL: Abdomen soft, tender to palpation on the right lower quadrant , nondistended. Hepatic and splenic margins not palpable. Very obese patient. MUSCULOSKELETAL: Extremities without clubbing, cyanosis, or edema. No obvious deformities. Full range of motion of the upper and lower extremities bilaterally. 2+ pulses bilaterally. NEUROLOGICAL: Awake and alert. No obvious cranial nerve deficits. Motor grossly within normal limits. Five out of 5 muscle strength in the arms and legs. Normal speech. PSYCHIATRIC: Appropriate mood and affect; insight and judgment normal. Data Data Last Documented VS Vital Signs Date Time Temp Pulse Resp B/P (MAP) Pulse Ox O2 Delivery O2 Flow Rate FiO2 07/13/17 19:04 81 18 138/78 (98) 96 Room Air 07/13/17 17:03 98.0 Orders Orders Complete Blood Count With Diff (07/13/17 17:13) Comprehensive Metabolic Panel (07/13/17 17:13) Lipase (07/13/17 17:13) Prothrombin Time / Inr (Pt) (07/13/17 17:13) Act Partial Throm Time (Ptt) (07/13/17 17:13) Lactic Acid Sepsis Protocol (07/13/17 17:54) Ciprofloxacin 400 Mg Premix (Cipro 400 M (07/13/17 18:30) Metronidazole 500 Mg Inj (Flagyl 500 Mg (07/13/17 18:30) Morphine Inj (Morphine Inj) (07/13/17 18:30) Ondansetron Inj (Zofran Inj) (07/13/17 18:30) Blood Culture (07/13/17 18:41) Morphine Inj (Morphine Inj) (07/13/17 20:15) Ciprofloxacin 400 Mg Premix (Cipro 400 M (07/14/17 06:00) Metronidazole 500 Mg Inj (Flagyl 500 Mg (07/14/17 02:00) Admit To Inpatient (07/13/17 ) Vital Signs (Adult) Q4H (07/13/17 20:21) Activity Oob Ad Pam (07/13/17 20:21) Intake + Output FRANCISCO.QSHIFT (07/13/17 20:21) Diet Regular Basic (07/14/17 Breakfast) Sodium Chlor 0.9% 1000 Ml Inj (Ns 1000 M (07/13/17 20:21) Sodium Chloride 0.9% Flush (Ns Flush) (07/13/17 20:30) Sodium Chloride 0.9% Flush (Ns Flush) (07/13/17 21:00) Ondansetron Inj (Zofran Inj) (07/13/17 20:30) Comprehensive Metabolic Panel (07/14/17 06:00) Complete Blood Count With Diff (07/14/17 06:00) Scd Bilateral/Knee High FRANCISCO.BID (07/13/17 20:21) Ulices Bilateral/Knee High FRANCISCO.QSHIFT (07/13/17 20:24) Acetaminophen (Tylenol) (07/13/17 20:30) Acetamin-Hydrocod 325-5 Mg (Claude 5-325 (07/13/17 20:30) Morphine Inj (Morphine Inj) (07/13/17 20:30) Docusate Sodium-Senna (Sagrario-Colace) (07/13/17 21:00) Magnesium Hydroxide Liq (Milk Of Magnesi (07/13/17 20:30) Sennosides (Senokot) (07/13/17 20:30) Bisacodyl Supp (Dulcolax Supp) (07/13/17 20:30) Lactulose Liq (Lactulose Liq) (07/13/17 20:30) Inpatient Certification (07/13/17 ) Atorvastatin (Lipitor) (07/13/17 21:00) Diltiazem Cd (Cardizem Cd) (07/14/17 09:00) Doxazosin (Cardura) (07/13/17 21:00) Gabapentin (Neurontin) (07/14/17 09:00) Metoprolol Tartrate (Lopressor) (07/13/17 21:00) Artificial Tears Opth Soln (Tears Natura (07/13/17 20:30) Sertraline (Zoloft) (07/13/17 21:00) Admit Order (Ed Use Only) (07/13/17 20:21) Consult Colorectal Surgery (07/13/17 ) Ct Guided Aspiration (07/13/17 ) Electrocardiogram (07/13/17 ) Labs Laboratory Tests Test 07/13/17 18:40 07/13/17 19:05 Lactic Acid Level 1.2 mmol/L White Blood Count 5.6 TH/MM3 Red Blood Count 4.53 MIL/MM3 Hemoglobin 13.0 GM/DL Hematocrit 38.9 % Mean Corpuscular Volume 85.9 FL Mean Corpuscular Hemoglobin 28.7 PG Mean Corpuscular Hemoglobin Concent 33.4 % Red Cell Distribution Width 15.9 % Platelet Count 150 TH/MM3 Mean Platelet Volume 9.1 FL Neutrophils (%) (Auto) 74.5 % Lymphocytes (%) (Auto) 11.2 % Monocytes (%) (Auto) 12.5 % Eosinophils (%) (Auto) 1.1 % Basophils (%) (Auto) 0.7 % Neutrophils # (Auto) 4.2 TH/MM3 Lymphocytes # (Auto) 0.6 TH/MM3 Monocytes # (Auto) 0.7 TH/MM3 Eosinophils # (Auto) 0.1 TH/MM3 Basophils # (Auto) 0.0 TH/MM3 CBC Comment DIFF FINAL Differential Comment Prothrombin Time 10.9 SEC Prothromb Time International Ratio 1.1 RATIO Activated Partial Thromboplast Time 26.0 SEC Blood Urea Nitrogen 15 MG/DL Creatinine 0.90 MG/DL Random Glucose 83 MG/DL Total Protein 8.2 GM/DL Albumin 3.1 GM/DL Calcium Level 8.4 MG/DL Alkaline Phosphatase 106 U/L Aspartate Amino Transf (AST/SGOT) 21 U/L Alanine Aminotransferase (ALT/SGPT) 17 U/L Total Bilirubin 0.5 MG/DL Sodium Level 134 MEQ/L Potassium Level 4.4 MEQ/L Chloride Level 103 MEQ/L Carbon Dioxide Level 26.2 MEQ/L Anion Gap 5 MEQ/L Estimat Glomerular Filtration Rate 101 ML/MIN Lipase 136 U/L MDM Medical Decision Making Medical Screen Exam Complete: Yes Emergency Medical Condition: Yes Medical Record Reviewed: Yes Interpretation(s) CBC & BMP Diagram 07/13/17 19:05 Total Protein 8.2, Albumin 3.1 L, Calcium Level 8.4 L, Alkaline Phosphatase 106 , Aspartate Amino Transf (AST/SGOT) 21, Alanine Aminotransferase (ALT/SGPT) 17, Total Bilirubin 0.5 lactic acid WNL Differential Diagnosis Diverticulitis versus abscess versus right lower quadrant pain versus abdominal pain versus sepsis versus acute pain Narrative Course 72-year-old male that presents to the ED for evaluation of right lower quadrant pain. Patient was properly evaluated and was found to have signs and symptoms which appear to be consistent with diverticulitis. Patient comes here were reports that were provided by the MD clinic. Patient's CT of the abdomen shows "active diverticulitis with persistent 3 cm abscess interposed between the rectosigmoid colon and the urinary bladder with multiple fistula and a potential 2.5 cm second abscess. Negative for pneumatosis of the colon. Persistent grossly abnormal appearance of the left kidney. Recommending clinical correlation, considerations included infection, posttraumatic sequela, malignancy." Labs were drawn. Labs did show slightly elevated also account but no sign of other acute disease. Case was discussed with Dr. Alva from colorectal was made aware of findings from the CT scan and she agrees to see the patient in consultation. She wanted to see we could put an order for a CT- guided aspiration of the abscess. She wants the patient admitted to medicine. This was discussed with Dr. brady who agrees to admission. Patient was admitted. Diagnosis Primary Impression: Diverticulitis large intestine Qualified Codes: K57.20 - Diverticulitis of large intestine with perforation and abscess without bleeding Admitting Information Admitting Physician Requests: Admit Sanya Taylor Jul 13, 2017 18:49
[2017-07-13 19:04] VITALS: BP 138/78; PULSE 81; RESP 18; O2SAT 96
[2017-07-13 19:25] LABS: AUTOMATED NEUTROPHIL # 4.2 TH/MM3 (1.8-7.7); BASOPHIL % 0.7 % (0.0-2.0); EOSINOPHIL # 0.1 TH/MM3 (0-0.4); EOSINOPHIL % 1.1 % (0.0-4.0); HEMATOCRIT 38.9 % (39.0-51.0); LYMPH % 11.2 % (9.0-44.0); LYMPHOCYTE # 0.6 TH/MM3 (1.0-4.8); MEAN CELL VOLUME 85.9 FL (80.0-100.0); MEAN CORPUSCULAR HEMOGLOBIN 28.7 PG (27.0-34.0); MEAN CORPUSCULAR HGB CONC 33.4 % (32.0-36.0); MEAN PLATELET VOLUME 9.1 FL (7.0-11.0); MONO % 12.5 % (0.0-8.0); MONOCYTE # 0.7 TH/MM3 (0-0.9); NEUT % 74.5 % (16.0-70.0); PLATELET COUNT 150 TH/MM3 (150-450); RED BLOOD COUNT 4.53 MIL/MM3 (4.50-5.90); RED CELL DISTRIBUTION WIDTH 15.9 % (11.6-17.2); WHITE BLOOD COUNT 5.6 TH/MM3 (4.0-11.0)
[2017-07-13 19:38] LABS: INTERNATIONAL NORMALIZED RATIO 1.1 RATIO; PROTHROMBIN TIME - PATIENT 10.9 SEC (9.8-11.6)
[2017-07-13 19:53] LABS: ALT (GPT) 17 U/L (12-78)
[2017-07-13 19:55] LABS: ALKALINE PHOSPHATASE 106 U/L (45-117); TOTAL BILIRUBIN ADULT 0.5 MG/DL (0.2-1.0); TOTAL PROTEIN 8.2 GM/DL (6.4-8.2)
[2017-07-13 19:58] LABS: ALBUMIN 3.1 GM/DL (3.4-5.0); AST (GOT) 21 U/L (15-37); BICARBONATE 26.2 MEQ/L (21.0-32.0); BLOOD UREA NITROGEN 15 MG/DL (7-18); CALCIUM 8.4 MG/DL (8.5-10.1); CHLORIDE 103 MEQ/L (98-107); GLOMERULAR FILTRATION RATE 101 ML/MIN (>89); GLUCOSE,RANDOM 83 MG/DL (74-106); LIPASE 136 U/L (73-393); SODIUM (NA) 134 MEQ/L (136-145)
[2017-07-13 20:00] VITALS: BP 128/82; PULSE 91; RESP 18; TEMP 95.4; O2SAT 94
[2017-07-13] MEDS ORDERED: MORPHINE SULFATE 2 MG/ML INJ IV PUSH ONE (20:15)
--- NOTE | 2017-07-13 20:25 | HHI.HP ---
[facility] Admission Diagnosis Diagnoses: (1) Diverticulitis of intestine with abscess Diagnosis: Principal (2) A-fib Diagnosis: Principal (3) HTN (hypertension) Diagnosis: Principal (4) Tobacco abuse Diagnosis: Principal Travel History International Travel<30 Days: No Contact w/Intl Traveler <30 Da: No Traveled to Known Affected Are: No History of Present Illness This is a 72-year-old male with a PMH of HTN, Hyperlipidemia, A. fib on Eliquis , Hepatitis C, Diverticulosis and Tobacco Abuse who was referred to the ER by the [place] secondary to abnormal CT results. Per patient he's had ongoing abdominal pain for approx 2 months. Pain is cramping, intermittent, 6/10, non- radiating, worse w/ movement. Was seen at the [place] and sent for CT Abd/Pelvis which showed rectosigmoid diverticulitis w/ fistula and 4cm abscess between colon and urinary bladder, report in chart. Denies fever, chills, nausea, vomiting or diarrhea. On arrival, BP 203/88, HR 93, O2 sat 97% on RA, Afebrile. CBC essentially unremarkable. Chemistry essentially unremarkable. Dr. Alva w/ CRS consulted by ER physician, recommended CT Guided Aspiration and will eval in am for possible surgical intervention. S/p Cipro/Flagyl in ER. Review of Systems Except as stated in HPI: all other systems reviewed are Neg ROS: 14 point review of systems otherwise negative. Past Family Social History Past Medical History PMH: HTN, Hyperlipidemia, A. fib on Eliquis, Hepatitis C, Diverticulosis and Tobacco Abuse Past Surgical History PAST SURGICAL HISTORY: Urethral Dilatation Allergies: Coded Allergies: diatrizoate meglumine (Unverified Adverse Reaction, Severe, SEVERE VOMITING, 06/12/17) gadobenic acid (Unverified Adverse Reaction, Severe, SEVERE VOMITING, ) gadodiamide (Unverified Adverse Reaction, Severe, SEVERE VOMITING, ) gadoteridol (Unverified Adverse Reaction, Severe, SEVERE VOMITING, ) iodixanol (Unverified Adverse Reaction, Severe, SEVERE VOMITING, 06/12/17) iohexol (Unverified Adverse Reaction, Severe, SEVERE VOMITING, 06/12/17) Family History PAST FAMILY HISTORY: Reviewed. No h/o DM or CAD Social History PAST SOCIAL HISTORY: Negative for alcohol. Smokes 1/2ppd. H/o IVDU, no recent use. Physical Exam Vital Signs Vital Signs Date Time Temp Pulse Resp B/P (MAP) Pulse Ox O2 Delivery O2 Flow Rate FiO2 07/13/17 19:04 81 18 138/78 (98) 96 Room Air 07/13/17 17:03 98.0 93 16 203/88 (126) 97 Physical Exam PE: GENERAL: Pleasant elderly black male in no acute distress. HEENT: PERRLA, EOMI. No scleral icterus or conjunctival pallor. No lid lag or facial droop. CARDIOVASCULAR: Regular rate and rhythm. No obvious murmurs to auscultation. No chest tenderness to palpation. RESPIRATORY: No obvious rhonchi or wheezing. Clear to auscultation. Breath sounds equal bilaterally. GASTROINTESTINAL: Abdomen soft, mild generalized tenderness to palpation, nondistended. BS normal. MUSCULOSKELETAL: Extremities without clubbing, cyanosis, or edema. No obvious deformities. NEUROLOGICAL: Awake, alert and oriented x4. No focal neurologic deficits. Moving both upper and lower extremities spontaneously. Laboratory Laboratory Tests Test 07/13/17 18:40 07/13/17 19:05 Lactic Acid Level 1.2 White Blood Count 5.6 Red Blood Count 4.53 Hemoglobin 13.0 Hematocrit 38.9 Mean Corpuscular Volume 85.9 Mean Corpuscular Hemoglobin 28.7 Mean Corpuscular Hemoglobin Concent 33.4 Red Cell Distribution Width 15.9 Platelet Count 150 Mean Platelet Volume 9.1 Neutrophils (%) (Auto) 74.5 Lymphocytes (%) (Auto) 11.2 Monocytes (%) (Auto) 12.5 Eosinophils (%) (Auto) 1.1 Basophils (%) (Auto) 0.7 Neutrophils # (Auto) 4.2 Lymphocytes # (Auto) 0.6 Monocytes # (Auto) 0.7 Eosinophils # (Auto) 0.1 Basophils # (Auto) 0.0 CBC Comment DIFF FINAL Differential Comment Prothrombin Time 10.9 Prothromb Time International Ratio 1.1 Activated Partial Thromboplast Time 26.0 Blood Urea Nitrogen 15 Creatinine 0.90 Random Glucose 83 Total Protein 8.2 Albumin 3.1 Calcium Level 8.4 Alkaline Phosphatase 106 Aspartate Amino Transf (AST/SGOT) 21 Alanine Aminotransferase (ALT/SGPT) 17 Total Bilirubin 0.5 Sodium Level 134 Potassium Level 4.4 Chloride Level 103 Carbon Dioxide Level 26.2 Anion Gap 5 Estimat Glomerular Filtration Rate 101 Lipase 136 Date/Time Source Procedure Growth Status 07/13/17 18:55 Blood Peripheral Aerobic Blood Culture Pending Received 07/13/17 18:55 Blood Peripheral Anaerobic Blood Culture Pending Received Result Diagram: 07/13/17190407/13/17 190 Caprini VTE Risk Assessment Caprini VTE Risk Assessment: No/Low Risk (score <= 1) Caprini Risk Assessment Model Point Value = 1 Point Value = 2 Point Value = 3 Point Value = 5 Age 41-60 Minor surgery BMI > 25 kg/m2 Swollen legs Varicose veins or History of unexplained or recurrent spontaneous Oral contraceptives or hormone replacement Sepsis (< 1 month) Serious lung disease, including pneumonia (< 1 month) Abnormal pulmonary function Acute myocardial infarction Congestive heart failure (< 1 month) History of inflammatory bowel disease Medical patient at bed rest Age 61-74 Arthroscopic surgery Major open surgery (> 45 min) Laparoscopic surgery (> 45 min) Malignancy Confined to bed (> 72 hours) Immobilizing plaster cast Central venous access Age >= 75 History of VTE Family history of VTE Factor V Leiden Prothrombin [id number] Lupus anticoagulant Anticardiolipin antibodies Elevated serum homocysteine Heparin-induced thrombocytopenia Other congenital or acquired thrombophilia Stroke (< 1 month) Elective arthroplasty Hip, pelvis, or leg fracture Acute spinal cord injury (< 1 month) Prophylaxis Regimen Total Risk Factor Score Risk Level Prophylaxis Regimen 0-1 Low Early ambulation 2 Moderate Order ONE of the following: *Sequential Compression Device (SCD) *Heparin 5000 units SQ BID 3-4 Higher Order ONE of the following medications: *Heparin 5000 units SQ TID *Enoxaparin/Lovenox 40 mg SQ daily (WT < 150 kg, CrCl > 30 mL/min) *Enoxaparin/Lovenox 30 mg SQ daily (WT < 150 kg, CrCl > 10-29 mL/min) *Enoxaparin/Lovenox 30 mg SQ BID (WT < 150 kg, CrCl > 30 mL/min) AND/OR *Sequential Compression Device (SCD) 5 or more Highest Order ONE of the following medications: *Heparin 5000 units SQ TID (Preferred with Epidurals) *Enoxaparin/Lovenox 40 mg SQ daily (WT < 150 kg, CrCl > 30 mL/min) *Enoxaparin/Lovenox 30 mg SQ daily (WT < 150 kg, CrCl > 10-29 mL/min) *Enoxaparin/Lovenox 30 mg SQ BID (WT < 150 kg, CrCl > 30 mL/min) AND *Sequential Compression Device (SCD) Assessment and Plan Problem List: (1) Diverticulitis of intestine with abscess ICD Code: K57.80 - Diverticulitis of intestine, part unspecified, with perforation and abscess without bleeding (2) A-fib ICD Code: I48.91 - Unspecified atrial fibrillation (3) HTN (hypertension) ICD Code: I10 - Essential (primary) hypertension (4) Tobacco abuse ICD Code: Z72.0 - Tobacco use Assessment and Plan A/P: 1. Diverticulitis: w/ Abscess and fistula from outpatient CT done by [place], records reviewed by me. Dr. Alva w/ CRS consulted by ER physician, recommended CT Guided Aspiration, with possible surgical intervention if needed. Continue IV Cipro/Flagyl, monitor I/O, analgesics/antiemetics as needed. 2. A-fib: Chronic. On Eliquis, last dose taken last night (07/12/17), will hold Eliquis in light of CT Guided aspiration/surgical intervention. Resume home Cardizem. 3. HTN: Uncontrolled. BP 203/88, HR 93 on arrival, likely compounded by pain complaints. Resume home medications, monitor BP, start antihypertensives for persistent BP >180 4. Tobacco Abuse: Pt counselled. NicoDerm prn if needed. 5. DVT Prophylaxis: Hold Eliquis 6. Social work for d/c planning as needed. 7. Labs/records reviewed by me, case discussed at length w/ ER physician. Physician Certification 2 Midnight Certification Type: Admission for Inpatient Services Order for Inpatient Services The services are ordered in accordance with Medicare regulations or non- Medicare payer requirements, as applicable. In the case of services not specified as inpatient-only, they are appropriately provided as inpatient services in accordance with the 2-midnight benchmark. Estimated LOS (days): 2 days is the estimated time the patient will need to remain in the hospital, assuming treatment plan goals are met and no additional complications. Post-Hospital Plan: Not yet determined Devika House MD Jul 13, 2017 20:25
[2017-07-13 20:30] VITALS: BP 142/80; PULSE 91; RESP 18; O2SAT 97
[2017-07-13] MEDS ORDERED: MORPHINE SULFATE 2 MG/ML INJ IV PUSH PRN (20:30)
[2017-07-13] MEDS ORDERED: ACETAMINOPHEN 325 MG TAB PO PRN (20:30)
[2017-07-13] MEDS ORDERED: LACTULOSE SYRUP 20 GM/30 ML CUP PO PRN (20:30)
[2017-07-13] MEDS ORDERED: SODIUM CHLORIDE 0.9% FLUSH 10 ML FLUSH IV FLUSH PRN (20:30)
[2017-07-13] MEDS ORDERED: SENNOSIDES 8.6 MG TAB PO PRN (20:30)
[2017-07-13] MEDS ORDERED: BISACODYL 10 MG SUPP RECTAL PRN (20:30)
[2017-07-13] MEDS ORDERED: MAGNESIUM HYDROXIDE SUSP 30 ML CUP PO PRN (20:30)
[2017-07-13] MEDS ORDERED: ONDANSETRON HCL 4 MG/2 ML VIAL IVP PRN (20:30)
[2017-07-13] MEDS: SODIUM CHLOR 0.9% 1000 ML INJ 1,000 ML IV SCH (20:36)
[2017-07-13] MEDS ORDERED: ARTIFICIAL TEARS OPTH SOLN 15 ML BTL EACH EYE PRN (21:00)
[2017-07-13] MEDS: DOCUSATE SODIUM 50 MG/SENNA 8.6 MG TAB PO SCH (21:00)
[2017-07-13] MEDS: METOPROLOL TARTRATE 25 MG TAB PO SCH (22:58)
[2017-07-13] MEDS: DOXAZOSIN MESYLATE 2 MG TAB PO SCH (22:58)
[2017-07-13] MEDS: SERTRALINE HCL 50 MG TAB PO SCH (22:58)
[2017-07-13] MEDS: ATORVASTATIN 40 MG TAB PO SCH (22:59)
[2017-07-13] MEDS: ACETAMINOPHEN/HYDROcodone 325 MG/5 MG TAB PO PRN (22:59)
[2017-07-13] MEDS: SODIUM CHLORIDE 0.9% FLUSH 10 ML FLUSH IV FLUSH SCH (23:04)
[2017-07-14] VITALS: BP 123/83; PULSE 93; RESP 18; TEMP 95.9; O2SAT 94
[2017-07-14] MEDS: metroNIDAZOLE 500 MG INJ 100 ML IV SCH ×3 (03:36→17:59)
[2017-07-14] MEDS: ACETAMINOPHEN/HYDROcodone 325 MG/5 MG TAB PO PRN ×4 (03:40→18:40)
[2017-07-14] MEDS: SODIUM CHLOR 0.9% 1000 ML INJ 1,000 ML IV SCH ×2 (03:41→08:34)
[2017-07-14 07:51] LABS: BACTERIA, URINE FEW /hpf; BILIRUBIN, URINE NEG (NEG); BLOOD, URINE SMALL (NEG); GLUCOSE,URINE NEG (NEG); KETONE, URINE NEG (NEG); MUCUS URINE FEW /lpf (OCC); NITRITE,URINE NEG (NEG); SQUAMOUS EPITHELIAL CELL URINE 12 /hpf (0-5); URINE COLOR YELLOW (YELLW/STRAW); URINE LEUKOCYTE ESTERASE LARGE (NEG)
[2017-07-14 08:00] VITALS: BP 118/80; PULSE 96; RESP 18; TEMP 98.4; O2SAT 95
[2017-07-14] MEDS: DOCUSATE SODIUM 50 MG/SENNA 8.6 MG TAB PO SCH ×2 (08:13→21:00)
[2017-07-14] MEDS: CIPROFLOXACIN 400 MG PREMIX 200 ML IV SCH ×2 (08:13→21:19)
[2017-07-14] MEDS: METOPROLOL TARTRATE 25 MG TAB PO SCH ×2 (08:13→21:20)
[2017-07-14] MEDS: DILTIAZEM-CD 240 MG CAP ER PO SCH (08:13)
[2017-07-14] MEDS: GABAPENTIN 400 MG CAP PO SCH ×3 (08:27→17:59)
[2017-07-14] MEDS: SODIUM CHLORIDE 0.9% FLUSH 10 ML FLUSH IV FLUSH SCH ×2 (08:29→21:22)
[2017-07-14 09:22] LABS: HEMATOCRIT 37.1 % (39.0-51.0); MEAN CELL VOLUME 86.3 FL (80.0-100.0); MEAN CORPUSCULAR HEMOGLOBIN 27.8 PG (27.0-34.0); MEAN CORPUSCULAR HGB CONC 32.2 % (32.0-36.0); MEAN PLATELET VOLUME 9.1 FL (7.0-11.0); PLATELET COUNT 124 TH/MM3 (150-450)
[2017-07-14 09:53] LABS: AST (GOT) 15 U/L (15-37); BICARBONATE 27.1 MEQ/L (21.0-32.0); BLOOD UREA NITROGEN 13 MG/DL (7-18); CALCIUM 8.4 MG/DL (8.5-10.1); CHLORIDE 104 MEQ/L (98-107); CREATININE 0.91 MG/DL (0.60-1.30); GLOMERULAR FILTRATION RATE 100 ML/MIN (>89); GLUCOSE,RANDOM 89 MG/DL (74-106); SODIUM (NA) 137 MEQ/L (136-145)
[2017-07-14 09:58] LABS: ALKALINE PHOSPHATASE 93 U/L (45-117); ALT (GPT) 12 U/L (12-78); TOTAL BILIRUBIN ADULT 0.5 MG/DL (0.2-1.0); TOTAL PROTEIN 7.7 GM/DL (6.4-8.2)
[2017-07-14 10:06] LABS: BANDS 3 % (0-6); LYMPHOCYTES 19 % (9-44); MONOCYTES 12 % (0-8); NEUTROPHIL # MANUAL DIFF 2.8 TH/MM3 (1.8-7.7); POLYS (SEG NEUTROPHILS) 66 % (16-70)
[2017-07-14 12:00] VITALS: BP 115/65; PULSE 82; RESP 21; TEMP 99; O2SAT 99
--- NOTE | 2017-07-14 13:28 | EKG ---
Date Performed: 07/13/2017 Time Performed: 20:36:50 PTAGE: 72 years EKG: ATRIAL FIBRILLATION Since the prior tracing, there has been no significant change ABNORMAL RHYTHM ECG PREVIOUS TRACING : 02/17/2017 09.49 DOCTOR: Kaiser Zavaleta Interpretating Date/Time 07/14/2017 13:25:44
--- NOTE | 2017-07-14 13:44 | MB ---
cc: JOSÉ MIGUEL GUEVARA M.D. DATE OF CONSULTATION: 07/14/2017 CHIEF COMPLAINT Diverticulitis with abscess HISTORY OF PRESENT ILLNESS The patient is a 71-year-old male who came to the emergency room late yesterday. He was sent [place] by his [place] doctor. HISTORY OF PRESENT ILLNESS He has a history of multiple episodes of diverticulitis and he was recommended to have CT pelvis, He has had a right lower quadrant pain for about 2-3 months and he was at [facility] back in May, a CT scan at that point was consistent with chronic diverticulitis with possible colovesical fistula. He reports right lower quadrant pain. Denies any dysuria, hematuria, pneumaturia he denies fevers, chills with nausea, vomiting or diarrhea. When discussed with him he says that he has had multiple attacks going back for a multiple years. He is not sure when he was last on antibiotics for his diverticulitis. PAST MEDICAL HISTORY 1. DVT 1. Hypertension 2. History of DVT 3. Atrial fibrillation. 4. Hepatitis C. PAST SURGICAL HISTORY 1. Urethral dilatation 2. Back surgery. ALLERGIES DYAZIDE Gadobenic acid Gadodiamide Gadoteridol IoXL SOCIAL HISTORY The patient is of the distant history of alcohol abuse per the chart. He has not report this to the smokes a half-pack per day PHYSICAL EXAMINATION: IN GENERAL: An obese male who appears comfortable. NEUROLOGIC: Neuro is grossly intact. DERMATOLOGIC: Skin is warm and dry. CARDIOVASCULAR SYSTEM: Cardiovascular is of irregular but rate is. RESPIRATORY: The patient is seen mildly short of breath but is moving air easily. ABDOMEN: Soft, nondistended. She is mildly tender in the right lower quadrant. EXTREMITIES: Reveal no edema. LABORATORY FINDINGS: Laboratory work as a white count of 5.6, hemoglobin of 13.0, platelets of 150. Chemistry shows testing 134. Sodium 134 fashion 4.4, chloride is 103, bicarb is 26.2, BUN is 15, creatinine 0.9 and a glucose is 83. Coags are normal. Urinalysis has not yet been completed imaging is pending. 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 PLAN: I think repeat CT scan this morning with possible drainage of the abscess is available would be prudent in addition, we will call him down IV antibiotics and I will continue to follow with you. Mr. Chatterjee and I spoke briefly about the fact that he will ultimately need resection but hopefully we can get the acute infection and inflammation under control prior to report was surgery. We will check a urinalysis to be sure that he is not also have a Urinary tract infection. I thank you very much for your kind referral MD MALA Bustillos/kurt /6:23 AM /11:18 AM
--- NOTE | 2017-07-14 15:01 | HHI.PR ---
Subjective Remarks Symptoms of acute diverticulitis remain. Patient has slight drop in his hemoglobin level. No signs of sepsis. Objective Vital Signs Date Time Temp Pulse Resp B/P (MAP) Pulse Ox O2 Delivery O2 Flow Rate FiO2 07/14/17 12:00 99.0 82 21 115/65 (82) 99 07/14/17 08:00 98.4 96 18 118/80 (93) 95 07/14/17 00:00 95.9 93 18 123/83 (96) 94 07/13/17 21:27 07/13/17 20:30 91 18 142/80 (100) 97 Room Air 07/13/17 20:00 95.4 91 18 128/82 (97) 94 07/13/17 19:04 81 18 138/78 (98) 96 Room Air 07/13/17 17:03 98.0 93 16 203/88 (126) 97 I/O 07/13/17 07/13/17 07/13/17 07/14/17 07/14/17 07/14/17 07:00 15:00 23:00 07:00 15:00 23:00 Intake Total 100 ml 680 ml Output Total 525 ml 400 ml Balance -425 ml 280 ml Intake Oral 480 ml IV Total 100 ml 200 ml Output Urine Total 525 ml 400 ml # Voids 1 # Bowel Movements 0 Result Diagram: 07/14/17 0810 07/14/17 0810 Objective Remarks GENERAL: NAD, A&Ox3 HEAD: Normocephalic. NECK: Supple, trachea midline. No lymphadenopathy. EYES: No scleral icterus. No injection or drainage. CARDIOVASCULAR: Regular rate and rhythm without murmurs, gallops, or rubs. RESPIRATORY: Breath sounds equal bilaterally. No accessory muscle use. GASTROINTESTINAL: Abdomen soft, mild tenderness and distention of the lower abdomen. MUSCULOSKELETAL: No cyanosis, or edema. SKIN: Warm and dry. NEURO: No focal neurological deficitis. A/P Problem List: (1) Diverticulitis large intestine ICD Code: K57.32 - Diverticulitis of large intestine without perforation or abscess without bleeding Status: Acute Assessment and Plan 72-year-old male admitted secondary to diverticulitis Diverticulitis Abscess and fistula with diverticulitis Colorectal surgery following Continue IV Cipro and Flagyl Atrial fibrillation Hold Eliquis for possible aspiration or surgical intervention Continue Cardizem Follow on telemetry Hypertension Continue baseline treatment Follow blood pressures Adjust treatments as needed Tobacco dependence NicoDerm DVT prophylaxis SCDs Eliquis on hold Problem Qualifiers (1) Diverticulitis large intestine: Qualified Codes: K57.20 - Diverticulitis of large intestine with perforation and abscess without bleeding Colt Quick MD Jul 14, 2017 15:01
[2017-07-14 16:00] VITALS: BP 116/72; PULSE 86; RESP 20; TEMP 98.9; O2SAT 98
--- NOTE | 2017-07-14 16:03 | RADRPT ---
EXAM DATE/TIME: 07/14/2017 15:24 [facility] COMPARISON: CT ABDOMEN & PELVIS W/O CONTRAST, June 12, 2017, 13:28. INDICATIONS : Low abdomen pain. ORAL CONTRAST: No oral contrast ingested. RADIATION DOSE: 45.01 CTDIvol (mGy) ; Patient body habitus MEDICAL HISTORY : Diverticulitis. Cardiovascular disease Hypertension.Hep. C. SURGICAL HISTORY : Back. ENCOUNTER: Initial ACUITY: 3 days PAIN SCALE: 4/10 LOCATION: Bilateral lower quadrant TECHNIQUE: Volumetric scanning of the abdomen and pelvis was performed. Using automated exposure control and ad justment of the mA and/or kV according to patient size, radiation dose was kept as low as reasonably achievable to obtain optimal diagnostic quality images. DICOM format image data is available electro nically for review and comparison. FINDINGS: LOWER LUNGS: Of prior rib resection posterolaterally in the right lower hemithorax. Subjacent pleural thickening/a telectasis and scarring. Lung bases are otherwise clear. LIVER: Stable 1.5-1.6 cm probable cyst posteriorly in the right hepatic lobe. There is no dilation of the b iliary tree. No calcified gallstones. SPLEEN: Normal size without lesion. PANCREAS: Within normal limits. KIDNEYS: Perinephric soft tissue density around the left kidney is unchanged from prior. Benign-appearing jennie ical cyst in the anterior upper/mid pole cortex of the right kidney. Kidneys are otherwise radiograph ically intact.. ADRENAL GLANDS: Stable to 2.0 x 2.9 cm nodule in the left adrenal gland. Right adrenal gland is radiographically norm al. VASCULAR: There is no aortic aneurysm. Vena cava IVC filter just above the confluence of the left and right jagdish ac veins BOWEL/MESENTERY: Diverticular disease throughout the colon, most severe in the region of the descending and sigmoid. T here appears to be chronic diverticulitis in the region of the sigmoid with regional scarring. The si gmoid appears to be intimately associated with, and probably adherent to the bladder dome. There appe ars to be a small, chronic fistula extending rightward off of the sigmoid and bladder dome but no aline inable abscess collection. There is some stranding identified in the region of the suspected fistula which may represent chronic inflammation. No free air. The appendix is radiographically normal. ABDOMINAL WALL: Within normal limits. RETROPERITONEUM: There is no lymphadenopathy. BLADDER: No wall thickening or mass. REPRODUCTIVE: Within normal limits. INGUINAL: There is no lymphadenopathy or hernia. MUSCULOSKELETAL: Within normal limits for patient age. CONCLUSION: 1. Diverticular disease throughout the colon most prominent in the descending and sigmoid. There may be a chronic diverticulitis with regional scarring. Sigmoid appears to be adherent to the bladder dom e with possibly a small associated colonic fistula extending rightward off the bladder dome. Regional stranding in the area of the suspected fistula probably represents chronic inflammation. 2. Stable soft tissue prominence along the convexity of the left kidney in the perinephric space. Marlena gnostic considerations include chronic hematoma. Entities such as lymphoma should also be considered. 3. 2.0 x 2.9 cm stable left adrenal mass lesion, likely an adenoma. 4. Postsurgical changes in the right hemithorax with posterolateral resection and subjacent pleural s carring. Franki Sorto MD on July 14, 2017 at 15:36 Board Certified Radiologist. This report was verified electronically.
--- NOTE | 2017-07-14 16:05 | RADRPT ---
EXAM DATE/TIME: 07/14/2017 00:00 [facility] COMPARISON: CT scan of the abdomen and pelvis performed at [facility] earlier today. INDICATIONS : Reported diverticular abscess FINDINGS: CT from today reviewed. No drainable abscess. CONCLUSION: Chronic diverticulitis. No drainable abscess. Franki Sorto MD on July 14, 2017 at 16:01 Board Certified Radiologist. This report was verified electronically.
[2017-07-14 20:00] VITALS: BP 146/87; PULSE 84; RESP 20; TEMP 99.1; O2SAT 94
[2017-07-14] MEDS: SERTRALINE HCL 50 MG TAB PO SCH (21:19)
[2017-07-14] MEDS: ATORVASTATIN 40 MG TAB PO SCH (21:19)
[2017-07-14] MEDS: DOXAZOSIN MESYLATE 2 MG TAB PO SCH (21:19)
[2017-07-14] MEDS: guaiFENesin SOLUTION 200 MG/10 ML CUP PO PRN (21:20)
[2017-07-15] VITALS: BP 141/83; PULSE 82; RESP 18; TEMP 99.6; O2SAT 100
[2017-07-15] MEDS: ACETAMINOPHEN/HYDROcodone 325 MG/5 MG TAB PO PRN ×3 (00:48→16:16)
[2017-07-15] MEDS: metroNIDAZOLE 500 MG INJ 100 ML IV SCH ×3 (01:10→16:17)
--- NOTE | 2017-07-15 01:46 | RADRPT ---
EXAM DATE/TIME: 07/15/2017 01:28 [facility] COMPARISON: CHEST SINGLE AP, February 17, 2017, 10:31. INDICATIONS : Congestion and cough MEDICAL HISTORY : Hypertension. Myocardial infarction. Hypercholesterolemia. CAD, A-Fib SURGICAL HISTORY : None. ENCOUNTER: Initial ACUITY: 1 day PAIN SCORE: 7/10 LOCATION: Bilateral chest FINDINGS: The patient is status post corpectomy and stabilization of procedure in the mid to lower thoracic spi ne. The heart size is normal. The lungs are clear. CONCLUSION: No acute disease. Remi Mcgill MD on July 15, 2017 at 1:42 Board Certified Radiologist. This report was verified electronically.
[2017-07-15] MEDS: guaiFENesin SOLUTION 200 MG/10 ML CUP PO PRN ×4 (01:51→18:19)
[2017-07-15] MEDS: RESP: ALBUTEROL 2.5 MG/IPRATROPIUM 0.5 MG NEB (PRN) NEB ×2 (02:00→13:23)
[2017-07-15 02:03] VITALS: O2SAT 97
[2017-07-15] MEDS: SODIUM CHLOR 0.9% 1000 ML INJ 1,000 ML IV SCH ×2 (02:30→18:20)
[2017-07-15 04:00] VITALS: TEMP 99.2
[2017-07-15 08:00] VITALS: BP 136/79; PULSE 96; RESP 18; TEMP 98.3; O2SAT 91
[2017-07-15] MEDS: SODIUM CHLORIDE 0.9% FLUSH 10 ML FLUSH IV FLUSH SCH (08:20)
[2017-07-15] MEDS: METOPROLOL TARTRATE 25 MG TAB PO SCH (08:20)
[2017-07-15] MEDS: CIPROFLOXACIN 400 MG PREMIX 200 ML IV SCH (08:20)
[2017-07-15] MEDS: DOCUSATE SODIUM 50 MG/SENNA 8.6 MG TAB PO SCH (08:21)
[2017-07-15] MEDS: DILTIAZEM-CD 240 MG CAP ER PO SCH (08:21)
[2017-07-15] MEDS: GABAPENTIN 400 MG CAP PO SCH ×3 (08:21→16:16)
[2017-07-15 09:23] LABS: AUTOMATED NEUTROPHIL # 2.2 TH/MM3 (1.8-7.7); BASOPHIL % 0.7 % (0.0-2.0); HEMATOCRIT 36.1 % (39.0-51.0); HEMOGLOBIN 11.9 GM/DL (13.0-17.0); LYMPH % 15.5 % (9.0-44.0); LYMPHOCYTE # 0.5 TH/MM3 (1.0-4.8); MEAN CELL VOLUME 85.6 FL (80.0-100.0); MEAN CORPUSCULAR HEMOGLOBIN 28.1 PG (27.0-34.0); MEAN CORPUSCULAR HGB CONC 32.9 % (32.0-36.0); MEAN PLATELET VOLUME 8.9 FL (7.0-11.0); MONO % 17.4 % (0.0-8.0); MONOCYTE # 0.6 TH/MM3 (0-0.9); NEUT % 65.4 % (16.0-70.0); PLATELET COUNT 110 TH/MM3 (150-450); RED BLOOD COUNT 4.22 MIL/MM3 (4.50-5.90); RED CELL DISTRIBUTION WIDTH 15.8 % (11.6-17.2); WHITE BLOOD COUNT 3.4 TH/MM3 (4.0-11.0)
[2017-07-15 09:40] LABS: AST (GOT) 10 U/L (15-37); BLOOD UREA NITROGEN 9 MG/DL (7-18); CALCIUM 8.4 MG/DL (8.5-10.1); CHLORIDE 102 MEQ/L (98-107); CREATININE 0.86 MG/DL (0.60-1.30); GLOMERULAR FILTRATION RATE 107 ML/MIN (>89); GLUCOSE,RANDOM 106 MG/DL (74-106); SODIUM (NA) 136 MEQ/L (136-145)
[2017-07-15 09:44] LABS: ALKALINE PHOSPHATASE 97 U/L (45-117); ALT (GPT) 13 U/L (12-78); TOTAL BILIRUBIN ADULT 0.4 MG/DL (0.2-1.0); TOTAL PROTEIN 7.8 GM/DL (6.4-8.2)
--- NOTE | 2017-07-15 11:28 | HHI.PR ---
Subjective Remarks Chronic diverticulitis with presumed colovesical fistula comfortable Objective Vital Signs Date Time Temp Pulse Resp B/P (MAP) Pulse Ox O2 Delivery O2 Flow Rate FiO2 07/15/17 08:00 98.3 96 18 136/79 (98) 91 07/15/17 04:00 99.2 07/15/17 02:03 97 Nasal Cannula 2.00 07/15/17 00:00 99.6 82 18 141/83 (102) 100 07/14/17 20:00 99.1 84 20 146/87 (106) 94 07/14/17 16:00 98.9 86 20 116/72 (87) 98 07/14/17 12:00 99.0 82 21 115/65 (82) 99 I/O 07/14/17 07/14/17 07/14/17 07/15/17 07/15/17 07/15/17 07:00 15:00 23:00 07:00 15:00 23:00 Intake Total 680 ml 1550 ml 820 ml Output Total 400 ml 950 ml 1225 ml Balance 280 ml 600 ml -405 ml Intake Oral 480 ml 1250 ml 720 ml IV Total 200 ml 300 ml 100 ml Output Urine Total 400 ml 950 ml 1225 ml # Voids 1 # Bowel Movements 0 0 0 Result Diagram: 07/15/1735 07/15/1735 Objective Remarks Abdomen soft, obese, mildly tender Assessment and Plan Assessment and Plan OK for d/c when ok with Medical team followup with me in office 3-4 weeks Mariah Alva MD Jul 15, 2017 11:28
[2017-07-15 12:00] VITALS: BP 143/79; PULSE 76; RESP 22; TEMP 97.5; O2SAT 92
[2017-07-15 16:00] VITALS: BP 137/65; PULSE 80; RESP 28; TEMP 99; O2SAT 96
[2017-07-15] MEDS ORDERED: METR1TAB76 PO (18:41)
[2017-07-15] MEDS ORDERED: CIPR500T2 PO (18:41)
[2017-07-15] MEDS ORDERED: VENTAER INH (18:41)
--- NOTE | 2017-07-15 18:47 | HHI.DS ---
Discharge Summary Admission Date Jul 13, 2017 at 20:27 Discharge Date: Jul 15, 2017 Admitting Diagnosis Diverticulitis (1) Diverticulitis of intestine with abscess ICD Code: K57.80 - Diverticulitis of intestine, part unspecified, with perforation and abscess without bleeding (2) A-fib ICD Code: I48.91 - Unspecified atrial fibrillation (3) HTN (hypertension) ICD Code: I10 - Essential (primary) hypertension (4) Tobacco abuse ICD Code: Z72.0 - Tobacco use Procedures none Brief History - From Admission This is a 72-year-old male with a PMH of HTN, Hyperlipidemia, A. fib on Eliquis , Hepatitis C, Diverticulosis and Tobacco Abuse who [facility]. Per patient he's had ongoing abdominal pain for approx 2 months. Pain is cramping, intermittent, 6/10, non- radiating, worse w/ movement. Was seen at the [facility] and sent for CT Abd/Pelvis which showed rectosigmoid diverticulitis w/ fistula and 4cm abscess between colon and urinary bladder, report in chart. Denies fever, chills, nausea, vomiting or diarrhea. On arrival, BP 203/88, HR 93, O2 sat 97% on RA, Afebrile. CBC essentially unremarkable. Chemistry essentially unremarkable. Dr. Alva w/ CRS consulted by ER physician, recommended CT Guided Aspiration and will eval in am for possible surgical intervention. S/p Cipro/Flagyl in ER. CBC/BMP: 07/15/17 0835 07/15/17 0835 Significant Findings Laboratory Tests Test 07/13/17 18:40 07/13/17 19:05 07/14/17 07:30 07/14/17 08:10 Hematocrit 38.9 % (39.0-51.0) 37.1 % (39.0-51.0) Neutrophils (%) (Auto) 74.5 % (16.0-70.0) Monocytes (%) (Auto) 12.5 % (0.0-8.0) Lymphocytes # (Auto) 0.6 TH/MM3 (1.0-4.8) Albumin 3.1 GM/DL (3.4-5.0) 3.0 GM/DL (3.4-5.0) Calcium Level 8.4 MG/DL (8.5-10.1) 8.4 MG/DL (8.5-10.1) Sodium Level 134 MEQ/L (136-145) Urine Turbidity HAZY (CLEAR) Urine Protein 30 mg/dL (NEG-TRACE) Urine Occult Blood SMALL (NEG) Urine Leukocyte Esterase LARGE (NEG) Urine RBC 4 /hpf (0-3) Urine WBC 25 /hpf (0-5) Urine Bacteria FEW /hpf (NONE) Urine Mucus FEW /lpf (OCC) Red Blood Count 4.30 MIL/MM3 (4.50-5.90) Hemoglobin 12.0 GM/DL (13.0-17.0) Platelet Count 124 TH/MM3 (150-450) Monocytes % 12 % (0-8) Platelet Estimate LOW (NORMAL) Test 07/15/17 08:35 White Blood Count 3.4 TH/MM3 (4.0-11.0) Red Blood Count 4.22 MIL/MM3 (4.50-5.90) Hemoglobin 11.9 GM/DL (13.0-17.0) Hematocrit 36.1 % (39.0-51.0) Platelet Count 110 TH/MM3 (150-450) Monocytes (%) (Auto) 17.4 % (0.0-8.0) Lymphocytes # (Auto) 0.5 TH/MM3 (1.0-4.8) Albumin 3.0 GM/DL (3.4-5.0) Calcium Level 8.4 MG/DL (8.5-10.1) Aspartate Amino Transf (AST/SGOT) 10 U/L (15-37) Hospital Course 72M admitted for flare up of diverticulitis and possible abscess vs. early fistula formation. He has done well on IV antibiotics and was cleared by GI today. I asked patient if he would prefer to stay until the morning, but he requests to go home tonight. He has been free of diverticulitis pain for at least 3 days, free of fevers, and ready for home. Pt Condition on Discharge: Good Discharge Disposition: Discharge Home Discharge Time: <= 30 minutes Discharge Instructions DIET: Follow Instructions for: Heart Healthy Diet Activities you can perform: Regular-No Restrictions Julio C Quick MD Jul 15, 2017 18:47
== END 2017-07-15 19:26 | disposition home or self-care (01) | DRG 392 ==
LOC: NEPE 17:01 → NEDA 20:27 → N07B 21:32
PROVIDERS: ADMIT Family Medicine; ATTEND Family Medicine
DX: K57.20 Diverticulitis of large intestine with perforation and abscess without bleeding (principal); I48.2 Chronic atrial fibrillation; Z79.02 Long term (current) use of antithrombotics/antiplatelets; Z86.718 Personal history of other venous thrombosis and embolism; I25.2 Old myocardial infarction; I10 Essential (primary) hypertension; E78.5 Hyperlipidemia, unspecified; B19.20 Unspecified viral hepatitis C without hepatic coma; F17.210 Nicotine dependence, cigarettes, uncomplicated
CPT/HCPCS: 71045; 74176; 80053; 81001; 83605; 83690; 85007; 85025; 85027; 85610; 85730; 87040; 87086; 93005; 94640; 94664; 96365; 96367; 96375; J0744; J2270; J2405; J7030

== ENCOUNTER 2017-10-28 13:23 | Emergency (ER) | payer OTHER, MEDICARE ==
[~2017-10-28] VITALS: Ht 182.9 cm; Wt 135.0 kg
[~2017-10-28 13:23] MED LIST changes: +CIPR500T2 PO; +METR1TAB76 PO; +VENTAER INH
[2017-10-28] MEDS ORDERED: HALOPERIDOL LACTATE 5 MG/ML AMP IM ONE (13:45)
[2017-10-28] MEDS ORDERED: LORazepam 2 MG/ML VIAL IM ONE (13:45)
--- NOTE | 2017-10-28 13:51 | PD ---
HPI . Quiroga Act Chief Complaint: Psychiatric Time Seen by Provider: 13:37 Travel History International Travel<30 days: No Contact w/Intl Traveler<30days: No History of Present Illness HPI This patient is brought to us by the Police Department as a Quiroga Act. They report that they were called to his house probably by him. They found the patient to be very agitated. He has told the police that he wants to and he has also told the police that he would like for them to kill him. No further history is available from the patient at this time. PFSH Past Medical History Hx Anticoagulant Therapy: Yes (Eloquis) Arthritis: Yes Asthma: No Atrial Fibrillation: Yes Autoimmune Disease: No Blood Disorders: No Anxiety: No Depression: No Heart Rhythm Problems: No Cancer: No Cardiac Catheterization: Yes Cardiovascular Problems: Yes (htn, mi) High Cholesterol: Yes Chemotherapy: No Chest Pain: Yes Congestive Heart Failure: No COPD: No Cerebrovascular Accident: No Coronary Artery Disease: Yes Diabetes: No Diminished Hearing: No Diverticulitis: Yes Endocrine: No Gastrointestinal Disorders: Yes GERD: Yes Genitourinary: No Headaches: No Hepatitis: Yes (HEP C) Hiatal Hernia: No Hypertension: Yes Immune Disorder: No Implanted Vascular Access Dvce: No Musculoskeletal: Yes (CHRONIC BACK PAIN) Neurologic: No Psychiatric: No Reproductive: No Respiratory: Yes Immunizations Current: Yes Migraines: No Myocardial Infarction: Yes (2014) Pneumonia: Yes Radiation Therapy: No Renal Failure: No Seizures: No Sickle Cell Disease: No Sleep Apnea: No Thyroid Disease: No Ulcer: No Past Surgical History Abdominal Surgery: No AICD: No Arteriovenous Shunt: No Body Medical Devices: CARDIAC STENTS Cardiac Surgery: No Ear Surgery: No Endocrine Surgery: No Eye Surgery: No Genitourinary Surgery: Yes (urethral dilation) Insulin Pump: No Joint Replacement: No Neurologic Surgery: No Oral Surgery: No Pacemaker: No Thoracic Surgery: No Other Surgery: Yes (back surgery) Social History Alcohol Use: No Tobacco Use: Yes (1/2ppd) Substance Use: No (heroin, morphine, marijuana (per pt he used them in the past ) Allergies-Medications (Allergen,Severity, Reaction): Coded Allergies: diatrizoate meglumine (Unverified Adverse Reaction, Severe, SEVERE VOMITING, 06/12/17) gadobenic acid (Unverified Adverse Reaction, Severe, SEVERE VOMITING, ) gadodiamide (Unverified Adverse Reaction, Severe, SEVERE VOMITING, ) gadoteridol (Unverified Adverse Reaction, Severe, SEVERE VOMITING, ) iodixanol (Unverified Adverse Reaction, Severe, SEVERE VOMITING, 06/12/17) iohexol (Unverified Adverse Reaction, Severe, SEVERE VOMITING, 06/12/17) Reported Meds & Prescriptions Reported Meds & Active Scripts Active Ventolin Hfa 18 GM Inh (Albuterol Sulfate) 90 Mcg/Act Aer 2 Puff INH Q4-6H PRN Reported Omeprazole 20 Mg Tab 20 Mg PO DAILY Lasix (Furosemide) 40 Mg Tab 40 Mg PO DAILY Spironolactone 25 Mg Tab 25 Mg PO BID Effexor (Venlafaxine HCl) 75 Mg Tab 75 Mg PO DAILY Zolpidem (Zolpidem Tartrate) 5 Mg Tab 2.5 Mg PO HS PRN Diltiazem (Diltiazem HCl) 60 Mg Tab 60 Mg PO QID Gabapentin 300 Mg Cap 900 Mg PO TID Metoprolol Tartrate 25 Mg Tab 25 Mg PO Q12HR Artificial Tears Opth Drops (Propylene Glycol-Glycerin Opth Drops) 1-0.3% Drops 1-2 Drop EACH EYE QID PRN Atorvastatin (Atorvastatin Calcium) 40 Mg Tab 40 Mg PO HS Review of Systems ROS Limitations: Uncooperative Physical Exam Narrative GENERAL: Awake and alert. He is extremely loud and agitated. SKIN: Warm and dry. HEAD: Normocephalic/atraumatic. EYES: Pupils are equal. Extraocular movements are intact. NECK: Normal range of motion. RESPIRATORY: Nonlabored respirations. MUSCULOSKELETAL: Atraumatic. NEUROLOGICAL: Awake and alert. Ambulatory. Moving all 4 extremities equally. No obvious cranial nerve deficits. PSYCHIATRIC: Markedly agitated. Data Data Last Documented VS Vital Signs Date Time Temp Pulse Resp B/P (MAP) Pulse Ox O2 Delivery O2 Flow Rate FiO2 10/28/17 15:32 84 20 152/69 (96) 96 Room Air 10/28/17 14:02 98.5 Orders Orders Lorazepam Inj (Ativan Inj) (10/28/17 13:45) Haloperidol Inj (Haldol Inj) (10/28/17 13:45) Restraints Violent (10/28/17 13:37) Complete Blood Count With Diff (5/13/18 13:40) Comprehensive Metabolic Panel (10/28/17 13:40) Thyroid Stimulating Hormone (10/28/17 13:40) Cath For Specimen (10/28/17 13:40) Psych Screen (10/28/17 13:40) Drug Screen, Random Urine (10/28/17 13:40) Alcohol (Ethanol) (10/28/17 13:40) Ziprasidone Inj (Geodon Inj) (10/28/17 14:45) Labs Laboratory Tests Test 10/28/17 14:50 10/28/17 15:30 White Blood Count 5.6 TH/MM3 Red Blood Count 5.22 MIL/MM3 Hemoglobin 14.2 GM/DL Hematocrit 43.3 % Mean Corpuscular Volume 82.9 FL Mean Corpuscular Hemoglobin 27.1 PG Mean Corpuscular Hemoglobin Concent 32.7 % Red Cell Distribution Width 18.6 % Platelet Count 230 TH/MM3 Mean Platelet Volume 8.9 FL Neutrophils (%) (Auto) 78.4 % Lymphocytes (%) (Auto) 11.3 % Monocytes (%) (Auto) 8.7 % Eosinophils (%) (Auto) 1.0 % Basophils (%) (Auto) 0.6 % Neutrophils # (Auto) 4.4 TH/MM3 Lymphocytes # (Auto) 0.6 TH/MM3 Monocytes # (Auto) 0.5 TH/MM3 Eosinophils # (Auto) 0.1 TH/MM3 Basophils # (Auto) 0.0 TH/MM3 CBC Comment DIFF FINAL Differential Comment Blood Urea Nitrogen 15 MG/DL Creatinine 1.04 MG/DL Random Glucose 125 MG/DL Total Protein 9.2 GM/DL Albumin 3.0 GM/DL Calcium Level 8.9 MG/DL Alkaline Phosphatase 125 U/L Aspartate Amino Transf (AST/SGOT) 21 U/L Alanine Aminotransferase (ALT/SGPT) 23 U/L Total Bilirubin 0.5 MG/DL Sodium Level 137 MEQ/L Potassium Level 4.4 MEQ/L Chloride Level 101 MEQ/L Carbon Dioxide Level 28.0 MEQ/L Anion Gap 8 MEQ/L Estimat Glomerular Filtration Rate 86 ML/MIN Thyroid Stimulating Hormone 3rd Gen 1.380 uIU/ML Ethyl Alcohol Level LESS THAN 3 MG/DL Urine Opiates Screen NEG Urine Barbiturates Screen NEG Urine Amphetamines Screen NEG Urine Benzodiazepines Screen NEG Urine Cocaine Screen NEG Urine Cannabinoids Screen NEG MDM Medical Decision Making Medical Screen Exam Complete: Yes Emergency Medical Condition: Yes Medical Record Reviewed: Yes (He has a history of IV drug abuse. He also has a history of coronary artery disease status post non-STEMI, atrial fibrillation , PE, osteomyelitis, hypertension, hyperlipidemia and previous mural thrombus) Differential Diagnosis My differential diagnosis of Quiroga Act includes but is not limited to malingering, acute psychosis, depression with suicidal ideation, homicidal ideation, poor education of the police detective Narrative Course This patient presents to us by the Police Department as a Quiroga Act. He is extremely agitated. He will be restrained and medicated. Routine psychiatric medical clearance exam has been initiated. The rest of our patients would be better served if he were treated J pod. The patient is now quiet after being treated with first Haldol and Ativan and then Geodon. CBC & BMP Diagram 10/28/17 14:50 Total Protein 9.2 H, Albumin 3.0 L, Calcium Level 8.9, Alkaline Phosphatase 125 H, Aspartate Amino Transf (AST/SGOT) 21, Alanine Aminotransferase (ALT/SGPT) 23 , Total Bilirubin 0.5 TSH 1.380 Tox screen is negative as is his alcohol level. This patient is now medically clear for psychiatric evaluation. Diagnosis Primary Impression: Medical clearance for psychiatric admission Condition: Stable Brittnee Wren MD October 28, 2017 13:51
[2017-10-28 14:02] VITALS: BP 136/96; PULSE 105; RESP 22; TEMP 98.5; O2SAT 98
[2017-10-28] MEDS ORDERED: ZIPRASIDONE MESYLATE 20 MG VIAL IM ONE (14:45)
[2017-10-28 15:32] VITALS: BP 152/69; PULSE 84; RESP 20; O2SAT 96
[2017-10-28] MEDS ORDERED: FURO1TAB60 PO (15:44)
[2017-10-28] MEDS ORDERED: ZOLP5TAB3 PO (15:44)
[2017-10-28] MEDS ORDERED: VENL75TA PO (15:44)
[2017-10-28] MEDS ORDERED: OMEP20TA93 PO (15:44)
[2017-10-28] MEDS ORDERED: DILT60TA PO (15:44)
[2017-10-28] MEDS ORDERED: GABA300C5 PO (15:44)
[2017-10-28] MEDS ORDERED: SPIR25TA PO (15:44)
[2017-10-28 15:48] LABS: AUTOMATED NEUTROPHIL # 4.4 TH/MM3 (1.8-7.7); BASOPHIL % 0.6 % (0.0-2.0); EOSINOPHIL # 0.1 TH/MM3 (0-0.4); HEMATOCRIT 43.3 % (39.0-51.0); HEMOGLOBIN 14.2 GM/DL (13.0-17.0); LYMPH % 11.3 % (9.0-44.0); LYMPHOCYTE # 0.6 TH/MM3 (1.0-4.8); MEAN CELL VOLUME 82.9 FL (80.0-100.0); MEAN CORPUSCULAR HEMOGLOBIN 27.1 PG (27.0-34.0); MEAN CORPUSCULAR HGB CONC 32.7 % (32.0-36.0); MEAN PLATELET VOLUME 8.9 FL (7.0-11.0); MONO % 8.7 % (0.0-8.0); MONOCYTE # 0.5 TH/MM3 (0-0.9); NEUT % 78.4 % (16.0-70.0); PLATELET COUNT 230 TH/MM3 (150-450); RED BLOOD COUNT 5.22 MIL/MM3 (4.50-5.90); RED CELL DISTRIBUTION WIDTH 18.6 % (11.6-17.2); WHITE BLOOD COUNT 5.6 TH/MM3 (4.0-11.0)
[2017-10-28 16:18] LABS: ALT (GPT) 23 U/L (12-78); AST (GOT) 21 U/L (15-37); BLOOD UREA NITROGEN 15 MG/DL (7-18); CALCIUM 8.9 MG/DL (8.5-10.1); CHLORIDE 101 MEQ/L (98-107); CREATININE 1.04 MG/DL (0.60-1.30); GLOMERULAR FILTRATION RATE 86 ML/MIN (>89); GLUCOSE,RANDOM 125 MG/DL (74-106); SODIUM (NA) 137 MEQ/L (136-145)
[2017-10-28 16:28] LABS: ALKALINE PHOSPHATASE 125 U/L (45-117); TOTAL BILIRUBIN ADULT 0.5 MG/DL (0.2-1.0); TOTAL PROTEIN 9.2 GM/DL (6.4-8.2)
[2017-10-28 18:00] VITALS: BP 132/69; PULSE 91; RESP 19; O2SAT 96
[2017-10-28] MEDS ORDERED: IBUPROFEN 600 MG TAB PO ONE (22:15)
[2017-10-29] MEDS ORDERED: ACETAMINOPHEN 325 MG TAB PO ONE (05:00)
[2017-10-29] MEDS ORDERED: HALOPERIDOL LACTATE 5 MG/ML AMP IM ONE (10:30)
--- NOTE | 2017-10-29 11:07 | PD ---
Physical Exam Time Seen by Provider: 11:06 NICOLAS Nance has evaluated patient, lifted Quiroga act and cleared the patient for discharge. Data Data Last Documented VS Vital Signs Date Time Temp Pulse Resp B/P (MAP) Pulse Ox O2 Delivery O2 Flow Rate FiO2 10/28/17 18:00 91 19 132/69 (90) 96 Room Air 10/28/17 14:02 98.5 Orders Orders Lorazepam Inj (Ativan Inj) (10/28/17 13:45) Haloperidol Inj (Haldol Inj) (10/28/17 13:45) Restraints Violent (10/28/17 13:37) Complete Blood Count With Diff (10/28/17 13:40) Comprehensive Metabolic Panel (10/28/17 13:40) Thyroid Stimulating Hormone (10/28/17 13:40) Cath For Specimen (10/28/17 13:40) Psych Screen (10/28/17 13:40) Drug Screen, Random Urine (10/28/17 13:40) Alcohol (Ethanol) (10/28/17 13:40) Ziprasidone Inj (Geodon Inj) (10/28/17 14:45) Ibuprofen (Motrin) (10/28/17 22:15) Acetaminophen (Tylenol) (10/29/17 05:00) Diet Regular Basic (10/29/17 Breakfast) Haloperidol Inj (Haldol Inj) (10/29/17 10:30) Diet Regular Basic (10/29/17 Lunch) Ed Discharge Order (10/29/17 11:07) Labs Laboratory Tests Test 10/28/17 14:50 10/28/17 15:30 White Blood Count 5.6 TH/MM3 Red Blood Count 5.22 MIL/MM3 Hemoglobin 14.2 GM/DL Hematocrit 43.3 % Mean Corpuscular Volume 82.9 FL Mean Corpuscular Hemoglobin 27.1 PG Mean Corpuscular Hemoglobin Concent 32.7 % Red Cell Distribution Width 18.6 % Platelet Count 230 TH/MM3 Mean Platelet Volume 8.9 FL Neutrophils (%) (Auto) 78.4 % Lymphocytes (%) (Auto) 11.3 % Monocytes (%) (Auto) 8.7 % Eosinophils (%) (Auto) 1.0 % Basophils (%) (Auto) 0.6 % Neutrophils # (Auto) 4.4 TH/MM3 Lymphocytes # (Auto) 0.6 TH/MM3 Monocytes # (Auto) 0.5 TH/MM3 Eosinophils # (Auto) 0.1 TH/MM3 Basophils # (Auto) 0.0 TH/MM3 CBC Comment DIFF FINAL Differential Comment Blood Urea Nitrogen 15 MG/DL Creatinine 1.04 MG/DL Random Glucose 125 MG/DL Total Protein 9.2 GM/DL Albumin 3.0 GM/DL Calcium Level 8.9 MG/DL Alkaline Phosphatase 125 U/L Aspartate Amino Transf (AST/SGOT) 21 U/L Alanine Aminotransferase (ALT/SGPT) 23 U/L Total Bilirubin 0.5 MG/DL Sodium Level 137 MEQ/L Potassium Level 4.4 MEQ/L Chloride Level 101 MEQ/L Carbon Dioxide Level 28.0 MEQ/L Anion Gap 8 MEQ/L Estimat Glomerular Filtration Rate 86 ML/MIN Thyroid Stimulating Hormone 3rd Gen 1.380 uIU/ML Ethyl Alcohol Level LESS THAN 3 MG/DL Urine Opiates Screen NEG Urine Barbiturates Screen NEG Urine Amphetamines Screen NEG Urine Benzodiazepines Screen NEG Urine Cocaine Screen NEG Urine Cannabinoids Screen NEG MDM Supervised Visit with YESSI: No Narrative Course NICOLAS Rm has evaluated patient, lifted Junaid herron and cleared the patient for discharge. Patient contracts safety. Denies suicidal or homicidal ideations. Patient will be provided community resource packet to [facility] for follow-up. Has friends and family for support. Patient was medically cleared by alternate provider prior to psych screening. Patient has been evaluated by psychiatry and and is now cleared for discharge. Diagnosis Primary Impression: Adjustment disorder Qualified Codes: F43.20 - Adjustment disorder, unspecified Referrals: [facility] (Out patient) [facility] Primary Care Physician Psychiatrist Rhoda [facility] Behavioral Patient Instructions: General Instructions, Mood Disorders (ED) Additional Instruction: Contract safety to your self and others Follow-up with psychiatry Follow-up with primary care provider Follow-up with Yony Kapoor Return to the emergency department immediately with worsening of symptoms Med/Other Pt SpecificInfo: No Change to Meds, No Meds Exist/No RX given Disposition: 01 DISCHARGE HOME Condition: Stable Kira Alvarez October 29, 2017 11:07
--- NOTE | 2017-10-29 11:09 | PD ---
History of Present Illness Chief Complaint: Psychiatric Symptoms Time Seen by Provider: 10:50 Travel History International Travel<30 Days: No (unable to obtain) Contact w/Intl Traveler<30days: No (unable to obtain) Known affected area: No (unable to obtain) Legal Status Legal Status: Quiroga Act Quiroga Act Signed By: Reina Davis History of Present Illness: History of Present Illness HPI This patient is a 72-year-old -Serbian, single male, with no psychiatric history brought to us by the Police Department as a Quiroga Act. The Quiroga act alleges that the patient without treatment or care will become a threat to him or others due to statements he has made to law enforcement and family members such as that he no longer wanted to live and God to take him away. He also allegedly stated that he wished for law enforcement to kill him and that he said something such as I or I kill. The patient did not make any attempt to harm himself or harm anyone else prior to being brought to the ED. The patient in the ED has been somewhat cantankerous and demanding. On initial arrival to the ED he was verbally abusive towards staff and required ETO. EMR is reviewed. No previous contact with [facility] psychiatry. Current toxicology is negative. Patient is seen in Main ED. He is awake, alert, oriented, engaging and cooperative. Patient is angry with his daughter because he states that she is living in his house along with her girlfriend and he does not approve of that lifestyle. He also states that she keeps his grandson away from him and he is unable to see the grandson because the grandson is staying in [place]. The patient does not present any evidence of any psychosis, no deysi, no hypomania. He does not present any suicidal or homicidal ideation, intent or plan. He states that he has been having a lot of difficulty with his daughter and is in the process of initiating a eviction from his house. He also talked about getting a restraining order against her. He does state that he has been arguing with his daughter prior to the police being called. He also states that the police have been called many times to the home before due to arguments between him and his daughter. He states that the police have threatened him that they do not want to keep coming out to his house anymore. PFSH Past Medical History Hx Anticoagulant Therapy: Yes (Eloquis) Arthritis: Yes Asthma: No Atrial Fibrillation: Yes Autoimmune Disease: No Blood Disorders: No Anxiety: No Depression: No Heart Rhythm Problems: No Cancer: No Cardiac Catheterization: Yes Cardiovascular Problems: Yes High Cholesterol: Yes Chemotherapy: No Chest Pain: Yes Congestive Heart Failure: No COPD: No Cerebrovascular Accident: No Coronary Artery Disease: Yes Diabetes: No Diminished Hearing: No Diverticulitis: Yes Endocrine: No Gastrointestinal Disorders: Yes GERD: Yes Genitourinary: No Headaches: No Hepatitis: Yes (HEP C) Hiatal Hernia: No Hypertension: Yes Immune Disorder: No Implanted Vascular Access Dvce: No Musculoskeletal: Yes (CHRONIC BACK PAIN) Neurologic: No Psychiatric: No Reproductive: No Respiratory: Yes Immunizations Current: Yes Migraines: No Myocardial Infarction: Yes (2014) Pneumonia: Yes Radiation Therapy: No Renal Failure: No Seizures: No Sickle Cell Disease: No Sleep Apnea: No Thyroid Disease: No Ulcer: No Tetanus Vaccination: Unknown Past Surgical History Abdominal Surgery: No AICD: No Arteriovenous Shunt: No Body Medical Devices: CARDIAC STENTS Cardiac Surgery: No Ear Surgery: No Endocrine Surgery: No Eye Surgery: No Genitourinary Surgery: Yes (urethral dilation) Insulin Pump: No Joint Replacement: No Neurologic Surgery: No Oral Surgery: No Pacemaker: No Thoracic Surgery: No Other Surgery: Yes (back surgery) Psychiatric History Psychiatric History Hx Psychiatric Treatment: None. No previous suicide attempt. No history of self-injurious behavior. Denies any history of legal involvement. History of Inpatient Treatment: No Guns or firearms in home: No Social History Patient is single. Retired. He is a of the [place] conflict and the [place] War. Patient lives in his own home with his daughter and her partner. Hx Alcohol Use: No Hx Tobacco Use: Yes (1ppd) Hx Substance Use: No (denies) Hx of Substance Use Treatment: No Family Psychiatric History Negative Allergies-Medications (Allergen,Severity, Reaction): Coded Allergies: diatrizoate meglumine (Unverified Adverse Reaction, Severe, SEVERE VOMITING, 06/12/17) gadobenic acid (Unverified Adverse Reaction, Severe, SEVERE VOMITING, ) gadodiamide (Unverified Adverse Reaction, Severe, SEVERE VOMITING, ) gadoteridol (Unverified Adverse Reaction, Severe, SEVERE VOMITING, ) iodixanol (Unverified Adverse Reaction, Severe, SEVERE VOMITING, 06/12/17) iohexol (Unverified Adverse Reaction, Severe, SEVERE VOMITING, 06/12/17) Reported Meds & Prescriptions Reported Meds & Active Scripts Active Ventolin Hfa 18 GM Inh (Albuterol Sulfate) 90 Mcg/Act Aer 2 Puff INH Q4-6H PRN Reported Omeprazole 20 Mg Tab 20 Mg PO DAILY Lasix (Furosemide) 40 Mg Tab 40 Mg PO DAILY Spironolactone 25 Mg Tab 25 Mg PO BID Effexor (Venlafaxine HCl) 75 Mg Tab 75 Mg PO DAILY Zolpidem (Zolpidem Tartrate) 5 Mg Tab 2.5 Mg PO HS PRN Diltiazem (Diltiazem HCl) 60 Mg Tab 60 Mg PO QID Gabapentin 300 Mg Cap 900 Mg PO TID Metoprolol Tartrate 25 Mg Tab 25 Mg PO Q12HR Artificial Tears Opth Drops (Propylene Glycol-Glycerin Opth Drops) 1-0.3% Drops 1-2 Drop EACH EYE QID PRN Atorvastatin (Atorvastatin Calcium) 40 Mg Tab 40 Mg PO HS Review of Systems Gastrointestinal: COMPLAINS OF: Abdominal pain Psychiatric: DENIES: Anxiety, Confusion, Mood changes, Depression, Hallucinations, Agitation, Suicidal Ideation, Homicidal Ideation, Delusions Mental Status Examination Appearance: Disheveled Consciousness: Alert Orientation: x4 Speech: Unremarkable Language: Adequate Fund of Knowledge: Adequate Attention and Concentration: Adequate Memory: Unremarkable Mood: Appropriate, Angry Affect: Appropriate Thought Process & Associations: Intact, Logical, Goal directed Thought Content: Appropriate Hallucination Type: None Delusion Type: None Suicidal Ideation: No Suicidal Plan: No Suicidal Intention: No Homicidal Ideation: No Homicidal Plan: No Homicidal Intention: No Insight: Fair Judgment: Adequate [facility] Medical Decision Making Medical Record Reviewed: Yes Assessment/Plan History of Present Illness HPI This patient is a 72-year-old -Serbian, single male, with no psychiatric history brought to us by the Police Department as a Quiroga Act. The Quiroga act alleges that the patient without treatment or care will become a threat to him or others due to statements he has made to law enforcement and family members such as that he no longer wanted to live and God to take him away. He also allegedly stated that he wished for law enforcement to kill him and that he said something such as I or I kill. The patient did not make any attempt to harm himself or harm anyone else prior to being brought to the ED. the patient presents no previous psychiatric history. There is no evidence of unstable mental illness as defined under the Quiroga act. The patient is cognitively intact. There is no psychosis or deysi. The patient does not meet criteria to remain under the Quiroga act and therefore it will be lifted. Psychiatric clear for discharge from the ED. He is advised to follow up with the courts for his legal concerns. Orders Orders Lorazepam Inj (Ativan Inj) (10/28/17 13:45) Haloperidol Inj (Haldol Inj) (10/28/17 13:45) Restraints Violent (10/28/17 13:37) Complete Blood Count With Diff (10/28/17 13:40) Comprehensive Metabolic Panel (10/28/17 13:40) Thyroid Stimulating Hormone (10/28/17 13:40) Cath For Specimen (10/28/17 13:40) Psych Screen (10/28/17 13:40) Drug Screen, Random Urine (10/28/17 13:40) Alcohol (Ethanol) (10/28/17 13:40) Ziprasidone Inj (Geodon Inj) (10/28/17 14:45) Ibuprofen (Motrin) (10/28/17 22:15) Acetaminophen (Tylenol) (10/29/17 05:00) Diet Regular Basic (10/29/17 Breakfast) Haloperidol Inj (Haldol Inj) (10/29/17 10:30) Diet Regular Basic (10/29/17 Lunch) Results Vital Signs Date Time Temp Pulse Resp B/P (MAP) Pulse Ox O2 Delivery O2 Flow Rate FiO2 10/28/17 18:00 91 19 132/69 (90) 96 Room Air 10/28/17 15:32 84 20 152/69 (96) 96 Room Air 10/28/17 14:02 98.5 105 22 136/96 (109) 98 Laboratory Tests Test 10/28/17 14:50 5/13/18 15:30 White Blood Count 5.6 Red Blood Count 5.22 Hemoglobin 14.2 Hematocrit 43.3 Mean Corpuscular Volume 82.9 Mean Corpuscular Hemoglobin 27.1 Mean Corpuscular Hemoglobin Concent 32.7 Red Cell Distribution Width 18.6 Platelet Count 230 Mean Platelet Volume 8.9 Neutrophils (%) (Auto) 78.4 Lymphocytes (%) (Auto) 11.3 Monocytes (%) (Auto) 8.7 Eosinophils (%) (Auto) 1.0 Basophils (%) (Auto) 0.6 Neutrophils # (Auto) 4.4 Lymphocytes # (Auto) 0.6 Monocytes # (Auto) 0.5 Eosinophils # (Auto) 0.1 Basophils # (Auto) 0.0 CBC Comment DIFF FINAL Differential Comment Blood Urea Nitrogen 15 Creatinine 1.04 Random Glucose 125 Total Protein 9.2 Albumin 3.0 Calcium Level 8.9 Alkaline Phosphatase 125 Aspartate Amino Transf (AST/SGOT) 21 Alanine Aminotransferase (ALT/SGPT) 23 Total Bilirubin 0.5 Sodium Level 137 Potassium Level 4.4 Chloride Level 101 Carbon Dioxide Level 28.0 Anion Gap 8 Estimat Glomerular Filtration Rate 86 Thyroid Stimulating Hormone 3rd Gen 1.380 Ethyl Alcohol Level LESS THAN 3 Urine Opiates Screen NEG Urine Barbiturates Screen NEG Urine Amphetamines Screen NEG Urine Benzodiazepines Screen NEG Urine Cocaine Screen NEG Urine Cannabinoids Screen NEG Diagnosis Primary Impression: Adjustment disorder Psychiatrically Cleared: Yes Referrals: [facility] (Out patient) [facility] Primary Care Physician Psychiatrist [facility] Patient Instructions: General Instructions, Mood Disorders (ED) Additional Instructions: Contract safety to your self and others Follow-up with psychiatry Follow-up with primary care provider Follow-up with Yony Kapoor Return to the emergency department immediately with worsening of symptoms Med/ Other Pt Specific Info: No Meds Exist/No RX given Disposition: 01 DISCHARGE HOME Condition: Stable Problem Qualifiers Primary Impression: Adjustment disorder Qualified Codes: F43.20 - Adjustment disorder, unspecified Sujey Mchugh October 29, 2017 11:09
== END 2017-10-29 11:55 | disposition home or self-care (01) ==
LOC: NEPD 13:23
DX: F43.20 Adjustment disorder, unspecified (principal); I10 Essential (primary) hypertension; I25.10 Atherosclerotic heart disease of native coronary artery without angina pectoris; I48.91 Unspecified atrial fibrillation; I25.2 Old myocardial infarction; E78.00 Pure hypercholesterolemia, unspecified; B19.20 Unspecified viral hepatitis C without hepatic coma; F17.210 Nicotine dependence, cigarettes, uncomplicated; Z95.5 Presence of coronary angioplasty implant and graft; Z88.8 Allergy status to other drugs, medicaments and biological substances; Z79.899 Other long term (current) drug therapy
CPT/HCPCS: 80053; 80307; 84443; 85025; 96372; 99284; J1630; J2060; J3486

== ENCOUNTER 2017-12-05 15:10 | Emergency (ER) | payer OTHER, MEDICARE ==
[~2017-12-05] VITALS: Ht 182.9 cm; Wt 150.0 kg
[~2017-12-05 15:10] MED LIST changes: -APIX5TAB PO; -CIPR500T2 PO; -DILT240C44 PO; +DILT60TA PO; -DIPH25CA PO; -DOXA1TAB35 PO; +FURO1TAB60 PO; +GABA300C5 PO; -GABA800T PO; -METR1TAB76 PO; +OMEP20TA93 PO; +SPIR25TA PO; +VENL75TA PO; -ZOLO100T PO; +ZOLP5TAB3 PO
[2017-12-05 15:19] VITALS: BP 156/104; PULSE 103; RESP 24; TEMP 98.1; O2SAT 98
[2017-12-05] MEDS ORDERED: SODIUM CHLORIDE 0.9% FLUSH 10 ML FLUSH IV FLUSH PRN (17:30)
--- NOTE | 2017-12-05 17:38 | PD ---
HPI Chief Complaint: GI Complaint Time Seen by Provider: 17:14 Travel History International Travel<30 days: No Contact w/Intl Traveler<30days: No Traveled to known affect area: No History of Present Illness HPI 72-year-old male with a history of diverticulitis, hypertension, NSTEMI, A. fib on Eliquis, chronic pain presents emergency department for multiple medical complaints. Patient is a poor historian says that his "stomach" has been hurting him for the last 3-4 days. Says that his pain has been persistent for quite some time however, the last 3-4 days it has been worse. He is unable to characterize this further. Patient says that he is having difficulty with urination as well but has been urinating every day. He is also complaining of sores on his legs and believe that the bites have been the cause of this. His last colonoscopy was 10 years ago. Says he has been trying to get all of his primary care physician at the [place] [facility] however, he is been unsuccessful. Patient has affirmative answers to nearly all of my ROS questions but is unable to characterize further. PFSH Past Medical History Hx Anticoagulant Therapy: Yes (Eloquis) Arthritis: Yes Asthma: No Atrial Fibrillation: Yes Autoimmune Disease: No Blood Disorders: No Anxiety: No Depression: No Heart Rhythm Problems: No Cancer: No Cardiac Catheterization: Yes Cardiovascular Problems: Yes High Cholesterol: Yes Chemotherapy: No Chest Pain: Yes Congestive Heart Failure: No COPD: No Cerebrovascular Accident: No Coronary Artery Disease: Yes Diabetes: No Diminished Hearing: No Diverticulitis: Yes Endocrine: No Gastrointestinal Disorders: Yes GERD: Yes Genitourinary: No Headaches: No Hepatitis: Yes (HEP C) Hiatal Hernia: No Heparin Induced Thrombocytopen: No Hypertension: Yes Immune Disorder: No Implanted Vascular Access Dvce: No Musculoskeletal: Yes (CHRONIC BACK PAIN) Neurologic: No Psychiatric: No Reproductive: No Respiratory: Yes Immunizations Current: Yes Migraines: No Myocardial Infarction: Yes (2014) Pneumonia: Yes Radiation Therapy: No Renal Failure: No Seizures: No Sickle Cell Disease: No Sleep Apnea: No Thyroid Disease: No Ulcer: No Past Surgical History Abdominal Surgery: No AICD: No Arteriovenous Shunt: No Body Medical Devices: CARDIAC STENTS Cardiac Surgery: No Ear Surgery: No Endocrine Surgery: No Eye Surgery: No Genitourinary Surgery: Yes (urethral dilation) Insulin Pump: No Joint Replacement: No Neurologic Surgery: No Oral Surgery: No Pacemaker: No Thoracic Surgery: No Other Surgery: Yes (back surgery) Social History Alcohol Use: No Tobacco Use: Yes (1ppd) Substance Use: No (denies) Allergies-Medications (Allergen,Severity, Reaction): Coded Allergies: diatrizoate meglumine (Unverified Adverse Reaction, Severe, SEVERE VOMITING, 12/05/17) gadobenic acid (Unverified Adverse Reaction, Severe, SEVERE VOMITING, 12/05) gadodiamide (Unverified Adverse Reaction, Severe, SEVERE VOMITING, 12/05/17 ) gadoteridol (Unverified Adverse Reaction, Severe, SEVERE VOMITING, 12/05/17 ) iodixanol (Unverified Adverse Reaction, Severe, SEVERE VOMITING, 12/05/17) iohexol (Unverified Adverse Reaction, Severe, SEVERE VOMITING, 12/05/17) Reported Meds & Prescriptions Reported Meds & Active Scripts Active Ventolin Hfa 18 GM Inh (Albuterol Sulfate) 90 Mcg/Act Aer 2 Puff INH Q4-6H PRN Reported Omeprazole 20 Mg Tab 20 Mg PO DAILY Lasix (Furosemide) 40 Mg Tab 40 Mg PO DAILY Spironolactone 25 Mg Tab 25 Mg PO BID Effexor (Venlafaxine HCl) 75 Mg Tab 75 Mg PO DAILY Zolpidem (Zolpidem Tartrate) 5 Mg Tab 2.5 Mg PO HS PRN Diltiazem (Diltiazem HCl) 60 Mg Tab 60 Mg PO QID Gabapentin 300 Mg Cap 900 Mg PO TID Metoprolol Tartrate 25 Mg Tab 25 Mg PO Q12HR Artificial Tears Opth Drops (Propylene Glycol-Glycerin Opth Drops) 1-0.3% Drops 1-2 Drop EACH EYE QID PRN Atorvastatin (Atorvastatin Calcium) 40 Mg Tab 40 Mg PO HS Review of Systems Except as stated in HPI: all other systems reviewed are Neg Physical Exam Narrative GENERAL: Well-developed, well-nourished in no apparent distress SKIN: Focused skin assessment warm/dry. Multiple small areas of scarring, possible keloids, possible insect bites HEAD: Atraumatic. Normocephalic. EYES: Pupils equal and round. No scleral icterus. No injection or drainage. ENT: No nasal bleeding or discharge. Mucous membranes pink and moist. NECK: Trachea midline. No JVD. No lymphadenopathy CARDIOVASCULAR: Regular rate and rhythm. No murmur appreciated. RESPIRATORY: No accessory muscle use. Clear to auscultation. Breath sounds equal bilaterally. GASTROINTESTINAL: Abdomen soft, non-tender, nondistended. No rebound tenderness. Abdomen protuberant. No organomegaly. MUSCULOSKELETAL: No obvious deformities. No clubbing. No cyanosis. Mild edema bilateral lower extremities with indications of venous stasis. No tenderness palpation of the lower extremities. NEUROLOGICAL: Awake and alert. No obvious cranial nerve deficits. Motor grossly within normal limits. Normal speech. PSYCHIATRIC: Appropriate mood and affect; insight and judgment normal. No tenderness to palpation of his abdomen Data Data Last Documented VS Vital Signs Date Time Temp Pulse Resp B/P (MAP) Pulse Ox O2 Delivery O2 Flow Rate FiO2 12/05/17 21:18 100 12/05/17 15:19 98.1 103 24 156/104 (121) Orders Orders Complete Blood Count With Diff (12/05/17 17:23) Comprehensive Metabolic Panel (12/05/17 17:23) Lipase (12/05/17 17:23) Prothrombin Time / Inr (Pt) (12/05/17 17:23) Act Partial Throm Time (Ptt) (12/05/17 17:23) Urinalysis - C+S If Indicated (12/05/17 17:23) Iv Access Insert/Monitor (12/05/17 17:23) Ecg Monitoring (12/05/17 17:23) Oximetry (12/05/17 17:23) Sodium Chloride 0.9% Flush (Ns Flush) (12/05/17 17:30) Ed Discharge Order (12/05/17 20:09) Labs Laboratory Tests Test 12/05/17 17:55 12/05/17 19:20 White Blood Count 4.5 TH/MM3 Red Blood Count 5.12 MIL/MM3 Hemoglobin 14.2 GM/DL Hematocrit 44.4 % Mean Corpuscular Volume 86.6 FL Mean Corpuscular Hemoglobin 27.8 PG Mean Corpuscular Hemoglobin Concent 32.1 % Red Cell Distribution Width 18.6 % Platelet Count 205 TH/MM3 Mean Platelet Volume 9.1 FL Neutrophils (%) (Auto) 65.3 % Lymphocytes (%) (Auto) 19.5 % Monocytes (%) (Auto) 12.6 % Eosinophils (%) (Auto) 1.9 % Basophils (%) (Auto) 0.7 % Neutrophils # (Auto) 2.9 TH/MM3 Lymphocytes # (Auto) 0.9 TH/MM3 Monocytes # (Auto) 0.6 TH/MM3 Eosinophils # (Auto) 0.1 TH/MM3 Basophils # (Auto) 0.0 TH/MM3 CBC Comment DIFF FINAL Differential Comment Blood Urea Nitrogen 7 MG/DL Creatinine 0.78 MG/DL Random Glucose 94 MG/DL Total Protein 8.8 GM/DL Albumin 2.9 GM/DL Calcium Level 8.6 MG/DL Alkaline Phosphatase 108 U/L Aspartate Amino Transf (AST/SGOT) 38 U/L Alanine Aminotransferase (ALT/SGPT) 12 U/L Total Bilirubin 0.8 MG/DL Sodium Level 134 MEQ/L Potassium Level 4.9 MEQ/L Chloride Level 104 MEQ/L Carbon Dioxide Level 22.1 MEQ/L Anion Gap 8 MEQ/L Estimat Glomerular Filtration Rate 119 ML/MIN Lipase 52 U/L Urine Color YELLOW Urine Turbidity CLEAR Urine pH 5.0 Urine Specific [place] 1.005 Urine Protein 100 mg/dL Urine Glucose (UA) NEG mg/dL Urine Ketones NEG mg/dL Urine Occult Blood SMALL Urine Nitrite NEG Urine Bilirubin NEG Urine Urobilinogen 2.0 mg/dL Urine Leukocyte Esterase NEG Urine RBC 1 /hpf Urine WBC 2 /hpf Urine Squamous Epithelial Cells 1 /hpf Urine Mucus FEW /lpf Microscopic Urinalysis Comment CULT NOT INDICATED MDM Medical Decision Making Medical Screen Exam Complete: Yes Emergency Medical Condition: Yes Differential Diagnosis Diverticulitis, gastritis, gastroenteritis, nonspecific abdominal pain Narrative Course 72-year-old male with a history of diverticulitis, hypertension, NSTEMI, A. fib on Eliquis, chronic pain presents emergency department for multiple medical complaints. Patient is a poor historian says that his "stomach" has been hurting him for the last 3-4 days. Says that his pain has been persistent for quite some time however, the last 3-4 days it has been worse. He is unable to characterize this further. Patient says that he is having difficulty with urination as well but has been urinating every day. He is also complaining of sores on his legs and believe that the bites have been the cause of this. His last colonoscopy was 10 years ago. Says he has been [facility], [facility] is been unsuccessful. Patient has affirmative answers to nearly all of my ROS questions but is unable to characterize further. Patient does not indicate that he is short of breath or has chest pain. Says he has been compliant with his medications. His vital signs are stable. His exam findings essentially unremarkable except for some insect bites to the lower extremities. It appears that these insect bites are scarring and is possibly developing keloids. Patient is receiving treatment as an outpatient for these. Past medical history of HTN, HLD, A fib on Eliquis, Hepatitis C, Diverticulosis , Tobacco abuse After review the EMR, it appears that patient has been here multiple times for abdominal pain and once for psychiatric issues. Patient was here October 28 as a Quiroga act and advised to follow-up as an outpatient basis. Patient was here July 13 of this year as well with abdominal pain and diagnosed with diverticulitis. There is a concern for a flareup of diverticulitis and possible abscess versus early fistula formation. He was evaluated by Dr. Alva July 14, 2017 and there is mention of a need for resection but infection inflammation needs to be uncontrolled prior to surgery. I do not have record of patient having the surgery. His labs are stable. I do not suspect an emergent process requiring additional imaging studies today. I discussed this with my attending. Based off of history and physical, patient will be discharged advised to follow-up with his primary care physician. Patient was notified of findings and is relieved that there is no serious process. He did not require any pain medications today. He is advised to return for worsening or persistent symptoms. Diagnosis Primary Impression: Abdominal pain Qualified Codes: R10.9 - Unspecified abdominal pain Referrals: Administrative Sales Assistant Additional Instructions: Follow-up with her primary care physician as soon as possible. Follow-up with a medical practice administrator for evaluation of previous imaging studies. Disposition: 01 DISCHARGE HOME Condition: Stable Kasey Renee Dec 05, 2017 17:38
[2017-12-05 18:17] LABS: AUTOMATED NEUTROPHIL # 2.9 TH/MM3 (1.8-7.7); BASOPHIL % 0.7 % (0.0-2.0); EOSINOPHIL # 0.1 TH/MM3 (0-0.4); EOSINOPHIL % 1.9 % (0.0-4.0); HEMATOCRIT 44.4 % (39.0-51.0); HEMOGLOBIN 14.2 GM/DL (13.0-17.0); LYMPH % 19.5 % (9.0-44.0); LYMPHOCYTE # 0.9 TH/MM3 (1.0-4.8); MEAN CELL VOLUME 86.6 FL (80.0-100.0); MEAN CORPUSCULAR HEMOGLOBIN 27.8 PG (27.0-34.0); MEAN CORPUSCULAR HGB CONC 32.1 % (32.0-36.0); MEAN PLATELET VOLUME 9.1 FL (7.0-11.0); MONO % 12.6 % (0.0-8.0); MONOCYTE # 0.6 TH/MM3 (0-0.9); NEUT % 65.3 % (16.0-70.0); PLATELET COUNT 205 TH/MM3 (150-450); RED BLOOD COUNT 5.12 MIL/MM3 (4.50-5.90); RED CELL DISTRIBUTION WIDTH 18.6 % (11.6-17.2); WHITE BLOOD COUNT 4.5 TH/MM3 (4.0-11.0)
[2017-12-05 18:28] LABS: ALBUMIN 2.9 GM/DL (3.4-5.0); ALT (GPT) 12 U/L (12-78); AST (GOT) 38 U/L (15-37); BICARBONATE 22.1 MEQ/L (21.0-32.0); BLOOD UREA NITROGEN 7 MG/DL (7-18); CALCIUM 8.6 MG/DL (8.5-10.1); CHLORIDE 104 MEQ/L (98-107); CREATININE 0.78 MG/DL (0.60-1.30); GLOMERULAR FILTRATION RATE 119 ML/MIN (>89); GLUCOSE,RANDOM 94 MG/DL (74-106); SODIUM (NA) 134 MEQ/L (136-145)
[2017-12-05 18:30] LABS: ALKALINE PHOSPHATASE 108 U/L (45-117); TOTAL BILIRUBIN ADULT 0.8 MG/DL (0.2-1.0); TOTAL PROTEIN 8.8 GM/DL (6.4-8.2)
[2017-12-05 19:58] LABS: BILIRUBIN, URINE NEG (NEG); BLOOD, URINE SMALL (NEG); GLUCOSE,URINE NEG (NEG); KETONE, URINE NEG (NEG); MUCUS URINE FEW /lpf (OCC); NITRITE,URINE NEG (NEG); SQUAMOUS EPITHELIAL CELL URINE 1 /hpf (0-5); URINE COLOR YELLOW (YELLW/STRAW); URINE LEUKOCYTE ESTERASE NEG (NEG)
[2017-12-05 21:18] VITALS: O2SAT 100
== END 2017-12-05 21:19 | disposition home or self-care (01) ==
LOC: NEPC 15:10
DX: R10.9 Unspecified abdominal pain (principal); S80.869A Insect bite (nonvenomous), unspecified lower leg, initial encounter; W57.XXXA Bitten or stung by nonvenomous insect and other nonvenomous arthropods, initial encounter; K57.92 Diverticulitis of intestine, part unspecified, without perforation or abscess without bleeding; I10 Essential (primary) hypertension; I25.10 Atherosclerotic heart disease of native coronary artery without angina pectoris; I48.91 Unspecified atrial fibrillation; I25.2 Old myocardial infarction; E78.00 Pure hypercholesterolemia, unspecified; K21.9 Gastro-esophageal reflux disease without esophagitis; M19.90 Unspecified osteoarthritis, unspecified site; F17.210 Nicotine dependence, cigarettes, uncomplicated; Z86.19 Personal history of other infectious and parasitic diseases; Z95.5 Presence of coronary angioplasty implant and graft; Z88.8 Allergy status to other drugs, medicaments and biological substances; Z79.01 Long term (current) use of anticoagulants; Z79.899 Other long term (current) drug therapy
CPT/HCPCS: 80053; 81001; 83690; 85025; 85610; 85730; 99283

== ENCOUNTER 2017-12-28 11:51 | Inpatient (IN) ==
--- NOTE | 2017-12-28 13:33 | ED ---
HPI General Chief complaint: Recheck/Abnormal Lab/Rx Stated complaint: va sent/blood pressure Time Seen by Provider: 12/28/17 13:32 Source: patient Mode of arrival: ambulatory Limitations: no limitations History of Present Illness HPI narrative: 72-year-old male came to the emergency room sent from [place] for hypertension complaining of headache. Patient says that he has been getting headache for past 3 days. The headache is mostly frontal and he is having some visual changes as well. He has history of hypertension and his blood pressure was elevated at the [place]. The doctor there recommended that he should come to the emergency room. He had his brother bring him over. Patient says that he has been having some associated runny nose and attribute to the headache to sinus infection. Prior to the headache starting he had some episodes of diarrhea that has subsided now. No radiation of the pain and no aggravating or relieving symptoms identified. He is awake and answering questions appropriately. He appeared to be in respiratory distress and upon asking he said that he noticed but does not seem to be bothered him. No history of associated chest pain. He does not have history of COPD. Is not a smoker. Patient says that he did not notice any ankle swelling. He is on Coumadin. Onset (ago): day(s) (3) Related Data Home Medications Medication Instructions Recorded Confirmed atorvastatin 40 mg PO HS 12/28/17 12/28/17 diltiazem HCl [Cardizem] 60 mg PO TID 12/28/17 12/28/17 furosemide [Lasix] 40 mg PO DAILY 12/28/17 12/28/17 gabapentin 900 mg PO TID 12/28/17 12/28/17 metoprolol tartrate 25 mg PO BID 12/28/17 12/28/17 omeprazole 20 mg PO DAILY 12/28/17 12/28/17 spironolactone 25 mg PO DAILY 12/28/17 12/28/17 venlafaxine 75 mg PO DAILY 12/28/17 12/28/17 warfarin [Coumadin] 0 mg/kg PO DAILY 12/28/17 12/28/17 zolpidem 5 mg PO DAILY 12/28/17 12/28/17 Previous Rx's Medication Instructions Recorded lisinopril 20 mg PO DAILY #30 tab 12/31/17 Allergies Allergy/AdvReac Type Severity Reaction Status Date / Time diatrizoate meglumine AdvReac Severe SEVERE Verified 12/28/17 14:24 VOMITING gadobenic acid AdvReac Severe SEVERE Verified 12/28/17 14:25 VOMITING gadodiamide AdvReac Severe SEVERE Verified 12/28/17 14:25 VOMITING gadoteridol AdvReac Severe SEVERE Verified 12/28/17 14:25 VOMITING iodixanol AdvReac Severe SEVERE Verified 12/28/17 14:25 VOMITING iohexol AdvReac Severe SEVERE Verified 12/28/17 14:24 VOMITING Review of Systems ROS Unobtainable All other systems reviewed negative except as stated in HPI Respiratory Reports dyspnea Neurologic Reports headache(s) PMFSH History History Provided By: Patient Medical History Medical History Atrial fibrillation (Acute) Diastolic CHF (Acute) Diverticulitis (Acute) Fusion of lumbar spine (Acute) High cholesterol (Acute) Hypertension (Acute) Lung nodule (Acute) Stroke (Acute) Family History Family History Mother No problems noted. Father Family history of acute myocardial infarction Social History Social History Substance History: No History of Abuse Second Hand Smoke Exposure: No Smoking Status: Never smoker Tobacco Type: Cigarettes Packs Per Day: 0.5 Cigarettes Per Day: 10.0 How Often Do You Have a Drink Containing Alcohol: Never Recent Travel in [facility] within the Last 8 Weeks: No Exam Narrative Exam Narrative: GENERAL: Awake, alert, moderate distress, obese SKIN: Focused skin assessment warm/dry. HEAD: Atraumatic. Normocephalic. EYES: Pupils equal and round. No scleral icterus. No injection or drainage. ENT: No nasal bleeding or discharge. Mucous membranes pink and moist. NECK: Trachea midline. No JVD. CARDIOVASCULAR: Irregularly irregular heart rate, tachycardia. No murmur appreciated. RESPIRATORY: Respiratory distress, diminished air entry bilaterally especially the bases, tachypnea GASTROINTESTINAL: Abdomen soft, non-tender, nondistended. Hepatic and splenic margins not palpable. MUSCULOSKELETAL: No obvious deformities. No clubbing. No cyanosis. Pedal edema. NEUROLOGICAL: Awake and alert. No obvious cranial nerve deficits. Motor grossly within normal limits. Normal speech. PSYCHIATRIC: Appropriate mood and affect; insight and judgment normal. Course Reevaluation(s) Reevaluation #1: Patient was given 40 mg of IV Lasix for possible congestive heart failure. Chest x-ray confirms the pulmonary edema. I have asked for an arterial blood gas. Awaiting for rest of the blood test result. I will order IV Lopressor 5 mg and p.o. Cardizem as well. Patient eventually will require admission. Awaiting for the head CT. Time: 14:52 Initial Documented Vital Signs Temperature 98.9 F 12/28/17 13:01 Pulse Rate 123 H 12/28/17 13:01 Respiratory Rate 16 12/28/17 13:01 Blood Pressure 148/105 H 12/28/17 13:01 Pulse Oximetry 98 12/28/17 13:01 Last Documented Vital Signs Temperature 98.6 F 12/31/17 12:00 Pulse Rate 73 12/31/17 12:00 Respiratory Rate 20 12/31/17 12:00 Blood Pressure 126/76 12/31/17 12:00 Pulse Oximetry 94 L 12/31/17 12:00 Critical Care Time Critical Care Time: Yes Total Critical Care Time: 30 Attestation: Respiratory distress, pulmonary edema, A. fib with RVR, rate control and diuresis. Medical Decision Making MDM Narrative Medical decision making narrative: I reviewed the CT head myself. There appears to be a hypodensity on the right parietal lobe area which could correlate from a previous stroke. Awaiting for the hospitalist to put her read. I did not see any hemorrhage. Patient will require admission. Awaiting for the hospitalist callback. Lab Data Result diagrams: 12/31/17 10:34 12/30/17 20:53 Lab Results 12/28/17 12/28/17 12/28/17 Range/Units 14:15 14:15 14:15 WBC 6.2 (4.0-11.0) th/mm3 RBC 4.78 (4.50-5.90) mil/mm3 Hgb 13.2 (13.0-17.0) gm/dL Hct 40.5 (39.0-51.0) % MCV 84.7 (80.0-100.0) fL MCH 27.6 (27.0-34.0) pg MCHC 32.6 (32.0-36.0) % RDW 17.4 H (11.6-17.2) % Plt Count 181 (150-450) th/mm3 MPV 8.7 (7.0-11.0) fL Prelim Diff (Auto) Neut % (Auto) 77.1 H (16.0-70.0) % Lymph % (Auto) 13.0 (9.0-44.0) % [place] % (Auto) 8.4 H (0.0-8.0) % Eos % (Auto) 1.0 (0.0-4.0) % Baso % (Auto) 0.5 (0.0-2.0) % Neut # (Auto) 4.7 (1.8-7.7) th/mm3 Lymph # (Auto) 0.8 L (1.0-4.8) th/mm3 [place] # (Auto) 0.5 (0.0-0.9) th/mm3 Eos # (Auto) 0.1 (0.0-0.4) th/mm3 Baso # (Auto) 0.0 (0.0-0.2) th/mm3 WBC Differential . Diff Scan Differential Comment Auto diff final Platelet Estimate (Normal) Platelet Morphology (Normal) RBC Morphology (Normal) PT 10.9 (9.8-11.6) sec INR 1.1 Ratio Puncture Site Patient Temperature O2 Saturation (90-100) % ABG pH (7.380-7.420) ABG pCO2 (38-42) mmHg ABG pO2 (61-120) mmHg ABG HCO3 (22-26) mmol/L ABG O2 Content (12.0-20.0) Vol % ABG Base Excess (-2-2) mmol/L ABG Methemoglobin (0-2) % Mahamed Test Hemoglobin (12.0-16.0) G/DL Carboxyhemoglobin (0-4) % Inspired O2 % Critical Value Sodium 136 (136-145) meq/L Potassium 4.8 (3.5-5.1) meq/L Chloride 103 (98-107) meq/L Carbon Dioxide 26.0 (21.0-32.0) meq/L Anion Gap 7 (5-15) meq/L BUN 10 (7-18) mg/dL Creatinine 0.86 (0.60-1.30) mg/dL Estimated GFR Greater than 89 (>89) mL/min Random Glucose 98 (74-106) mg/dL Calcium 8.6 (8.5-10.1) mg/dL Prot Corrected Calcium Total Bilirubin (0.2-1.0) mg/dL AST (15-37) U/L ALT (12-78) U/L Alkaline Phosphatase (45-117) U/L Troponin I 0.02 (0.02-0.05) ng/mL B-Natriuretic Peptide (0-100) pg/mL Total Protein (6.4-8.2) g/dL Albumin (3.4-5.0) g/dL Urine Color (Yellw/Straw) Urine Clarity (Clear) Urine pH (5.0-8.5) Ur Specific [place] (1.002-1.035) Urine Protein (Neg-Trace) mg/dL Urine Glucose (UA) (Negative) mg/dL Urine Ketones (Negative) mg/dL Urine Occult Blood (Negative) Urine Nitrate (Negative) Urine Bilirubin (Negative) Urine Urobilinogen (Less than 2) mg/dL Ur Leukocyte Esterase (Negative) Urine WBC (0-5) /hpf Ur Squamous Epith Cells (0-5) /hpf Granular Casts (None) /lpf Urine Mucus (Occasional) /lpf Micro UA Comment Urine Culture Comments 12/28/17 12/28/17 12/28/17 Range/Units 14:15 14:15 14:39 WBC (4.0-11.0) th/mm3 RBC (4.50-5.90) mil/mm3 Hgb (13.0-17.0) gm/dL Hct (39.0-51.0) % MCV (80.0-100.0) fL MCH (27.0-34.0) pg MCHC (32.0-36.0) % RDW (11.6-17.2) % Plt Count (150-450) th/mm3 MPV (7.0-11.0) fL Prelim Diff (Auto) Neut % (Auto) (16.0-70.0) % Lymph % (Auto) (9.0-44.0) % [place] % (Auto) (0.0-8.0) % Eos % (Auto) (0.0-4.0) % Baso % (Auto) (0.0-2.0) % Neut # (Auto) (1.8-7.7) th/mm3 Lymph # (Auto) (1.0-4.8) th/mm3 [place] # (Auto) (0.0-0.9) th/mm3 Eos # (Auto) (0.0-0.4) th/mm3 Baso # (Auto) (0.0-0.2) th/mm3 WBC Differential Diff Scan Differential Comment Platelet Estimate (Normal) Platelet Morphology (Normal) RBC Morphology (Normal) PT (9.8-11.6) sec INR Ratio Puncture Site Left radial Patient Temperature 98.6 O2 Saturation 96 (90-100) % ABG pH 7.40 (7.380-7.420) ABG pCO2 47 H (38-42) mmHg ABG pO2 109 (61-120) mmHg ABG HCO3 28 H (22-26) mmol/L ABG O2 Content 18.2 (12.0-20.0) Vol % ABG Base Excess 3.9 H (-2-2) mmol/L ABG Methemoglobin 0.5 (0-2) % Mahamed Test Present Hemoglobin 13.5 (12.0-16.0) G/DL Carboxyhemoglobin 2.2 (0-4) % Inspired O2 21 % Critical Value No Sodium (136-145) meq/L Potassium (3.5-5.1) meq/L Chloride (98-107) meq/L Carbon Dioxide (21.0-32.0) meq/L Anion Gap (5-15) meq/L BUN (7-18) mg/dL Creatinine (0.60-1.30) mg/dL Estimated GFR (>89) mL/min Random Glucose (74-106) mg/dL Calcium (8.5-10.1) mg/dL Prot Corrected Calcium Total Bilirubin (0.2-1.0) mg/dL AST (15-37) U/L ALT (12-78) U/L Alkaline Phosphatase (45-117) U/L Troponin I Cancelled (0.02-0.05) ng/mL B-Natriuretic Peptide 263 H (0-100) pg/mL Total Protein (6.4-8.2) g/dL Albumin (3.4-5.0) g/dL Urine Color (Yellw/Straw) Urine Clarity (Clear) Urine pH (5.0-8.5) Ur Specific [place] (1.002-1.035) Urine Protein (Neg-Trace) mg/dL Urine Glucose (UA) (Negative) mg/dL Urine Ketones (Negative) mg/dL Urine Occult Blood (Negative) Urine Nitrate (Negative) Urine Bilirubin (Negative) Urine Urobilinogen (Less than 2) mg/dL Ur Leukocyte Esterase (Negative) Urine WBC (0-5) /hpf Ur Squamous Epith Cells (0-5) /hpf Granular Casts (None) /lpf Urine Mucus (Occasional) /lpf Micro UA Comment Urine Culture Comments 12/28/17 12/29/17 12/29/17 Range/Units 15:30 05:10 05:10 WBC (4.0-11.0) th/mm3 RBC (4.50-5.90) mil/mm3 Hgb (13.0-17.0) gm/dL Hct (39.0-51.0) % MCV (80.0-100.0) fL MCH (27.0-34.0) pg MCHC (32.0-36.0) % RDW (11.6-17.2) % Plt Count (150-450) th/mm3 MPV (7.0-11.0) fL Prelim Diff (Auto) Neut % (Auto) (16.0-70.0) % Lymph % (Auto) (9.0-44.0) % [place] % (Auto) (0.0-8.0) % Eos % (Auto) (0.0-4.0) % Baso % (Auto) (0.0-2.0) % Neut # (Auto) (1.8-7.7) th/mm3 Lymph # (Auto) (1.0-4.8) th/mm3 [place] # (Auto) (0.0-0.9) th/mm3 Eos # (Auto) (0.0-0.4) th/mm3 Baso # (Auto) (0.0-0.2) th/mm3 WBC Differential Diff Scan Differential Comment Platelet Estimate (Normal) Platelet Morphology (Normal) RBC Morphology (Normal) PT 10.7 (9.8-11.6) sec INR 1.1 Ratio Puncture Site Patient Temperature O2 Saturation (90-100) % ABG pH (7.380-7.420) ABG pCO2 (38-42) mmHg ABG pO2 (61-120) mmHg ABG HCO3 (22-26) mmol/L ABG O2 Content (12.0-20.0) Vol % ABG Base Excess (-2-2) mmol/L ABG Methemoglobin (0-2) % Mahamed Test Hemoglobin (12.0-16.0) G/DL Carboxyhemoglobin (0-4) % Inspired O2 % Critical Value Sodium 139 (136-145) meq/L Potassium 3.7 D (3.5-5.1) meq/L Chloride 101 (98-107) meq/L Carbon Dioxide 26.8 (21.0-32.0) meq/L Anion Gap 11 (5-15) meq/L BUN 12 (7-18) mg/dL Creatinine 0.86 (0.60-1.30) mg/dL Estimated GFR Greater than 89 (>89) mL/min Random Glucose 87 (74-106) mg/dL Calcium 9.3 (8.5-10.1) mg/dL Prot Corrected Calcium Total Bilirubin (0.2-1.0) mg/dL AST (15-37) U/L ALT (12-78) U/L Alkaline Phosphatase (45-117) U/L Troponin I (0.02-0.05) ng/mL B-Natriuretic Peptide (0-100) pg/mL Total Protein (6.4-8.2) g/dL Albumin (3.4-5.0) g/dL Urine Color Yellow (Yellw/Straw) Urine Clarity Clear (Clear) Urine pH 6.0 (5.0-8.5) Ur Specific [place] 1.012 (1.002-1.035) Urine Protein 500 or greater (Neg-Trace) mg/dL Urine Glucose (UA) Negative (Negative) mg/dL Urine Ketones Negative (Negative) mg/dL Urine Occult Blood Negative (Negative) Urine Nitrate Negative (Negative) Urine Bilirubin Negative (Negative) Urine Urobilinogen 4 or greater (Less than 2) mg/dL Ur Leukocyte Esterase Negative (Negative) Urine WBC 1 (0-5) /hpf Ur Squamous Epith Cells 1 (0-5) /hpf Granular Casts 1 (None) /lpf Urine Mucus Few H (Occasional) /lpf Micro UA Comment Culture not ind Urine Culture Comments Culture not ind 07/15/18 07/15/18 07/16/18 Range/Units 20:53 20:53 10:34 WBC 5.7 6.9 (4.0-11.0) th/mm3 RBC 5.09 5.22 (4.50-5.90) mil/mm3 Hgb 13.8 14.5 (13.0-17.0) gm/dL Hct 43.2 45.0 (39.0-51.0) % MCV 84.8 86.3 (80.0-100.0) fL MCH 27.2 27.9 (27.0-34.0) pg MCHC 32.0 32.3 (32.0-36.0) % RDW 16.9 16.8 (11.6-17.2) % Plt Count 199 195 (150-450) th/mm3 MPV 8.9 9.3 (7.0-11.0) fL Prelim Diff (Auto) Slide review pending Neut % (Auto) 79.3 H 80.9 H (16.0-70.0) % Lymph % (Auto) 9.4 10.3 (9.0-44.0) % [place] % (Auto) 9.1 H 6.8 (0.0-8.0) % Eos % (Auto) 1.7 1.8 (0.0-4.0) % Baso % (Auto) 0.5 0.2 (0.0-2.0) % Neut # (Auto) 4.5 5.6 (1.8-7.7) th/mm3 Lymph # (Auto) 0.5 L 0.7 L (1.0-4.8) th/mm3 [place] # (Auto) 0.5 0.5 (0.0-0.9) th/mm3 Eos # (Auto) 0.1 0.1 (0.0-0.4) th/mm3 Baso # (Auto) 0.0 0.0 (0.0-0.2) th/mm3 WBC Differential . . Diff Scan Auto diff confirmed Differential Comment Auto diff final . Platelet Estimate Normal (Normal) Platelet Morphology Normal (Normal) RBC Morphology Normal (Normal) PT (9.8-11.6) sec INR Ratio Puncture Site Patient Temperature O2 Saturation (90-100) % ABG pH (7.380-7.420) ABG pCO2 (38-42) mmHg ABG pO2 (61-120) mmHg ABG HCO3 (22-26) mmol/L ABG O2 Content (12.0-20.0) Vol % ABG Base Excess (-2-2) mmol/L ABG Methemoglobin (0-2) % Mahamed Test Hemoglobin (12.0-16.0) G/DL Carboxyhemoglobin (0-4) % Inspired O2 % Critical Value Sodium 138 (136-145) meq/L Potassium 3.8 (3.5-5.1) meq/L Chloride 100 (98-107) meq/L Carbon Dioxide 28.8 (21.0-32.0) meq/L Anion Gap 9 (5-15) meq/L BUN 14 (7-18) mg/dL Creatinine 0.99 (0.60-1.30) mg/dL Estimated GFR Greater than 89 (>89) mL/min Random Glucose 110 H (74-106) mg/dL Calcium 9.1 (8.5-10.1) mg/dL Prot Corrected Calcium Total Bilirubin 0.7 (0.2-1.0) mg/dL AST 11 L (15-37) U/L ALT 14 (12-78) U/L Alkaline Phosphatase 128 H (45-117) U/L Troponin I (0.02-0.05) ng/mL B-Natriuretic Peptide (0-100) pg/mL Total Protein 8.8 H (6.4-8.2) g/dL Albumin 2.8 L (3.4-5.0) g/dL Urine Color (Yellw/Straw) Urine Clarity (Clear) Urine pH (5.0-8.5) Ur Specific [place] (1.002-1.035) Urine Protein (Neg-Trace) mg/dL Urine Glucose (UA) (Negative) mg/dL Urine Ketones (Negative) mg/dL Urine Occult Blood (Negative) Urine Nitrate (Negative) Urine Bilirubin (Negative) Urine Urobilinogen (Less than 2) mg/dL Ur Leukocyte Esterase (Negative) Urine WBC (0-5) /hpf Ur Squamous Epith Cells (0-5) /hpf Granular Casts (None) /lpf Urine Mucus (Occasional) /lpf Micro UA Comment Urine Culture Comments 12/31/17 Range/Units 10:34 WBC (4.0-11.0) th/mm3 RBC (4.50-5.90) mil/mm3 Hgb (13.0-17.0) gm/dL Hct (39.0-51.0) % MCV (80.0-100.0) fL MCH (27.0-34.0) pg MCHC (32.0-36.0) % RDW (11.6-17.2) % Plt Count (150-450) th/mm3 MPV (7.0-11.0) fL Prelim Diff (Auto) Neut % (Auto) (16.0-70.0) % Lymph % (Auto) (9.0-44.0) % [place] % (Auto) (0.0-8.0) % Eos % (Auto) (0.0-4.0) % Baso % (Auto) (0.0-2.0) % Neut # (Auto) (1.8-7.7) th/mm3 Lymph # (Auto) (1.0-4.8) th/mm3 [place] # (Auto) (0.0-0.9) th/mm3 Eos # (Auto) (0.0-0.4) th/mm3 Baso # (Auto) (0.0-0.2) th/mm3 WBC Differential Diff Scan Differential Comment Platelet Estimate (Normal) Platelet Morphology (Normal) RBC Morphology (Normal) PT (9.8-11.6) sec INR Ratio Puncture Site Patient Temperature O2 Saturation (90-100) % ABG pH (7.380-7.420) ABG pCO2 (38-42) mmHg ABG pO2 (61-120) mmHg ABG HCO3 (22-26) mmol/L ABG O2 Content (12.0-20.0) Vol % ABG Base Excess (-2-2) mmol/L ABG Methemoglobin (0-2) % Mahamed Test Hemoglobin (12.0-16.0) G/DL Carboxyhemoglobin (0-4) % Inspired O2 % Critical Value Sodium Cancelled (136-145) meq/L Potassium Cancelled (3.5-5.1) meq/L Chloride Cancelled (98-107) meq/L Carbon Dioxide Cancelled (21.0-32.0) meq/L Anion Gap Cancelled (5-15) meq/L BUN Cancelled (7-18) mg/dL Creatinine Cancelled (0.60-1.30) mg/dL Estimated GFR Cancelled (>89) mL/min Random Glucose Cancelled (74-106) mg/dL Calcium Cancelled (8.5-10.1) mg/dL Prot Corrected Calcium Cancelled Total Bilirubin Cancelled (0.2-1.0) mg/dL AST Cancelled (15-37) U/L ALT Cancelled (12-78) U/L Alkaline Phosphatase Cancelled (45-117) U/L Troponin I (0.02-0.05) ng/mL B-Natriuretic Peptide (0-100) pg/mL Total Protein Cancelled (6.4-8.2) g/dL Albumin Cancelled (3.4-5.0) g/dL Urine Color (Yellw/Straw) Urine Clarity (Clear) Urine pH (5.0-8.5) Ur Specific [place] (1.002-1.035) Urine Protein (Neg-Trace) mg/dL Urine Glucose (UA) (Negative) mg/dL Urine Ketones (Negative) mg/dL Urine Occult Blood (Negative) Urine Nitrate (Negative) Urine Bilirubin (Negative) Urine Urobilinogen (Less than 2) mg/dL Ur Leukocyte Esterase (Negative) Urine WBC (0-5) /hpf Ur Squamous Epith Cells (0-5) /hpf Granular Casts (None) /lpf Urine Mucus (Occasional) /lpf Micro UA Comment Urine Culture Comments Imaging Data Radiologist's impression: Head CT 12/28/17 13:35 CONCLUSION: 1. No acute intracranial abnormality. 2. Prior right MCA territory infarction. Chest X-Ray 12/28/17 14:07 CONCLUSION: Cardiomegaly with mild interstitial edema suggesting failure. There is no infiltrate. ECG Data Attestation: I personally reviewed and interpreted this ECG as follows: Interpretation: Twelve-lead EKG was reviewed by me. White fib with RVR, normal axis. Heart rate of 116 bpm Discharge Plan Discharge Disposition Patient Disposition: 01 Discharge Home Discharge Condition Condition: Stable Discharge Order Discharge Orders: Discharge Order (Routine); Ordered 12/31/17 Ordered By: Colt Quick Discharge Details Anticipated Discharge Date: 12/31/17 Diagnosis: Respiratory distress, Atrial fibrillation with RVR, Pulmonary edema, Headache Physicians Team ED Provider: Juliane Beatty Primary Care Provider: [facility] Attending Provider: Colt Quick Status ED Status: Left Department Discharge Information Discharge Date/Time: 12/28/17 18:00
[2017-12-28 14:28] LABS: Baso % (Auto) 0.5 % (0.0-2.0); Eos # (Auto) 0.1 th/mm3 (0.0-0.4); Hematocrit 40.5 % (39.0-51.0); Hemoglobin 13.2 gm/dL (13.0-17.0); Lymph # (Auto) 0.8 th/mm3 (1.0-4.8); Mean Corpuscular HGB Conc 32.6 % (32.0-36.0); Mean Corpuscular Hemoglobin 27.6 pg (27.0-34.0); Mean Corpuscular Volume 84.7 fL (80.0-100.0); Mean Platelet Volume 8.7 fL (7.0-11.0); Mono # (Auto) 0.5 th/mm3 (0.0-0.9); Mono % (Auto) 8.4 % (0.0-8.0); Neut # (Auto) 4.7 th/mm3 (1.8-7.7); Neut % (Auto) 77.1 % (16.0-70.0); Platelet Count 181 th/mm3 (150-450); Red Blood Count 4.78 mil/mm3 (4.50-5.90); Red Cell Distribution Width 17.4 % (11.6-17.2); White Blood Count 6.2 th/mm3 (4.0-11.0)
--- NOTE | 2017-12-28 14:30 | XR ---
EXAM DATE: 12/28/2017 2:21 PM EDT AGE/SEX: 72 years / Male INDICATIONS: Chest pain. CLINICAL DATA: This is the patient's initial encounter. Patient reports that signs and symptoms have been present for 1 day and indicates a pain score of 6/10. MEDICAL/SURGICAL HISTORY: . Hypertension Fusion, lumbar. COMPARISON: [facility] [place], CHEST SINGLE AP, 07/15/2017. . FINDINGS: Cardiomegaly with mild interstitial edema. Minimal elevation right left hemidiaphragm. Evidence for p revious spinal fixation. No pneumothorax. CONCLUSION: Cardiomegaly with mild interstitial edema suggesting failure. There is no infiltrate. Electronically signed by: Jerzy Brown MD 12/28/2017 2:29 PM EDT
[2017-12-28 14:40] LABS: INR 1.1 Ratio
[2017-12-28 14:46] LABS: Anion Gap 7 meq/L (5-15); Blood Urea Nitrogen 10 mg/dL (7-18); Calcium 8.6 mg/dL (8.5-10.1); Chloride 103 meq/L (98-107); Glomerular Filtration Rate Greater Than 89 mL/min (>89); Glucose,Random 98 mg/dL (74-106); Potassium 4.8 meq/L (3.5-5.1); Sodium 136 meq/L (136-145)
[2017-12-28 14:49] LABS: Troponin I 0.02 ng/mL (0.02-0.05)
[2017-12-28 14:51] LABS: ABG Base Excess 3.9 mmol/L (-2-2); ABG PCO2 47 mmHg (38-42); ABG PO2 109 mmHg (61-120)
[2017-12-28] MEDS ORDERED: dilTIAZem CD 240 MG Capsule PO ONE (14:53)
[2017-12-28] MEDS ORDERED: Metoprolol Inj 5 MG/5 ML Vial IV.PUSH ONE (14:53)
[2017-12-28 15:00] LABS: Prothrombin Time 10.9 sec (9.8-11.6)
[2017-12-28] MEDS ORDERED: Sod Chloride 0.9% Inj 1,000 ML IV.SIG ONE (15:23)
--- NOTE | 2017-12-28 16:08 | CT ---
EXAM DATE: 12/28/2017 3:59 PM EDT AGE/SEX: 72 years / Male INDICATIONS: Blurry vision in left eye since yesterday. Cephalgia. CLINICAL DATA: This is the patient's initial encounter. Patient reports that signs and symptoms have been present for 2 days and indicates a pain score of 3/10. MEDICAL/SURGICAL HISTORY: None. None. RADIATION DOSE: 66.35 CTDI (mGy) COMPARISON: CT of the brain 02/12/2017 . TECHNIQUE: CT of the head without contrast. Using automated exposure control and adjustment of the mA and/or kV according to patient size, radiation dose was kept as low as reasonably achievable to ob tain optimal diagnostic quality images. DICOM format image data is available electronically for revi ew and comparison. FINDINGS: Cerebrum: Area of encephalomalacia involving the right middle cerebral artery territory. The ventric les are normal for age. No evidence of midline shift, mass lesion, hemorrhage or acute infarction. No extraaxial fluid collections are seen. Posterior Fossa: The cerebellum and brainstem are intact. The 4th ventricle is midline. The cerebe llopontine angle is unremarkable. Extracranial: The visualized portion of the orbits is intact. Skull: The calvaria is intact. No evidence of skull fracture. CONCLUSION: 1. No acute intracranial abnormality. 2. Prior right MCA territory infarction. Electronically signed by: Eddie Lundy MD 12/28/2017 4:07 PM EDT
[2017-12-28 16:19] LABS: Bilirubin,Urine Negative (Negative); Clarity,Urine Clear (Clear); Color,Urine Yellow (Yellw/Straw); Glucose,Urine (UA) Negative (Negative); Leukocyte Esterase,Urine Negative (Negative); Mucus,Urine Few /lpf (Occasional); Nitrite,Urine Negative (Negative); Specific Gravity,Urine 1.012 (1.002-1.035); Squamous Epithelial Cell,Urine 1 /hpf (0-5); Urobilinogen,Urine 4 or Greater mg/dL (Less than 2)
--- NOTE | 2017-12-28 17:17 | P.HPIM ---
History of Present Illness Primary Care Physician: [facility] Chief Complaint: Shortness of breath History of Present Illness: 72-year-old male with a history of diastolic congestive heart failure, atrial fibrillation, hypertension, hyperlipidemia was sent from the [place] due to complaints of having a frontal headache and 3 day history of worsening shortness of breath with physical exertion. Patient also describes symptoms of PND and lower extremity swelling over the past week but denied any symptoms orthopnea. He also reports he has a history of diverticulosis and has had 3 day history of diarrhea with no associated abdominal pain. He denies any associated bloody or black stools. He denies any associated chest pain or palpitations with the shortness of breath. He has not had any fevers or chills nor any coughing associated with the symptoms. He states that he does take warfarin for his chronic atrial fibrillation but does not know the dose. Current [place] primary care clinic is closed and unable to get that information at this time. Inpatient Certification: I certify that the inpatient services were ordered in accordance with Medicare regulations governing the order. This includes certification that hospital inpatient services are reasonable and necessary and in the case of services not specified as inpatient-only under 42 CFR 419.22(n), that they are appropriately provided as inpatient services in accordance to with the 2-midnight benchmark under 43 CFR 412.3(e) Estimated Total Length of Stay (Days): 3 Plans for Post Hospital Care: Home health Review of Systems All other systems reviewed negative except as stated in HPI PMFSH - History History Provided By: Patient - Medical History Medical History: Medical History (Last Updated 12/28/17 @ 17:11 by Brianna Stevenson MD) Atrial fibrillation Diastolic CHF Diverticulitis Fusion of lumbar spine High cholesterol Hypertension Lung nodule Stroke - Family History Family History: Family History (Last Updated 12/28/17 @ 17:12 by Brianna Stevenson MD) Mother No problems noted. Father Family history of acute myocardial infarction - Tobacco History Second Hand Smoke Exposure: No Tobacco Use In Past 30 Days: Yes Smoking Status: Never smoker Tobacco Type: Cigarettes Packs Per Day: 0.5 - Alcohol History How Often Do You Have a Drink Containing Alcohol: Never - Substance Use History Substance History: No History of Abuse - Travel History Recent Travel in the [place] Within the Last 8 Weeks: No - Immunization History Tetanus Immunization: <5 Years Tetanus Immunization Year if Known: 2015 Hx Influenza Vaccine This Season: Yes Medications and Allergies Active Medications: Active Medications Aspirin (Aspirin Chew) 81 mg PO DAILY DICK Furosemide (Lasix Inj) 40 mg IV.PUSH BID@0900,1800 DICK Potassium Chloride (Kcl) 10 meq PO BID DICK Sodium Chloride (Ns Flush) 2 ml IV.FLUSH PRN PRN PRN Reason: FLUSH AFTER USING IV ACCESS Last Admin: 12/28/17 14:07 Dose: 2 ml Sodium Chloride (Ns Flush) 2 ml IV.FLUSH PRN PRN PRN Reason: FLUSH AFTER USING IV ACCESS Sodium Chloride (Ns Flush) 2 ml IV.FLUSH BID DICK Sodium Chloride (Ns Flush) 2 ml IV.FLUSH UNSCH PRN PRN Reason: FLUSH AFTER USING IV ACCESS Allergies Allergy/AdvReac Type Severity Reaction Status Date / Time diatrizoate meglumine AdvReac Severe SEVERE Verified 12/28/17 14:24 VOMITING gadobenic acid AdvReac Severe SEVERE Verified 12/28/17 14:25 VOMITING gadodiamide AdvReac Severe SEVERE Verified 12/28/17 14:25 VOMITING gadoteridol AdvReac Severe SEVERE Verified 12/28/17 14:25 VOMITING iodixanol AdvReac Severe SEVERE Verified 12/28/17 14:25 VOMITING iohexol AdvReac Severe SEVERE Verified 12/28/17 14:24 VOMITING Home Medications Medication Instructions Recorded Confirmed Type atorvastatin 40 mg PO HS 12/28/17 12/28/17 History diltiazem HCl [Cardizem] 60 mg PO TID 12/28/17 12/28/17 History furosemide [Lasix] 40 mg PO DAILY 12/28/17 12/28/17 History gabapentin 900 mg PO TID 12/28/17 12/28/17 History metoprolol tartrate 25 mg PO BID 12/28/17 12/28/17 History omeprazole 20 mg PO DAILY 12/28/17 12/28/17 History spironolactone 25 mg PO DAILY 12/28/17 12/28/17 History venlafaxine 75 mg PO DAILY 12/28/17 12/28/17 History warfarin [Coumadin] 0 mg/kg PO DAILY 12/28/17 12/28/17 History zolpidem 5 mg PO DAILY 12/28/17 12/28/17 History Exam Vital signs: Vital Signs 12/28/17 13:01 12/28/17 13:39 12/28/17 15:27 Temperature 98.9 F Pulse Rate 123 H 105 H 97 H Respiratory Rate 16 22 19 Blood Pressure 148/105 H 169/89 H 158/95 H Pulse Oximetry 98 96 100 Intake & Output 12/27/17 12/28/17 12/28/17 18:59 06:59 18:59 Output Total 375 / 375 Balance -375 / -375 Weight 136.078 kg Output: Urine 375 / 375 Other: # Voids 1 Narrative: GENERAL: Obese male in mild respiratory distress with nasal cannula SKIN: Warm and dry. HEAD: Atraumatic. Normocephalic. EYES: Pupils equal and round. No scleral icterus. No injection or drainage. ENT: No nasal bleeding or discharge. Mucous membranes pink and moist. NECK: Trachea midline. No JVD. CARDIOVASCULAR: Irregular rate and rhythm. RESPIRATORY: Diminished breath sounds with bibasilar crackles GASTROINTESTINAL: Abdomen soft, obese, non-tender, nondistended. Hepatic and splenic margins not palpable. Normoactive bowel sounds MUSCULOSKELETAL: Extremities without clubbing, cyanosis, 1+ edema NEUROLOGICAL: Awake and alert to person place time, patient not the best historian and not altogether alert to situation. No obvious cranial nerve deficits. Motor grossly within normal limits. Five out of 5 muscle strength in the arms and legs. Normal speech. PSYCHIATRIC: Appropriate mood and affect; insight and judgment normal. Results - Labs CBC & Chem 7: 12/28/17 14:15 12/29/17 05:10 Labs: Short CBC 12/28/17 Range/Units 14:15 WBC 6.2 (4.0-11.0) th/mm3 Hgb 13.2 (13.0-17.0) gm/dL Hct 40.5 (39.0-51.0) % Plt Count 181 (150-450) th/mm3 BMP 12/28/17 14:15 Sodium 136 Potassium 4.8 Chloride 103 Carbon Dioxide 26.0 BUN 10 Creatinine 0.86 Calcium 8.6 Cardiac Enzymes 12/28/17 12/28/17 Range/Units 14:15 14:15 Troponin I 0.02 Cancelled (0.02-0.05) ng/mL Urine 12/28/17 Range/Units 15:30 Urine Color Yellow (Yellw/Straw) Urine Clarity Clear (Clear) Urine pH 6.0 (5.0-8.5) Ur Specific [place] 1.012 (1.002-1.035) Urine Protein 500 or greater (Neg-Trace) mg/dL Urine Glucose (UA) Negative (Negative) mg/dL - Imaging Impressions Head CT 12/28/17 13:35 CONCLUSION: 1. No acute intracranial abnormality. 2. Prior right MCA territory infarction. Chest X-Ray 12/28/17 14:07 CONCLUSION: Cardiomegaly with mild interstitial edema suggesting failure. There is no infiltrate. - ECG Prior ECG tracings: available for review Interpretation: Atrial fibrillation with rapid ventricular rate in 118 Caprini VTE Risk Assessment Caprini VTE Risk Assessment: Moderate/High Risk (score >= 2) Caprini Risk Assessment Model: Point Value = 1 Point Value = 2 Point Value = 3 Point Value = 5 Age 41-60 Minor surgery BMI > 25 kg/m2 Swollen legs Varicose veins or History of unexplained or recurrent spontaneous Oral contraceptives or hormone replacement Sepsis (< 1 month) Serious lung disease, including pneumonia (< 1 month) Abnormal pulmonary function Acute myocardial infarction Congestive heart failure (< 1 month) History of inflammatory bowel disease Medical patient at bed rest Age 61-74 Arthroscopic surgery Major open surgery (> 45 min) Laparoscopic surgery (> 45 min) Malignancy Confined to bed (> 72 hours) Immobilizing plaster cast Central venous access Age >= 75 History of VTE Family history of VTE Factor V Leiden Prothrombin [id number] Lupus anticoagulant Anticardiolipin antibodies Elevated serum homocysteine Heparin-induced thrombocytopenia Other congenital or acquired thrombophilia Stroke (< 1 month) Elective arthroplasty Hip, pelvis, or leg fracture Acute spinal cord injury (< 1 month) Prophylaxis Regimen: Total Risk Factor Score Risk Level Prophylaxis Regimen 0-1 Low Early ambulation 2 Moderate Order ONE of the following: *Sequential Compression Device (SCD) *Heparin 5000 units SQ BID 3-4 Higher Order ONE of the following medications: *Heparin 5000 units SQ TID *Enoxaparin/Lovenox 40 mg SQ daily (WT < 150 kg, CrCl > 30 mL/min) *Enoxaparin/Lovenox 30 mg SQ daily (WT < 150 kg, CrCl > 10-29 mL/min) *Enoxaparin/Lovenox 30 mg SQ BID (WT < 150 kg, CrCl > 30 mL/min) AND/OR *Sequential Compression Device (SCD) 5 or more Highest Order ONE of the following medications: *Heparin 5000 units SQ TID (Preferred with Epidurals) *Enoxaparin/Lovenox 40 mg SQ daily (WT < 150 kg, CrCl > 30 mL/min) *Enoxaparin/Lovenox 30 mg SQ daily (WT < 150 kg, CrCl > 10-29 mL/min) *Enoxaparin/Lovenox 30 mg SQ BID (WT < 150 kg, CrCl > 30 mL/min) AND *Sequential Compression Device (SCD) Assessment and Plan - Plan 1. Acute on chronic diastolic congestive heart failure exacerbationcontinue Lasix IV with strict I's and O. Aggressive control of blood pressure. Obtain 2D echo for comparison from February 2017 echo. Fluid restriction. 2. Hypertension, chronic and uncontrolledresume home metoprolol and add lisinopril 3. Hyperlipidemiaresume home statin 4. Chronic atrial fibrillationcontinue rate controlled metoprolol and diltiazem along with restarting warfarin and monitor PT/INR. 5. DVT prophylaxiswarfarin
[2017-12-28] MEDS: Gabapentin 300 MG Capsule PO SCH (17:48)
[2017-12-28] MEDS: dilTIAZem 60 MG Tablet PO SCH (17:49)
[2017-12-28] MEDS: Metoprolol Tartrate 25 MG Tablet PO SCH (22:13)
[2017-12-28] MEDS: Potassium Chloride 10 MEQ ER Capsule PO SCH (22:13)
[2017-12-28] MEDS: Acetaminophen 325 MG Tablet PO PRN (22:17)
[2017-12-29 06:50] LABS: INR 1.1 Ratio; Prothrombin Time 10.7 sec (9.8-11.6)
[2017-12-29 07:36] LABS: Anion Gap 11 meq/L (5-15); Blood Urea Nitrogen 12 mg/dL (7-18); Calcium 9.3 mg/dL (8.5-10.1); Carbon Dioxide 26.8 meq/L (21.0-32.0); Chloride 101 meq/L (98-107); Glomerular Filtration Rate Greater Than 89 mL/min (>89); Glucose,Random 87 mg/dL (74-106); Potassium 3.7 meq/L (3.5-5.1); Sodium 139 meq/L (136-145)
--- NOTE | 2017-12-29 08:26 | ECG ---
Date Performed: 12/28/2017 Time Performed: 13:44:45 PTAGE: 72 years EKG: ATRIAL FIBRILLATION WITH RAPID VENTRICULAR RESPONSE ABNORMAL RHYTHM ECG PREVIOUS TRACING : 07/13/2017 20.36 DOCTOR: Bibiana Reaves Interpretating Date/Time 12/29/2017 08:21:33
[2017-12-29] MEDS: Pantoprazole Sodium 20 MG DR Tablet PO SCH (11:23)
[2017-12-29] MEDS: Gabapentin 300 MG Capsule PO SCH ×3 (11:23→18:33)
[2017-12-29] MEDS: Venlafaxine XR 75 MG Capsule PO SCH (11:24)
[2017-12-29] MEDS: dilTIAZem 60 MG Tablet PO SCH ×3 (11:25→18:33)
[2017-12-29] MEDS: Metoprolol Tartrate 25 MG Tablet PO SCH ×2 (11:26→21:08)
[2017-12-29] MEDS: Lisinopril 10 MG Tablet PO SCH (11:26)
[2017-12-29] MEDS: Spironolactone 25 MG Tablet PO SCH (11:27)
[2017-12-29] MEDS: Potassium Chloride 10 MEQ ER Capsule PO SCH ×2 (11:37→21:08)
[2017-12-29] MEDS: Acetaminophen 325 MG Tablet PO PRN ×2 (14:24→18:37)
--- NOTE | 2017-12-29 15:33 | P.PNIM ---
Subjective Interval history: Patient still has headache this morning. No shortness of breath. Improvement in peripheral edema. Blood pressures are still elevated. Physical Exam Vital signs: Vital Signs 12/28/17 17:54 12/28/17 18:27 12/28/17 20:00 Temperature 97.5 F L 98.1 F Pulse Rate 102 H 109 H 80 Respiratory Rate 24 20 18 Blood Pressure 131/97 H 162/103 H 157/96 H Pulse Oximetry 100 98 95 12/29/17 00:00 12/29/17 04:00 12/29/17 08:00 Temperature 97.8 F 97.6 F 97.9 F Pulse Rate 80 85 80 Respiratory Rate 18 17 Blood Pressure 142/90 H 125/73 161/104 H Pulse Oximetry 95 96 96 12/29/17 11:12 12/29/17 12:00 12/29/17 15:06 Temperature 98.8 F Pulse Rate 89 71 96 H Respiratory Rate 18 Blood Pressure 148/92 H Pulse Oximetry 95 Intake & Output 12/28/17 12/29/17 12/29/17 18:59 06:59 18:59 Intake Total 1000 / 1000 Output Total 1225 / 1225 Balance -1225 / -1225 1000 / 1000 Weight 136.078 kg 137.9 kg Intake: IV 1000 / 1000 Output: Urine 1225 / 1225 Other: # Voids 1 2 2 Narrative: GENERAL: NAD, A&Ox3 HEAD: Normocephalic. NECK: Supple, trachea midline. No lymphadenopathy. EYES: No scleral icterus. No injection or drainage. CARDIOVASCULAR: Regular rate and rhythm without murmurs, gallops, or rubs. RESPIRATORY: Breath sounds equal bilaterally. No accessory muscle use. GASTROINTESTINAL: Abdomen soft, non-tender, nondistended. MUSCULOSKELETAL: No cyanosis, or edema. SKIN: Warm and dry. NEURO: No focal neurological deficits. Results - Labs CBC & Chem 7: 12/28/17 14:15 12/29/17 05:10 Laboratory Results - last 24 hr 12/28/17 12/29/17 12/29/17 15:30 05:10 05:10 PT 10.7 INR 1.1 Sodium 139 Potassium 3.7 D Chloride 101 Carbon Dioxide 26.8 Anion Gap 11 BUN 12 Creatinine 0.86 Estimated GFR Greater than 89 Random Glucose 87 Calcium 9.3 Urine Color Yellow Urine Clarity Clear Urine pH 6.0 Ur Specific [place] 1.012 Urine Protein 500 or greater Urine Glucose (UA) Negative Urine Ketones Negative Urine Occult Blood Negative Urine Nitrate Negative Urine Bilirubin Negative Urine Urobilinogen 4 or greater Ur Leukocyte Esterase Negative Urine WBC 1 Ur Squamous Epith Cells 1 Granular Casts 1 Urine Mucus Few H Micro UA Comment Culture not ind Urine Culture Comments Culture not ind - Imaging Impressions Head CT 12/28/17 13:35 CONCLUSION: 1. No acute intracranial abnormality. 2. Prior right MCA territory infarction. Assessment and Plan - Plan 72-year-old male admitted secondary to diastolic CHF exacerbation with hypertension and headache Acute on chronic diastolic congestive heart failure exacerbation Continue IV Lasix Follow clinically for improvement Echocardiogram pending Continue fluid restriction Hypertension Continue baseline treatment Follow blood pressures Adjust treatments as needed Continue metoprolol Continue lisinopril Hyperlipidemia Continue present treatment Follow as an outpatient Continue statin Chronic atrial fibrillation Rate controlled Continue metoprolol Continue diltiazem Continue warfarin Follow INR DVT prophylaxis Warfarin
[2017-12-30] MEDS: Acetaminophen 325 MG Tablet PO PRN ×4 (03:52→18:42)
[2017-12-30] MEDS: Potassium Chloride 10 MEQ ER Capsule PO SCH ×2 (08:36→20:57)
[2017-12-30] MEDS: Gabapentin 300 MG Capsule PO SCH ×3 (08:36→17:00)
[2017-12-30] MEDS: Pantoprazole Sodium 20 MG DR Tablet PO SCH (08:37)
[2017-12-30] MEDS: dilTIAZem 60 MG Tablet PO SCH ×3 (08:37→17:00)
[2017-12-30] MEDS: Lisinopril 10 MG Tablet PO SCH (08:38)
[2017-12-30] MEDS: Metoprolol Tartrate 25 MG Tablet PO SCH ×2 (08:38→20:57)
[2017-12-30] MEDS: Spironolactone 25 MG Tablet PO SCH (08:38)
[2017-12-30] MEDS: Venlafaxine XR 75 MG Capsule PO SCH (08:38)
--- NOTE | 2017-12-30 11:26 | P.PNIM ---
Subjective Interval history: Hypertensive urgency is still present. This could represent uncontrolled hypertension versus continuation of his CHF exacerbation. His only other complaints are sore throat, sinusitis, and headache. Physical Exam Vital signs: Vital Signs 12/29/17 12:00 12/29/17 15:06 12/29/17 16:00 Temperature 98.8 F 97.9 F Pulse Rate 71 96 H 86 Respiratory Rate 18 18 Blood Pressure 148/92 H 142/70 H Pulse Oximetry 95 96 12/29/17 19:47 12/29/17 22:23 12/29/17 23:47 Temperature 97.9 F Pulse Rate 65 69 63 Respiratory Rate 18 Blood Pressure 105/69 Pulse Oximetry 93 L 12/30/17 00:00 12/30/17 04:00 12/30/17 09:08 Temperature 98.2 F 97.3 F L 98.4 F Pulse Rate 73 60 88 Respiratory Rate 18 18 18 Blood Pressure 152/94 H 160/112 H 190/106 H Pulse Oximetry 97 92 L 93 L Intake & Output 12/29/17 12/30/17 12/30/17 18:59 06:59 18:59 Weight 137.3 kg Other: # Voids 2 2 Narrative: GENERAL: NAD, A&Ox3 HEAD: Normocephalic. NECK: Supple, trachea midline. No lymphadenopathy. EYES: No scleral icterus. No injection or drainage. CARDIOVASCULAR: Regular rate and rhythm without murmurs, gallops, or rubs. RESPIRATORY: Breath sounds equal bilaterally. No accessory muscle use. GASTROINTESTINAL: Abdomen soft, non-tender, nondistended. MUSCULOSKELETAL: No cyanosis, or edema. SKIN: Warm and dry. NEURO: No focal neurological deficits. Results - Labs CBC & Chem 7: 12/28/17 14:15 12/29/17 05:10 Assessment and Plan - Plan 72-year-old male admitted secondary to diastolic CHF exacerbation with hypertension and headache Robitussin and Chloraseptic added for his sinus/throat symptoms. As needed clonidine added for blood pressure control. Lisinopril dose increased. Continue to monitor blood pressures. Echocardiogram pending. Acute on chronic diastolic congestive heart failure exacerbation Continue IV Lasix Follow clinically for improvement Echocardiogram pending Continue fluid restriction Hypertension Continue baseline treatment Follow blood pressures Adjust treatments as needed Continue metoprolol Continue lisinopril Hyperlipidemia Continue present treatment Follow as an outpatient Continue statin Chronic atrial fibrillation Rate controlled Continue metoprolol Continue diltiazem Continue warfarin Follow INR DVT prophylaxis Warfarin
[2017-12-30] MEDS ORDERED: Lisinopril 10 MG Tablet PO ONE (11:45)
--- NOTE | 2017-12-30 15:24 | ECHRPT ---
Indication: HEART FAILURE CONCLUSIONS Normal left ventricular size. Mild concentric left ventricular hypertrophy. The left ventricular systolic function is moderately reduced with an estimated ejection fraction in the range of 40-45%. The left atrial size is mildly dilated. Mitral annular calcification is present. Anmj-om-bthwakve mitral valve regurgitation. Aortic valve sclerosis is present. Mild aortic valve regurgitation. There is mild to moderate tricuspid regurgitation. The estimated pulmonary arterial pressure is 46 mmHg. BP: / HR: Rhythm: MEASUREMENTS (Male / Female) Normal Values Technical Quality: 2D ECHO LV Diastolic Diameter PLAX 4.6 cm 4.2 - 5.9 / 3.9 - 5.3 cm LV Systolic Diameter PLAX 3.6 cm IVS Diastolic Thickness 1.2 cm 0.6 - 1.0 / 0.6 - 0.9 cm LVPW Diastolic Thickness 0.7 cm 0.6 - 1.0 / 0.6 - 0.9 cm LV Relative Wall Thickness 0.4 RV Internal Dim ED PLAX 2.5 cm DOPPLER Mitral E Point Velocity 104.0 cm/s Mitral A Point Velocity 45.9 cm/s Mitral E to A Ratio 2.3 TR Peak Velocity 300.0 cm/s TR Peak Gradient 36.0 mmHg Right Atrial Pressure 10.0 mmHg Pulmonary Artery Systolic Pressu 46.0 mmHg Right Ventricular Systolic Press 46.0 mmHg FINDINGS LEFT VENTRICLE Normal left ventricular size. Mild concentric left ventricular hypertrophy. The left ventricular systolic function is moderately reduced with an estimated ejection fraction in the range of 40-45%. RIGHT VENTRICLE Normal right ventricular size and systolic function. LEFT ATRIUM The left atrial size is mildly dilated. RIGHT ATRIUM The right atrial size is normal. ATRIAL SEPTUM Normal atrial septal thickness without atrial level shunting by limited color doppler interrogation. AORTA The aortic root and proximal ascending aorta are normal in size on limited imaging. MITRAL VALVE Mitral annular calcification is present. [id number] mitral valve regurgitation. AORTIC VALVE Aortic valve sclerosis is present. Mild aortic valve regurgitation. TRICUSPID VALVE There is mild to moderate tricuspid regurgitation. The estimated pulmonary arterial pressure is 46 mmHg. PULMONARY VALVE No pulmonary valve regurgitation or stenosis. VESSELS The inferior vena cava is normal in size. PERICARDIUM No pericardial effusion. Bibiana Reaves MD (Electronically Signed) Final Date:30 December 2017 15:23
[2017-12-30] MEDS: Benzocaine/Menthol 15 MG/3.6 MG SF Lozenge BUCCAL PRN ×2 (18:41→21:04)
[2017-12-30 21:26] LABS: Baso % (Auto) 0.5 % (0.0-2.0); Eos # (Auto) 0.1 th/mm3 (0.0-0.4); Eos % (Auto) 1.7 % (0.0-4.0); Hematocrit 43.2 % (39.0-51.0); Hemoglobin 13.8 gm/dL (13.0-17.0); Lymph # (Auto) 0.5 th/mm3 (1.0-4.8); Lymph % (Auto) 9.4 % (9.0-44.0); Mean Corpuscular Hemoglobin 27.2 pg (27.0-34.0); Mean Corpuscular Volume 84.8 fL (80.0-100.0); Mean Platelet Volume 8.9 fL (7.0-11.0); Mono # (Auto) 0.5 th/mm3 (0.0-0.9); Mono % (Auto) 9.1 % (0.0-8.0); Neut # (Auto) 4.5 th/mm3 (1.8-7.7); Neut % (Auto) 79.3 % (16.0-70.0); Platelet Count 199 th/mm3 (150-450); Red Blood Count 5.09 mil/mm3 (4.50-5.90); Red Cell Distribution Width 16.9 % (11.6-17.2); White Blood Count 5.7 th/mm3 (4.0-11.0)
[2017-12-30 21:44] LABS: Albumin 2.8 g/dL (3.4-5.0); Anion Gap 9 meq/L (5-15); Aspartate Aminotransferase 11 U/L (15-37); Blood Urea Nitrogen 14 mg/dL (7-18); Calcium 9.1 mg/dL (8.5-10.1); Carbon Dioxide 28.8 meq/L (21.0-32.0); Chloride 100 meq/L (98-107); Glomerular Filtration Rate Greater Than 89 mL/min (>89); Glucose,Random 110 mg/dL (74-106); Potassium 3.8 meq/L (3.5-5.1); Sodium 138 meq/L (136-145)
[2017-12-30 21:45] LABS: Alanine Aminotransferase 14 U/L (12-78)
[2017-12-30 21:47] LABS: Alkaline Phosphatase 128 U/L (45-117); Total Protein 8.8 g/dL (6.4-8.2)
[2017-12-31] MEDS: Acetaminophen 325 MG Tablet PO PRN ×3 (02:10→12:14)
[2017-12-31] MEDS: Gabapentin 300 MG Capsule PO SCH ×2 (08:27→12:14)
[2017-12-31] MEDS: Potassium Chloride 10 MEQ ER Capsule PO SCH (08:28)
[2017-12-31] MEDS: Venlafaxine XR 75 MG Capsule PO SCH (08:28)
[2017-12-31] MEDS: Metoprolol Tartrate 25 MG Tablet PO SCH (08:29)
[2017-12-31] MEDS: Spironolactone 25 MG Tablet PO SCH (08:29)
[2017-12-31] MEDS: Pantoprazole Sodium 20 MG DR Tablet PO SCH (08:30)
[2017-12-31] MEDS: dilTIAZem 60 MG Tablet PO SCH ×2 (08:31→12:14)
[2017-12-31] MEDS ORDERED: Lisinopril 20 MG Tablet PO SCH (09:00)
--- NOTE | 2017-12-31 11:03 | P.DS ---
Date of admission: 12/28/17 16:51 Primary care physician: [facility] Brief History from admission: 72-year-old male with a history of diastolic congestive heart failure, atrial fibrillation, hypertension, hyperlipidemia was sent from the [place] due to complaints of having a frontal headache and 3 day history of worsening shortness of breath with physical exertion. Patient also describes symptoms of PND and lower extremity swelling over the past week but denied any symptoms orthopnea. He also reports he has a history of diverticulosis and has had 3 day history of diarrhea with no associated abdominal pain. He denies any associated bloody or black stools. He denies any associated chest pain or palpitations with the shortness of breath. He has not had any fevers or chills nor any coughing associated with the symptoms. He states that he does take warfarin for his chronic atrial fibrillation but does not know the dose. Current [place] primary care clinic is closed and unable to get that information at this time. DS: Medications - Discharge Medications Prescriptions: lisinopril 20 mg PO DAILY #30 tab DS: Summary Hospital Course: Mr. Chatterjee is a 72 year old male. He was admitted secondary to CHF exacerbation with hypertensive urgency with symptoms of headache. Diuresis is provided and his baseline blood pressure medications are adjusted. Through time his headache has resolved, his fluid balance is achieved, and his blood pressures are not controlled. He is back to baseline medically stable for discharge home. Echocardiogram shows an EF of 40-45% during the stay. - Time Spent with Patient Total time spent providing and/or coordinating discharge services: - Quality: VTE Deep Vein Thrombosis/Pulmonary Embolism Present on Admission: No Exam Vital signs: Vital Signs 12/30/17 13:01 12/30/17 13:16 12/30/17 16:23 Temperature 97.8 F 98.4 F Pulse Rate 94 H 79 79 Respiratory Rate 16 18 Blood Pressure 153/74 H 168/87 H Pulse Oximetry 97 92 L 12/30/17 19:58 12/30/17 20:00 12/31/17 00:00 Temperature 97.6 F 98.1 F Pulse Rate 86 79 91 H Respiratory Rate 18 18 Blood Pressure 137/91 H 149/102 H Pulse Oximetry 94 L 94 L 96 12/31/17 04:00 12/31/17 04:54 12/31/17 08:00 Temperature 97.3 F L 97.6 F Pulse Rate 87 83 92 H Respiratory Rate 18 20 Blood Pressure 127/81 141/76 H Pulse Oximetry 93 L 97 12/31/17 08:49 Temperature Pulse Rate 92 H Respiratory Rate Blood Pressure Pulse Oximetry Intake & Output 12/30/17 12/31/17 12/31/17 18:59 06:59 18:59 Weight 136.3 kg Other: # Voids 1 Date of Last Bowel Movement 12/31/17 Results Procedures completed during hospitalization: None Labs on day of discharge: Labs from last 24 hours 12/31/17 12/31/17 12/30/17 10:34 10:34 20:53 WBC Pending RBC Pending Hgb Pending Hct Pending MCV MCH MCHC RDW Plt Count Pending MPV Neut % (Auto) Lymph % (Auto) [place] % (Auto) Eos % (Auto) Baso % (Auto) Neut # (Auto) Lymph # (Auto) [place] # (Auto) Eos # (Auto) Baso # (Auto) WBC Differential Pending Differential Comment Pending Sodium Pending 138 Potassium Pending 3.8 Chloride Pending 100 Carbon Dioxide Pending 28.8 Anion Gap Pending 9 BUN Pending 14 Creatinine Pending 0.99 Estimated GFR Greater than 89 Random Glucose Pending 110 H Calcium Pending 9.1 Total Bilirubin Pending 0.7 AST Pending 11 L ALT Pending 14 Alkaline Phosphatase Pending 128 H Total Protein Pending 8.8 H Albumin Pending 2.8 L 12/30/17 20:53 WBC 5.7 RBC 5.09 Hgb 13.8 Hct 43.2 MCV 84.8 MCH 27.2 MCHC 32.0 RDW 16.9 Plt Count 199 MPV 8.9 Neut % (Auto) 79.3 H Lymph % (Auto) 9.4 [place] % (Auto) 9.1 H Eos % (Auto) 1.7 Baso % (Auto) 0.5 Neut # (Auto) 4.5 Lymph # (Auto) 0.5 L [place] # (Auto) 0.5 Eos # (Auto) 0.1 Baso # (Auto) 0.0 WBC Differential . Differential Comment Auto diff final Sodium Potassium Chloride Carbon Dioxide Anion Gap BUN Creatinine Estimated GFR Random Glucose Calcium Total Bilirubin AST ALT Alkaline Phosphatase Total Protein Albumin - Impressions ITS Impressions Head CT 12/28/17 13:35 CONCLUSION: 1. No acute intracranial abnormality. 2. Prior right MCA territory infarction. Chest X-Ray 12/28/17 14:07 CONCLUSION: Cardiomegaly with mild interstitial edema suggesting failure. There is no infiltrate. Discharge Plan - Discharge Disposition Patient Disposition: 01 Discharge Home - Discharge Condition Condition: Stable - Discharge Order Discharge Orders: Discharge Order (Routine); Ordered 12/31/17 Ordered By: Colt Quick - Discharge Details Anticipated Discharge Date: 12/31/17 - Physicians Team Primary Care Provider: [facility] Attending Provider: Colt Quick
[2017-12-31 11:12] LABS: Baso % (Auto) 0.2 % (0.0-2.0); Eos # (Auto) 0.1 th/mm3 (0.0-0.4); Eos % (Auto) 1.8 % (0.0-4.0); Hemoglobin 14.5 gm/dL (13.0-17.0); Lymph # (Auto) 0.7 th/mm3 (1.0-4.8); Lymph % (Auto) 10.3 % (9.0-44.0); Mean Corpuscular HGB Conc 32.3 % (32.0-36.0); Mean Corpuscular Hemoglobin 27.9 pg (27.0-34.0); Mean Corpuscular Volume 86.3 fL (80.0-100.0); Mean Platelet Volume 9.3 fL (7.0-11.0); Mono # (Auto) 0.5 th/mm3 (0.0-0.9); Mono % (Auto) 6.8 % (0.0-8.0); Neut # (Auto) 5.6 th/mm3 (1.8-7.7); Neut % (Auto) 80.9 % (16.0-70.0); Platelet Count 195 th/mm3 (150-450); Red Blood Count 5.22 mil/mm3 (4.50-5.90); Red Cell Distribution Width 16.8 % (11.6-17.2); White Blood Count 6.9 th/mm3 (4.0-11.0)
[2017-12-31] MEDS: Benzocaine/Menthol 15 MG/3.6 MG SF Lozenge BUCCAL PRN (12:15)
[2017-12-31 21:31] LABS: RBC Morphology Normal (Normal)
[2017-12-31 21:32] LABS: Platelet Estimate Normal (Normal); Platelet Morphology Normal (Normal)
== END 2017-12-31 13:32 | disposition home or self-care (01) ==
LOC: NEPD 11:51 → NEDA 16:51 → N05 18:00
PROVIDERS: ADMIT Hospitalist; ATTEND Hospitalist

== ENCOUNTER 2018-02-16 16:31 | Inpatient (IN) ==
[2018-02-16] MEDS ORDERED: Succinylcholine Inj 200 MG/10 ML Vial IV.PUSH ONE (16:55)
[2018-02-16] MEDS ORDERED: Etomidate Inj 20 MG/10 ML Ampul IV.PUSH ONE (16:55)
[2018-02-16] MEDS: Propofol 1000 mg/100 ml Inj 1,000 MG/100 ML BOTTLE IV.CONT PRN (17:20)
[2018-02-16 17:30] LABS: Activated Partial Thrombo Time 22.1 sec (24.3-30.1); Prothrombin Time 10.4 sec (9.8-11.6)
[2018-02-16 17:49] LABS: Chloride 103 meq/L (98-107); Potassium 3.8 meq/L (3.5-5.1); Sodium 141 meq/L (136-145)
[2018-02-16 18:09] LABS: Bacteria,Urine Occasional /hpf; Bilirubin,Urine Negative (Negative); Clarity,Urine Cloudy (Clear); Color,Urine Amber (Yellw/Straw); Glucose,Urine (UA) Negative (Negative); Hyaline Casts,Urine 11 /lpf (0-3); Leukocyte Esterase,Urine Trace (Negative); Mucus,Urine Few /lpf (Occasional); Nitrite,Urine Negative (Negative); Specific Gravity,Urine 1.026 (1.002-1.035); Squamous Epithelial Cell,Urine 1 /hpf (0-5); Urobilinogen,Urine 4 or Greater mg/dL (Less than 2)
--- NOTE | 2018-02-16 18:10 | ED ---
HPI General Chief Complaint: Altered Mental Status Stated Complaint: Unresponsive Time Seen by Provider: 02/16/18 16:55 Source: EMS and old records reviewed Mode of arrival: EMS Limitations: altered mental status History of Present Illness MD complaint: altered mental status Onset (ago): hour(s) (Unknown downtime. EVAC was called by his neighbors who report that he normally sits on the porch. He was not sitting on the porch today. They went to investigate and found him passed out in his house.) Severity: severe Consistency of symptoms: constant Context: unknown Related Data Home Medications Medication Instructions Recorded Confirmed atorvastatin 40 mg PO HS 12/28/17 12/28/17 diltiazem HCl [Cardizem] 60 mg PO TID 12/28/17 12/28/17 furosemide [Lasix] 40 mg PO DAILY 12/28/17 12/28/17 gabapentin 900 mg PO TID 12/28/17 12/28/17 metoprolol tartrate 25 mg PO BID 12/28/17 12/28/17 omeprazole 20 mg PO DAILY 12/28/17 12/28/17 spironolactone 25 mg PO DAILY 12/28/17 12/28/17 venlafaxine 75 mg PO DAILY 12/28/17 12/28/17 warfarin [Coumadin] 0 mg/kg PO DAILY 12/28/17 12/28/17 zolpidem 5 mg PO DAILY 12/28/17 12/28/17 Previous Rx's Medication Instructions Recorded lisinopril 20 mg PO DAILY #30 tab 12/31/17 Allergies Allergy/AdvReac Type Severity Reaction Status Date / Time diatrizoate meglumine AdvReac Severe SEVERE Verified 12/28/17 14:24 VOMITING gadobenic acid AdvReac Severe SEVERE Verified 12/28/17 14:25 VOMITING gadodiamide AdvReac Severe SEVERE Verified 12/28/17 14:25 VOMITING gadoteridol AdvReac Severe SEVERE Verified 12/28/17 14:25 VOMITING iodixanol AdvReac Severe SEVERE Verified 12/28/17 14:25 VOMITING iohexol AdvReac Severe SEVERE Verified 12/28/17 14:24 VOMITING Review of Systems ROS Unobtainable ROS Unobtainable: unobtainable due to mental status PMFSH Medical History Medical History Atrial fibrillation (Acute) Diastolic CHF (Acute) Diverticulitis (Acute) Fusion of lumbar spine (Acute) High cholesterol (Acute) Hypertension (Acute) Lung nodule (Acute) Stroke (Acute) Family History Family History Mother No problems noted. Father Family history of acute myocardial infarction Social History Social History Substance History: Unable to Obtain Second Hand Smoke Exposure: No Smoking Status: Current every day smoker Tobacco Type: Cigarettes Packs Per Day: 0.5 Cigarettes Per Day: 10.0 How Often Do You Have a Drink Containing Alcohol: Never Immunization History Tetanus Immunization: Unable to Assess Tetanus Immunization Year if Known: 2015 Hx Influenza Vaccine This Season: Unable to Assess Exam Const Nutritional Appearance: obese Orientation: obtunded HENMT Head: normal to inspection, normocephalic and atraumatic Eyes Alignment and Position: alignment normal and position abnormal Conjunctivae: conjunctivae normal Sclera: sclerae normal EOM: EOM intact bilaterally Neck Neck: normal visual inspection and full ROM Chest Chest: normal inspection of the chest Resp Effort & Inspection: labored Auscultation: clear to auscultation bilaterally Cardio Rate: tachycardic Rhythm: abnormal rhythm GI Inspection: distended Back/Spine/Pelvis Cervical Spine: cervical ROM normal Thoracic/Lumbar Spine: thoraco-lumbar ROM normal Skin General: no rashes or lesions noted, turgor normal and dry skin Neuro General: obtunded Extrem General: normal to inspection and full ROM Psych Other: Unable to evaluate Course Initial Documented Vital Signs Pulse Oximetry 65 L 02/16/18 16:31 Last Documented Vital Signs Temperature 99.1 F 02/18/18 04:00 Pulse Rate 111 H 02/18/18 06:00 Respiratory Rate 18 02/18/18 04:01 Blood Pressure 172/94 H 02/18/18 04:00 Pulse Oximetry 96 02/18/18 04:03 Procedures Intubation Time Out Performed: Yes Sedative: etomidate Mg Given: 20 Paralytic: succinylcholine Mg Given: 150 Laryngoscope: Quick ET Tube Size: 8 ET Tube Uncuffed: No Tube Placement Confirmation: equal breath sounds bilaterally, no breath sounds over epigastrium and confirmation by capnometry Patient Tolerated Procedure: well Intubation Complications: none Critical Care Time Critical Care Time: Yes Total Critical Care Time: 45 Attestation: Time to perform other separately billable procedures was not included in the critical care time. My time did not include minutes spent treating any other patients simultaneously or on activities that did not directly contribute to the patient's treatment. The services I provided to this patient were to treat and/or prevent clinically significant deterioration due to altered mental status, atrial fibrillation with rapid ventricular response, respiratory distress I provided critical care services requiring my management, as noted below: Chart data review, documentation time, medication orders and management, vital sign assessments/reviewing monitor data, ordering and reviewing lab tests, ordering and interpreting/reviewing x-rays and diagnostic studies, care of the patient and discussion of the patient with the admitting physicians Sign Out Sign Out Data: Patient Sign Out occurred on 02/16/18 at 20:09. Patient's care was discussed, and care was transferred from Brittnee Wren to Kodak Marie MD. Sign Out Comment: Patient is being signed out at [address] of his head. Laboratory studies are back and or and unremarkable with the exception of an elevated TSH and positive opiates on his drug screen. He will need to be admitted to the unit as he is intubated. Last updated by Brittnee Wren at 02/16/18 18:57 Post-Handoff Eval: The patient was signed out at [address] of the brain pending. Patient's TSH was elevated, therefore, free T4 and free T3 were sent to lab. Patient will be admitted to the intensive care unit under the atm technician if CT of the brain is negative for intracranial hemorrhage. UA reveals 25 WBCs, therefore, the patient received Rocephin 1 g intravenously. The patient was on a propofol drip , started to awaken, therefore, was administered Versed 2.[address] of the brain revealed subcutaneous emphysema. Therefore, CT of the soft tissue neck and thorax was obtained. There was small amount of air in the pneumomediastinum as well as the neck, but no pneumothorax, differential includes traumatic intubation. Patient was noted to have mild swelling of the parotid glands with stones. The patient already received Rocephin for UTI. I discussed the patient with the atm technician, Dr. Sun, who agrees with admission. Medical Decision Making MDM Narrative Medical decision making narrative: This patient was brought to us by [facility] To be found down by neighbors. Downtime is unknown. On arrival here, the patient was obtunded. He was in atrial fibrillation with rapid ventricular response. He was intubated for airway protection. AMS workup was initiated. His AF with RVR is being treated with Cardizem. Medical Screen Exam Complete: Yes Emergency Medical Condition: Yes Differential Diagnosis Differential Diagnosis: Differential diagnosis of altered mental status includes but is not limited to infection, electrolyte abnormality, neurological event, intoxication, encephalitis, meningitis Medical Records Medical records reviewed: Yes I reviewed the patient's medical records. Medical history is significant for CHF, atrial fibrillation, hypertension and hyperlipidemia. Lab Data Lab results reviewed: Yes I reviewed the patient's lab results. Result diagrams: 02/18/18 04:06 02/18/18 04:06 Lab Results 02/16/18 02/16/18 02/16/18 Range/Units 17:05 17:05 17:05 WBC 9.8 (4.0-11.0) th/mm3 RBC 5.29 (4.50-5.90) mil/mm3 Hgb 15.2 (13.0-17.0) gm/dL Hct 46.6 (39.0-51.0) % MCV 88.1 (80.0-100.0) fL MCH 28.7 (27.0-34.0) pg MCHC 32.6 (32.0-36.0) % RDW 16.6 (11.6-17.2) % Plt Count 223 (150-450) th/mm3 MPV 9.3 (7.0-11.0) fL Neut % (Auto) 58.1 (16.0-70.0) % Lymph % (Auto) 33.6 (9.0-44.0) % [place] % (Auto) 6.9 (0.0-8.0) % Eos % (Auto) 0.9 (0.0-4.0) % Baso % (Auto) 0.5 (0.0-2.0) % Neut # (Auto) 5.7 (1.8-7.7) th/mm3 Lymph # (Auto) 3.3 (1.0-4.8) th/mm3 [place] # (Auto) 0.7 (0.0-0.9) th/mm3 Eos # (Auto) 0.1 (0.0-0.4) th/mm3 Baso # (Auto) 0.0 (0.0-0.2) th/mm3 WBC Differential . Differential Comment Auto diff final PT 10.4 (9.8-11.6) sec INR 1.0 Ratio APTT 22.1 L (24.3-30.1) sec Puncture Site Patient Temperature O2 Saturation (90-100) % ABG pH (7.380-7.420) ABG pCO2 (38-42) mmHg ABG pO2 (61-120) mmHg ABG HCO3 (22-26) mmol/L ABG O2 Content (12.0-20.0) Vol % ABG Base Excess (-2-2) mmol/L ABG Methemoglobin (0-2) % Mahamed Test Hemoglobin (12.0-16.0) G/DL Carboxyhemoglobin (0-4) % O2 Delivery Device Vent Setting Inspired O2 % Critical Value Sodium 141 (136-145) meq/L Potassium 3.8 (3.5-5.1) meq/L Chloride 103 (98-107) meq/L Carbon Dioxide 29.5 (21.0-32.0) meq/L Anion Gap 9 (5-15) meq/L BUN 11 (7-18) mg/dL Creatinine 1.41 H (0.60-1.30) mg/dL Estimated GFR 60 L (>89) mL/min Random Glucose 191 H (74-106) mg/dL Lactic Acid (0.4-2.0) mmol/L Calcium 8.2 L (8.5-10.1) mg/dL Phosphorus (2.5-4.9) mg/dL Magnesium (1.5-2.5) mg/dL Total Bilirubin 0.3 (0.2-1.0) mg/dL AST 28 (15-37) U/L ALT 29 (12-78) U/L Alkaline Phosphatase 155 H (45-117) U/L Ammonia (11-32) mcmol/L Total Creatine Kinase (39-308) U/L Troponin I 0.04 (0.02-0.05) ng/mL Total Protein 9.5 H (6.4-8.2) g/dL Albumin 3.1 L (3.4-5.0) g/dL TSH 8.960 H (0.358-3.740) uIU/mL Free T4 (0.76-1.46) ng/dL Free T3 (2.18-3.98) pg/mL Urine Color (Yellw/Straw) Urine Clarity (Clear) Urine pH (5.0-8.5) Ur Specific [place] (1.002-1.035) Urine Protein (Neg-Trace) mg/dL Urine Glucose (UA) (Negative) mg/dL Urine Ketones (Negative) mg/dL Urine Occult Blood (Negative) Urine Nitrate (Negative) Urine Bilirubin (Negative) Urine Urobilinogen (Less than 2) mg/dL Ur Leukocyte Esterase (Negative) Urine RBC (0-3) /hpf Urine WBC (0-5) /hpf Ur Squamous Epith Cells (0-5) /hpf Urine Bacteria (None) /hpf Hyaline Casts (0-3) /lpf Urine Mucus (Occasional) /lpf Micro UA Comment Ur Microscopic Review Urine Culture Comments Nasal Screen MRSA (PCR) (Negative) Urine Opiates Screen (Neg) Ur Barbiturates Screen (Neg) Ur Amphetamines Screen (Neg) U Benzodiazepines Scrn (Neg) Urine Cocaine Screen (Neg) U Cannabinoids Screen (Neg) Serum Alcohol Less than 3 (0-5) mg/dL 02/16/18 02/16/18 02/16/18 Range/Units 17:05 17:05 17:05 WBC (4.0-11.0) th/mm3 RBC (4.50-5.90) mil/mm3 Hgb (13.0-17.0) gm/dL Hct (39.0-51.0) % MCV (80.0-100.0) fL MCH (27.0-34.0) pg MCHC (32.0-36.0) % RDW (11.6-17.2) % Plt Count (150-450) th/mm3 MPV (7.0-11.0) fL Neut % (Auto) (16.0-70.0) % Lymph % (Auto) (9.0-44.0) % [place] % (Auto) (0.0-8.0) % Eos % (Auto) (0.0-4.0) % Baso % (Auto) (0.0-2.0) % Neut # (Auto) (1.8-7.7) th/mm3 Lymph # (Auto) (1.0-4.8) th/mm3 [place] # (Auto) (0.0-0.9) th/mm3 Eos # (Auto) (0.0-0.4) th/mm3 Baso # (Auto) (0.0-0.2) th/mm3 WBC Differential Differential Comment PT (9.8-11.6) sec INR Ratio APTT (24.3-30.1) sec Puncture Site Patient Temperature O2 Saturation (90-100) % ABG pH (7.380-7.420) ABG pCO2 (38-42) mmHg ABG pO2 (61-120) mmHg ABG HCO3 (22-26) mmol/L ABG O2 Content (12.0-20.0) Vol % ABG Base Excess (-2-2) mmol/L ABG Methemoglobin (0-2) % Mahamed Test Hemoglobin (12.0-16.0) G/DL Carboxyhemoglobin (0-4) % O2 Delivery Device Vent Setting Inspired O2 % Critical Value Sodium (136-145) meq/L Potassium (3.5-5.1) meq/L Chloride (98-107) meq/L Carbon Dioxide (21.0-32.0) meq/L Anion Gap (5-15) meq/L BUN (7-18) mg/dL Creatinine (0.60-1.30) mg/dL Estimated GFR (>89) mL/min Random Glucose (74-106) mg/dL Lactic Acid 2.1 H (0.4-2.0) mmol/L Calcium (8.5-10.1) mg/dL Phosphorus (2.5-4.9) mg/dL Magnesium (1.5-2.5) mg/dL Total Bilirubin (0.2-1.0) mg/dL AST (15-37) U/L ALT (12-78) U/L Alkaline Phosphatase (45-117) U/L Ammonia 33 H (11-32) mcmol/L Total Creatine Kinase 67 (39-308) U/L Troponin I (0.02-0.05) ng/mL Total Protein (6.4-8.2) g/dL Albumin (3.4-5.0) g/dL TSH (0.358-3.740) uIU/mL Free T4 (0.76-1.46) ng/dL Free T3 (2.18-3.98) pg/mL Urine Color (Yellw/Straw) Urine Clarity (Clear) Urine pH (5.0-8.5) Ur Specific [place] (1.002-1.035) Urine Protein (Neg-Trace) mg/dL Urine Glucose (UA) (Negative) mg/dL Urine Ketones (Negative) mg/dL Urine Occult Blood (Negative) Urine Nitrate (Negative) Urine Bilirubin (Negative) Urine Urobilinogen (Less than 2) mg/dL Ur Leukocyte Esterase (Negative) Urine RBC (0-3) /hpf Urine WBC (0-5) /hpf Ur Squamous Epith Cells (0-5) /hpf Urine Bacteria (None) /hpf Hyaline Casts (0-3) /lpf Urine Mucus (Occasional) /lpf Micro UA Comment Ur Microscopic Review Urine Culture Comments Nasal Screen MRSA (PCR) (Negative) Urine Opiates Screen (Neg) Ur Barbiturates Screen (Neg) Ur Amphetamines Screen (Neg) U Benzodiazepines Scrn (Neg) Urine Cocaine Screen (Neg) U Cannabinoids Screen (Neg) Serum Alcohol (0-5) mg/dL 02/16/18 02/16/18 02/16/18 Range/Units 17:05 17:05 17:05 WBC (4.0-11.0) th/mm3 RBC (4.50-5.90) mil/mm3 Hgb (13.0-17.0) gm/dL Hct (39.0-51.0) % MCV (80.0-100.0) fL MCH (27.0-34.0) pg MCHC (32.0-36.0) % RDW (11.6-17.2) % Plt Count (150-450) th/mm3 MPV (7.0-11.0) fL Neut % (Auto) (16.0-70.0) % Lymph % (Auto) (9.0-44.0) % [place] % (Auto) (0.0-8.0) % Eos % (Auto) (0.0-4.0) % Baso % (Auto) (0.0-2.0) % Neut # (Auto) (1.8-7.7) th/mm3 Lymph # (Auto) (1.0-4.8) th/mm3 [place] # (Auto) (0.0-0.9) th/mm3 Eos # (Auto) (0.0-0.4) th/mm3 Baso # (Auto) (0.0-0.2) th/mm3 WBC Differential Differential Comment PT (9.8-11.6) sec INR Ratio APTT (24.3-30.1) sec Puncture Site Patient Temperature O2 Saturation (90-100) % ABG pH (7.380-7.420) ABG pCO2 (38-42) mmHg ABG pO2 (61-120) mmHg ABG HCO3 (22-26) mmol/L ABG O2 Content (12.0-20.0) Vol % ABG Base Excess (-2-2) mmol/L ABG Methemoglobin (0-2) % Mahamed Test Hemoglobin (12.0-16.0) G/DL Carboxyhemoglobin (0-4) % O2 Delivery Device Vent Setting Inspired O2 % Critical Value Sodium (136-145) meq/L Potassium (3.5-5.1) meq/L Chloride (98-107) meq/L Carbon Dioxide (21.0-32.0) meq/L Anion Gap (5-15) meq/L BUN (7-18) mg/dL Creatinine (0.60-1.30) mg/dL Estimated GFR (>89) mL/min Random Glucose (74-106) mg/dL Lactic Acid (0.4-2.0) mmol/L Calcium (8.5-10.1) mg/dL Phosphorus (2.5-4.9) mg/dL Magnesium (1.5-2.5) mg/dL Total Bilirubin (0.2-1.0) mg/dL AST (15-37) U/L ALT (12-78) U/L Alkaline Phosphatase (45-117) U/L Ammonia (11-32) mcmol/L Total Creatine Kinase (39-308) U/L Troponin I (0.02-0.05) ng/mL Total Protein (6.4-8.2) g/dL Albumin (3.4-5.0) g/dL TSH (0.358-3.740) uIU/mL Free T4 0.85 (0.76-1.46) ng/dL Free T3 3.59 (2.18-3.98) pg/mL Urine Color [place] (Yellw/Straw) Urine Clarity Cloudy H (Clear) Urine pH 5.0 (5.0-8.5) Ur Specific [place] 1.026 (1.002-1.035) Urine Protein 500 or greater (Neg-Trace) mg/dL Urine Glucose (UA) Negative (Negative) mg/dL Urine Ketones Trace H (Negative) mg/dL Urine Occult Blood Small H (Negative) Urine Nitrate Negative (Negative) Urine Bilirubin Negative (Negative) Urine Urobilinogen 4 or greater (Less than 2) mg/dL Ur Leukocyte Esterase Trace H (Negative) Urine RBC 4 H (0-3) /hpf Urine WBC 25 H (0-5) /hpf Ur Squamous Epith Cells 1 (0-5) /hpf Urine Bacteria Occasional H (None) /hpf Hyaline Casts 11 (0-3) /lpf Urine Mucus Few H (Occasional) /lpf Micro UA Comment Cath-culture ind Ur Microscopic Review Not Reportable Urine Culture Comments Cath-cult indicated Nasal Screen MRSA (PCR) (Negative) Urine Opiates Screen Pos H (Neg) Ur Barbiturates Screen Neg (Neg) Ur Amphetamines Screen Neg (Neg) U Benzodiazepines Scrn Neg (Neg) Urine Cocaine Screen Neg (Neg) U Cannabinoids Screen Neg (Neg) Serum Alcohol (0-5) mg/dL 02/16/18 02/16/18 02/17/18 Range/Units 19:55 23:04 02:30 WBC 11.7 H (4.0-11.0) th/mm3 RBC 4.97 (4.50-5.90) mil/mm3 Hgb 13.9 (13.0-17.0) gm/dL Hct 43.3 (39.0-51.0) % MCV 87.3 (80.0-100.0) fL MCH 28.0 (27.0-34.0) pg MCHC 32.0 (32.0-36.0) % RDW 16.6 (11.6-17.2) % Plt Count 171 (150-450) th/mm3 MPV 9.1 (7.0-11.0) fL Neut % (Auto) 75.3 H (16.0-70.0) % Lymph % (Auto) 10.2 (9.0-44.0) % [place] % (Auto) 13.9 H (0.0-8.0) % Eos % (Auto) 0.2 (0.0-4.0) % Baso % (Auto) 0.4 (0.0-2.0) % Neut # (Auto) 8.8 H (1.8-7.7) th/mm3 Lymph # (Auto) 1.2 (1.0-4.8) th/mm3 [place] # (Auto) 1.6 H (0.0-0.9) th/mm3 Eos # (Auto) 0.0 (0.0-0.4) th/mm3 Baso # (Auto) 0.0 (0.0-0.2) th/mm3 WBC Differential . Differential Comment Auto diff final PT (9.8-11.6) sec INR Ratio APTT (24.3-30.1) sec Puncture Site Right radial Patient Temperature 98.6 O2 Saturation 97 (90-100) % ABG pH 7.33 L (7.380-7.420) ABG pCO2 53 H* (38-42) mmHg ABG pO2 145 H (61-120) mmHg ABG HCO3 27 H (22-26) mmol/L ABG O2 Content 18.1 (12.0-20.0) Vol % ABG Base Excess 1.9 (-2-2) mmol/L ABG Methemoglobin 0.6 (0-2) % Mahamed Test Present Hemoglobin 13.0 (12.0-16.0) G/DL Carboxyhemoglobin 1.3 (0-4) % O2 Delivery Device Ventilator Vent Setting See comments Inspired O2 50 % Critical Value Yes Sodium (136-145) meq/L Potassium (3.5-5.1) meq/L Chloride (98-107) meq/L Carbon Dioxide (21.0-32.0) meq/L Anion Gap (5-15) meq/L BUN (7-18) mg/dL Creatinine (0.60-1.30) mg/dL Estimated GFR (>89) mL/min Random Glucose (74-106) mg/dL Lactic Acid 1.6 (0.4-2.0) mmol/L Calcium (8.5-10.1) mg/dL Phosphorus (2.5-4.9) mg/dL Magnesium (1.5-2.5) mg/dL Total Bilirubin (0.2-1.0) mg/dL AST (15-37) U/L ALT (12-78) U/L Alkaline Phosphatase (45-117) U/L Ammonia (11-32) mcmol/L Total Creatine Kinase (39-308) U/L Troponin I (0.02-0.05) ng/mL Total Protein (6.4-8.2) g/dL Albumin (3.4-5.0) g/dL TSH (0.358-3.740) uIU/mL Free T4 (0.76-1.46) ng/dL Free T3 (2.18-3.98) pg/mL Urine Color (Yellw/Straw) Urine Clarity (Clear) Urine pH (5.0-8.5) Ur Specific [place] (1.002-1.035) Urine Protein (Neg-Trace) mg/dL Urine Glucose (UA) (Negative) mg/dL Urine Ketones (Negative) mg/dL Urine Occult Blood (Negative) Urine Nitrate (Negative) Urine Bilirubin (Negative) Urine Urobilinogen (Less than 2) mg/dL Ur Leukocyte Esterase (Negative) Urine RBC (0-3) /hpf Urine WBC (0-5) /hpf Ur Squamous Epith Cells (0-5) /hpf Urine Bacteria (None) /hpf Hyaline Casts (0-3) /lpf Urine Mucus (Occasional) /lpf Micro UA Comment Ur Microscopic Review Urine Culture Comments Nasal Screen MRSA (PCR) (Negative) Urine Opiates Screen (Neg) Ur Barbiturates Screen (Neg) Ur Amphetamines Screen (Neg) U Benzodiazepines Scrn (Neg) Urine Cocaine Screen (Neg) U Cannabinoids Screen (Neg) Serum Alcohol (0-5) mg/dL 02/17/18 02/17/18 02/17/18 Range/Units 02:30 02:30 05:41 WBC (4.0-11.0) th/mm3 RBC (4.50-5.90) mil/mm3 Hgb (13.0-17.0) gm/dL Hct (39.0-51.0) % MCV (80.0-100.0) fL MCH (27.0-34.0) pg MCHC (32.0-36.0) % RDW (11.6-17.2) % Plt Count (150-450) th/mm3 MPV (7.0-11.0) fL Neut % (Auto) (16.0-70.0) % Lymph % (Auto) (9.0-44.0) % [place] % (Auto) (0.0-8.0) % Eos % (Auto) (0.0-4.0) % Baso % (Auto) (0.0-2.0) % Neut # (Auto) (1.8-7.7) th/mm3 Lymph # (Auto) (1.0-4.8) th/mm3 [place] # (Auto) (0.0-0.9) th/mm3 Eos # (Auto) (0.0-0.4) th/mm3 Baso # (Auto) (0.0-0.2) th/mm3 WBC Differential Differential Comment PT 10.6 (9.8-11.6) sec INR 1.0 Ratio APTT 23.6 L (24.3-30.1) sec Puncture Site Patient Temperature O2 Saturation (90-100) % ABG pH (7.380-7.420) ABG pCO2 (38-42) mmHg ABG pO2 (61-120) mmHg ABG HCO3 (22-26) mmol/L ABG O2 Content (12.0-20.0) Vol % ABG Base Excess (-2-2) mmol/L ABG Methemoglobin (0-2) % Mahamed Test Hemoglobin (12.0-16.0) G/DL Carboxyhemoglobin (0-4) % O2 Delivery Device Vent Setting Inspired O2 % Critical Value Sodium 138 (136-145) meq/L Potassium 4.9 D (3.5-5.1) meq/L Chloride 104 (98-107) meq/L Carbon Dioxide 23.9 (21.0-32.0) meq/L Anion Gap 10 (5-15) meq/L BUN 13 (7-18) mg/dL Creatinine 1.12 (0.60-1.30) mg/dL Estimated GFR 79 L (>89) mL/min Random Glucose 109 H (74-106) mg/dL Lactic Acid (0.4-2.0) mmol/L Calcium 7.9 L (8.5-10.1) mg/dL Phosphorus 3.9 (2.5-4.9) mg/dL Magnesium 2.2 (1.5-2.5) mg/dL Total Bilirubin 0.5 (0.2-1.0) mg/dL AST 29 (15-37) U/L ALT 25 (12-78) U/L Alkaline Phosphatase 118 H (45-117) U/L Ammonia (11-32) mcmol/L Total Creatine Kinase (39-308) U/L Troponin I 0.12 H (0.02-0.05) ng/mL Total Protein 8.4 H D (6.4-8.2) g/dL Albumin 2.8 L (3.4-5.0) g/dL TSH (0.358-3.740) uIU/mL Free T4 (0.76-1.46) ng/dL Free T3 (2.18-3.98) pg/mL Urine Color (Yellw/Straw) Urine Clarity (Clear) Urine pH (5.0-8.5) Ur Specific [place] (1.002-1.035) Urine Protein (Neg-Trace) mg/dL Urine Glucose (UA) (Negative) mg/dL Urine Ketones (Negative) mg/dL Urine Occult Blood (Negative) Urine Nitrate (Negative) Urine Bilirubin (Negative) Urine Urobilinogen (Less than 2) mg/dL Ur Leukocyte Esterase (Negative) Urine RBC (0-3) /hpf Urine WBC (0-5) /hpf Ur Squamous Epith Cells (0-5) /hpf Urine Bacteria (None) /hpf Hyaline Casts (0-3) /lpf Urine Mucus (Occasional) /lpf Micro UA Comment Ur Microscopic Review Urine Culture Comments Nasal Screen MRSA (PCR) Not detected (Negative) Urine Opiates Screen (Neg) Ur Barbiturates Screen (Neg) Ur Amphetamines Screen (Neg) U Benzodiazepines Scrn (Neg) Urine Cocaine Screen (Neg) U Cannabinoids Screen (Neg) Serum Alcohol (0-5) mg/dL 02/17/18 02/17/18 02/17/18 Range/Units 07:08 09:05 10:10 WBC (4.0-11.0) th/mm3 RBC (4.50-5.90) mil/mm3 Hgb (13.0-17.0) gm/dL Hct (39.0-51.0) % MCV (80.0-100.0) fL MCH (27.0-34.0) pg MCHC (32.0-36.0) % RDW (11.6-17.2) % Plt Count (150-450) th/mm3 MPV (7.0-11.0) fL Neut % (Auto) (16.0-70.0) % Lymph % (Auto) (9.0-44.0) % [place] % (Auto) (0.0-8.0) % Eos % (Auto) (0.0-4.0) % Baso % (Auto) (0.0-2.0) % Neut # (Auto) (1.8-7.7) th/mm3 Lymph # (Auto) (1.0-4.8) th/mm3 [place] # (Auto) (0.0-0.9) th/mm3 Eos # (Auto) (0.0-0.4) th/mm3 Baso # (Auto) (0.0-0.2) th/mm3 WBC Differential Differential Comment PT (9.8-11.6) sec INR Ratio APTT (24.3-30.1) sec Puncture Site Left radial Left radial Patient Temperature 98.6 98.6 O2 Saturation 96 94 (90-100) % ABG pH 7.38 7.37 L (7.380-7.420) ABG pCO2 47 H 51 H* (38-42) mmHg ABG pO2 100 85 (61-120) mmHg ABG HCO3 27 H 29 H (22-26) mmol/L ABG O2 Content 16.6 17.2 (12.0-20.0) Vol % ABG Base Excess 2.2 H 3.8 H (-2-2) mmol/L ABG Methemoglobin 1.3 1.5 (0-2) % [place] Test Present Present Hemoglobin 12.3 13.0 (12.0-16.0) G/DL Carboxyhemoglobin 0.9 0.9 (0-4) % O2 Delivery Device Ventilator Ventilator Vent Setting Prvc/[id number]/18/5peep Cpap 5/10ps Inspired O2 40 40 % Critical Value No Yes Sodium (136-145) meq/L Potassium (3.5-5.1) meq/L Chloride (98-107) meq/L Carbon Dioxide (21.0-32.0) meq/L Anion Gap (5-15) meq/L BUN (7-18) mg/dL Creatinine (0.60-1.30) mg/dL Estimated GFR (>89) mL/min Random Glucose (74-106) mg/dL Lactic Acid (0.4-2.0) mmol/L Calcium (8.5-10.1) mg/dL Phosphorus (2.5-4.9) mg/dL Magnesium (1.5-2.5) mg/dL Total Bilirubin (0.2-1.0) mg/dL AST (15-37) U/L ALT (12-78) U/L Alkaline Phosphatase (45-117) U/L Ammonia (11-32) mcmol/L Total Creatine Kinase (39-308) U/L Troponin I 0.11 H (0.02-0.05) ng/mL Total Protein (6.4-8.2) g/dL Albumin (3.4-5.0) g/dL TSH (0.358-3.740) uIU/mL Free T4 (0.76-1.46) ng/dL Free T3 (2.18-3.98) pg/mL Urine Color (Yellw/Straw) Urine Clarity (Clear) Urine pH (5.0-8.5) Ur Specific [place] (1.002-1.035) Urine Protein (Neg-Trace) mg/dL Urine Glucose (UA) (Negative) mg/dL Urine Ketones (Negative) mg/dL Urine Occult Blood (Negative) Urine Nitrate (Negative) Urine Bilirubin (Negative) Urine Urobilinogen (Less than 2) mg/dL Ur Leukocyte Esterase (Negative) Urine RBC (0-3) /hpf Urine WBC (0-5) /hpf Ur Squamous Epith Cells (0-5) /hpf Urine Bacteria (None) /hpf Hyaline Casts (0-3) /lpf Urine Mucus (Occasional) /lpf Micro UA Comment Ur Microscopic Review Urine Culture Comments Nasal Screen MRSA (PCR) (Negative) Urine Opiates Screen (Neg) Ur Barbiturates Screen (Neg) Ur Amphetamines Screen (Neg) U Benzodiazepines Scrn (Neg) Urine Cocaine Screen (Neg) U Cannabinoids Screen (Neg) Serum Alcohol (0-5) mg/dL 02/18/18 02/18/18 02/18/18 Range/Units 04:06 04:06 04:06 WBC 9.7 (4.0-11.0) th/mm3 RBC 4.33 L (4.50-5.90) mil/mm3 Hgb 12.0 L (13.0-17.0) gm/dL Hct 37.9 L (39.0-51.0) % MCV 87.5 (80.0-100.0) fL MCH 27.7 (27.0-34.0) pg MCHC 31.7 L (32.0-36.0) % RDW 16.5 (11.6-17.2) % Plt Count 163 (150-450) th/mm3 MPV 8.7 (7.0-11.0) fL Neut % (Auto) 82.4 H (16.0-70.0) % Lymph % (Auto) 5.8 L (9.0-44.0) % [place] % (Auto) 10.0 H (0.0-8.0) % Eos % (Auto) 1.5 (0.0-4.0) % Baso % (Auto) 0.3 (0.0-2.0) % Neut # (Auto) 8.0 H (1.8-7.7) th/mm3 Lymph # (Auto) 0.6 L (1.0-4.8) th/mm3 [place] # (Auto) 1.0 H (0.0-0.9) th/mm3 Eos # (Auto) 0.1 (0.0-0.4) th/mm3 Baso # (Auto) 0.0 (0.0-0.2) th/mm3 WBC Differential . Differential Comment Auto diff final PT 10.7 (9.8-11.6) sec INR 1.1 Ratio APTT 21.3 L (24.3-30.1) sec Puncture Site Patient Temperature O2 Saturation (90-100) % ABG pH (7.380-7.420) ABG pCO2 (38-42) mmHg ABG pO2 (61-120) mmHg ABG HCO3 (22-26) mmol/L ABG O2 Content (12.0-20.0) Vol % ABG Base Excess (-2-2) mmol/L ABG Methemoglobin (0-2) % Mahamed Test Hemoglobin (12.0-16.0) G/DL Carboxyhemoglobin (0-4) % O2 Delivery Device Vent Setting Inspired O2 % Critical Value Sodium 138 (136-145) meq/L Potassium 4.8 (3.5-5.1) meq/L Chloride 102 (98-107) meq/L Carbon Dioxide 29.5 (21.0-32.0) meq/L Anion Gap 7 (5-15) meq/L BUN 11 (7-18) mg/dL Creatinine 0.87 (0.60-1.30) mg/dL Estimated GFR Greater than 89 (>89) mL/min Random Glucose 127 H (74-106) mg/dL Lactic Acid (0.4-2.0) mmol/L Calcium 8.7 D (8.5-10.1) mg/dL Phosphorus 3.2 (2.5-4.9) mg/dL Magnesium 2.4 (1.5-2.5) mg/dL Total Bilirubin 0.7 (0.2-1.0) mg/dL AST 28 (15-37) U/L ALT 21 (12-78) U/L Alkaline Phosphatase 100 (45-117) U/L Ammonia (11-32) mcmol/L Total Creatine Kinase (39-308) U/L Troponin I (0.02-0.05) ng/mL Total Protein 7.8 D (6.4-8.2) g/dL Albumin 2.5 L (3.4-5.0) g/dL TSH (0.358-3.740) uIU/mL Free T4 (0.76-1.46) ng/dL Free T3 (2.18-3.98) pg/mL Urine Color (Yellw/Straw) Urine Clarity (Clear) Urine pH (5.0-8.5) Ur Specific [place] (1.002-1.035) Urine Protein (Neg-Trace) mg/dL Urine Glucose (UA) (Negative) mg/dL Urine Ketones (Negative) mg/dL Urine Occult Blood (Negative) Urine Nitrate (Negative) Urine Bilirubin (Negative) Urine Urobilinogen (Less than 2) mg/dL Ur Leukocyte Esterase (Negative) Urine RBC (0-3) /hpf Urine WBC (0-5) /hpf Ur Squamous Epith Cells (0-5) /hpf Urine Bacteria (None) /hpf Hyaline Casts (0-3) /lpf Urine Mucus (Occasional) /lpf Micro UA Comment Ur Microscopic Review Urine Culture Comments Nasal Screen MRSA (PCR) (Negative) Urine Opiates Screen (Neg) Ur Barbiturates Screen (Neg) Ur Amphetamines Screen (Neg) U Benzodiazepines Scrn (Neg) Urine Cocaine Screen (Neg) U Cannabinoids Screen (Neg) Serum Alcohol (0-5) mg/dL Imaging Data Radiologist's impression: Chest X-Ray 02/16/18 16:55 CONCLUSION: Slight CHF slightly worse . Head CT 02/16/18 16:55 CONCLUSION: Subcu emphysema. Chest CT 02/16/18 20:54 CONCLUSION: 1. Small volume pneumomediastinum as well as subcutaneous emphysema involving the upper anterior chest. This could relate to a traumatic intubation. I see no hematoma within the mediastinum. 2. Cardiomegaly with significant coronary artery atherosclerotic calcifications. Soft Tissue Neck CT 02/16/18 20:54 CONCLUSION: 1. Bilateral submandibular stones. 2. Extensive subcutaneous emphysema dissecting into the mediastinum. Chest X-Ray 02/17/18 00:00 CONCLUSION: No acute cardiopulmonary disease. Chest X-Ray 02/17/18 08:26 CONCLUSION: Left basilar atelectasis. Discharge Plan Discharge Disposition Patient Disposition: 30 Still Patient Discharge Condition Condition: Serious Discharge Details Diagnosis: Respiratory distress, Atrial fibrillation with RVR, Pulmonary edema, Urinary tract infection Physicians Team ED Provider: Kodak Marie Primary Care Provider: [facility] 's Attending Provider: Giovany Sun Other Providers: Tan Lozano Status ED Status: Left Department Discharge Information Discharge Date/Time: 02/17/18 05:28
--- NOTE | 2018-02-16 18:17 | XR ---
EXAM DATE: 02/16/2018 6:07 PM EDT AGE/SEX: 72 years / Male INDICATIONS: Respiratory failure. Unresponsive. CLINICAL DATA: This is the patient's initial encounter. Patient reports that signs and symptoms have been present for 1 day and indicates a pain score of Nonresponsive. MEDICAL/SURGICAL HISTORY: Hypertension. . Fusion, Lumbar. COMPARISON: [facility] [place]ST 1V SINGLE AP, 12/28/2017. . FINDINGS: There is mild haziness to the perivascular structures most likely pulmonary edema. Slight cardiomegaly seen. Focal consolidation is not seen. CONCLUSION: Slight CHF slightly worse . Electronically signed by: Jigar Rosas MD 02/16/2018 6:15 PM EDT
[2018-02-16 18:27] LABS: Amphetamine Screen,Urine Neg (Neg); Barbiturate Screen,Urine Neg (Neg)
[2018-02-16 18:30] LABS: Cannabinoid Screen,Urine Neg (Neg); Cocaine Screen,Urine Neg (Neg)
[2018-02-16 18:38] LABS: Alanine Aminotransferase 29 U/L (12-78); Albumin 3.1 g/dL (3.4-5.0); Alkaline Phosphatase 155 U/L (45-117); Anion Gap 9 meq/L (5-15); Aspartate Aminotransferase 28 U/L (15-37); Blood Urea Nitrogen 11 mg/dL (7-18); Calcium 8.2 mg/dL (8.5-10.1); Carbon Dioxide 29.5 meq/L (21.0-32.0); Glomerular Filtration Rate 60 mL/min (>89); Glucose,Random 191 mg/dL (74-106); Total Protein 9.5 g/dL (6.4-8.2); Troponin I 0.04 ng/mL (0.02-0.05)
[2018-02-16 18:45] LABS: Opiate Screen,Urine Pos (Neg)
[2018-02-16 18:47] LABS: Baso % (Auto) 0.5 % (0.0-2.0); Eos # (Auto) 0.1 th/mm3 (0.0-0.4); Eos % (Auto) 0.9 % (0.0-4.0); Hematocrit 46.6 % (39.0-51.0); Hemoglobin 15.2 gm/dL (13.0-17.0); Lymph # (Auto) 3.3 th/mm3 (1.0-4.8); Lymph % (Auto) 33.6 % (9.0-44.0); Mean Corpuscular HGB Conc 32.6 % (32.0-36.0); Mean Corpuscular Hemoglobin 28.7 pg (27.0-34.0); Mean Corpuscular Volume 88.1 fL (80.0-100.0); Mean Platelet Volume 9.3 fL (7.0-11.0); Mono # (Auto) 0.7 th/mm3 (0.0-0.9); Mono % (Auto) 6.9 % (0.0-8.0); Neut # (Auto) 5.7 th/mm3 (1.8-7.7); Neut % (Auto) 58.1 % (16.0-70.0); Platelet Count 223 th/mm3 (150-450); Red Blood Count 5.29 mil/mm3 (4.50-5.90); Red Cell Distribution Width 16.6 % (11.6-17.2); White Blood Count 9.8 th/mm3 (4.0-11.0)
[2018-02-16] MEDS ORDERED: dilTIAZem Inj 125 MG in Sodium Chlor 0.9% Inj 100 ML IV.CONT PRN (18:52)
[2018-02-16] MEDS ORDERED: Midazolam Inj 5 MG/ML 1 ML Vial ONE (20:21)
--- NOTE | 2018-02-16 20:45 | CT ---
EXAM DATE: 02/16/2018 8:37 PM EDT AGE/SEX: 72 years / Male INDICATIONS: Altered mental status. CLINICAL DATA: This is the patient's initial encounter. Patient reports that signs and symptoms have been present for 1 day and indicates a pain score of Nonresponsive. MEDICAL/SURGICAL HISTORY: Stroke. Cardiovascular disease. A None. RADIATION DOSE: 63.64 CTDI (mGy) COMPARISON: [facility] – [place], [place] HEAD W/O CONTRAST, 12/28/2017. . TECHNIQUE: CT of the head without contrast. Using automated exposure control and adjustment of the mA and/or kV according to patient size, radiation dose was kept as low as reasonably achievable to ob tain optimal diagnostic quality images. DICOM format image data is available electronically for revi ew and comparison. FINDINGS: There is no evidence for intracranial hemorrhage, mass effect, mass lesions, edema, or extra-axial fl uid collections. The visualized bony structures appear intact. The ventricles are normal size for t he patient's age. There are no signs of acute infarction for technique. There is encephalomalacia i n the right temporal and posterior parietal lobe not changed. There is fairly extensive subcutaneous emphysema in the patient's left cheek area which extends into temporal fossa in addition to preverteb ral space. CONCLUSION: Subcu emphysema. Electronically signed by: Jigar Rosas MD 02/16/2018 8:43 PM EDT
[2018-02-16 22:51] LABS: Free T4 (Free Thyroxine) 0.85 ng/dL (0.76-1.46); Triiodothyronine (T3) Free 3.59 pg/mL (2.18-3.98)
--- NOTE | 2018-02-16 22:58 | CT ---
EXAM DATE: 02/16/2018 10:54 PM EDT AGE/SEX: 72 years / Male INDICATIONS: Subcutaneous emphysema seen on ct brain. CLINICAL DATA: This is the patient's initial encounter. Patient reports that signs and symptoms have been present for 1 day and indicates a pain score of Nonresponsive. MEDICAL/SURGICAL HISTORY: Cardiovascular disease. Diverticulitis. Hypertension. Fusion, cervical. RADIATION DOSE: 21.63 CTDI (mGy) COMPARISON: No prior exams available for comparison. TECHNIQUE: Helical acquisition was performed using a multirow detector CT scanner without contrast. Using automated exposure control and adjustment of the mA and/or kV according to patient size, radiat ion dose was kept as low as reasonably achievable to obtain optimal diagnostic quality images. DICOM format image data is available electronically for review and comparison. FINDINGS: There is subcutaneous emphysema which extends from prevertebral location into the patient's bilateral neck and although it down into the mediastinum. There is an approximate 1.5 cm left submandibular du ct stone with slight prominence of the left submandibular duct and within the right submandibular gla nd there is an approximate 4 mm stone. CONCLUSION: 1. Bilateral submandibular stones. 2. Extensive subcutaneous emphysema dissecting into the mediastinum. Electronically signed by: Jigar Rosas MD 02/16/2018 10:57 PM EDT
--- NOTE | 2018-02-16 23:00 | CT ---
EXAM DATE: 02/16/2018 10:54 PM EDT AGE/SEX: 72 years / Male INDICATIONS: Subcutaneous emphysema seen on ct brain. CLINICAL DATA: This is the patient's initial encounter. Patient reports that signs and symptoms have been present for 1 day and indicates a pain score of Nonresponsive. MEDICAL/SURGICAL HISTORY: Cardiovascular disease. Hypertension. Stroke. Fusion, lumbar. RADIATION DOSE: 21.23 CTDI (mGy) COMPARISON: No prior exams available for comparison. TECHNIQUE: Multiple contiguous axial images were obtained through the chest without contrast. Image s were obtained in suspended respiration using multiple row detector helical technique. Using automa chilango exposure control and adjustment of the mA and/or kV according to patient size, radiation dose was kept as low as reasonably achievable to obtain optimal diagnostic quality images. DICOM format imag e data is available electronically for review and comparison. FINDINGS: Lungs: The lungs are symmetrically aerated. No infiltrates or nodular densities are seen. No pneumo thorax. Mediastinum: There is small volume pneumomediastinum. An endotracheal tube is observed with the tip at the level of the seema. Nasogastric tube is noted. The heart is enlarged. Pulmonary vessels are p rominent. Significant coronary artery atherosclerotic calcifications are noted. No mediastinal hemato ma observed. No mass or adenopathy. Pleurae: No evidence of focal thickening or pleural effusion. Axillae: Unremarkable. Bony Structures: Prior corpectomy and fusion involving the lower thoracic spine.. Miscellaneous: The examination was extended to include the upper abdomen, and both adrenal glands ar e normal in size and configuration. CONCLUSION: 1. Small volume pneumomediastinum as well as subcutaneous emphysema involving the upper anterior [address]. This could relate to a traumatic intubation. I see no hematoma within the mediastinum. 2. Cardiomegaly with significant coronary artery atherosclerotic calcifications. Electronically signed by: Eddie Lundy MD 02/16/2018 10:59 PM EDT
[2018-02-16] MEDS ORDERED: Labetalol HCl Inj 100 MG/20 ML Vial IV.PUSH ONE (23:03)
[2018-02-16 23:21] LABS: ABG Base Excess 1.9 mmol/L (-2-2); ABG PCO2 53 mmHg (38-42); ABG PO2 145 mmHg (61-120)
[2018-02-16] MEDS ORDERED: Propofol 1000 mg/100 ml Inj 1,000 MG/100 ML BOTTLE ONE (23:23)
--- NOTE | 2018-02-16 23:30 | P.HPCC ---
History of Present Illness Primary Care Physician: [facility]ician [facility] History of Present Illness: 72-year-old gentleman is being admitted for an altered mental status. The patient usually sits on the porch in front of his house and today his neighbors noticed that he was not sitting there. So the initiated to investigate the situation and found the patient unresponsive at his home. Upon arrival to emergency department the patient was intubated by ED attending for an airway protection. CT of the brain revealed subcutaneous emphysema. Therefore, CT of the soft tissue neck and thorax was obtained. There was small amount of air in the pneumomediastinum as well as the neck, but no pneumothorax, differential includes traumatic intubation. Inpatient Certification: I certify that the inpatient services were ordered in accordance with Medicare regulations governing the order. This includes certification that hospital inpatient services are reasonable and necessary and in the case of services not specified as inpatient-only under 42 CFR 419.22(n), that they are appropriately provided as inpatient services in accordance to with the 2-midnight benchmark under 43 CFR 412.3(e) Review of Systems unobtainable due to endotracheal tube PMFSH - History History Provided By: Tourist Guide / EMT - Medical History Medical History: Medical History (Last Reviewed 02/16/18 @ 18:03 by Brittnee Wren) Atrial fibrillation Diastolic CHF Diverticulitis Fusion of lumbar spine High cholesterol Hypertension Lung nodule Stroke - Family History Family History: Family History (Last Updated 12/28/17 @ 17:12 by Brianna Stevenson MD) Mother No problems noted. Father Family history of acute myocardial infarction - Tobacco History Second Hand Smoke Exposure: No Smoking Status: Unknown if ever smoked Tobacco Type: Cigarettes Packs Per Day: 0.5 - Alcohol History How Often Do You Have a Drink Containing Alcohol: Unable to Obtain - Substance Use History Substance History: Unable to Obtain - Immunization History Tetanus Immunization: Unable to Assess Tetanus Immunization Year if Known: 2015 Hx Influenza Vaccine This Season: Unable to Assess Medications and Allergies Active Medications: Active Medications Diltiazem HCl (Cardizem Inj) 47.6273 mg 0.35 mg/kg (47.6273 mg) IV.PUSH BOLUS PRN PRN Reason: Response Last Admin: 02/16/18 18:43 Dose: 47.6273 mg Diltiazem HCl (Cardizem Inj) 47.6273 mg 0.35 mg/kg (47.6273 mg) IV.PUSH BOLUS PRN PRN Reason: Inadaquate response Propofol (Diprivan 1000 Mg/100 Ml Inj) 1,000 mg in 100 mls @ 4.082 mls/hr IV.CONT TITRATE PRN; Protocol PRN Reason: Per Protocol Last Titration: 02/16/18 18:44 Dose: 10 mcg/kg/min, 8.17 mls/hr Diltiazem HCl 125 mg/ Sodium (Chloride) 125 mls @ 5 mls/hr IV.CONT TITRATE PRN ; Protocol PRN Reason: Per Protocol Last Admin: 02/16/18 19:32 Dose: 5 mg/hr, 5 mls/hr Sodium Chloride (Ns Flush) 2 ml IV.FLUSH PRN PRN PRN Reason: FLUSH AFTER USING IV ACCESS Current Medications Acetaminophen (Tylenol) 650 mg PO Q6H PRN PRN Reason: PAIN 1-10 AND/OR FEVER >101F Al Hydroxide/Mg Hydroxide (Milk Of Magnamelia Liq) 30 ml PO Q12H PRN PRN Reason: Mild Constipation Albuterol (Duoneb Neb (Prn)) 1 ampul NEB Q2HR NEB PRN PRN Reason: WHEEZING Atorvastatin Calcium (Lipitor) 40 mg PO HS DICK Bisacodyl (Dulcolax Supp) 10 mg RECTAL DAILY PRN PRN Reason: SEVERE CONSITIPATION Chlorhexidine Gluconate (Peridex 0.12% Oral Kit) 15 ml OROPHARYNG BID@0800, 2000 [facility] Chlorhexidine Gluconate (Chlorhexidine 2% Cloth) 3 pack TOPICAL DAILY@0400 [facility] Stop: 02/22/18 03:59 Chlorhexidine Gluconate (Chlorhexidine 2% Cloth) 3 pack TOPICAL DAILY@0400 PRN PRN Reason: Extra cloth needed Stop: 02/22/18 03:59 Diltiazem HCl (Cardizem Inj) 47.6273 mg 0.35 mg/kg (47.6273 mg) IV.PUSH BOLUS PRN PRN Reason: Response Last Admin: 02/16/18 18:43 Dose: 47.6273 mg Diltiazem HCl (Cardizem Inj) 47.6273 mg 0.35 mg/kg (47.6273 mg) IV.PUSH BOLUS PRN PRN Reason: Inadaquate response Diltiazem HCl (Cardizem) 60 mg PO TID [facility] Furosemide (Lasix) 40 mg PO DAILY [facility] Gabapentin (Neurontin) 900 mg PO TID [facility] Propofol (Diprivan 1000 Mg/100 Ml Inj) 1,000 mg in 100 mls @ 4.082 mls/hr IV.CONT TITRATE PRN; Protocol PRN Reason: Per Protocol Last Titration: 02/16/18 18:44 Dose: 10 mcg/kg/min, 8.17 mls/hr Diltiazem HCl 125 mg/ Sodium (Chloride) 125 mls @ 5 mls/hr IV.CONT TITRATE PRN ; Protocol PRN Reason: Per Protocol Last Admin: 02/16/18 19:32 Dose: 5 mg/hr, 5 mls/hr Ceftriaxone Sodium 1,000 mg/ (Sodium Chloride) 100 mls @ 200 mls/hr IV.SIG Q24H [facility] Lactulose (Lactulose Liq) 30 ml PO DAILY PRN PRN Reason: SEVERE CONSITIPATION Lisinopril (Prinivil) 20 mg PO DAILY [facility] Metoclopramide HCl (Reglan Inj) 5 mg IV.PUSH Q6HR [facility]; Protocol Metoprolol Tartrate (Lopressor) 25 mg PO BID [facility] Midazolam HCl (Versed Inj) 2 mg IV.PUSH Q1H PRN PRN Reason: SEDATION Morphine Sulfate (Morphine Inj) 2 mg IV.PUSH Q2H PRN PRN Reason: PAIN SCALE 6 TO 10 Ondansetron HCl (Zofran Inj) 4 mg IV.PUSH Q6H PRN PRN Reason: NAUSEA OR VOMITING Pantoprazole Sodium (Protonix) 20 mg PO DAILY [facility] Pharmacy Profile Note (Coumadin Consult Pharmacy) 1 each OTHER UNSCH PRN PRN Reason: PHARMACY DOCUMENTATION Senna/Docusate Sodium (Sagrario-Colace) 1 tab PO BID [facility] Sennosides (Senokot) 17.2 mg PO Q12H PRN PRN Reason: Moderate Constipation Sodium Chloride (Ns Flush) 2 ml IV.FLUSH PRN PRN PRN Reason: FLUSH AFTER USING IV ACCESS Sodium Chloride (Ns Flush) 2 ml IV.FLUSH BID [facility] Spironolactone (Aldactone) 25 mg PO DAILY [facility] Venlafaxine HCl (Effexor Xr) 75 mg PO DAILY [facility] Warfarin Sodium (Coumadin) 1 mg PO DAILY@1600 [facility] Allergies Allergy/AdvReac Type Severity Reaction Status Date / Time diatrizoate meglumine AdvReac Severe SEVERE Verified 12/28/17 14:24 VOMITING gadobenic acid AdvReac Severe SEVERE Verified 12/28/17 14:25 VOMITING gadodiamide AdvReac Severe SEVERE Verified 12/28/17 14:25 VOMITING gadoteridol AdvReac Severe SEVERE Verified 12/28/17 14:25 VOMITING iodixanol AdvReac Severe SEVERE Verified 12/28/17 14:25 VOMITING iohexol AdvReac Severe SEVERE Verified 12/28/17 14:24 VOMITING Home Medications Medication Instructions Recorded Confirmed Type atorvastatin 40 mg PO HS 12/28/17 12/28/17 History diltiazem HCl [Cardizem] 60 mg PO TID 12/28/17 12/28/17 History furosemide [Lasix] 40 mg PO DAILY 12/28/17 12/28/17 History gabapentin 900 mg PO TID 12/28/17 12/28/17 History metoprolol tartrate 25 mg PO BID 12/28/17 12/28/17 History omeprazole 20 mg PO DAILY 12/28/17 12/28/17 History spironolactone 25 mg PO DAILY 12/28/17 12/28/17 History venlafaxine 75 mg PO DAILY 12/28/17 12/28/17 History warfarin [Coumadin] 0 mg/kg PO DAILY 12/28/17 12/28/17 History zolpidem 5 mg PO DAILY 12/28/17 12/28/17 History Results - Labs CBC & Chem 7: 02/16/18 17:05 02/16/18 17:05 Labs: Short CBC 02/16/18 Range/Units 17:05 WBC 9.8 (4.0-11.0) th/mm3 Hgb 15.2 (13.0-17.0) gm/dL Hct 46.6 (39.0-51.0) % Plt Count 223 (150-450) th/mm3 BMP 02/16/18 17:05 Sodium 141 Potassium 3.8 Chloride 103 Carbon Dioxide 29.5 BUN 11 Creatinine 1.41 H Calcium 8.2 L Cardiac Enzymes 02/16/18 02/16/18 Range/Units 17:05 17:05 Total Creatine Kinase 67 (39-308) U/L Troponin I 0.04 (0.02-0.05) ng/mL Liver Function 02/16/18 Range/Units 17:05 Total Bilirubin 0.3 (0.2-1.0) mg/dL AST 28 (15-37) U/L ALT 29 (12-78) U/L Alkaline Phosphatase 155 H (45-117) U/L Albumin 3.1 L (3.4-5.0) g/dL Urine 02/16/18 Range/Units 17:05 Urine Color Esther (Yellw/Straw) Urine Clarity Cloudy H (Clear) Urine pH 5.0 (5.0-8.5) Ur Specific [place] 1.026 (1.002-1.035) Urine Protein 500 or greater (Neg-Trace) mg/dL Urine Glucose (UA) Negative (Negative) mg/dL - Imaging Impressions Chest X-Ray 02/16/18 16:55 CONCLUSION: Slight CHF slightly worse . Head CT 02/16/18 16:55 CONCLUSION: Subcu emphysema. Chest CT 02/16/18 20:54 CONCLUSION: 1. Small volume pneumomediastinum as well as subcutaneous emphysema involving the upper anterior chest. This could relate to a traumatic intubation. I see no hematoma within the mediastinum. 2. Cardiomegaly with significant coronary artery atherosclerotic calcifications. Soft Tissue Neck CT 02/16/18 20:54 CONCLUSION: 1. Bilateral submandibular stones. 2. Extensive subcutaneous emphysema dissecting into the mediastinum. Exam Vital signs: Vital Signs 02/16/18 16:31 02/16/18 16:45 02/16/18 16:53 Temperature 99.8 F H Pulse Rate 139 H Respiratory Rate 20 20 Blood Pressure 213/113 H Pulse Oximetry 65 L 100 91 L 02/16/18 17:40 02/16/18 18:44 02/16/18 22:40 Temperature Pulse Rate 156 H 126 H Respiratory Rate 18 18 Blood Pressure 144/56 H 139/58 L Pulse Oximetry 100 100 100 02/16/18 22:55 Temperature Pulse Rate Respiratory Rate 18 Blood Pressure Pulse Oximetry 100 Intake & Output 02/16/18 02/16/18 02/17/18 06:59 18:59 06:59 Weight 136.078 kg - Constitutional moderate distress - Routine HEENT Exam Head: Present: normocephalic, atraumatic Eye: Present: PERRL ENT: Present: mucous membranes moist - Routine Neck Exam Present: supple. Absent: JVD, carotid bruit - Routine Respiratory Exam Present: patient mechanically ventilated. Absent: rhonchi, stridor, wheezes - Routine Cardiovascular Exam Present: S1, S2, irregular rhythm - Routine Abdominal Exam Present: soft, normoactive bowel sounds. Absent: tenderness, distended - Routine Extremities Exam Absent: cyanosis, clubbing - Routine Skin Exam Present: intact - Routine Neurological Exam Present: moving all extremities Caprini VTE Risk Assessment Caprini VTE Risk Assessment: Moderate/High Risk (score >= 2) Caprini Risk Assessment Model: Point Value = 1 Point Value = 2 Point Value = 3 Point Value = 5 Age 41-60 Minor surgery BMI > 25 kg/m2 Swollen legs Varicose veins or History of unexplained or recurrent spontaneous Oral contraceptives or hormone replacement Sepsis (< 1 month) Serious lung disease, including pneumonia (< 1 month) Abnormal pulmonary function Acute myocardial infarction Congestive heart failure (< 1 month) History of inflammatory bowel disease Medical patient at bed rest Age 61-74 Arthroscopic surgery Major open surgery (> 45 min) Laparoscopic surgery (> 45 min) Malignancy Confined to bed (> 72 hours) Immobilizing plaster cast Central venous access Age >= 75 History of VTE Family history of VTE Factor V Leiden Prothrombin [id number] Lupus anticoagulant Anticardiolipin antibodies Elevated serum homocysteine Heparin-induced thrombocytopenia Other congenital or acquired thrombophilia Stroke (< 1 month) Elective arthroplasty Hip, pelvis, or leg fracture Acute spinal cord injury (< 1 month) Prophylaxis Regimen: Total Risk Factor Score Risk Level Prophylaxis Regimen 0-1 Low Early ambulation 2 Moderate Order ONE of the following: *Sequential Compression Device (SCD) *Heparin 5000 units SQ BID 3-4 Higher Order ONE of the following medications: *Heparin 5000 units SQ TID *Enoxaparin/Lovenox 40 mg SQ daily (WT < 150 kg, CrCl > 30 mL/min) *Enoxaparin/Lovenox 30 mg SQ daily (WT < 150 kg, CrCl > 10-29 mL/min) *Enoxaparin/Lovenox 30 mg SQ BID (WT < 150 kg, CrCl > 30 mL/min) AND/OR *Sequential Compression Device (SCD) 5 or more Highest Order ONE of the following medications: *Heparin 5000 units SQ TID (Preferred with Epidurals) *Enoxaparin/Lovenox 40 mg SQ daily (WT < 150 kg, CrCl > 30 mL/min) *Enoxaparin/Lovenox 30 mg SQ daily (WT < 150 kg, CrCl > 10-29 mL/min) *Enoxaparin/Lovenox 30 mg SQ BID (WT < 150 kg, CrCl > 30 mL/min) AND *Sequential Compression Device (SCD) Assessment and Plan - Assessment and Plan Plan: Altered mental status -CT head negative -Drug screen toxicology pending -Series of troponins and EKGs to rule out ACS as a condition of syncopal episode -Mental status improving -Neuro checks per unit protocol Respiratory failure -Intubated for an airway protection -Vent bundle -SBT daily when neurologically improved Atrial fibrillation -Diltiazem for rate control -Coumadin per pharmacy dosing Dyslipidemia -Atorvastatin Diastolic congestive heart failure -Blood pressure control -Lisinopril -P.o. Lasix -Metoprolol -Spironolactone UTI -Rocephin Sialolithiasis -Supportive care Hypertension -Lisinopril -Metoprolol DVT GI prophylaxis -Teds SCDs -Coumadin -Pantoprazole 35 minutes of critical care
[2018-02-17] MEDS ORDERED: Acetaminophen 325 MG Tablet PO PRN (00:56)
[2018-02-17] MEDS ORDERED: Bisacodyl 10 MG Supp RECTAL PRN (00:56)
[2018-02-17] MEDS ORDERED: Warfarin Consult Pharmacy OTHER PRN (01:02)
[2018-02-17] MEDS ORDERED: Propofol 1000 mg/100 ml Inj 1,000 MG/100 ML BOTTLE ONE (01:30)
[2018-02-17 02:58] LABS: Baso % (Auto) 0.4 % (0.0-2.0); Eos % (Auto) 0.2 % (0.0-4.0); Hematocrit 43.3 % (39.0-51.0); Hemoglobin 13.9 gm/dL (13.0-17.0); Lymph # (Auto) 1.2 th/mm3 (1.0-4.8); Lymph % (Auto) 10.2 % (9.0-44.0); Mean Corpuscular Volume 87.3 fL (80.0-100.0); Mean Platelet Volume 9.1 fL (7.0-11.0); Mono # (Auto) 1.6 th/mm3 (0.0-0.9); Mono % (Auto) 13.9 % (0.0-8.0); Neut # (Auto) 8.8 th/mm3 (1.8-7.7); Neut % (Auto) 75.3 % (16.0-70.0); Platelet Count 171 th/mm3 (150-450); Red Blood Count 4.97 mil/mm3 (4.50-5.90); Red Cell Distribution Width 16.6 % (11.6-17.2); White Blood Count 11.7 th/mm3 (4.0-11.0)
[2018-02-17 03:07] LABS: Activated Partial Thrombo Time 23.6 sec (24.3-30.1); Prothrombin Time 10.6 sec (9.8-11.6)
[2018-02-17 03:16] LABS: Alanine Aminotransferase 25 U/L (12-78); Albumin 2.8 g/dL (3.4-5.0); Alkaline Phosphatase 118 U/L (45-117); Anion Gap 10 meq/L (5-15); Aspartate Aminotransferase 29 U/L (15-37); Blood Urea Nitrogen 13 mg/dL (7-18); Calcium 7.9 mg/dL (8.5-10.1); Carbon Dioxide 23.9 meq/L (21.0-32.0); Chloride 104 meq/L (98-107); Glomerular Filtration Rate 79 mL/min (>89); Glucose,Random 109 mg/dL (74-106); Magnesium 2.2 mg/dL (1.5-2.5); Phosphorus 3.9 mg/dL (2.5-4.9); Potassium 4.9 meq/L (3.5-5.1); Sodium 138 meq/L (136-145); Total Protein 8.4 g/dL (6.4-8.2); Troponin I 0.12 ng/mL (0.02-0.05)
[2018-02-17] MEDS ORDERED: Oral Hygiene Kit OROPHARYNG SCH (04:00)
[2018-02-17] MEDS ORDERED: Chlorhexidine Gluconate 2% 1 Pack (2 Cloths) TOPICAL PRN (04:00)
[2018-02-17] MEDS ORDERED: Propofol Inj 500 MG/50 ML Vial ONE (05:02)
[2018-02-17] MEDS: Chlorhexidine Gluconate 2% 1 Pack (2 Cloths) TOPICAL SCH (06:05)
[2018-02-17] MEDS: Oral Hygiene Kit OROPHARYNG SCH ×3 (06:05→16:15)
[2018-02-17] MEDS: Propofol 1000 mg/100 ml Inj 1,000 MG/100 ML BOTTLE IV.CONT PRN (06:28)
--- NOTE | 2018-02-17 08:25 | P.PNCC ---
Subjective Subjective Remarks/Hospital Course: 72-year-old gentleman is being admitted for an altered mental status. The patient usually sits on the porch in front of his house and today his neighbors noticed that he was not sitting there. So the initiated to investigate the situation and found the patient unresponsive at his home. Upon arrival to emergency department the patient was intubated by ED attending for an airway protection. CT of the brain revealed subcutaneous emphysema. Therefore, CT of the soft tissue neck and thorax was obtained. There was small amount of air in the pneumomediastinum as well as the neck, but no pneumothorax, differential includes traumatic intubation. 02/17 Patien tis intubated and sedated with Diprivan infusion. Afebrile. On Cardizem drip 5mg/hr. Objective Vital Signs / I&O: Vital Signs 02/16/18 16:31 02/16/18 16:45 02/16/18 16:53 Temperature 99.8 F H Pulse Rate 139 H Respiratory Rate 20 20 Blood Pressure 213/113 H Pulse Oximetry 65 L 100 91 L 02/16/18 17:40 02/16/18 18:44 02/16/18 20:00 Temperature Pulse Rate 156 H 126 H 108 H Respiratory Rate 18 18 18 Blood Pressure 144/56 H 139/58 L 145/54 H Pulse Oximetry 100 100 02/16/18 22:00 02/16/18 22:40 02/16/18 22:55 Temperature Pulse Rate 104 H Respiratory Rate 16 18 Blood Pressure 155/64 H Pulse Oximetry 100 100 02/17/18 00:00 02/17/18 00:56 02/17/18 01:00 Temperature Pulse Rate 108 H 112 H 110 H Respiratory Rate 18 18 18 Blood Pressure 121/67 103/69 117/72 Pulse Oximetry 100 02/17/18 02:58 02/17/18 03:00 02/17/18 05:43 Temperature Pulse Rate 111 H 114 H Respiratory Rate 16 18 20 Blood Pressure 111/78 105/65 Pulse Oximetry 96 97 02/17/18 06:00 Temperature 97.3 F L Pulse Rate 108 H Respiratory Rate 18 Blood Pressure 115/70 Pulse Oximetry 95 Intake & Output 02/16/18 02/17/18 02/17/18 18:59 06:59 18:59 Intake Total 200 / 200 Output Total 375 / 375 Balance -175 / -175 Weight 136.078 kg 138.5 kg Intake: IV 200 / 200 Diprivan 1000 mg/100 ml Inj 1, 100 / 100 000 mg In 100 ml @ 5 MCG/KG/MIN 4.082 mls/hr IV.CONT TITRATE PRN Rx#:[id number] Rocephin Inj 1,000 MG In NS Inj 100 / 100 100 ML @ 200 mls/hr IV.SIG Q24H DICK Rx#:[id number] Output: Urine Amount (Catheter) 375 / 375 Indwelling Urethral Catheter 375 / 375 Other: Weight On Admission 138 kg Result Diagrams: 02/17/18 02:30 02/17/18 02:30 Other Results: Laboratory Results - last 12 hr 02/16/18 02/16/18 02/16/18 17:05 19:55 23:04 WBC RBC Hgb Hct MCV MCH MCHC RDW Plt Count MPV Neut % (Auto) Lymph % (Auto) White % (Auto) Eos % (Auto) Baso % (Auto) Neut # (Auto) Lymph # (Auto) White # (Auto) Eos # (Auto) Baso # (Auto) WBC Differential Differential Comment PT INR APTT Puncture Site Right radial Patient Temperature 98.6 O2 Saturation 97 ABG pH 7.33 L ABG pCO2 53 H* ABG pO2 145 H ABG HCO3 27 H ABG O2 Content 18.1 ABG Base Excess 1.9 ABG Methemoglobin 0.6 Mahamed Test Present Hemoglobin 13.0 Carboxyhemoglobin 1.3 O2 Delivery Device Ventilator Vent Setting See comments Inspired O2 50 Critical Value Yes Sodium Potassium Chloride Carbon Dioxide Anion Gap BUN Creatinine Estimated GFR Random Glucose Lactic Acid 1.6 Calcium Phosphorus Magnesium Total Bilirubin AST ALT Alkaline Phosphatase Troponin I Total Protein Albumin Free T4 0.85 Free T3 3.59 Nasal Screen MRSA (PCR) 02/17/18 02/17/18 02/17/18 02:30 02:30 02:30 WBC 11.7 H RBC 4.97 Hgb 13.9 Hct 43.3 MCV 87.3 MCH 28.0 MCHC 32.0 RDW 16.6 Plt Count 171 MPV 9.1 Neut % (Auto) 75.3 H Lymph % (Auto) 10.2 White % (Auto) 13.9 H Eos % (Auto) 0.2 Baso % (Auto) 0.4 Neut # (Auto) 8.8 H Lymph # (Auto) 1.2 White # (Auto) 1.6 H Eos # (Auto) 0.0 Baso # (Auto) 0.0 WBC Differential . Differential Comment Auto diff final PT 10.6 INR 1.0 APTT 23.6 L Puncture Site Patient Temperature O2 Saturation ABG pH ABG pCO2 ABG pO2 ABG HCO3 ABG O2 Content ABG Base Excess ABG Methemoglobin Mahamed Test Hemoglobin Carboxyhemoglobin O2 Delivery Device Vent Setting Inspired O2 Critical Value Sodium 138 Potassium 4.9 D Chloride 104 Carbon Dioxide 23.9 Anion Gap 10 BUN 13 Creatinine 1.12 Estimated GFR 79 L Random Glucose 109 H Lactic Acid Calcium 7.9 L Phosphorus 3.9 Magnesium 2.2 Total Bilirubin 0.5 AST 29 ALT 25 Alkaline Phosphatase 118 H Troponin I 0.12 H Total Protein 8.4 H D Albumin 2.8 L Free T4 Free T3 Nasal Screen MRSA (PCR) 02/17/18 05:41 WBC RBC Hgb Hct MCV MCH MCHC RDW Plt Count MPV Neut % (Auto) Lymph % (Auto) White % (Auto) Eos % (Auto) Baso % (Auto) Neut # (Auto) Lymph # (Auto) White # (Auto) Eos # (Auto) Baso # (Auto) WBC Differential Differential Comment PT INR APTT Puncture Site Patient Temperature O2 Saturation ABG pH ABG pCO2 ABG pO2 ABG HCO3 ABG O2 Content ABG Base Excess ABG Methemoglobin Mahamed Test Hemoglobin Carboxyhemoglobin O2 Delivery Device Vent Setting Inspired O2 Critical Value Sodium Potassium Chloride Carbon Dioxide Anion Gap BUN Creatinine Estimated GFR Random Glucose Lactic Acid Calcium Phosphorus Magnesium Total Bilirubin AST ALT Alkaline Phosphatase Troponin I Total Protein Albumin Free T4 Free T3 Nasal Screen MRSA (PCR) Not detected Imaging: Chest X-Ray 02/16/18 16:55 CONCLUSION: Slight CHF slightly worse . Head CT 02/16/18 16:55 CONCLUSION: Subcu emphysema. Chest CT 02/16/18 20:54 CONCLUSION: 1. Small volume pneumomediastinum as well as subcutaneous emphysema involving the upper anterior chest. This could relate to a traumatic intubation. I see no hematoma within the mediastinum. 2. Cardiomegaly with significant coronary artery atherosclerotic calcifications. Soft Tissue Neck CT 02/16/18 20:54 CONCLUSION: 1. Bilateral submandibular stones. 2. Extensive subcutaneous emphysema dissecting into the mediastinum. Objective Remarks: GENERAL: Patient is 72 yo intubated and sedated SKIN: Warm and dry. HEAD: Normocephalic. EYES: No scleral icterus. No injection or drainage. NECK: Supple, trachea midline. No JVD or lymphadenopathy. CARDIOVASCULAR: Regular rate and rhythm without murmurs, gallops, or rubs. RESPIRATORY: Breath sounds equal bilaterally. No accessory muscle use. GASTROINTESTINAL: Abdomen soft, non-tender, nondistended. MUSCULOSKELETAL: No cyanosis, or edema. Neuro: Sedated Assessment and Plan - Assessment and Plan Plan: 1)Altered mental status 2)VDRF 3)Afib 4)Dyslipidemia 5)Diastolic congestive heart failure 6)Pneumomediastinum & subQ emphysema dissecting into the mediastinum. Likely 2nd traumatic intubation 7)UTI 8)Hypertension Plan Neuro: On Diprivan infusion for sedation. Daily sedation vacation. CT brain: no evidence for intracranial hemorrhage, mass effect, mass lesions Pulm: Continue with vent support keep sats >92% Bronchodilators, ICU vent bundle. Check CXR/ABG SBT daily as aldair CV: Monitor HR and BP keep MAP>65mmgh On Cardizem 60mg QID, Lisinopril 20mg daily, Lopressor 25mg BID, wean off Cardizem drip. CTS eval for Pneumomediastinum- likely 2nd traumatic intubation Lactic acid 1.6 Check echo to eval LV function. GI: On Proonix for GI prophylaxis, start tube feeds today if remains intubated. : Monitor renal function, electrolytes replacement per protocol. On Lasix 40mg IV daily ID: Continue with Rocephin monitor for signs of infections ( Fever, WBC) Follow up on blood and urine cxs Heme: Monitor CBC Endo: SSI for glycemic control DVT GI prophylaxis -Teds SCDs -Coumadin -Pantoprazole Level 3
[2018-02-17] MEDS: Lisinopril 20 MG Tablet PO SCH (09:00)
[2018-02-17] MEDS: Venlafaxine XR 75 MG Capsule PO SCH (09:00)
[2018-02-17] MEDS: dilTIAZem 60 MG Tablet PO SCH ×3 (09:00→17:11)
[2018-02-17] MEDS ORDERED: Senna/Docusate Sodium 8.6/50 MG Tablet PO SCH (09:00)
[2018-02-17] MEDS: Gabapentin 300 MG Capsule PO SCH ×3 (09:00→17:11)
[2018-02-17] MEDS: Pantoprazole Sodium 20 MG DR Tablet PO SCH (09:00)
[2018-02-17] MEDS: Metoprolol Tartrate 25 MG Tablet PO SCH ×2 (09:00→20:01)
[2018-02-17] MEDS: Spironolactone 25 MG Tablet PO SCH (09:00)
[2018-02-17] MEDS: Furosemide 40 MG Tablet PO SCH (09:00)
[2018-02-17] MEDS: Chlorhexidine 0.12% Oral Kit 15 ML UDC OROPHARYNG SCH ×2 (09:01→19:22)
[2018-02-17] MEDS: Senna/Docusate Sodium 8.6/50 MG Tablet PO SCH ×2 (09:01→20:01)
[2018-02-17 09:12] LABS: ABG Base Excess 2.2 mmol/L (-2-2); ABG PCO2 47 mmHg (38-42); ABG PO2 100 mmHG (61-120)
--- NOTE | 2018-02-17 09:28 | XR ---
EXAM DATE: 02/17/2018 9:16 AM EDT AGE/SEX: 72 years / Male INDICATIONS: Short of breath CLINICAL DATA: This is the patient's subsequent encounter. Patient reports that signs and symptoms h ave been present for 4 - 6 days and indicates a pain score of Nonresponsive. MEDICAL/SURGICAL HISTORY: Hypertension. VDRF Fusion, lumbar. COMPARISON: [facility] [place], CT CHEST W/O CONTRAST, 02/16/2018. . FINDINGS: The lung volumes are diminished. There is left lower lobe atelectasis suspected. Endotracheal tube is present in satisfactory position. Enteric tube courses beneath the diaphragm. Plate and screw and co rpectomy hardware is seen at the lower thoracic spine. CONCLUSION: Left basilar atelectasis. Electronically signed by: Sohail Willett MD 02/17/2018 9:27 AM EDT
--- NOTE | 2018-02-17 10:00 | P.CON ---
History of Present Illness Service: Cardiothoracic surgery Consult date: 02/17/18 Requesting Physician: Saud Gonzalez Primary Care Provider: [facility] Family Provider: [facility] History of Present Illness: 72 yo -[place] male found unresponsive at home with altered mental status. Patient was intubated and brought to the emergency room and subsequently admitted to the ICU. He is currently on the ventilator with mechanical ventilation. Further workup during his hospital evaluation including a chest and neck CT revealed pneumomediastinum with use emphysema in the chest and neck with no identifiable pneumothorax or intrathoracic hematoma or injuries. Be consulted for evaluation of the pneumomediastinum. At the present time he remains intubated and mechanically ventilated, however, appears to be waking up and responding appropriately to verbal commands. Review of Systems All other systems reviewed negative except as stated in HPI PMFSH - History History Provided By: Medical Record, Pest Control Technician / EMT - Medical History Medical History: Medical History (Last Reviewed 02/16/18 @ 18:03 by Brittnee Wren) Atrial fibrillation Diastolic CHF Diverticulitis Fusion of lumbar spine High cholesterol Hypertension Lung nodule Stroke - Family History Family History: Family History (Last Updated 12/28/17 @ 17:12 by Brianna Stevenson MD) Mother No problems noted. Father Family history of acute myocardial infarction - Tobacco History Second Hand Smoke Exposure: No Tobacco Use In Past 30 Days: Yes Smoking Status: Current every day smoker Tobacco Type: Cigarettes Packs Per Day: 0.5 - Alcohol History How Often Do You Have a Drink Containing Alcohol: Never - Substance Use History Substance History: Unable to Obtain - Immunization History Tetanus Immunization: Unable to Assess Tetanus Immunization Year if Known: 2015 Hx Influenza Vaccine This Season: Unable to Assess Medications and Allergies Active Medications: Active Medications Acetaminophen (Tylenol) 650 mg PO Q6H PRN PRN Reason: PAIN 1-10 AND/OR FEVER >101F Al Hydroxide/Mg Hydroxide (Milk Of Magnesia Liq) 30 ml PO Q12H PRN PRN Reason: Mild Constipation Albuterol (Duoneb Neb (Prn)) 1 ampul NEB Q2HR NEB PRN PRN Reason: WHEEZING Albuterol (Duoneb Neb (Raeann)) 1 ampul NEB Q6HR NEB RAEANN Atorvastatin Calcium (Lipitor) 40 mg PO HS RAEANN Bisacodyl (Dulcolax Supp) 10 mg RECTAL DAILY PRN PRN Reason: SEVERE CONSITIPATION Chlorhexidine Gluconate (Peridex 0.12% Oral Kit) 15 ml OROPHARYNG BID@0800, 1999 [facility] Last Admin: 02/17/18 09:01 Dose: 15 ml Chlorhexidine Gluconate (Chlorhexidine 2% Cloth) 3 pack TOPICAL DAILY@0400 [facility] Stop: 02/22/18 03:59 Last Admin: 02/17/18 06:05 Dose: 3 pack Chlorhexidine Gluconate (Chlorhexidine 2% Cloth) 3 pack TOPICAL DAILY@0400 PRN PRN Reason: Extra cloth needed Stop: 02/22/18 03:59 Diltiazem HCl (Cardizem Inj) 47.6273 mg 0.35 mg/kg (47.6273 mg) IV.PUSH BOLUS PRN PRN Reason: Response Last Admin: 02/16/18 18:43 Dose: 47.6273 mg Diltiazem HCl (Cardizem Inj) 47.6273 mg 0.35 mg/kg (47.6273 mg) IV.PUSH BOLUS PRN PRN Reason: Inadaquate response Diltiazem HCl (Cardizem) 60 mg PO TID [facility] Last Admin: 02/17/18 09:00 Dose: 60 mg Furosemide (Lasix) 40 mg PO DAILY [facility] Last Admin: 02/17/18 09:00 Dose: 40 mg Gabapentin (Neurontin) 900 mg PO TID [facility] Last Admin: 02/17/18 09:00 Dose: 900 mg Propofol (Diprivan 1000 Mg/100 Ml Inj) 1,000 mg in 100 mls @ 4.082 mls/hr IV.CONT TITRATE PRN; Protocol PRN Reason: Per Protocol Last Titration: 02/17/18 06:29 Dose: 40 mcg/kg/min, 32.66 mls/hr Ceftriaxone Sodium 1,000 mg/ (Sodium Chloride) 100 mls @ 200 mls/hr IV.SIG Q24H [facility] Last Infusion: 02/17/18 06:29 Dose: Infused Lactulose (Lactulose Liq) 30 ml PO DAILY PRN PRN Reason: SEVERE CONSITIPATION Lisinopril (Prinivil) 20 mg PO DAILY [facility] Last Admin: 02/17/18 09:00 Dose: 20 mg Metoclopramide HCl (Reglan Inj) 5 mg IV.PUSH Q6HR [facility]; Protocol Last Admin: 02/17/18 06:06 Dose: 5 mg Metoprolol Tartrate (Lopressor) 25 mg PO BID [facility] Last Admin: 02/17/18 09:00 Dose: 25 mg Midazolam HCl (Versed Inj) 2 mg IV.PUSH Q1H PRN PRN Reason: SEDATION Morphine Sulfate (Morphine Inj) 2 mg IV.PUSH Q2H PRN PRN Reason: PAIN SCALE 6 TO 10 Ondansetron HCl (Zofran Inj) 4 mg IV.PUSH Q6H PRN PRN Reason: NAUSEA OR VOMITING Pantoprazole Sodium (Protonix) 20 mg PO DAILY [facility] Last Admin: 02/17/18 09:00 Dose: 20 mg Pharmacy Profile Note (Coumadin Consult Pharmacy) 1 each OTHER UNSCH PRN PRN Reason: PHARMACY DOCUMENTATION Senna/Docusate Sodium (Sagrario-Colace) 1 tab PO BID [facility] Last Admin: 02/17/18 09:01 Dose: 1 tab Sennosides (Senokot) 17.2 mg PO Q12H PRN PRN Reason: Moderate Constipation Sodium Chloride (Ns Flush) 2 ml IV.FLUSH PRN PRN PRN Reason: FLUSH AFTER USING IV ACCESS Sodium Chloride (Ns Flush) 2 ml IV.FLUSH BID [facility] Last Admin: 02/17/18 09:01 Dose: 2 ml Spironolactone (Aldactone) 25 mg PO DAILY [facility] Last Admin: 02/17/18 09:00 Dose: 25 mg Venlafaxine HCl (Effexor Xr) 75 mg PO DAILY [facility] Last Admin: 02/17/18 09:00 Dose: 75 mg Warfarin Sodium (Coumadin) 1 mg PO DAILY@1600 [facility] Allergies Allergy/AdvReac Type Severity Reaction Status Date / Time diatrizoate meglumine AdvReac Severe SEVERE Verified 12/28/17 14:24 VOMITING gadobenic acid AdvReac Severe SEVERE Verified 12/28/17 14:25 VOMITING gadodiamide AdvReac Severe SEVERE Verified 12/28/17 14:25 VOMITING gadoteridol AdvReac Severe SEVERE Verified 12/28/17 14:25 VOMITING iodixanol AdvReac Severe SEVERE Verified 12/28/17 14:25 VOMITING iohexol AdvReac Severe SEVERE Verified 12/28/17 14:24 VOMITING Home Medications Medication Instructions Recorded Confirmed Type atorvastatin 40 mg PO 12/28/17 12/28/17 History diltiazem HCl [Cardizem] 60 mg PO TID 12/28/17 12/28/17 History furosemide [Lasix] 40 mg PO DAILY 12/28/17 12/28/17 History gabapentin 900 mg PO TID 12/28/17 12/28/17 History metoprolol tartrate 25 mg PO BID 12/28/17 12/28/17 History omeprazole 20 mg PO DAILY 12/28/17 12/28/17 History spironolactone 25 mg PO DAILY 12/28/17 12/28/17 History venlafaxine 75 mg PO DAILY 12/28/17 12/28/17 History warfarin [Coumadin] 0 mg/kg PO DAILY 12/28/17 12/28/17 History zolpidem 5 mg PO DAILY 12/28/17 12/28/17 History Physical Exam Vital signs: Vital Signs 02/16/18 16:31 02/16/18 16:45 02/16/18 16:53 Temperature 99.8 F H Pulse Rate 139 H Respiratory Rate 20 20 Blood Pressure 213/113 H Pulse Oximetry 65 L 100 91 L 02/16/18 17:40 02/16/18 18:44 02/16/18 20:00 Temperature Pulse Rate 156 H 126 H 108 H Respiratory Rate 18 18 18 Blood Pressure 144/56 H 139/58 L 145/54 H Pulse Oximetry 100 100 02/16/18 22:00 02/16/18 22:40 02/16/18 22:55 Temperature Pulse Rate 104 H Respiratory Rate 16 18 Blood Pressure 155/64 H Pulse Oximetry 100 100 02/17/18 00:00 02/17/18 00:56 02/17/18 01:00 Temperature Pulse Rate 108 H 112 H 110 H Respiratory Rate 18 18 18 Blood Pressure 121/67 103/69 117/72 Pulse Oximetry 100 02/17/18 02:58 02/17/18 03:00 02/17/18 05:43 Temperature Pulse Rate 111 H 114 H Respiratory Rate 16 18 20 Blood Pressure 111/78 105/65 Pulse Oximetry 96 97 02/17/18 06:00 02/17/18 08:00 Temperature 97.3 F L Pulse Rate 108 H Respiratory Rate 18 18 Blood Pressure 115/70 Pulse Oximetry 95 96 Intake & Output 02/16/18 02/17/18 02/17/18 18:59 06:59 18:59 Intake Total 200 / 200 Output Total 375 / 375 Balance -175 / -175 Weight 136.078 kg 138.5 kg Intake: IV 200 / 200 Diprivan 1000 mg/100 ml Inj 1, 100 / 100 000 mg In 100 ml @ 5 MCG/KG/MIN 4.082 mls/hr IV.CONT TITRATE PRN Rx#:[id number] Rocephin Inj 1,000 MG In NS Inj 100 / 100 100 ML @ 200 mls/hr IV.SIG Q24H RAEANN Rx#:[id number] Output: Urine Amount (Catheter) 375 / 375 Indwelling Urethral Catheter 375 / 375 Other: Weight On Admission 138 kg - Constitutional obese, agitated - Routine HEENT Exam Head: Present: normocephalic, atraumatic Eye: Present: EOMI, PERRL ENT: Present: mucous membranes moist - Routine Neck Exam Present: supple, full ROM. Absent: JVD, carotid bruit - Detailed Chest Wall Exam Comments: Upper chest wall and surrounding neck subcutaneous emphysema with palpable crepitus - Routine Respiratory Exam Present: patient mechanically ventilated, CTA bilaterally - Routine Cardiovascular Exam Present: RRR, S1, S2. Absent: murmur, gallop, rubs - Routine Abdominal Exam Present: soft, normoactive bowel sounds. Absent: tenderness, distended - Routine Extremities Exam Absent: cyanosis, clubbing - Routine Skin Exam Present: intact. Absent: cyanosis, erythema - Routine Neurological Exam Present: alert, CN II-XII intact, moving all extremities - Detailed Neurological Exam: Coma Scale Eye Opening: Spontaneous - Routine Psychiatric Exam Present: unable to assess - Urinary Catheter Management Indwelling Urethral Catheter Cath placed during this visit: yes Reason for continuing: Hourly intake/output Insertion date: 02/16/18 Insertion time: 16:00 Assessment and Plan - Assessment (1) Mediastinal emphysema (pneumomediastinum) Code(s): J98.2 - Interstitial emphysema Status: Acute - Plan At this point he remains intubated and mechanically ventilated. I agree that the pneumomediastinum and the crepitus on examination are likely the result of subclinical airway trauma or traumatic intubation. No additional injuries are identified on physical examination or on chest CT. There is no appreciable pneumothorax. At this point no further surgical therapy is indicated. We will continue to follow with you. Thank you for allowing me to participate in the care of this patient
[2018-02-17 10:20] LABS: ABG Base Excess 3.8 mmol/L (-2-2); ABG PCO2 51 mmHg (38-42); ABG PO2 85 mmHG (61-120)
--- NOTE | 2018-02-17 11:57 | P.DIET ---
Nutritional Evaluation Type of nutrition evaluation: initial Nutrition consult regarding: Tube Feeding Subjective Subjective Comments: Pt Assessment here uses guidelines for critically ill patients from [employer] and [employer]EN, for BMIs 30 and greater Objective - Diagnosis Acute Respiratory Distress, Subcutaneous - Objective Malone body weight: 81 kg % IBW: 171 Body Weight Used for Calculations: Actual (138 kg for Kcals and IBW 81 kg for Protein) Energy Needs - Lower Range (kCal/kg): 11 Energy Needs - Upper Range (kCal/kg): 14 Lower Limit kCal/kg (kCals): 1,518 Upper Limit kCal/kg (kCals): 1,932 Lower Limit Protein Factor (Grams per Kg): 1.7 Upper Limit Protein Factor (Grams per Kg): 1.9 Lower Protein Needs (Protein): 138 Upper Protein Needs (Protein): 154 Dietitian Reviewed in Medical Record: Curent medications, Intake & Output, Labs , Medical history, Tube feeding Diet Order: NPO Objective Comments: PMH Includes: AFib, Diastolic CHF, Diverticulitis, Fusion Lumbar Spine, High Cholesterol, HTN, Lung Nodule, Stroke Glucose 109 Meds include: Lipitor, Lasix, Neurontin, Lisinopril, Reglan, Metoprolol, Zofran , Aldactone Assessment Assessment: Pt is at nutrition risk r/t need for TF'ing. To best meet pt's needs for TF'ing , Rec TF'ing w/ Vital High Protein at goal rate 65ml/hr to offer 1560 kcal, 137g Protein and 1304ml free water. Additional Recs to follow r/t Clinical Course. Recommendations: 1. To best meet pt's needs for TF'ing, Rec TF'ing w/ Vital High Protein at goal rate 65ml/hr 2. Additional Recs to follow r/t Clinical Course Dietitian to Monitor: Lab values, Glucose level, Tube feeding tolerance, Weight change, Medical course
--- NOTE | 2018-02-17 15:56 | ECG ---
Date Performed: 02/16/2018 Time Performed: 16:35:48 PTAGE: 72 years EKG: ATRIAL FIBRILLATION WITH RAPID VENTRICULAR RESPONSE INDETERMINATE AXIS RIGHT BUNDLE BRANCH BLOCK ABNORMAL ECG Compared to PREVIOUS TRACING , ventricular response to the atrial fibrillation is more rapid, the rig ht bundle branch block is new. PREVIOUS TRACIN12/28/2017 13.44 DOCTOR: Fazal Vega Interpretating Date/Time 02/17/2018 15:55:16
[2018-02-17] MEDS: Morphine Sulfate Inj 2 MG/ML Vial IV.PUSH PRN ×2 (20:01→23:16)
--- NOTE | 2018-02-17 22:06 | XR ---
EXAM DATE: 02/17/2018 10:01 PM EDT AGE/SEX: 72 years / Male INDICATIONS: Short of breath CLINICAL DATA: This is the patient's subsequent encounter. Patient reports that signs and symptoms h ave been present for 4 - 6 days and indicates a pain score of 0/10. MEDICAL/SURGICAL HISTORY: . Hypertension. VDRF . Fusion, lumbar COMPARISON: [facility], CHEST 1V SINGLE AP, 02/17/2018. . FINDINGS: Slight cardiomegaly has not changed. There are postsurgical changes in lower thoracic spine . Focal consolidation is not seen. CONCLUSION: No acute cardiopulmonary disease. Electronically signed by: Jigar Rosas MD 02/17/2018 10:05 PM EDT
[2018-02-18] MEDS: Oral Hygiene Kit OROPHARYNG SCH ×3 (00:46→15:41)
[2018-02-18] MEDS: Chlorhexidine Gluconate 2% 1 Pack (2 Cloths) TOPICAL SCH (03:55)
[2018-02-18 04:36] LABS: Baso % (Auto) 0.3 % (0.0-2.0); Eos # (Auto) 0.1 th/mm3 (0.0-0.4); Eos % (Auto) 1.5 % (0.0-4.0); Hematocrit 37.9 % (39.0-51.0); Lymph # (Auto) 0.6 th/mm3 (1.0-4.8); Lymph % (Auto) 5.8 % (9.0-44.0); Mean Corpuscular HGB Conc 31.7 % (32.0-36.0); Mean Corpuscular Hemoglobin 27.7 pg (27.0-34.0); Mean Corpuscular Volume 87.5 fL (80.0-100.0); Mean Platelet Volume 8.7 fL (7.0-11.0); Neut % (Auto) 82.4 % (16.0-70.0); Platelet Count 163 th/mm3 (150-450); Red Blood Count 4.33 mil/mm3 (4.50-5.90); Red Cell Distribution Width 16.5 % (11.6-17.2); White Blood Count 9.7 th/mm3 (4.0-11.0)
[2018-02-18 04:53] LABS: Activated Partial Thrombo Time 21.3 sec (24.3-30.1); INR 1.1 Ratio; Prothrombin Time 10.7 sec (9.8-11.6)
[2018-02-18 05:05] LABS: Alanine Aminotransferase 21 U/L (12-78); Alkaline Phosphatase 100 U/L (45-117); Phosphorus 3.2 mg/dL (2.5-4.9); Total Protein 7.8 g/dL (6.4-8.2)
[2018-02-18 05:09] LABS: Albumin 2.5 g/dL (3.4-5.0); Anion Gap 7 meq/L (5-15); Aspartate Aminotransferase 28 U/L (15-37); Blood Urea Nitrogen 11 mg/dL (7-18); Calcium 8.7 mg/dL (8.5-10.1); Carbon Dioxide 29.5 meq/L (21.0-32.0); Chloride 102 meq/L (98-107); Glomerular Filtration Rate Greater Than 89 mL/min (>89); Glucose,Random 127 mg/dL (74-106); Magnesium 2.4 mg/dL (1.5-2.5); Sodium 138 meq/L (136-145)
[2018-02-18 05:15] LABS: Potassium 4.8 meq/L (3.5-5.1)
[2018-02-18] MEDS: Morphine Sulfate Inj 2 MG/ML Vial IV.PUSH PRN (05:33)
--- NOTE | 2018-02-18 07:02 | P.PNCC ---
Subjective Subjective Remarks/Hospital Course: 72-year-old gentleman is being admitted for an altered mental status. The patient usually sits on the porch in front of his house and today his neighbors noticed that he was not sitting there. So the initiated to investigate the situation and found the patient unresponsive at his home. Upon arrival to emergency department the patient was intubated by ED attending for an airway protection. CT of the brain revealed subcutaneous emphysema. Therefore, CT of the soft tissue neck and thorax was obtained. There was small amount of air in the pneumomediastinum as well as the neck, but no pneumothorax, differential includes traumatic intubation. 02/17 Patien tis intubated and sedated with Diprivan infusion. Afebrile. On Cardizem drip 5mg/hr. 02/18 Patient s/p extubation yesterday of Cardizem drip. Awake and alert. T:100.6 Objective Vital Signs / I&O: Vital Signs 02/17/18 07:00 02/17/18 07:15 02/17/18 07:30 Temperature Pulse Rate 97 H 101 H 102 H Respiratory Rate 18 18 18 Blood Pressure 112/75 116/74 120/70 Pulse Oximetry 95 95 96 02/17/18 07:45 02/17/18 08:00 02/17/18 08:15 Temperature 98.2 F Pulse Rate 96 H 101 H 97 H Respiratory Rate 18 18 18 Blood Pressure 110/66 104/72 104/70 Pulse Oximetry 97 97 97 02/17/18 08:30 02/17/18 08:45 02/17/18 09:00 Temperature Pulse Rate 99 H 98 H 98 H Respiratory Rate 18 18 18 Blood Pressure 114/74 111/76 99/58 L Pulse Oximetry 96 97 97 02/17/18 09:31 02/17/18 10:00 02/17/18 10:16 Temperature Pulse Rate 112 H 106 H 112 H Respiratory Rate 49 H 36 H 38 H Blood Pressure 155/87 H 123/100 H Pulse Oximetry 82 L 97 97 02/17/18 10:17 02/17/18 10:31 02/17/18 10:43 Temperature Pulse Rate 100 H 102 H Respiratory Rate 24 28 H Blood Pressure 165/89 H Pulse Oximetry 94 L 97 02/17/18 10:45 02/17/18 11:00 02/17/18 11:15 Temperature Pulse Rate 102 H 104 H 101 H Respiratory Rate 22 25 H 29 H Blood Pressure 151/79 H 153/74 H 134/74 Pulse Oximetry 97 99 98 02/17/18 11:30 02/17/18 12:00 02/17/18 12:01 Temperature 98 F Pulse Rate 105 H 101 H 105 H Respiratory Rate 23 29 H 32 H Blood Pressure 150/89 H 146/84 H Pulse Oximetry 98 93 L 69 L 02/17/18 12:30 02/17/18 13:00 02/17/18 14:00 Temperature Pulse Rate 106 H 110 H 114 H Respiratory Rate 32 H 25 H 27 H Blood Pressure 147/81 H 158/77 H 160/64 H Pulse Oximetry 92 L 82 L 02/17/18 14:31 02/17/18 15:00 02/17/18 15:30 Temperature Pulse Rate 115 H 119 H 117 H Respiratory Rate 26 H 25 H 36 H Blood Pressure 112/59 L 127/74 135/76 Pulse Oximetry 97 95 95 02/17/18 16:00 02/17/18 16:30 02/17/18 17:00 Temperature Pulse Rate 109 H 121 H 115 H Respiratory Rate 30 H 36 H 38 H Blood Pressure 122/74 169/80 H 169/73 H Pulse Oximetry 98 98 99 02/17/18 18:00 02/17/18 19:16 02/17/18 20:00 Temperature 99.4 F Pulse Rate 119 H 99 H 102 H Respiratory Rate 21 28 H Blood Pressure 153/69 H Pulse Oximetry 95 94 L 02/17/18 20:40 02/17/18 22:00 02/17/18 22:30 Temperature Pulse Rate 92 H Respiratory Rate Blood Pressure Pulse Oximetry 96 96 02/18/18 00:00 02/18/18 02:00 02/18/18 04:00 Temperature 100.6 F H 99.1 F Pulse Rate 96 H 96 H 98 H Respiratory Rate 22 23 Blood Pressure 149/88 H 172/94 H Pulse Oximetry 96 100 97 02/18/18 04:01 02/18/18 04:03 02/18/18 06:00 Temperature Pulse Rate 99 H 111 H Respiratory Rate 18 Blood Pressure Pulse Oximetry 96 Intake & Output 02/17/18 02/17/18 02/18/18 06:59 18:59 06:59 Intake Total 200 / 200 2410 / 2410 1060 / 1060 Output Total 375 / 375 1200 / 1200 1200 / 1200 Balance -175 / -175 1210 / 1210 -140 / -140 Weight 138.5 kg 138.5 kg Intake: IV 200 / 200 250 / 250 100 / 100 Diprivan 1000 mg/100 ml Inj 1, 100 / 100 70 / 70 000 mg In 100 ml @ 5 MCG/KG/MIN 4.082 mls/hr IV.CONT TITRATE PRN Rx#:[id number] Cardizem Inj 125 MG In NS Inj 80 / 80 100 ML @ 5 MG/HR 5 mls/hr IV. CONT TITRATE PRN Rx#:[id number] Rocephin Inj 1,000 MG In NS Inj 100 / 100 0 / 0 100 / 100 100 ML @ 200 mls/hr IV.SIG Q24H DICK Rx#:[id number] Oral 2160 / 2160 960 / 960 Output: Urine Amount (Catheter) 375 / 375 1200 / 1200 1200 / 1200 Indwelling Urethral Catheter 375 / 375 1200 / 1200 1200 / 1200 Other: # Incontinent Voids 1 Weight On Admission 138 kg Result Diagrams: 02/18/18 04:06 02/18/18 04:06 Other Results: Laboratory Results - last 12 hr 02/18/18 02/18/18 02/18/18 04:06 04:06 04:06 WBC 9.7 RBC 4.33 L Hgb 12.0 L Hct 37.9 L MCV 87.5 MCH 27.7 MCHC 31.7 L RDW 16.5 Plt Count 163 MPV 8.7 Neut % (Auto) 82.4 H Lymph % (Auto) 5.8 L [place] % (Auto) 10.0 H Eos % (Auto) 1.5 Baso % (Auto) 0.3 Neut # (Auto) 8.0 H Lymph # (Auto) 0.6 L [place] # (Auto) 1.0 H Eos # (Auto) 0.1 Baso # (Auto) 0.0 WBC Differential . Differential Comment Auto diff final PT 10.7 INR 1.1 APTT 21.3 L Sodium 138 Potassium 4.8 Chloride 102 Carbon Dioxide 29.5 Anion Gap 7 BUN 11 Creatinine 0.87 Estimated GFR Greater than 89 Random Glucose 127 H Calcium 8.7 D Phosphorus 3.2 Magnesium 2.4 Total Bilirubin 0.7 AST 28 ALT 21 Alkaline Phosphatase 100 Total Protein 7.8 D Albumin 2.5 L Imaging: Head CT 02/16/18 16:55 CONCLUSION: Subcu emphysema. Chest CT 02/16/18 20:54 CONCLUSION: 1. Small volume pneumomediastinum as well as subcutaneous emphysema involving the upper anterior chest. This could relate to a traumatic intubation. I see no hematoma within the mediastinum. 2. Cardiomegaly with significant coronary artery atherosclerotic calcifications. Soft Tissue Neck CT 02/16/18 20:54 CONCLUSION: 1. Bilateral submandibular stones. 2. Extensive subcutaneous emphysema dissecting into the mediastinum. Chest X-Ray 02/17/18 08:26 CONCLUSION: Left basilar atelectasis. Objective Remarks: GENERAL: Patient is 72 yo lying in bed in NAD SKIN: Warm and dry. HEAD: Normocephalic. EYES: No scleral icterus. No injection or drainage. NECK: Supple, trachea midline. No JVD or lymphadenopathy. CARDIOVASCULAR:Tachycardic no murmurs, gallops, or rubs. RESPIRATORY: Breath sounds equal bilaterally. No accessory muscle use. GASTROINTESTINAL: Abdomen soft, non-tender, nondistended. MUSCULOSKELETAL: No cyanosis, or edema. Neuro: Awake and alert Assessment and Plan - Assessment and Plan Plan: 1)Altered mental status 2)VDRF 3)Afib 4)Dyslipidemia 5)Diastolic congestive heart failure 6)Pneumomediastinum & subQ emphysema dissecting into the mediastinum. Likely 2nd traumatic intubation 7)UTI 8)Hypertension Plan Neuro: Awake and alert, avoid sedatives CT brain: no evidence for intracranial hemorrhage, mass effect, mass lesions Pulm: Continue with oxygen keep sats >92% Bronchodilators, IS NIPPV PRN for resp distress CV: Monitor HR and BP keep MAP>65mmgh On Cardizem 60mg QID, Lisinopril 20mg daily, increase Lopressor 50mg BID, CTS is following for Pneumomediastinum- likely 2nd traumatic intubation- No intervention needed, Lactic acid 1.6 For 2D echo to eval LV function. GI: On Protonix for GI prophylaxis, PO diet : Monitor renal function, electrolytes replacement per protocol. On Lasix 40mg IV daily ID: Continue with Rocephin monitor for signs of infections ( Fever, WBC) Follow up on blood and urine cxs- NGTD Heme: Monitor CBC Endo: SSI for glycemic control TSH: 8.9, FT4: 0.85, FT3: 3.59 DVT GI prophylaxis -Teds SCDs -Coumadin -Pantoprazole Will sign off and transfer care to [facility] Level 2
[2018-02-18] MEDS: Lisinopril 20 MG Tablet PO SCH (08:33)
[2018-02-18] MEDS: Furosemide 40 MG Tablet PO SCH (08:33)
[2018-02-18] MEDS: Gabapentin 300 MG Capsule PO SCH ×3 (08:33→19:04)
[2018-02-18] MEDS: Metoprolol Tartrate 25 MG Tablet PO SCH ×2 (08:33→20:33)
[2018-02-18] MEDS: Pantoprazole Sodium 20 MG DR Tablet PO SCH (08:33)
[2018-02-18] MEDS: Venlafaxine XR 75 MG Capsule PO SCH (08:34)
[2018-02-18] MEDS: Chlorhexidine 0.12% Oral Kit 15 ML UDC OROPHARYNG SCH ×2 (08:34→19:47)
[2018-02-18] MEDS: Spironolactone 25 MG Tablet PO SCH (08:34)
[2018-02-18] MEDS: dilTIAZem 60 MG Tablet PO SCH ×3 (08:34→19:04)
[2018-02-18] MEDS: Senna/Docusate Sodium 8.6/50 MG Tablet PO SCH ×2 (08:34→20:34)
--- NOTE | 2018-02-18 17:31 | ECHRPT ---
Indication: HEART FAILURE CONCLUSIONS Normal left ventricular size. Wall thickness is normal. The left ventricular systolic function is low normal with an estimated ejection fraction in the rang e of 50%. Mitral annular calcification is present. Trace mitral valve regurgitation. Trace aortic valve regurgitation. There is trace tricuspid valve regurgitation. The estimated pulmonary arterial pressure is 62.3 mmHg. BP: / HR: Rhythm: MEASUREMENTS (Male / Female) Normal Values Technical Quality: 2D ECHO LV Diastolic Diameter PLAX 5.2 cm 4.2 - 5.9 / 3.9 - 5.3 cm LV Systolic Diameter PLAX 3.6 cm IVS Diastolic Thickness 1.3 cm 0.6 - 1.0 / 0.6 - 0.9 cm LVPW Diastolic Thickness 1.2 cm 0.6 - 1.0 / 0.6 - 0.9 cm LV Relative Wall Thickness 0.5 LVOT Diameter 2.1 cm LA Systolic Diameter LX 3.7 cm 3.0 - 4.0 / 2.7 - 3.8 cm M-MODE AV Cusp Separation MM 2.1 cm DOPPLER AV Peak Velocity 112.0 cm/s AV Peak Gradient 5.0 mmHg AI Peak Velocity 381.0 cm/s AI Peak Gradient 58.1 mmHg AI Pressure Half Time 554.0 ms LVOT Peak Velocity 105.0 cm/s LVOT Peak Gradient 4.4 mmHg AV Area Cont Eq pk 3.2 cm Mitral E Point Velocity 101.0 cm/s LV E' Lateral Velocity 12.4 cm/s Mitral E to LV E' Lateral Ratio 8.1 LV E' Septal Velocity 6.8 cm/s Mitral E to LV E' Septal Ratio 14.8 TR Peak Velocity 344.0 cm/s TR Peak Gradient 47.3 mmHg Right Atrial Pressure 15.0 mmHg Pulmonary Artery Systolic Pressu 62.3 mmHg Right Ventricular Systolic Press 62.3 mmHg PV Peak Velocity 92.3 cm/s PV Peak Gradient 3.4 mmHg FINDINGS LEFT VENTRICLE Normal left ventricular size. Wall thickness is normal. The left ventricular systolic function is low normal with an estimated ejection fraction in the rang e of 50%. RIGHT VENTRICLE Normal right ventricular size and systolic function. LEFT ATRIUM The left atrial size is normal. RIGHT ATRIUM The right atrial size is normal. ATRIAL SEPTUM Normal atrial septal thickness without atrial level shunting by limited color doppler interrogation. AORTA The aortic root and proximal ascending aorta are normal in size on limited imaging. MITRAL VALVE Mitral annular calcification is present. Trace mitral valve regurgitation. AORTIC VALVE Trace aortic valve regurgitation. TRICUSPID VALVE There is trace tricuspid valve regurgitation. The estimated pulmonary arterial pressure is 62.3 mmHg. PULMONARY VALVE No pulmonary valve regurgitation or stenosis. VESSELS The inferior vena cava is normal in size. PERICARDIUM No pericardial effusion. Michael Torre MD, FACC, [facility] [place] (Electronically Signed) Final Date:18 February 2018 17:30
--- NOTE | 2018-02-18 18:30 | MB ---
cc: Malachi Whiteside MD, Alaa MD DATE: 02/18/2018 REQUESTING PHYSICIAN: Saud Gonzalez MD REASON FOR CONSULTATION: COPD exacerbation. HISTORY OF PRESENT ILLNESS: Mr. Chatterjee is a 72-year-old obese male with a history of COPD. He does not take any breathing treatments at home. The patient was brought to the hospital because of altered mental status. He was found unresponsive. The neighbors did not see him sitting on the porch and they called the police. The patient was brought unresponsive. He was intubated. Now, he has been extubated. He states that he passed out, but does not remember anything before passing out or how he passed out. He does not remember any fall. Denies any chest pain. No fever or chills. No night sweats. No nausea or vomiting. The patient was brought to the hospital. He was intubated and now he has been extubated. His CT scan of the brain shows mild subcutaneous emphysema and CT scan of the chest with mild subcutaneous mediastinal emphysema. LABORATORY DATA: His CBC shows WBC count 9.7, hemoglobin 12.2, hematocrit 37.9, MCV 87, platelet count 163. INR is 1.1. Sodium 138, potassium 4.8, chloride 102, CO2 of 29, BUN 11, creatinine 0.87. His blood gas on 40% CPAP, pH of 7.37, pCO2 of 51, pO2 of 85, bicarbonate 29. PAST MEDICAL HISTORY: Significant for a history of hypertension, COPD, history of prostate surgery, no malignancy. MEDICATIONS: He is chronically takin. Albuterol and Atrovent nebulizer treatments. 2. Lipitor 40 mg a day. 3. Rocephin 1 gram a day. 4. Diltiazem 60 mg 3 times a day. 5. Lasix 40 mg a day. 6. Neurontin 900 mg 3 times a day. 7. Lactulose p.o. 8. Lisinopril 20 mg a day. 9. Metoprolol 50 mg twice a day. 10. Morphine p.r.n. 11. Effexor 75 mg a day. 12. Aldactone 25 mg a day. ALLERGIES: HE IS ALLERGIC TO CONTRAST MEDIA. SOCIAL HISTORY: He is single, never . He is retired. He has a long history of smoking and continues to smoke 1 pack of cigarettes a day. He used to drink and use opioids before. FAMILY HISTORY: He has 2 children and has a brother and sister. REVIEW OF SYSTEMS: He lives alone. Normally, he is active. Weight is stable. No DVT, pulmonary embolism. No seizure, stroke or epilepsy. No malignancy. PHYSICAL EXAMINATION: GENERAL: A well-built, well-nourished man not in any acute distress. VITAL SIGNS: Blood pressure 154/96, heart rate 100, respirations 24, temperature 98. HEENT: Pupils are equal and reactive to light. He has bilateral cataracts. Oral mucosa and nasal mucosa normal. NECK: Supple. No JVD noted. CHEST: Equal bilaterally. No rhonchi. CARDIOVASCULAR: S1, S2 normal. ABDOMEN: Benign. EXTREMITIES: Trace pedal edema. IMPRESSION: 1. Chronic obstructive pulmonary disease. 2. Altered mental status, resolved. 3. Respiratory failure, status post extubation. 4. Hypertension. 5. Nicotine use. PLAN: I advised him strongly to quit smoking. We will give him aerosol treatments and supplement his oxygen. I will check his pulmonary function studies. I will also check his oxygen walk test to see if he is going to benefit by home oxygen therapy. Monitor his blood pressure. Further treatment will depend on his course in the hospital. Thank you, Dr. Gonzalez, for this consult. MD SAÚL Gordon/alisson , 05:40 PM , 05:52 PM
--- NOTE | 2018-02-18 21:43 | ECG ---
Date Performed: 02/17/2018 Time Performed: 09:55:04 PTAGE: 72 years EKG: ATRIAL FIBRILLATION WITH RAPID VENTRICULAR RESPONSE NONSPECIFIC ST & T-WAVE ABNORMALITY ABN ORMAL RHYTHM ECG PREVIOUS TRACING : 02/17/2018 03.58 No significant change from previous tracing noted. DOCTOR: Oliver Christiansen Interpretating Date/Time 02/18/2018 21:42:18
--- NOTE | 2018-02-18 21:43 | ECG ---
Date Performed: 02/17/2018 Time Performed: 03:58:52 PTAGE: 72 years EKG: ATRIAL FIBRILLATION WITH RAPID VENTRICULAR RESPONSE POSSIBLE ARM LEAD REVERSAL ABNORMAL ECG NO PREVIOUS TRACING DOCTOR: Oliver Christiansen Interpretating Date/Time 02/18/2018 21:42:50
[2018-02-19] MEDS: Oral Hygiene Kit OROPHARYNG SCH ×4 (00:02→17:04)
[2018-02-19] MEDS: Chlorhexidine Gluconate 2% 1 Pack (2 Cloths) TOPICAL SCH (04:06)
[2018-02-19 06:19] LABS: Baso % (Auto) 0.4 % (0.0-2.0); Eos # (Auto) 0.1 th/mm3 (0.0-0.4); Eos % (Auto) 1.3 % (0.0-4.0); Hemoglobin 12.5 gm/dL (13.0-17.0); Lymph # (Auto) 0.5 th/mm3 (1.0-4.8); Lymph % (Auto) 6.3 % (9.0-44.0); Mean Corpuscular Hemoglobin 28.4 pg (27.0-34.0); Mean Platelet Volume 9.2 fL (7.0-11.0); Mono # (Auto) 0.6 th/mm3 (0.0-0.9); Mono % (Auto) 7.5 % (0.0-8.0); Neut # (Auto) 7.2 th/mm3 (1.8-7.7); Neut % (Auto) 84.5 % (16.0-70.0); Platelet Count 155 th/mm3 (150-450); Red Blood Count 4.42 mil/mm3 (4.50-5.90); Red Cell Distribution Width 16.4 % (11.6-17.2); White Blood Count 8.5 th/mm3 (4.0-11.0)
[2018-02-19 06:23] LABS: Prothrombin Time 10.6 sec (9.8-11.6)
[2018-02-19 06:50] LABS: Alanine Aminotransferase 19 U/L (12-78); Albumin 2.6 g/dL (3.4-5.0); Anion Gap 8 meq/L (5-15); Aspartate Aminotransferase 17 U/L (15-37); Blood Urea Nitrogen 11 mg/dL (7-18); Calcium 9.2 mg/dL (8.5-10.1); Carbon Dioxide 31.3 meq/L (21.0-32.0); Chloride 101 meq/L (98-107); Glomerular Filtration Rate Greater Than 89 mL/min (>89); Glucose,Random 107 mg/dL (74-106); Potassium 4.4 meq/L (3.5-5.1); Sodium 140 meq/L (136-145)
[2018-02-19 06:52] LABS: Alkaline Phosphatase 104 U/L (45-117); Total Protein 8.2 g/dL (6.4-8.2)
[2018-02-19] MEDS: Furosemide 40 MG Tablet PO SCH (08:08)
[2018-02-19] MEDS: Gabapentin 300 MG Capsule PO SCH ×3 (08:08→17:04)
[2018-02-19] MEDS: Spironolactone 25 MG Tablet PO SCH (08:09)
[2018-02-19] MEDS: dilTIAZem 60 MG Tablet PO SCH ×3 (08:09→17:04)
[2018-02-19] MEDS: Lisinopril 20 MG Tablet PO SCH (08:09)
[2018-02-19] MEDS: Chlorhexidine 0.12% Oral Kit 15 ML UDC OROPHARYNG SCH ×2 (08:09→21:17)
[2018-02-19] MEDS: Pantoprazole Sodium 20 MG DR Tablet PO SCH (08:09)
[2018-02-19] MEDS: Venlafaxine XR 75 MG Capsule PO SCH (08:09)
[2018-02-19] MEDS: Senna/Docusate Sodium 8.6/50 MG Tablet PO SCH ×2 (08:09→21:22)
[2018-02-19] MEDS: Metoprolol Tartrate 25 MG Tablet PO SCH (08:09)
--- NOTE | 2018-02-19 09:13 | P.PNIM ---
Subjective Interval history: Patient has no complaints. Asking to be transfer out of the ICU. Denies any pain, shortness of breathing, chest pain, palpitations. No acute events overnight. Discussed case with patient's nurse. Physical Exam Vital signs: Vital Signs 02/18/18 10:00 02/18/18 10:01 02/18/18 10:02 Temperature Pulse Rate 96 H 92 H 94 H Respiratory Rate 22 20 Blood Pressure 114/64 Pulse Oximetry 98 99 02/18/18 11:00 02/18/18 11:06 02/18/18 12:00 Temperature Pulse Rate 84 84 78 Respiratory Rate 17 21 17 Blood Pressure 127/72 125/62 Pulse Oximetry 99 99 94 L 02/18/18 13:00 02/18/18 14:00 02/18/18 14:45 Temperature Pulse Rate 83 87 91 H Respiratory Rate 18 17 16 Blood Pressure 144/79 H Pulse Oximetry 02/18/18 15:00 02/18/18 16:00 02/18/18 16:01 Temperature Pulse Rate 93 H 101 H 100 H Respiratory Rate 17 34 H 24 Blood Pressure 154/81 H 154/96 H Pulse Oximetry 02/18/18 17:02 02/18/18 18:00 02/18/18 20:00 Temperature 98.1 F Pulse Rate 84 88 84 Respiratory Rate 20 18 Blood Pressure 110/60 Pulse Oximetry 02/18/18 21:07 02/18/18 21:32 02/18/18 22:00 Temperature Pulse Rate 92 H 84 Respiratory Rate 18 Blood Pressure Pulse Oximetry 98 99 02/18/18 23:20 02/19/18 00:00 02/19/18 02:00 Temperature Pulse Rate 90 105 H Respiratory Rate 22 Blood Pressure 136/81 Pulse Oximetry 98 100 02/19/18 04:00 02/19/18 04:51 02/19/18 06:00 Temperature Pulse Rate 104 H 95 H 98 H Respiratory Rate 22 19 Blood Pressure 150/89 H Pulse Oximetry 100 99 02/19/18 08:00 02/19/18 08:08 02/19/18 08:11 Temperature 98.5 F Pulse Rate 112 H 110 H 110 H Respiratory Rate 22 21 19 Blood Pressure 189/84 H 166/81 H Pulse Oximetry 97 96 96 02/19/18 08:13 02/19/18 08:15 02/19/18 08:20 Temperature Pulse Rate 106 H 111 H 107 H Respiratory Rate 21 30 H 26 H Blood Pressure 171/94 H 172/108 H 156/83 H Pulse Oximetry 98 96 95 02/19/18 08:30 02/19/18 08:34 Temperature Pulse Rate 113 H 108 H Respiratory Rate 21 14 Blood Pressure 141/88 H Pulse Oximetry 95 96 Intake & Output 02/18/18 02/19/18 02/19/18 18:59 06:59 18:59 Intake Total 580 / 580 Output Total 800 / 800 700 / 700 Balance -800 / -800 -120 / -120 Weight 136 kg Intake: IV 100 / 100 Rocephin Inj 1,000 MG In NS Inj 100 / 100 100 ML @ 200 mls/hr IV.SIG Q24H DICK Rx#:[id number] Oral 480 / 480 Output: Urine 800 / 800 700 / 700 Other: Date of Last Bowel Movement 02/18/18 02/19/18 02/19/18 # Bowel Movements 3 1 - Constitutional no acute distress - Routine HEENT Exam Head: Present: normocephalic - Routine Neck Exam Present: supple, full ROM - Routine Respiratory Exam Present: CTA bilaterally - Routine Cardiovascular Exam Present: irregularly irregular Comments: No rubs murmurs or gallops. - Routine Abdominal Exam Present: soft, normoactive bowel sounds Comments: Negative for any tenderness palpation. - Urinary Catheter Management Indwelling Urethral Catheter Cath placed during this visit: yes, but has since been removed by the nurse Reason for continuing: Continue criteria not met Insertion date: 02/16/18 Insertion time: 16:00 Removal date: 02/18/18 Removal time: 05:15 Results - Labs CBC & Chem 7: 02/19/18 05:17 02/19/18 05:17 Laboratory Results - last 24 hr 02/19/18 02/19/18 02/19/18 05:17 05:17 05:17 WBC 8.5 RBC 4.42 L Hgb 12.5 L Hct 38.0 L MCV 86.0 MCH 28.4 MCHC 33.0 RDW 16.4 Plt Count 155 MPV 9.2 Neut % (Auto) 84.5 H Lymph % (Auto) 6.3 L [place] % (Auto) 7.5 Eos % (Auto) 1.3 Baso % (Auto) 0.4 Neut # (Auto) 7.2 Lymph # (Auto) 0.5 L [place] # (Auto) 0.6 Eos # (Auto) 0.1 Baso # (Auto) 0.0 WBC Differential . Differential Comment Auto diff final PT 10.6 INR 1.0 Sodium 140 Potassium 4.4 Chloride 101 Carbon Dioxide 31.3 Anion Gap 8 BUN 11 Creatinine 0.78 Estimated GFR Greater than 89 Random Glucose 107 H Calcium 9.2 Phosphorus 3.0 Magnesium 2.0 Total Bilirubin 0.7 AST 17 ALT 19 Alkaline Phosphatase 104 Total Protein 8.2 Albumin 2.6 L Microbiology 02/16/18 17:05 Clean Catch Urine Urine Culture - Final No growth in 48 hours 02/16/18 17:54 Blood - Peripheral Aerobic Blood Culture - Preliminary No growth in 2 days 02/16/18 17:54 Blood - Peripheral Anaerobic Blood Culture - Final QNS - See aerobic report. 02/16/18 17:55 Blood - Peripheral Aerobic Blood Culture - Preliminary No growth in 2 days 02/16/18 17:55 Blood - Peripheral Anaerobic Blood Culture - Preliminary No growth in 2 days Assessment and Plan - Plan This is a 72-year-old male with history of CHF, atrial fibrillation, and hypertension who presented with altered mental status Altered mental status -CT scan show no evidence for intracranial hemorrhage mass-effect or mass lesions. -Most likely secondary to overdose with opioids. -Resolved. Afib -Improved. -Continue with current regimen. -On Cardizem 60mg QID, Lisinopril 20mg daily, increase Lopressor 75mg BID, Pneumomediastinum & subQ emphysema dissecting into the mediastinum. -CT surgery is following. Most likely secondary to traumatic intubation. Stable and asymptomatic. Likely 2nd traumatic intubation Hypertension/Dyslipidemia/Diastolic congestive heart failure -Continue current regimen. GI prophylaxis -On Protonix. Asymptomatic bacteriuria -Continue with Rocephin monitor for signs of infections ( Fever, WBC) -Follow up on blood and urine cxs- NGTD DVT GI prophylaxis -Teds SCDs -Coumadin -Pantoprazole
[2018-02-19] MEDS ORDERED: Metoprolol Tartrate 25 MG Tablet PO ONE (09:15)
--- NOTE | 2018-02-19 11:06 | P.PNPL ---
Subjective Interval history: 72 YO AA male with RF, s/p extubation Weaned to RA Breathing better Denies sob no CP Physical Exam Vital signs: Vital Signs 02/18/18 11:06 02/18/18 12:00 02/18/18 13:00 Temperature Pulse Rate 84 78 83 Respiratory Rate 21 17 18 Blood Pressure 125/62 Pulse Oximetry 99 94 L 02/18/18 14:00 02/18/18 14:45 02/18/18 15:00 Temperature Pulse Rate 87 91 H 93 H Respiratory Rate 17 16 17 Blood Pressure 144/79 H 154/81 H Pulse Oximetry 02/18/18 16:00 02/18/18 16:01 02/18/18 17:02 Temperature Pulse Rate 101 H 100 H 84 Respiratory Rate 34 H 24 20 Blood Pressure 154/96 H Pulse Oximetry 02/18/18 18:00 02/18/18 20:00 02/18/18 21:07 Temperature 98.1 F Pulse Rate 88 84 92 H Respiratory Rate 18 18 Blood Pressure 110/60 Pulse Oximetry 98 02/18/18 21:32 02/18/18 22:00 02/18/18 23:20 Temperature Pulse Rate 84 Respiratory Rate Blood Pressure Pulse Oximetry 99 98 02/19/18 00:00 02/19/18 02:00 02/19/18 04:00 Temperature Pulse Rate 90 105 H 104 H Respiratory Rate 22 22 Blood Pressure 136/81 150/89 H Pulse Oximetry 100 100 02/19/18 04:51 02/19/18 06:00 02/19/18 08:00 Temperature 98.5 F Pulse Rate 95 H 98 H 112 H Respiratory Rate 19 22 Blood Pressure Pulse Oximetry 99 97 02/19/18 08:08 02/19/18 08:11 02/19/18 08:13 Temperature Pulse Rate 110 H 110 H 106 H Respiratory Rate 21 19 21 Blood Pressure 189/84 H 166/81 H 171/94 H Pulse Oximetry 96 96 98 02/19/18 08:15 02/19/18 08:20 02/19/18 08:30 Temperature Pulse Rate 111 H 107 H 113 H Respiratory Rate 30 H 26 H 21 Blood Pressure 172/108 H 156/83 H 141/88 H Pulse Oximetry 96 95 95 02/19/18 08:34 Temperature Pulse Rate 108 H Respiratory Rate 14 Blood Pressure Pulse Oximetry 96 Intake & Output 02/18/18 02/19/18 02/19/18 18:59 06:59 18:59 Intake Total 580 / 580 Output Total 800 / 800 700 / 700 Balance -800 / -800 -120 / -120 Weight 136 kg Intake: IV 100 / 100 Rocephin Inj 1,000 MG In NS Inj 100 / 100 100 ML @ 200 mls/hr IV.SIG Q24H DICK Rx#:[id number] Oral 480 / 480 Output: Urine 800 / 800 700 / 700 Other: Date of Last Bowel Movement 02/18/18 02/19/18 02/19/18 # Bowel Movements 3 1 GENERAL: WBWN AA male, NAD SKIN: Warm and dry. HEAD: Normocephalic. EYES: No scleral icterus. No injection or drainage. NECK: Supple, trachea midline. No JVD or lymphadenopathy. CARDIOVASCULAR: Regular rate and rhythm without murmurs, gallops, or rubs. RESPIRATORY: Breath sounds equal bilaterally. No accessory muscle use. GASTROINTESTINAL: Abdomen soft, non-tender, nondistended. MUSCULOSKELETAL: No cyanosis, or edema. BACK: Nontender without obvious deformity. No CVA tenderness. - Urinary Catheter Management Indwelling Urethral Catheter Cath placed during this visit: yes, but has since been removed by the nurse Reason for continuing: Continue criteria not met Insertion date: 02/16/18 Insertion time: 16:00 Removal date: 02/18/18 Removal time: 05:15 Assessment and Plan - Plan IMPRESSION: 1. Chronic obstructive pulmonary disease. 2. Altered mental status, resolved. 3. Respiratory failure, status post extubation. 4. Hypertension. 5. Nicotine use. PLAN: Aerosol nebs PFT Symbicort 2 puffs bid Diurease with lasix Stable to tr to floor
[2018-02-19] MEDS: Metoprolol Tartrate 50 MG Tablet PO SCH (21:21)
[2018-02-20] MEDS: Oral Hygiene Kit OROPHARYNG SCH ×4 (01:09→17:14)
[2018-02-20] MEDS: Chlorhexidine Gluconate 2% 1 Pack (2 Cloths) TOPICAL SCH (03:08)
[2018-02-20] MEDS: Chlorhexidine 0.12% Oral Kit 15 ML UDC OROPHARYNG SCH ×2 (08:35→19:52)
[2018-02-20] MEDS: Lisinopril 20 MG Tablet PO SCH (08:36)
[2018-02-20] MEDS: Metoprolol Tartrate 50 MG Tablet PO SCH ×2 (08:36→20:07)
[2018-02-20] MEDS: Senna/Docusate Sodium 8.6/50 MG Tablet PO SCH ×2 (08:37→20:07)
[2018-02-20] MEDS: dilTIAZem 60 MG Tablet PO SCH ×3 (08:37→17:14)
[2018-02-20] MEDS: Furosemide 40 MG Tablet PO SCH (08:37)
[2018-02-20] MEDS: Gabapentin 300 MG Capsule PO SCH ×3 (08:37→17:14)
[2018-02-20] MEDS: Pantoprazole Sodium 20 MG DR Tablet PO SCH (08:37)
[2018-02-20] MEDS: Spironolactone 25 MG Tablet PO SCH (08:37)
[2018-02-20] MEDS: Venlafaxine XR 75 MG Capsule PO SCH (08:37)
[2018-02-20 09:14] LABS: Baso % (Auto) 0.5 % (0.0-2.0); Eos # (Auto) 0.1 th/mm3 (0.0-0.4); Eos % (Auto) 1.6 % (0.0-4.0); Hematocrit 39.5 % (39.0-51.0); Hemoglobin 13.1 gm/dL (13.0-17.0); Lymph # (Auto) 0.6 th/mm3 (1.0-4.8); Lymph % (Auto) 8.9 % (9.0-44.0); Mean Corpuscular HGB Conc 33.2 % (32.0-36.0); Mean Corpuscular Hemoglobin 28.2 pg (27.0-34.0); Mean Platelet Volume 8.9 fL (7.0-11.0); Mono # (Auto) 0.8 th/mm3 (0.0-0.9); Mono % (Auto) 11.9 % (0.0-8.0); Neut # (Auto) 5.4 th/mm3 (1.8-7.7); Neut % (Auto) 77.1 % (16.0-70.0); Platelet Count 169 th/mm3 (150-450); Red Blood Count 4.65 mil/mm3 (4.50-5.90); Red Cell Distribution Width 16.5 % (11.6-17.2)
[2018-02-20 09:22] LABS: Prothrombin Time 10.6 sec (9.8-11.6)
[2018-02-20 09:30] LABS: Albumin 2.7 g/dL (3.4-5.0); Anion Gap 9 meq/L (5-15); Aspartate Aminotransferase 21 U/L (15-37); Blood Urea Nitrogen 11 mg/dL (7-18); Calcium 9.1 mg/dL (8.5-10.1); Chloride 99 meq/L (98-107); Glomerular Filtration Rate Greater Than 89 mL/min (>89); Glucose,Random 102 mg/dL (74-106); Magnesium 1.8 mg/dL (1.5-2.5); Potassium 3.8 meq/L (3.5-5.1); Sodium 138 meq/L (136-145)
[2018-02-20 09:31] LABS: Alanine Aminotransferase 19 U/L (12-78); Phosphorus 2.8 mg/dL (2.5-4.9)
[2018-02-20 09:33] LABS: Alkaline Phosphatase 119 U/L (45-117); Total Protein 8.7 g/dL (6.4-8.2)
--- NOTE | 2018-02-20 09:40 | P.PNCV ---
- Note Subjective/Hospital Course: clinically and radiographically better No PTX Will sign off Objective: Vital Signs - 24 hr 02/19/18 10:00 02/19/18 11:00 02/19/18 12:00 Temperature Pulse Rate 101 H 84 Respiratory Rate 21 Blood Pressure 163/88 H Pulse Oximetry 94 L 94 L 94 L 02/19/18 12:01 02/19/18 15:49 02/19/18 16:00 Temperature 98.1 F Pulse Rate 86 80 106 H Respiratory Rate 23 16 18 Blood Pressure 129/73 158/82 H Pulse Oximetry 92 L 95 02/19/18 18:02 02/19/18 20:00 02/19/18 21:02 Temperature 97.9 F Pulse Rate 94 H 86 93 H Respiratory Rate 17 18 Blood Pressure 154/84 H Pulse Oximetry 95 96 02/20/18 00:00 02/20/18 04:00 02/20/18 04:12 Temperature 98.1 F 98.4 F Pulse Rate 90 104 H 94 H Respiratory Rate 18 19 16 Blood Pressure 164/85 H 156/98 H Pulse Oximetry 93 L 94 L 02/20/18 08:03 Temperature Pulse Rate 62 Respiratory Rate 20 Blood Pressure Pulse Oximetry 95 Labs: Laboratory Results - last 12 hr 02/20/18 02/20/18 02/20/18 08:16 08:16 08:16 WBC 7.0 RBC 4.65 Hgb 13.1 Hct 39.5 MCV 85.0 MCH 28.2 MCHC 33.2 RDW 16.5 Plt Count 169 MPV 8.9 Neut % (Auto) 77.1 H Lymph % (Auto) 8.9 L [place] % (Auto) 11.9 H Eos % (Auto) 1.6 Baso % (Auto) 0.5 Neut # (Auto) 5.4 Lymph # (Auto) 0.6 L [place] # (Auto) 0.8 Eos # (Auto) 0.1 Baso # (Auto) 0.0 WBC Differential . Differential Comment Auto diff final PT 10.6 INR 1.0 Sodium 138 Potassium 3.8 Chloride 99 Carbon Dioxide 30.0 Anion Gap 9 BUN 11 Creatinine 0.76 Estimated GFR Greater than 89 Random Glucose 102 Calcium 9.1 Phosphorus 2.8 Magnesium 1.8 Total Bilirubin 0.7 AST 21 ALT 19 Alkaline Phosphatase 119 H Total Protein 8.7 H Albumin 2.7 L Result Diagrams: 02/20/18 08:16 02/20/18 08:16
--- NOTE | 2018-02-20 12:30 | P.PNIM ---
Subjective Interval history: Patient says he is feeling right. Denies any chest pain or shortness of breath. Denies nausea or vomiting. Says he does feel a little weak. Physical Exam Vital signs: Vital Signs 02/19/18 15:49 02/19/18 16:00 02/19/18 18:02 Temperature 98.1 F Pulse Rate 80 106 H 94 H Respiratory Rate 16 18 Blood Pressure 158/82 H Pulse Oximetry 95 02/19/18 20:00 02/19/18 21:02 02/20/18 00:00 Temperature 97.9 F 98.1 F Pulse Rate 86 93 H 90 Respiratory Rate 17 18 18 Blood Pressure 154/84 H 164/85 H Pulse Oximetry 95 96 93 L 02/20/18 04:00 02/20/18 04:12 02/20/18 08:00 Temperature 98.4 F 98.4 F Pulse Rate 104 H 94 H 80 Respiratory Rate 19 16 18 Blood Pressure 156/98 H 152/92 H Pulse Oximetry 94 L 95 02/20/18 08:03 Temperature Pulse Rate 62 Respiratory Rate 20 Blood Pressure Pulse Oximetry 95 Intake & Output 02/19/18 02/20/18 02/20/18 18:59 06:59 18:59 Intake Total 600 / 600 Balance 600 / 600 Weight 134.7 kg 135.1 kg Intake: Oral 600 / 600 Other: # Voids 2 Date of Last Bowel Movement 02/19/18 02/19/18 # Bowel Movements 1 Narrative: GENERAL: Patient sitting up in bed. Appears comfortable. SKIN: Warm and dry. HEAD: Normocephalic. EYES: No scleral icterus. No injection or drainage. NECK: Supple, trachea midline. No JVD. CARDIOVASCULAR: Regular rate and rhythm without murmurs, gallops, or rubs. RESPIRATORY: Breath sounds equal bilaterally. No accessory muscle use. GASTROINTESTINAL: Abdomen soft, non-tender, nondistended. MUSCULOSKELETAL: No cyanosis, or edema. BACK: Nontender without obvious deformity. No CVA tenderness. - Urinary Catheter Management Indwelling Urethral Catheter Cath placed during this visit: yes, but has since been removed by the nurse Reason for continuing: Continue criteria not met Insertion date: 02/16/18 Insertion time: 16:00 Removal date: 02/18/18 Removal time: 05:15 Results - Labs CBC & Chem 7: 02/20/18 08:16 02/20/18 08:16 Laboratory Results - last 24 hr 02/20/18 02/20/18 02/20/18 08:16 08:16 08:16 WBC 7.0 RBC 4.65 Hgb 13.1 Hct 39.5 MCV 85.0 MCH 28.2 MCHC 33.2 RDW 16.5 Plt Count 169 MPV 8.9 Neut % (Auto) 77.1 H Lymph % (Auto) 8.9 L [place] % (Auto) 11.9 H Eos % (Auto) 1.6 Baso % (Auto) 0.5 Neut # (Auto) 5.4 Lymph # (Auto) 0.6 L [place] # (Auto) 0.8 Eos # (Auto) 0.1 Baso # (Auto) 0.0 WBC Differential . Differential Comment Auto diff final PT 10.6 INR 1.0 Sodium 138 Potassium 3.8 Chloride 99 Carbon Dioxide 30.0 Anion Gap 9 BUN 11 Creatinine 0.76 Estimated GFR Greater than 89 Random Glucose 102 Calcium 9.1 Phosphorus 2.8 Magnesium 1.8 Total Bilirubin 0.7 AST 21 ALT 19 Alkaline Phosphatase 119 H Total Protein 8.7 H Albumin 2.7 L Microbiology 02/16/18 17:54 Blood - Peripheral Aerobic Blood Culture - Preliminary No growth in 4 days 02/16/18 17:54 Blood - Peripheral Anaerobic Blood Culture - Final QNS - See aerobic report. 02/16/18 17:55 Blood - Peripheral Aerobic Blood Culture - Preliminary No growth in 4 days 02/16/18 17:55 Blood - Peripheral Anaerobic Blood Culture - Preliminary No growth in 4 days Assessment and Plan - Plan This is a 72-year-old male with history of CHF, atrial fibrillation, and hypertension who presented with altered mental status //Altered mental status -CT scan show no evidence for intracranial hemorrhage mass-effect or mass lesions. -Most likely secondary to overdose with opioids. -Resolved. = Coumadin secondary to gabapentin. Will decrease gabapentin dose. //Generalized weakness. Patient may benefit from rehab. Will consult PT/OT. //Afib -Improved. -Continue with current regimen. -On Cardizem 60mg QID, Lisinopril 20mg daily, increase Lopressor 75mg BID, //Pneumomediastinum & subQ emphysema dissecting into the mediastinum. -CT surgery is following. Most likely secondary to traumatic intubation. Stable and asymptomatic. Likely 2nd traumatic intubation -CBC has signed off. Appreciate assistance. //Hypertension/Dyslipidemia/Diastolic congestive heart failure -Continue current regimen. = Bilateral lower extremity edema. Will check BnP. //GI prophylaxis -On Protonix. //Asymptomatic bacteriuria -Continue with Rocephin monitor for signs of infections ( Fever, WBC) -Follow up on blood and urine cxs- NGTD //DVT GI prophylaxis -Teds SCDs -Coumadin -Pantoprazole Discharge Planning: Pending PT/OT eval. Patient may benefit from rehab.
--- NOTE | 2018-02-20 19:09 | P.PNPL ---
Subjective Interval history: 72 YO AA male with RF, s/p extubation Breathing better Denies sob no CP Weaned to RA Physical Exam Vital signs: Vital Signs 02/19/18 20:00 02/19/18 21:02 02/20/18 00:00 Temperature 97.9 F 98.1 F Pulse Rate 86 93 H 90 Respiratory Rate 17 18 18 Blood Pressure 154/84 H 164/85 H Pulse Oximetry 95 96 93 L 02/20/18 04:00 02/20/18 04:12 02/20/18 08:00 Temperature 98.4 F 98.4 F Pulse Rate 104 H 94 H 80 Respiratory Rate 19 16 18 Blood Pressure 156/98 H 152/92 H Pulse Oximetry 94 L 95 02/20/18 08:03 02/20/18 12:00 02/20/18 15:31 Temperature 98.2 F Pulse Rate 62 83 78 Respiratory Rate 20 18 18 Blood Pressure 126/78 Pulse Oximetry 95 92 L 93 L 02/20/18 16:00 Temperature 97.9 F Pulse Rate 82 Respiratory Rate 18 Blood Pressure 125/92 H Pulse Oximetry 94 L Intake & Output 02/20/18 02/20/18 02/21/18 06:59 18:59 06:59 Intake Total 600 / 600 600 / 600 Balance 600 / 600 600 / 600 Weight 135.1 kg Intake: Oral 600 / 600 600 / 600 Other: # Voids 2 3 Date of Last Bowel Movement 02/19/18 02/19/18 # Bowel Movements 1 1 GENERAL: WBWN,AA male, NAD SKIN: Warm and dry. HEAD: Normocephalic. EYES: No scleral icterus. No injection or drainage. NECK: Supple, trachea midline. No JVD or lymphadenopathy. CARDIOVASCULAR: Regular rate and rhythm without murmurs, gallops, or rubs. RESPIRATORY: Breath sounds equal bilaterally. No accessory muscle use. GASTROINTESTINAL: Abdomen soft, non-tender, nondistended. MUSCULOSKELETAL: No cyanosis, or edema. BACK: Nontender without obvious deformity. No CVA tenderness. - Urinary Catheter Management Indwelling Urethral Catheter Cath placed during this visit: yes, but has since been removed by the nurse Reason for continuing: Continue criteria not met Insertion date: 02/16/18 Insertion time: 16:00 Removal date: 02/18/18 Removal time: 05:15 Assessment and Plan - Plan IMPRESSION: 1. Chronic obstructive pulmonary disease. 2. Altered mental status, resolved. 3. Respiratory failure, status post extubation. 4. Hypertension. 5. Nicotine use. PLAN: Aerosol nebs PFT Symbicort 2 puffs bid Diurease with lasix DC plans for home.
[2018-02-21] MEDS: Oral Hygiene Kit OROPHARYNG SCH ×2 (03:05→03:53)
[2018-02-21] MEDS: Chlorhexidine Gluconate 2% 1 Pack (2 Cloths) TOPICAL SCH (03:52)
[2018-02-21 04:31] VITALS: RESP 21; O2SAT 97
[2018-02-21 05:35] VITALS: BP 144/92; TEMP 98.2
[2018-02-21 07:47] LABS: Anion Gap 9 meq/L (5-15); Blood Urea Nitrogen 10 mg/dL (7-18); Calcium 8.7 mg/dL (8.5-10.1); Chloride 100 meq/L (98-107); Glomerular Filtration Rate Greater Than 89 mL/min (>89); Glucose,Random 105 mg/dL (74-106); Magnesium 1.7 mg/dL (1.5-2.5); Phosphorus 2.6 mg/dL (2.5-4.9); Potassium 4.3 meq/L (3.5-5.1); Sodium 136 meq/L (136-145)
[2018-02-21 07:57] LABS: Albumin 2.2 g/dL (3.4-5.0)
[2018-02-21] MEDS: Chlorhexidine 0.12% Oral Kit 15 ML UDC OROPHARYNG SCH (08:02)
[2018-02-21] MEDS: Metoprolol Tartrate 50 MG Tablet PO SCH (08:02)
[2018-02-21] MEDS: Spironolactone 25 MG Tablet PO SCH (08:03)
[2018-02-21] MEDS: Furosemide 40 MG Tablet PO SCH (08:03)
[2018-02-21] MEDS: Pantoprazole Sodium 20 MG DR Tablet PO SCH (08:03)
[2018-02-21] MEDS: Senna/Docusate Sodium 8.6/50 MG Tablet PO SCH (08:03)
[2018-02-21] MEDS: Gabapentin 300 MG Capsule PO SCH (08:03)
[2018-02-21] MEDS: Venlafaxine XR 75 MG Capsule PO SCH (08:03)
[2018-02-21] MEDS: dilTIAZem 60 MG Tablet PO SCH (08:03)
[2018-02-21] MEDS: Lisinopril 20 MG Tablet PO SCH (08:03)
[2018-02-21 08:48] LABS: Prothrombin Time 10.6 sec (9.8-11.6)
[2018-02-21 08:52] LABS: Baso % (Auto) 0.5 % (0.0-2.0); Eos # (Auto) 0.2 th/mm3 (0.0-0.4); Eos % (Auto) 2.3 % (0.0-4.0); Hematocrit 40.6 % (39.0-51.0); Hemoglobin 13.3 gm/dL (13.0-17.0); Lymph # (Auto) 0.7 th/mm3 (1.0-4.8); Lymph % (Auto) 10.6 % (9.0-44.0); Mean Corpuscular HGB Conc 32.9 % (32.0-36.0); Mean Corpuscular Hemoglobin 28.1 pg (27.0-34.0); Mean Corpuscular Volume 85.6 fL (80.0-100.0); Mean Platelet Volume 8.7 fL (7.0-11.0); Mono # (Auto) 0.8 th/mm3 (0.0-0.9); Mono % (Auto) 11.7 % (0.0-8.0); Neut # (Auto) 5.1 th/mm3 (1.8-7.7); Neut % (Auto) 74.9 % (16.0-70.0); Platelet Count 180 th/mm3 (150-450); Red Blood Count 4.74 mil/mm3 (4.50-5.90); Red Cell Distribution Width 16.5 % (11.6-17.2); White Blood Count 6.9 th/mm3 (4.0-11.0)
--- NOTE | 2018-02-21 09:18 | P.DCO ---
- Physical Therapy Order: Evaluate and treat - Home Health Nursing Order: Medical education Instructions: Nurse for medication management. - Script Artist Order: To evaluate: Support services Order: To provide: Long range planning, Community services - Certification I have seen patient Breann Chatterjee on 02/21/18. My clinical findings support the need for the requested home health care services because: Deconditioned with increased weakness, Medication compliance is questionable I certify that my clinical findings support that this patient is homebound because: Need for psychosocial assistance
--- NOTE | 2018-02-21 09:43 | P.PNIM ---
Subjective Interval history: Patient says he is feeling well. Denies any chest pain shortness of breath. Would like to go home. He says he lives by himself. Daughter checks on him every day. Physical Exam Vital signs: Vital Signs 02/20/18 12:00 02/20/18 15:31 02/20/18 16:00 Temperature 98.2 F 97.9 F Pulse Rate 83 78 82 Respiratory Rate 18 18 18 Blood Pressure 126/78 125/92 H Pulse Oximetry 92 L 93 L 94 L 02/20/18 19:51 02/20/18 20:00 02/20/18 21:06 Temperature 98.8 F Pulse Rate 81 87 87 Respiratory Rate 20 20 Blood Pressure 148/108 H Pulse Oximetry 100 02/21/18 00:00 02/21/18 04:00 02/21/18 04:30 Temperature 98.0 F 98.2 F Pulse Rate 81 99 H 93 H Respiratory Rate 22 21 21 Blood Pressure 131/78 144/92 H Pulse Oximetry 92 L 95 97 Intake & Output 02/20/18 02/21/18 02/21/18 18:59 06:59 18:59 Intake Total 600 / 600 640 / 640 Balance 600 / 600 640 / 640 Weight 138.4 kg Intake: IV 200 / 200 Rocephin Inj 1,000 MG In NS Inj 200 / 200 100 ML @ 200 mls/hr IV.SIG Q24H DICK Rx#:[id number] Oral 600 / 600 440 / 440 Other: # Voids 3 2 Date of Last Bowel Movement 02/19/18 02/19/18 # Bowel Movements 1 Narrative: GENERAL: Patient sitting up in bed. Appears comfortable. Alert and oriented 4 SKIN: Warm and dry. HEAD: Normocephalic. EYES: No scleral icterus. No injection or drainage. NECK: Supple, trachea midline. No JVD. CARDIOVASCULAR: Regular rate and rhythm without murmurs, gallops, or rubs. RESPIRATORY: Breath sounds equal bilaterally. No accessory muscle use. GASTROINTESTINAL: Abdomen soft, non-tender, nondistended. MUSCULOSKELETAL: No cyanosis, or edema. BACK: Nontender without obvious deformity. No CVA tenderness. - Urinary Catheter Management Indwelling Urethral Catheter Cath placed during this visit: yes, but has since been removed by the nurse Reason for continuing: Continue criteria not met Insertion date: 02/16/18 Insertion time: 16:00 Removal date: 02/18/18 Removal time: 05:15 Results - Labs CBC & Chem 7: 02/21/18 08:19 02/21/18 06:30 Laboratory Results - last 24 hr 02/20/18 02/21/18 02/21/18 08:16 06:30 08:19 WBC 6.9 RBC 4.74 Hgb 13.3 Hct 40.6 MCV 85.6 MCH 28.1 MCHC 32.9 RDW 16.5 Plt Count 180 MPV 8.7 Neut % (Auto) 74.9 H Lymph % (Auto) 10.6 [place] % (Auto) 11.7 H Eos % (Auto) 2.3 Baso % (Auto) 0.5 Neut # (Auto) 5.1 Lymph # (Auto) 0.7 L [place] # (Auto) 0.8 Eos # (Auto) 0.2 Baso # (Auto) 0.0 WBC Differential . Differential Comment Auto diff final PT INR Sodium 136 Potassium 4.3 Chloride 100 Carbon Dioxide 27.0 Anion Gap 9 BUN 10 Creatinine 0.77 Estimated GFR Greater than 89 Random Glucose 105 Calcium 8.7 Phosphorus 2.6 Magnesium 1.7 B-Natriuretic Peptide 201 H Albumin 2.2 L 02/21/18 08:19 WBC RBC Hgb Hct MCV MCH MCHC RDW Plt Count MPV Neut % (Auto) Lymph % (Auto) [place] % (Auto) Eos % (Auto) Baso % (Auto) Neut # (Auto) Lymph # (Auto) [place] # (Auto) Eos # (Auto) Baso # (Auto) WBC Differential Differential Comment PT 10.6 INR 1.0 Sodium Potassium Chloride Carbon Dioxide Anion Gap BUN Creatinine Estimated GFR Random Glucose Calcium Phosphorus Magnesium B-Natriuretic Peptide Albumin Microbiology 02/16/18 17:54 Blood - Peripheral Aerobic Blood Culture - Preliminary No growth in 4 days 02/16/18 17:54 Blood - Peripheral Anaerobic Blood Culture - Final QNS - See aerobic report. 02/16/18 17:55 Blood - Peripheral Aerobic Blood Culture - Preliminary No growth in 4 days 02/16/18 17:55 Blood - Peripheral Anaerobic Blood Culture - Preliminary No growth in 4 days Assessment and Plan - Plan This is a 72-year-old male with history of CHF, atrial fibrillation, and hypertension who presented with altered mental status //Altered mental status -CT scan show no evidence for intracranial hemorrhage mass-effect or mass lesions. -Most likely secondary to overdose with opioids. -Resolved. = could be secondary to gabapentin. Will decrease gabapentin dose. = Discharge home with home health for medication management. //Generalized weakness. Patient may benefit from rehab. Will consult PT/OT. = PT recommends home with home health. //Afib -Improved. -Continue with current regimen. -On Cardizem 60mg QID, Lisinopril 20mg daily, increase Lopressor 75mg BID. //Pneumomediastinum & subQ emphysema dissecting into the mediastinum. -CT surgery is following. Most likely secondary to traumatic intubation. Stable and asymptomatic. Likely 2nd traumatic intubation -CT surgery has signed off. Appreciate assistance. //Hypertension/Dyslipidemia/Diastolic congestive heart failure -Continue current regimen. = Bilateral lower extremity edema. Will check BnP. //GI prophylaxis -On Protonix. //Asymptomatic bacteriuria -Continue with Rocephin monitor for signs of infections ( Fever, WBC) -Follow up on blood and urine cxs- NGTD //DVT GI prophylaxis -Teds SCDs -Coumadin -Pantoprazole Discharge Planning: Charge home with home health.
--- NOTE | 2018-02-21 09:47 | P.DS ---
Date of admission: 02/16/18 23:09 Primary care physician: [facility] Brief History from admission: 72-year-old gentleman is being admitted for an altered mental status. The patient usually sits on the porch in front of his house and today his neighbors noticed that he was not sitting there. So the initiated to investigate the situation and found the patient unresponsive at his home. Upon arrival to emergency department the patient was intubated by ED attending for an airway protection. CT of the brain revealed subcutaneous emphysema. Therefore, CT of the soft tissue neck and thorax was obtained. There was small amount of air in the pneumomediastinum as well as the neck, but no pneumothorax, differential includes traumatic intubation. DS: Medications - Discharge Medications Prescriptions: gabapentin 600 mg PO TID 30 Days #180 cap levofloxacin 750 mg PO DAILY 5 Days #5 tab metoprolol tartrate 75 mg PO BID 30 Days #90 tab DS: Summary Hospital Course: Patient presented with respiratory failure, requiring intubation. Patient found to have pneumomediastinum on CT chest, for which cardiothoracic surgery was consulted. This remained stable with improvement. Likely was secondary to traumatic intubation. Patient found to have 25 white blood cells in urine, however urine culture grew out nothing. He will complete treatment course with Levaquin. Respiratory failure felt likely secondary to narcotics. Dose of gabapentin will be decreased as well. Patient will be sent home with home health for medication management. Patient was also started on inhalers, with follow-up pulmonology as outpatient. For problem based summary from most recent progress note, please see below. This is a 72-year-old male with history of CHF, atrial fibrillation, and hypertension who presented with altered mental status //Altered mental status -CT scan show no evidence for intracranial hemorrhage mass-effect or mass lesions. -Most likely secondary to overdose with opioids. -Resolved. = could be secondary to gabapentin. Will decrease gabapentin dose. = Discharge home with home health for medication management. //Generalized weakness. Patient may benefit from rehab. Will consult PT/OT. = PT recommends home with home health. //Afib -Improved. -Continue with current regimen. -On Cardizem 60mg QID, Lisinopril 20mg daily, increase Lopressor 75mg BID. //Pneumomediastinum & subQ emphysema dissecting into the mediastinum. -CT surgery is following. Most likely secondary to traumatic intubation. Stable and asymptomatic. Likely 2nd traumatic intubation -CT surgery has signed off. Appreciate assistance. //Hypertension/Dyslipidemia/Diastolic congestive heart failure -Continue current regimen. = Bilateral lower extremity edema. Will check BnP. //GI prophylaxis -On Protonix. //Asymptomatic bacteriuria -Continue with Rocephin monitor for signs of infections ( Fever, WBC) -Follow up on blood and urine cxs- NGTD //DVT GI prophylaxis -Teds SCDs -Coumadin -Pantoprazole Discharge Planning: Charge home with home health. - Time Spent with Patient Total time spent providing and/or coordinating discharge services: Greater than 30 minutes - Quality: VTE Deep Vein Thrombosis/Pulmonary Embolism Present on Admission: No Exam Vital signs: Vital Signs 02/20/18 12:00 02/20/18 15:31 02/20/18 16:00 Temperature 98.2 F 97.9 F Pulse Rate 83 78 82 Respiratory Rate 18 18 18 Blood Pressure 126/78 125/92 H Pulse Oximetry 92 L 93 L 94 L 02/20/18 19:51 02/20/18 20:00 02/20/18 21:06 Temperature 98.8 F Pulse Rate 81 87 87 Respiratory Rate 20 20 Blood Pressure 148/108 H Pulse Oximetry 100 02/21/18 00:00 02/21/18 04:00 02/21/18 04:30 Temperature 98.0 F 98.2 F Pulse Rate 81 99 H 93 H Respiratory Rate 22 21 21 Blood Pressure 131/78 144/92 H Pulse Oximetry 92 L 95 97 Intake & Output 02/20/18 02/21/18 02/21/18 18:59 06:59 18:59 Intake Total 600 / 600 640 / 640 Balance 600 / 600 640 / 640 Weight 138.4 kg Intake: IV 200 / 200 Rocephin Inj 1,000 MG In NS Inj 200 / 200 100 ML @ 200 mls/hr IV.SIG Q24H DICK Rx#:[id number] Oral 600 / 600 440 / 440 Other: # Voids 3 2 Date of Last Bowel Movement 02/19/18 02/19/18 # Bowel Movements 1 Results Procedures completed during hospitalization: Intubation, extubation. Labs on day of discharge: Labs from last 24 hours 02/21/18 02/21/18 02/21/18 08:19 08:19 06:30 WBC 6.9 RBC 4.74 Hgb 13.3 Hct 40.6 MCV 85.6 MCH 28.1 MCHC 32.9 RDW 16.5 Plt Count 180 MPV 8.7 Neut % (Auto) 74.9 H Lymph % (Auto) 10.6 [place] % (Auto) 11.7 H Eos % (Auto) 2.3 Baso % (Auto) 0.5 Neut # (Auto) 5.1 Lymph # (Auto) 0.7 L [place] # (Auto) 0.8 Eos # (Auto) 0.2 Baso # (Auto) 0.0 WBC Differential . Differential Comment Auto diff final PT 10.6 INR 1.0 Sodium 136 Potassium 4.3 Chloride 100 Carbon Dioxide 27.0 Anion Gap 9 BUN 10 Creatinine 0.77 Estimated GFR Greater than 89 Random Glucose 105 Calcium 8.7 Phosphorus 2.6 Magnesium 1.7 B-Natriuretic Peptide Albumin 2.2 L 02/20/18 08:16 WBC RBC Hgb Hct MCV MCH MCHC RDW Plt Count MPV Neut % (Auto) Lymph % (Auto) [place] % (Auto) Eos % (Auto) Baso % (Auto) Neut # (Auto) Lymph # (Auto) [place] # (Auto) Eos # (Auto) Baso # (Auto) WBC Differential Differential Comment PT INR Sodium Potassium Chloride Carbon Dioxide Anion Gap BUN Creatinine Estimated GFR Random Glucose Calcium Phosphorus Magnesium B-Natriuretic Peptide 201 H Albumin Preliminary micro results at discharge 02/16/18 17:54 Aerobic Blood Culture - Preliminary Blood - Peripheral No growth in 4 days 02/16/18 17:55 Aerobic Blood Culture - Preliminary Blood - Peripheral No growth in 4 days Anaerobic Blood Culture - Preliminary No growth in 4 days - Impressions ITS Impressions Head CT 02/16/18 16:55 CONCLUSION: Subcu emphysema. Chest CT 02/16/18 20:54 CONCLUSION: 1. Small volume pneumomediastinum as well as subcutaneous emphysema involving the upper anterior chest. This could relate to a traumatic intubation. I see no hematoma within the mediastinum. 2. Cardiomegaly with significant coronary artery atherosclerotic calcifications. Soft Tissue Neck CT 02/16/18 20:54 CONCLUSION: 1. Bilateral submandibular stones. 2. Extensive subcutaneous emphysema dissecting into the mediastinum. Chest X-Ray 02/17/18 08:26 CONCLUSION: Left basilar atelectasis. Discharge Plan - Discharge Disposition Patient Disposition: 06 Disch W/Home Health Service - Discharge Condition Condition: Serious - Discharge Order Discharge Orders: Discharge Order (Routine); Ordered 02/21/18 Ordered By: Michael Zavala - Discharge Details Anticipated Discharge Date: 02/21/18 - Physicians Team Primary Care Provider: [facility],Physician 's Attending Provider: Michael Zavala Other Providers: Tan Lozano MD ; Malachi Whiteside MD
[2018-02-21 09:58] VITALS: PULSE 99
== END 2018-02-21 13:07 | disposition home health service (06) ==
LOC: NEPE 16:31 → NEDA 23:09 → HIMC 02-17 05:10 → N04 02-19 17:25
PROVIDERS: ADMIT Internal Medicine; ATTEND Internal Medicine

== ENCOUNTER 2018-04-18 10:13 | Inpatient (IN) ==
--- NOTE | 2018-04-18 10:48 | ED ---
HPI General Chief Complaint: Arrhythmia / Palpitations Stated Complaint: cardiac Time Seen by Provider: 04/18/18 10:41 Source: patient Mode of arrival: EMS Limitations: no limitations History of Present Illness HPI narrative: The patient is a 72-year-old -[place] male who presents to the emergency department via EMS for atrial fib relation with RVR. The patient states he has a history of A. 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 Cordova. The patient states his symptoms started Sunday night while he was watching a basketball game on TV, noticed that his A. fib was running with an elevated rate. The patient states his heart rate was elevated throughout the day yesterday and he started to develop shortness of breath. The patient's shortness of breath is worse with exertion, slightly alleviated at rest. The patient states he had difficulty sleeping last night secondary to his symptoms. The patient does have a history of congestive heart failure and A. fib with RVR. The patient states he is currently on Eliquis for his A. fib and thinks he may be taken digoxin, however, does not know his other medications. Symptoms are moderate and progressive. He denies any chest pain, but does note mild shortness of breath. He denies any significant lower extremity edema or recent weight gain. MD complaint: Reports rapid heart beat, "heart racing", irregular heart beat and atrial fibrillation Onset (ago): day(s) Duration: constant Severity: severe Context: Reports occurred during rest Arrhythmia history: Reports atrial fibrillation Associated symptoms: Reports shortness of breath and diaphoresis Related Data Home Medications Medication Instructions Recorded Confirmed atorvastatin 40 mg PO HS 12/28/17 04/18/18 diltiazem HCl [Cardizem] 60 mg PO TID 12/28/17 04/18/18 furosemide [Lasix] 40 mg PO DAILY 12/28/17 04/18/18 omeprazole 20 mg PO DAILY 12/28/17 04/18/18 spironolactone 25 mg PO DAILY 12/28/17 04/18/18 venlafaxine 75 mg PO DAILY 12/28/17 04/18/18 zolpidem 5 mg PO 5XW 12/28/17 04/18/18 Previous Rx's Medication Instructions Recorded lisinopril 20 mg PO DAILY #30 tab 12/31/17 tramadol 50 mg PO Q6-8H #7 tab 03/10/18 Allergies Allergy/AdvReac Type Severity Reaction Status Date / Time diatrizoate meglumine AdvReac Severe SEVERE Verified 03/10/18 10:15 VOMITING gadobenic acid AdvReac Severe SEVERE Verified 03/10/18 10:15 VOMITING gadodiamide AdvReac Severe SEVERE Verified 03/10/18 10:15 VOMITING gadoteridol AdvReac Severe SEVERE Verified 03/10/18 10:15 VOMITING iodixanol AdvReac Severe SEVERE Verified 03/10/18 10:15 VOMITING iohexol AdvReac Severe SEVERE Verified 03/10/18 10:15 VOMITING Review of Systems ROS: all other systems reviewed are negative [facility] Social History Social History Substance History: No History of Abuse Second Hand Smoke Exposure: Yes Smoking Status: Former smoker Tobacco Type: Cigarettes Packs Per Day: 0.5 Cigarettes Per Day: 10.0 How Often Do You Have a Drink Containing Alcohol: Never Recent Travel in [facility] within the Last 8 Weeks: No Recent Out of Country Travel within the Last 8 Weeks: No Immunization History Tetanus Immunization Year if Known: 2016 Exam Narrative Exam Narrative: GENERAL: Awake, alert, 9-year-old male who appears his stated age and appears in moderate respiratory distress. SKIN: Focused skin assessment warm/dry. HEAD: Atraumatic. Normocephalic. EYES: No injection or drainage. ENT: No nasal bleeding or discharge. Mucous membranes pink and moist. NECK: Trachea midline. No JVD. CARDIOVASCULAR: Irregularly irregular, tachycardic with a heart rate in the 140s. RESPIRATORY: Tachypnea with a respiratory rate of 28. Diminished breath sounds in the bases bilateral with rales noted. GASTROINTESTINAL: Abdomen soft, obese, no rebound tenderness. MUSCULOSKELETAL: No obvious deformities. No clubbing. No cyanosis. Chronic venous stasis changes to lower extremities bilateral with minimal edema. NEUROLOGICAL: Awake and alert. No obvious cranial nerve deficits. Motor grossly within normal limits. Nonfocal. Only able to speak in 2-3 word sentences. PSYCHIATRIC: Slightly anxious. Course Initial Documented Vital Signs Temperature 97.6 F 04/18/18 10:37 Pulse Rate 136 H 04/18/18 10:37 Respiratory Rate 42 H 04/18/18 10:37 Blood Pressure 178/122 H 04/18/18 10:37 Pulse Oximetry 96 04/18/18 10:37 Last Documented Vital Signs Temperature 97.6 F 04/18/18 10:37 Pulse Rate 136 H 04/18/18 10:37 Respiratory Rate 42 H 04/18/18 10:37 Blood Pressure 178/122 H 04/18/18 10:37 Pulse Oximetry 98 04/18/18 10:43 Critical Care Time Critical Care Time: Yes Total Critical Care Time: 45 Attestation: Aggregate critical care time was 45 minutes. Time to perform other separately billable procedures was not included in the critical care time. My time did not include minutes spent treating any other patients simultaneously or on activities that did not directly contribute to the patient's treatment. The services I provided to this patient were to treat and/or prevent clinically significant deterioration that could result in: Flash pulmonary edema, hypoxia, cardiogenic shock, dysrhythmia, arrhythmia, . I provided critical care services requiring my management, as noted below: Chart data review, documentation time, medication orders and management, vital sign assessments/reviewing monitor data, ordering and reviewing lab tests, ordering and interpreting/reviewing x-rays and diagnostic studies, care of the patient and discussion of the patient with the admitting physicians. Medical Decision Making MDM Narrative Medical decision making narrative: IV was established, labs are drawn and sent, and the patient was placed on cardiac telemetry monitoring and continuous pulse oximetry monitoring. EKG was ordered and interpreted. The patient was noted to be in A. fib with RVR, mild hypoxia with an O2 sat of 90%. The patient was placed on oxygen via nasal cannula at 2 L/min and administered Cardizem 20 mg intravenously. Lanoxin level was sent to lab and stat chest x-ray was obtained. Chest x-ray reveals pulmonary edema with bilateral lobe infiltrates. Digoxin level was low. The patient continued to be hypertensive and tachycardic, therefore, was placed on a Cardizem drip and a nitro drip for acute congestive heart failure with pulmonary edema. The patient will be admitted to [facility], the on-call medical service was paged for admission. Medical Screen Exam Complete: Yes Emergency Medical Condition: Yes Differential Diagnosis Differential Diagnosis: Differential diagnosis includes atrial fibrillation with RVR, cardiomyopathy, congestive heart failure, pulmonary edema, pleural effusion, pulmonary embolism, acute coronary syndrome, ischemic heart disease. Lab Data Result diagrams: 04/18/18 10:55 04/18/18 10:55 Lab Results 04/18/18 04/18/18 04/18/18 Range/Units 10:55 10:55 10:55 WBC 5.8 (4.0-11.0) th/mm3 RBC 5.26 (4.50-5.90) mil/mm3 Hgb 15.2 (13.0-17.0) gm/dL Hct 46.8 (39.0-51.0) % MCV 88.9 (80.0-100.0) fL MCH 28.9 (27.0-34.0) pg MCHC 32.6 (32.0-36.0) % RDW 17.5 H (11.6-17.2) % Plt Count 184 (150-450) th/mm3 MPV 9.7 (7.0-11.0) fL Neut % (Auto) 87.5 H (16.0-70.0) % Lymph % (Auto) 5.6 L (9.0-44.0) % [place] % (Auto) 6.5 (0.0-8.0) % Eos % (Auto) 0.1 (0.0-4.0) % Baso % (Auto) 0.3 (0.0-2.0) % Neut # (Auto) 5.1 (1.8-7.7) th/mm3 Lymph # (Auto) 0.3 L (1.0-4.8) th/mm3 [place] # (Auto) 0.4 (0.0-0.9) th/mm3 Eos # (Auto) 0.0 (0.0-0.4) th/mm3 Baso # (Auto) 0.0 (0.0-0.2) th/mm3 WBC Differential . Differential Comment Auto diff final PT 12.2 H (9.8-11.6) sec INR 1.2 Ratio APTT 25.3 (24.3-30.1) sec Sodium 135 L (136-145) meq/L Potassium 5.1 (3.5-5.1) meq/L Chloride 95 L (98-107) meq/L Carbon Dioxide 31.6 (21.0-32.0) meq/L Anion Gap 8 (5-15) meq/L BUN 13 (7-18) mg/dL Creatinine 1.05 (0.60-1.30) mg/dL Estimated GFR 85 L (>89) mL/min Random Glucose 131 H (74-106) mg/dL Calcium 9.3 (8.5-10.1) mg/dL Magnesium 2.3 (1.5-2.5) mg/dL Total Bilirubin 1.3 H (0.2-1.0) mg/dL AST 22 (15-37) U/L ALT 25 (12-78) U/L Alkaline Phosphatase 154 H (45-117) U/L Total Creatine Kinase 71 (39-308) U/L Troponin I 0.19 H (0.02-0.05) ng/mL Total Protein 9.6 H (6.4-8.2) g/dL Albumin 3.1 L (3.4-5.0) g/dL Digoxin Less than 0.1 L (0.8-2.0) ng/mL 04/18/18 Range/Units 10:55 WBC (4.0-11.0) th/mm3 RBC (4.50-5.90) mil/mm3 Hgb (13.0-17.0) gm/dL Hct (39.0-51.0) % MCV (80.0-100.0) fL MCH (27.0-34.0) pg MCHC (32.0-36.0) % RDW (11.6-17.2) % Plt Count (150-450) th/mm3 MPV (7.0-11.0) fL Neut % (Auto) (16.0-70.0) % Lymph % (Auto) (9.0-44.0) % [place] % (Auto) (0.0-8.0) % Eos % (Auto) (0.0-4.0) % Baso % (Auto) (0.0-2.0) % Neut # (Auto) (1.8-7.7) th/mm3 Lymph # (Auto) (1.0-4.8) th/mm3 [place] # (Auto) (0.0-0.9) th/mm3 Eos # (Auto) (0.0-0.4) th/mm3 Baso # (Auto) (0.0-0.2) th/mm3 WBC Differential Differential Comment PT (9.8-11.6) sec INR Ratio APTT (24.3-30.1) sec Sodium (136-145) meq/L Potassium (3.5-5.1) meq/L Chloride (98-107) meq/L Carbon Dioxide (21.0-32.0) meq/L Anion Gap (5-15) meq/L BUN (7-18) mg/dL Creatinine (0.60-1.30) mg/dL Estimated GFR (>89) mL/min Random Glucose (74-106) mg/dL Calcium (8.5-10.1) mg/dL Magnesium Cancelled (1.5-2.5) mg/dL Total Bilirubin (0.2-1.0) mg/dL AST (15-37) U/L ALT (12-78) U/L Alkaline Phosphatase (45-117) U/L Total Creatine Kinase (39-308) U/L Troponin I (0.02-0.05) ng/mL Total Protein (6.4-8.2) g/dL Albumin (3.4-5.0) g/dL Digoxin (0.8-2.0) ng/mL Imaging Data Radiologist's impression: Chest X-Ray 04/18/18 10:41 CONCLUSION: Bibasilar densities. ECG Data EKG Prior to Arrival: Yes Attestation: I personally reviewed and interpreted this ECG as follows: Interpretation: EKG reveals atrial fibrillation with RVR, rate 141. LV age. Nonspecific ST and T wave changes. Discharge Plan Discharge Disposition Patient Disposition: 30 Still Patient Discharge Condition Condition: Serious Discharge Details Diagnosis: Atrial fibrillation with RVR, Pulmonary edema, Congestive heart failure Physicians Team ED Provider: Kodak Marie Primary Care Provider: Primary Care Narcisa Ruth Rxs /Orders / Referrals /Forms Prescriptions: No Action atorvastatin 40 mg Tablet 40 mg PO HS RF: 0 diltiazem HCl [Cardizem] 60 mg Tablet 60 mg PO TID RF: 0 furosemide [Lasix] 40 mg Tablet 40 mg PO DAILY RF: 0 spironolactone 25 mg Tablet 25 mg PO DAILY RF: 0 omeprazole 20 mg Capsule,Delayed Release(Dr/Ec) 20 mg PO DAILY RF: 0 zolpidem 5 mg Tablet 5 mg PO 5XW RF: 0 venlafaxine 75 mg Tablet Extended Release 24hr 75 mg PO DAILY RF: 0 lisinopril 20 mg Tablet 20 mg PO DAILY Qty: 30 RF: 0 tramadol 50 mg tablet 50 mg PO Q6-8H Qty: 7 RF: 0 Status ED Status: Pending Admission
[2018-04-18 11:27] LABS: Baso % (Auto) 0.3 % (0.0-2.0); Eos % (Auto) 0.1 % (0.0-4.0); Hematocrit 46.8 % (39.0-51.0); Hemoglobin 15.2 gm/dL (13.0-17.0); Lymph # (Auto) 0.3 th/mm3 (1.0-4.8); Lymph % (Auto) 5.6 % (9.0-44.0); Mean Corpuscular HGB Conc 32.6 % (32.0-36.0); Mean Corpuscular Hemoglobin 28.9 pg (27.0-34.0); Mean Corpuscular Volume 88.9 fL (80.0-100.0); Mean Platelet Volume 9.7 fL (7.0-11.0); Mono # (Auto) 0.4 th/mm3 (0.0-0.9); Mono % (Auto) 6.5 % (0.0-8.0); Neut # (Auto) 5.1 th/mm3 (1.8-7.7); Neut % (Auto) 87.5 % (16.0-70.0); Platelet Count 184 th/mm3 (150-450); Red Blood Count 5.26 mil/mm3 (4.50-5.90); Red Cell Distribution Width 17.5 % (11.6-17.2); White Blood Count 5.8 th/mm3 (4.0-11.0)
--- NOTE | 2018-04-18 11:28 | XR ---
EXAM DATE: 04/18/2018 11:13 AM EDT AGE/SEX: 72 years / Male INDICATIONS: Short of breath, back pain, no chest pain CLINICAL DATA: This is the patient's initial encounter. Patient reports that signs and symptoms have been present for 3 days and indicates a pain score of 7/10. MEDICAL/SURGICAL HISTORY: Aneurysm, abdominal. Abdominal aortic aneurysm repair. spinal fusion COMPARISON: [facility], CHEST 1V SINGLE AP, 03/10/2018. . FINDINGS: A single AP view of the chest demonstrates interstitial prominence and bibasilar densities. Cardiomeg melita. There is volume loss on the right again seen. The cardiomediastinal contours are unremarkable. Osseous structures are intact. Postsurgical changes lower thoracic spine. CONCLUSION: Bibasilar densities. Electronically signed by: Gaudencio Wills MD 04/18/2018 11:27 AM EDT
[2018-04-18] MEDS ORDERED: Nitroglycerin Drip Premix 50 MG/250 ML BOTTLE IV.CONT PRN (11:30)
[2018-04-18 11:37] LABS: Activated Partial Thrombo Time 25.3 sec (24.3-30.1); INR 1.2 Ratio; Prothrombin Time 12.2 sec (9.8-11.6)
[2018-04-18 11:58] LABS: Albumin 3.1 g/dL (3.4-5.0); Anion Gap 8 meq/L (5-15); Aspartate Aminotransferase 22 U/L (15-37); Blood Urea Nitrogen 13 mg/dL (7-18); Calcium 9.3 mg/dL (8.5-10.1); Carbon Dioxide 31.6 meq/L (21.0-32.0); Chloride 95 meq/L (98-107); Glomerular Filtration Rate 85 mL/min (>89); Glucose,Random 131 mg/dL (74-106); Magnesium 2.3 mg/dL (1.5-2.5); Potassium 5.1 meq/L (3.5-5.1); Sodium 135 meq/L (136-145)
[2018-04-18 12:15] LABS: Alanine Aminotransferase 25 U/L (12-78); Alkaline Phosphatase 154 U/L (45-117); Total Protein 9.6 g/dL (6.4-8.2); Troponin I 0.19 ng/mL (0.02-0.05)
[2018-04-18 12:27] LABS: Creatine Kinase 71 U/L (39-308)
[2018-04-18] MEDS: dilTIAZem Inj 125 MG in Sodium Chlor 0.9% Inj 100 ML IV.CONT PRN ×2 (12:57→20:12)
--- NOTE | 2018-04-18 15:54 | P.HPIM ---
History of Present Illness Primary Care Physician: No Primary Care Physician History of Present Illness: This patient is a 72-year-old -[place] male with a diagnosis of hypertension, dyslipidemia, atrial fibrillation on Eliquis however is noncompliant with any of his medications, hepatitis C, diverticulosis. The patient also has an extensive history of tobacco use and is an active smoker. He has a history of alcohol use however as per the patient he has not drink alcohol for the past couple of years. The patient follows up with the [facility], primary care doctor is Dr. Westfall. The patient presented to our emergency department today with complaints of shortness of breath, bilateral lower extremity swelling, and palpitations that began while he was watching basketball at home. He admits that he is noncompliant with his medications and has not been taking Eliquis for his atrial fibrillation. After reviewing some documentation it appears that the patient is a history of DVT and also had an IVC filter placed in the past. He says he stopped taking Eliquis because he was unable to get it filled for unknown reasons. The patient denies any chest pain, no diarrhea, no abdominal pain, no fevers or chills. He was found to be in atrial fibrillation with rapid ventricular rate and had a slight elevation in his serum troponins. I was consulted to evaluate and admit the patient. Past medical history hypertension, dyslipidemia, atrial fibrillation previously on Eliquis however noncompliant with his medications, hepatitis C, diverticulosis. Past surgical history patient states he had a cyst removed from the left side of his face. 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 He has an extensive tobacco smoking and alcohol history. He states that he smoked about 1/2 pack of cigarettes per day for over 30 years. Family history noncontributory Inpatient Certification: I certify that the inpatient services were ordered in accordance with Medicare regulations governing the order. 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 Father Family history of acute myocardial infarction - Tobacco History Second Hand Smoke Exposure: Yes Smoking Status: Former smoker Tobacco Type: Cigarettes Packs Per Day: 0.5 - Alcohol History How Often Do You Have a Drink Containing Alcohol: Never - Substance Use History Substance History: No History of Abuse - Travel History Recent Travel in the [place] Within the Last 8 Weeks: No Recent Travel Out of the Country Within the Last 8 Weeks: No - Immunization History Tetanus Immunization: <5 Years Tetanus Immunization Year if Known: 2015 Medications and Allergies Active Medications: Active Medications Aspirin (Aspirin Chew) 81 mg PO DAILY DICK Atorvastatin Calcium (Lipitor) 40 mg PO HS DICK Furosemide (Lasix Inj) 20 mg IV.PUSH Q8H DICK Diltiazem HCl 125 mg/ Sodium (Chloride) 125 mls @ 5 mls/hr IV.CONT TITRATE PRN ; Protocol PRN Reason: Per Protocol Last Titration: 04/18/18 13:30 Dose: 15 mg/hr, 15 mls/hr Nitroglycerin/Dextrose (Nitroglycerin Drip Premix) 50 mg in 250 mls @ 0 mls/hr IV.CONT TITRATE PRN; Protocol PRN Reason: Per Protocol Last Titration: 04/18/18 13:30 Dose: 65 mcg/min, 19.5 mls/hr Allergies Allergy/AdvReac Type Severity Reaction Status Date / Time diatrizoate meglumine AdvReac Severe SEVERE Verified 03/10/18 10:15 VOMITING gadobenic acid AdvReac Severe SEVERE Verified 03/10/18 10:15 VOMITING gadodiamide AdvReac Severe SEVERE Verified 03/10/18 10:15 VOMITING gadoteridol AdvReac Severe SEVERE Verified 03/10/18 10:15 VOMITING iodixanol AdvReac Severe SEVERE Verified 03/10/18 10:15 VOMITING iohexol AdvReac Severe SEVERE Verified 03/10/18 10:15 VOMITING Home Medications Medication Instructions Recorded Confirmed Type atorvastatin 40 mg PO HS 12/28/17 04/18/18 History diltiazem HCl [Cardizem] 60 mg PO TID 12/28/17 04/18/18 History furosemide [Lasix] 40 mg PO DAILY 12/28/17 04/18/18 History omeprazole 20 mg PO DAILY 12/28/17 04/18/18 History spironolactone 25 mg PO DAILY 12/28/17 04/18/18 History venlafaxine 75 mg PO DAILY 12/28/17 04/18/18 History zolpidem 5 mg PO 5XW 12/28/17 04/18/18 History Exam Vital signs: Vital Signs 04/18/18 10:37 04/18/18 10:43 04/18/18 13:43 Temperature 97.6 F Pulse Rate 136 H 124 H Respiratory Rate 42 H 26 H Blood Pressure 178/122 H 165/104 H Pulse Oximetry 96 96 04/18/18 14:33 04/18/18 14:51 Temperature Pulse Rate 79 100 H Respiratory Rate 22 22 Blood Pressure 138/84 148/80 H Pulse Oximetry 99 98 Intake & Output 04/17/18 04/18/18 04/18/18 18:59 06:59 18:59 Weight 110 kg Narrative: General patient complaining of shortness of breath and lower extremity swelling. HEENT extraocular movements are intact, nasal cannula in place, poor dentition Cardiovascular S1-S2 audible, irregularly irregular rhythm. Respiratory bibasilar crackles Abdomen soft, nontender, mildly distended, normal bowel sounds Extremities 2+ pitting edema bilateral lower extremities up to the shins. Onychomycosis noted of the toes bilaterally Neuro the patient moves all 4 extremities, sensation is intact bilaterally Results - Labs CBC & Chem 7: 04/18/18 10:55 04/18/18 10:55 Labs: Short CBC 04/18/18 Range/Units 10:55 WBC 5.8 (4.0-11.0) th/mm3 Hgb 15.2 (13.0-17.0) gm/dL Hct 46.8 (39.0-51.0) % Plt Count 184 (150-450) th/mm3 BMP 04/18/18 10:55 Sodium 135 L Potassium 5.1 Chloride 95 L Carbon Dioxide 31.6 BUN 13 Creatinine 1.05 Calcium 9.3 Cardiac Enzymes 04/18/18 Range/Units 10:55 Total Creatine Kinase 71 (39-308) U/L Troponin I 0.19 H (0.02-0.05) ng/mL Liver Function 04/18/18 Range/Units 10:55 Total Bilirubin 1.3 H (0.2-1.0) mg/dL AST 22 (15-37) U/L ALT 25 (12-78) U/L Alkaline Phosphatase 154 H (45-117) U/L Albumin 3.1 L (3.4-5.0) g/dL - Imaging Impressions Chest X-Ray 04/18/18 10:41 CONCLUSION: Bibasilar densities. Caprini VTE Risk Assessment Caprini VTE Risk Assessment: Moderate/High Risk (score >= 2) Caprini Risk Assessment Model: Point Value = 1 Point Value = 2 Point Value = 3 Point Value = 5 Age 41-60 Minor surgery BMI > 25 kg/m2 Swollen legs Varicose veins or History of unexplained or recurrent spontaneous Oral contraceptives or hormone replacement Sepsis (< 1 month) Serious lung disease, including pneumonia (< 1 month) Abnormal pulmonary function Acute myocardial infarction Congestive heart failure (< 1 month) History of inflammatory bowel disease Medical patient at bed rest Age 61-74 Arthroscopic surgery Major open surgery (> 45 min) Laparoscopic surgery (> 45 min) Malignancy Confined to bed (> 72 hours) Immobilizing plaster cast Central venous access Age >= 75 History of VTE Family history of VTE Factor V Leiden Prothrombin [id number] Lupus anticoagulant Anticardiolipin antibodies Elevated serum homocysteine Heparin-induced thrombocytopenia Other congenital or acquired thrombophilia Stroke (< 1 month) Elective arthroplasty Hip, pelvis, or leg fracture Acute spinal cord injury (< 1 month) Prophylaxis Regimen: Total Risk Factor Score Risk Level Prophylaxis Regimen 0-1 Low Early ambulation 2 Moderate Order ONE of the following: *Sequential Compression Device (SCD) *Heparin 5000 units SQ BID 3-4 Higher Order ONE of the following medications: *Heparin 5000 units SQ TID *Enoxaparin/Lovenox 40 mg SQ daily (WT < 150 kg, CrCl > 30 mL/min) *Enoxaparin/Lovenox 30 mg SQ daily (WT < 150 kg, CrCl > 10-29 mL/min) *Enoxaparin/Lovenox 30 mg SQ BID (WT < 150 kg, CrCl > 30 mL/min) AND/OR *Sequential Compression Device (SCD) 5 or more Highest Order ONE of the following medications: *Heparin 5000 units SQ TID (Preferred with Epidurals) *Enoxaparin/Lovenox 40 mg SQ daily (WT < 150 kg, CrCl > 30 mL/min) *Enoxaparin/Lovenox 30 mg SQ daily (WT < 150 kg, CrCl > 10-29 mL/min) *Enoxaparin/Lovenox 30 mg SQ BID (WT < 150 kg, CrCl > 30 mL/min) AND *Sequential Compression Device (SCD) Assessment and Plan - Plan This patient is a 72-year-old -[place] male with a diagnosis of hypertension, dyslipidemia, atrial fibrillation on Eliquis however is noncompliant with any of his medications, history of DVT, hepatitis C, diverticulosis. The patient also has an extensive history of tobacco use and is an active smoker. He has a history of alcohol use however as per the patient he has not drink alcohol for the past couple of years. The patient follows up with the NH, primary care doctor is Dr. Westfall. There is a cath report from 02/2017 which shows moderate to severe two-vessel disease, normal LV function. Recommendations were to continue medical management at that time. The patient was brought in after he began to have palpitations at home while watching TV. He denied having any chest pain no shortness of breath. He has also been having worsening shortness of breath and bilateral lower extremity swelling. 1. Pulmonary vascular congestion and lower extremity swelling possibly secondary to CHF exacerbation 2. Atrial fibrillation with rapid ventricular rate secondary to medication noncompliance 3. Troponin anemia likely secondary to #1 and 2 4. Accelerated hypertension In the emergency department an EKG was done which showed atrial fibrillation with rapid ventricular rate heart rate in the 140s. BNP elevated above 900. Chest x-ray shows pulmonary vascular congestion on my evaluation of the chest x- ray. Slight elevation in serum troponins. The patient denies any chest pain. The patient was also found to be hypertensive with a systolic blood pressure above 180. He was given a push of diltiazem in the ER and subsequently needed to be placed on a diltiazem drip. A 2D echocardiogram from 2016 shows ejection fraction of 55%. His heart rate has now improved to the low 100s. Cardiology has been consulted to evaluate the patient I will continue the Cardizem drip and then transition the patient to p.o. Cardizem. He is currently on a nitroglycerin drip which was started in the emergency department given the elevated blood pressure. The blood pressure is improving and later today I will transition the patient to p.o. antihypertensives. Patient started on IV Lasix. The patient slight elevation in troponins is likely secondary to A. fib with rapid ventricular rate and possibly CHF exacerbation. I will repeat a 2D echocardiogram as the patient has signs of fluid overload. Strict ins and outs. Monitor on telemetry. Patient will be admitted to the [facility] unit. I will wait for recommendations from cardiology and follow-up with them. Patient has an elevated chads score and he will be started on Eliquis which she was previously taking for atrial fibrillation. 5. Dyslipidemia Patient started on a statin. DVT prophylaxis, patient will be started on Eliquis
[2018-04-18] MEDS ORDERED: *Labetalol HCl Inj 100 MG/20 ML Vial PERIprocedural Use ONLY IV.PUSH ONE (16:28)
--- NOTE | 2018-04-18 16:50 | P.CONCA ---
History of Present Illness Service: cardiology Consult date: 04/18/18 Requesting Physician: Aleyda Hickman Reason for Consult: AFib with RVR, CHF Primary Care Provider: No Primary Care Physician Chief Complaint: dyspnea, chest pain, palpitations History of Present Illness: Mr. Chatterjee is a 72-year-old -[place] gentleman with hypertension, dyslipidemia, moderate multivessel CAD by [facility] 02/2017, chronic atrial fibrillation, hepatitis C, history of DVT status post IVC filter, history of diverticulosis, active tobacco use and history of alcohol abuse and medication noncompliance. He presented earlier today to [facility] with subacute onset of dyspnea at rest and with exertion, PND, orthopnea, lower extremity edema, sensation of racing heart rate, and chest pain. He complains that his dyspnea and lower extremity edema worsened yesterday evening while he was watching basketball at home. He has been noncompliant with his medications and blames his daughter for this. In terms of the chest pain, he reports it was substernal in nature, nonradiating, nonpleuritic, nonreproducible. He is currently chest pain-free. Initial troponin slightly elevated 0.19 with mild elevation in BNP 928 EKG today reveals atrial fibrillation with rapid ventricular response 141 bpm, voltage criteria for LVH with nonspecific ST-T wave abnormality. Chest x-ray today by my read reveals bibasilar densities and increased pulmonary vascular congestion with cardiomegaly. Patient was noted to have accelerated hypertension with SBP 190s/120s, atrial fibrillation with HR 140s. In the ER, he was provided torsemide 40 mg IV x1, furosemide 20 mg IV x1, diltiazem 20 mg followed by 15 mg IVP and diltiazem drip at 15 mg/hr, nitroglycerin drip. He continues to be persistently tachycardic and hypertensive. He is having copious urine output straw-colored urine. 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 Father Family history of acute myocardial infarction - Tobacco History Second Hand Smoke Exposure: Yes Smoking Status: Former smoker Tobacco Type: Cigarettes Packs Per Day: 0.5 - Alcohol History How Often Do You Have a Drink Containing Alcohol: Never - Substance Use History Substance History: No History of Abuse - Travel History Recent Travel in the [place] Within the Last 8 Weeks: No Recent Travel Out of the Country Within the Last 8 Weeks: No - Immunization History Tetanus Immunization: <5 Years Tetanus Immunization Year if Known: 2015 Medications and Allergies Active Medications: Active Medications Apixaban (Eliquis) 5 mg PO BID DICK Aspirin (Aspirin Chew) 81 mg PO DAILY DICK Atorvastatin Calcium (Lipitor) 40 mg PO HS DICK Furosemide (Lasix Inj) 40 mg IV.PUSH ONCE ONE Stop: 04/18/18 16:30 Diltiazem HCl 125 mg/ Sodium (Chloride) 125 mls @ 5 mls/hr IV.CONT TITRATE PRN ; Protocol PRN Reason: Per Protocol Last Titration: 04/18/18 13:30 Dose: 15 mg/hr, 15 mls/hr Nitroglycerin/Dextrose (Nitroglycerin Drip Premix) 50 mg in 250 mls @ 0 mls/hr IV.CONT TITRATE PRN; Protocol PRN Reason: Per Protocol Last Titration: 04/18/18 15:47 Dose: 75 mcg/min, 22.5 mls/hr Labetalol HCl (*Trandate Inj Periprocedural Use Only) 20 mg IV.PUSH ONCE ONE Stop: 04/18/18 16:29 Allergies Allergy/AdvReac Type Severity Reaction Status Date / Time diatrizoate meglumine AdvReac Severe SEVERE Verified 03/10/18 10:15 VOMITING gadobenic acid AdvReac Severe SEVERE Verified 03/10/18 10:15 VOMITING gadodiamide AdvReac Severe SEVERE Verified 03/10/18 10:15 VOMITING gadoteridol AdvReac Severe SEVERE Verified 03/10/18 10:15 VOMITING iodixanol AdvReac Severe SEVERE Verified 03/10/18 10:15 VOMITING iohexol AdvReac Severe SEVERE Verified 03/10/18 10:15 VOMITING Home Medications Medication Instructions Recorded Confirmed Type atorvastatin 40 mg PO HS 12/28/17 04/18/18 History diltiazem HCl [Cardizem] 60 mg PO TID 12/28/17 04/18/18 History furosemide [Lasix] 40 mg PO DAILY 12/28/17 04/18/18 History omeprazole 20 mg PO DAILY 12/28/17 04/18/18 History spironolactone 25 mg PO DAILY 12/28/17 04/18/18 History venlafaxine 75 mg PO DAILY 12/28/17 04/18/18 History zolpidem 5 mg PO 5XW 12/28/17 04/18/18 History Exam Vital signs: Vital Signs 04/18/18 10:37 04/18/18 10:43 04/18/18 13:43 Temperature 97.6 F Pulse Rate 136 H 124 H Respiratory Rate 42 H 26 H Blood Pressure 178/122 H 165/104 H Pulse Oximetry 96 96 04/18/18 14:33 04/18/18 14:51 Temperature Pulse Rate 79 100 H Respiratory Rate 22 22 Blood Pressure 138/84 148/80 H Pulse Oximetry 99 98 Intake & Output 04/17/18 04/18/18 04/18/18 18:59 06:59 18:59 Weight 110 kg Narrative: GENERAL: Appears dyspneic sitting upright, obese SKIN: Warm and dry. HEAD: Atraumatic. Normocephalic. NECK: Trachea midline. JVP elevated to jaw CARDIOVASCULAR: Irregularly irregular and tachycardic, distant heart sounds RESPIRATORY: No accessory muscle use. Distant breath sounds, no senia rales GASTROINTESTINAL: Obese, abdomen soft, non-tender, nondistended. MUSCULOSKELETAL: Extremities without clubbing, cyanosis, or edema. No obvious deformities. NEUROLOGICAL: Awake and alert. No obvious cranial nerve deficits. PSYCHIATRIC: Appropriate mood and affect; insight and judgment normal. Results 04/18/18 10:55 04/18/18 10:55 Cardiac Enzymes 04/18/18 04/18/18 Range/Units 10:55 13:30 AST 22 (15-37) U/L Troponin I 0.19 H (0.02-0.05) ng/mL B-Natriuretic Peptide 928 H (0-100) pg/mL Coagulation 04/18/18 04/18/18 Range/Units 10:55 13:30 PT 12.2 H (9.8-11.6) sec APTT 25.3 (24.3-30.1) sec B-Natriuretic Peptide 928 H (0-100) pg/mL CBC 04/18/18 Range/Units 10:55 WBC 5.8 (4.0-11.0) th/mm3 RBC 5.26 (4.50-5.90) mil/mm3 Hgb 15.2 (13.0-17.0) gm/dL Hct 46.8 (39.0-51.0) % Plt Count 184 (150-450) th/mm3 Neut # (Auto) 5.1 (1.8-7.7) th/mm3 Lymph # (Auto) 0.3 L (1.0-4.8) th/mm3 [place] # (Auto) 0.4 (0.0-0.9) th/mm3 Eos # (Auto) 0.0 (0.0-0.4) th/mm3 Baso # (Auto) 0.0 (0.0-0.2) th/mm3 Comprehensive Metabolic Panel 04/18/18 Range/Units 10:55 Sodium 135 L (136-145) meq/L Potassium 5.1 (3.5-5.1) meq/L Chloride 95 L (98-107) meq/L Carbon Dioxide 31.6 (21.0-32.0) meq/L BUN 13 (7-18) mg/dL Creatinine 1.05 (0.60-1.30) mg/dL Calcium 9.3 (8.5-10.1) mg/dL AST 22 (15-37) U/L ALT 25 (12-78) U/L Alkaline Phosphatase 154 H (45-117) U/L Total Protein 9.6 H (6.4-8.2) g/dL Albumin 3.1 L (3.4-5.0) g/dL Intake and Output 04/18/18 04/18/18 04/18/18 06:59 14:59 22:59 Other: Weight 110 kg Patient Weight 04/19/18 06:59 Weight 110 kg - Imaging and Cardiology Imaging: Impressions Chest X-Ray 04/18/18 10:41 CONCLUSION: Bibasilar densities. Assessment and Plan - Plan Assessment: -Permanent atrial fibrillation with rapid ventricular response -Acute decompensated congestive heart failure, suspect diastolic -Hypertensive urgency -Elevated troponin consistent with NSTEMI, suspect type II demand ischemia in setting of AF with RVR and ADHF -Medication noncompliance -CAD -Hyperlipidemia -Morbid obesity -History of DVT status post IVC filter Recommendations: -Continue diltiazem drip 15 mg/h -Start metoprolol tartrate 50 mg twice daily -Agree with nitroglycerin drip which should be transitioned over to Nitropaste once his BP is improved and he has diuresed some. -Start clonidine 0.1 mg every 6 hours as needed SBP > 160 -Furosemide 40 mg every 8 hours -Maintain K+ >4, Mg > 2 -Agreed to resume Eliquis 5 mg twice daily -Case management consultation to assist with patient obtaining home medications including Eliquis. [facility] -Echocardiogram We will continue to follow with you.
[2018-04-18] MEDS: Metoprolol Tartrate 50 MG Tablet PO SCH (20:11)
[2018-04-18] MEDS: Acetaminophen 325 MG Tablet PO PRN (21:30)
[2018-04-18] MEDS ORDERED: Ibuprofen 400 MG Tablet PO ONE (23:56)
[2018-04-19] MEDS ORDERED: Sodium Chloride 0.9% 2 ML Flush PRN IV.FLUSH (00:06)
[2018-04-19] MEDS: dilTIAZem Inj 125 MG in Sodium Chlor 0.9% Inj 100 ML IV.CONT PRN (05:47)
--- NOTE | 2018-04-19 08:05 | P.PNCA ---
Subjective Interval history: Still with occasional chest discomfort. Reports breathing is improving. Unsure if breathing back to baseline, because he has not been out of bed yet. Denies any palpitations. Reports good urine output with diuresis. Telemetry shows rate controlled atrial fibrillation. Medications and Allergies Allergies Allergy/AdvReac Type Severity Reaction Status Date / Time diatrizoate meglumine AdvReac Severe SEVERE Verified 03/10/18 10:15 VOMITING gadobenic acid AdvReac Severe SEVERE Verified 03/10/18 10:15 VOMITING gadodiamide AdvReac Severe SEVERE Verified 03/10/18 10:15 VOMITING gadoteridol AdvReac Severe SEVERE Verified 03/10/18 10:15 VOMITING iodixanol AdvReac Severe SEVERE Verified 03/10/18 10:15 VOMITING iohexol AdvReac Severe SEVERE Verified 03/10/18 10:15 VOMITING Home Medications Medication Instructions Recorded Confirmed Type atorvastatin 40 mg PO HS 12/28/17 04/18/18 History diltiazem HCl [Cardizem] 60 mg PO TID 12/28/17 04/18/18 History furosemide [Lasix] 40 mg PO DAILY 12/28/17 04/18/18 History omeprazole 20 mg PO DAILY 12/28/17 04/18/18 History spironolactone 25 mg PO DAILY 12/28/17 04/18/18 History venlafaxine 75 mg PO DAILY 12/28/17 04/18/18 History zolpidem 5 mg PO 5XW 12/28/17 04/18/18 History Active Medications: Active Medications Acetaminophen (Tylenol) 650 mg PO Q4H PRN PRN Reason: temp > 100.4/pain Last Admin: 04/18/18 21:30 Dose: 650 mg Apixaban (Eliquis) 5 mg PO BID [facility] Last Admin: 04/18/18 20:11 Dose: 5 mg Aspirin (Aspirin Chew) 81 mg PO DAILY [facility] Atorvastatin Calcium (Lipitor) 40 mg PO HS [facility] Last Admin: 04/18/18 20:11 Dose: 40 mg Clonidine HCl (Catapres) 0.1 mg PO Q6H PRN PRN Reason: SBP>160, DBP>90 Diltiazem HCl 125 mg/ Sodium (Chloride) 125 mls @ 5 mls/hr IV.CONT TITRATE PRN ; Protocol PRN Reason: Per Protocol Last Titration: 04/19/18 07:45 Dose: 10 mg/hr, 10 mls/hr Metoprolol Tartrate (Lopressor) 50 mg PO BID [facility] Last Admin: 04/18/18 20:11 Dose: 50 mg Nitroglycerin (Nitro-Bid 2% Oint) 1 inch TOPICAL Q6H [facility] Last Admin: 04/19/18 04:43 Dose: Not Given Sodium Chloride (Ns Flush) 2 ml IV.FLUSH BID [facility] Sodium Chloride (Ns Flush) 2 ml IV.FLUSH PRN PRN PRN Reason: FLUSH AFTER USING IV ACCESS Physical Exam Vital signs: Vital Signs 04/18/18 10:37 04/18/18 10:43 04/18/18 13:43 Temperature 97.6 F Pulse Rate 136 H 124 H Respiratory Rate 42 H 26 H Blood Pressure 178/122 H 165/104 H Pulse Oximetry 96 96 04/18/18 14:33 04/18/18 14:51 04/18/18 16:37 Temperature Pulse Rate 79 100 H 100 H Respiratory Rate 22 22 20 Blood Pressure 138/84 148/80 H 167/98 H Pulse Oximetry 99 98 97 04/18/18 17:00 04/18/18 19:00 04/18/18 20:00 Temperature 98.9 F 97.5 F L Pulse Rate 82 83 84 Respiratory Rate 24 18 Blood Pressure 137/83 143/73 H Pulse Oximetry 95 97 04/18/18 21:00 04/18/18 22:00 04/18/18 23:00 Temperature Pulse Rate 84 86 84 Respiratory Rate Blood Pressure Pulse Oximetry 04/19/18 00:00 04/19/18 01:00 04/19/18 01:43 Temperature 98.4 F Pulse Rate 53 L 84 Respiratory Rate 18 18 Blood Pressure 101/73 Pulse Oximetry 94 L 04/19/18 02:00 04/19/18 03:00 04/19/18 04:00 Temperature 97.7 F Pulse Rate 89 90 88 Respiratory Rate 18 Blood Pressure 137/87 Pulse Oximetry 92 L 04/19/18 05:00 04/19/18 06:00 04/19/18 07:31 Temperature Pulse Rate 83 83 Respiratory Rate Blood Pressure Pulse Oximetry 96 Intake & Output 04/18/18 04/19/18 04/19/18 18:59 06:59 18:59 Intake Total 360 / 360 880 / 880 Output Total 200 / 200 425 / 425 Balance 160 / 160 455 / 455 Weight 242 lb 8.136 oz 283 lb 15.286 oz Intake: IV 400 / 400 Nitroglycerin Drip Premix 50 mg 200 / 200 In 250 ml @ Per Protocol IV. CONT TITRATE PRN Rx#:[id number] Cardizem Inj 125 MG In NS Inj 200 / 200 100 ML @ 5 MG/HR 5 mls/hr IV. CONT TITRATE PRN Rx#:[id number] Oral 360 / 360 480 / 480 Output: Urine 200 / 200 425 / 425 Other: Date of Last Bowel Movement 04/17/18 04/17/18 Narrative: GENERAL: Well-developed well-nourished. In no acute distress. NECK: No carotid bruits. No JVD. CARDIOVASCULAR: Irregular controlled rate and irregular rhythm. No murmur appreciated. RESPIRATORY: No accessory muscle use. Diminished breath sounds especially in the bases. MUSCULOSKELETAL: No clubbing or cyanosis. Trace lower extremity edema. NEUROLOGICAL: Awake and alert. Normal speech. Results 04/18/18 10:55 04/19/18 06:40 Cardiac Enzymes 04/18/18 04/18/18 Range/Units 10:55 13:30 AST 22 (15-37) U/L Troponin I 0.19 H (0.02-0.05) ng/mL B-Natriuretic Peptide 928 H (0-100) pg/mL Coagulation 04/18/18 04/18/18 Range/Units 10:55 13:30 PT 12.2 H (9.8-11.6) sec APTT 25.3 (24.3-30.1) sec B-Natriuretic Peptide 928 H (0-100) pg/mL CBC 04/18/18 Range/Units 10:55 WBC 5.8 (4.0-11.0) th/mm3 RBC 5.26 (4.50-5.90) mil/mm3 Hgb 15.2 (13.0-17.0) gm/dL Hct 46.8 (39.0-51.0) % Plt Count 184 (150-450) th/mm3 Neut # (Auto) 5.1 (1.8-7.7) th/mm3 Lymph # (Auto) 0.3 L (1.0-4.8) th/mm3 [place] # (Auto) 0.4 (0.0-0.9) th/mm3 Eos # (Auto) 0.0 (0.0-0.4) th/mm3 Baso # (Auto) 0.0 (0.0-0.2) th/mm3 Comprehensive Metabolic Panel 04/18/18 Range/Units 10:55 Sodium 135 L (136-145) meq/L Potassium 5.1 (3.5-5.1) meq/L Chloride 95 L (98-107) meq/L Carbon Dioxide 31.6 (21.0-32.0) meq/L BUN 13 (7-18) mg/dL Creatinine 1.05 (0.60-1.30) mg/dL Calcium 9.3 (8.5-10.1) mg/dL AST 22 (15-37) U/L ALT 25 (12-78) U/L Alkaline Phosphatase 154 H (45-117) U/L Total Protein 9.6 H (6.4-8.2) g/dL Albumin 3.1 L (3.4-5.0) g/dL Intake and Output 04/18/18 04/19/18 04/19/18 22:59 06:59 14:59 Intake Total 660 / 660 580 / 580 Output Total 200 / 200 425 / 425 Balance 460 / 460 155 / 155 Intake: IV 300 / 300 100 / 100 Nitroglycerin Drip Premix 50 mg 200 / 200 In 250 ml @ Per Protocol IV. CONT TITRATE PRN Rx#:[id number] Cardizem Inj 125 MG In NS Inj 100 / 100 100 / 100 100 ML @ 5 MG/HR 5 mls/hr IV. CONT TITRATE PRN Rx#:[id number] Oral 360 / 360 480 / 480 Output: Urine 200 / 200 425 / 425 Other: Date of Last Bowel Movement 04/17/18 04/17/18 Weight 283 lb 15.286 oz - Imaging and Cardiology Imaging: Impressions Chest X-Ray 04/18/18 10:41 CONCLUSION: Bibasilar densities. Assessment and Plan - Plan Assessment: -Permanent atrial fibrillation, presenting with rapid ventricular response, now rate controlled -Acute decompensated congestive heart failure, suspect diastolic -Hypertensive urgency -Elevated troponin consistent with NSTEMI, suspect type II demand ischemia in setting of AF with RVR and ADHF -Medication noncompliance -CAD -Hyperlipidemia -Morbid obesity -History of DVT status post IVC filter Recommendations: -Metoprolol tartrate 50 mg twice daily for rate control -Nitropaste -Recommend aggressive IV diuresis with furosemide until creatinine bumps and then resume home dose -Maintain K+ >4, Mg > 2 -Eliquis 5 mg twice daily -Case management consultation to assist with patient obtaining home medications including Eliquis. [facility] -Echocardiogram ordered Going forward, recommend continued diuretic management as above for volume overload and once more euvolemic, discharge planning. Discussed Condition With: Patient, Dr. Owen - Attending Attestation patient seen and examined. agree with above. continue aggressive diuresis until euvolemic and Cr bumps and then resume home diuretic therapy. maintain K>4
[2018-04-19 08:09] LABS: Calcium 8.5 mg/dL (8.5-10.1); Carbon Dioxide 32.9 meq/L (21.0-32.0); Magnesium 2.2 mg/dL (1.5-2.5); Potassium 3.7 meq/L (3.5-5.1)
[2018-04-19] MEDS: Metoprolol Tartrate 50 MG Tablet PO SCH ×2 (08:33→21:34)
[2018-04-19] MEDS: Sodium Chloride 0.9% 2 ML Flush BID IV.FLUSH SCH ×2 (08:34→21:34)
[2018-04-19] MEDS ORDERED: dilTIAZem CD 240 MG Capsule PO SCH (09:00)
[2018-04-19] MEDS: dilTIAZem 60 MG Tablet PO SCH ×4 (09:56→21:34)
--- NOTE | 2018-04-19 12:32 | P.PNIM ---
Subjective Interval history: Patient says he feels somewhat better than he did yesterday. Otherwise no complaints of chest pain. No other complaints. Physical Exam Vital signs: Vital Signs 04/18/18 13:43 04/18/18 14:33 04/18/18 14:51 Temperature Pulse Rate 124 H 79 100 H Respiratory Rate 26 H 22 22 Blood Pressure 165/104 H 138/84 148/80 H Pulse Oximetry 99 98 04/18/18 16:37 04/18/18 17:00 04/18/18 19:00 Temperature 98.9 F Pulse Rate 100 H 82 83 Respiratory Rate 20 24 Blood Pressure 167/98 H 137/83 Pulse Oximetry 97 95 04/18/18 20:00 04/18/18 21:00 04/18/18 22:00 Temperature 97.5 F L Pulse Rate 84 84 86 Respiratory Rate 18 Blood Pressure 143/73 H Pulse Oximetry 97 04/18/18 23:00 04/19/18 00:00 04/19/18 01:00 Temperature 98.4 F Pulse Rate 84 53 L 84 Respiratory Rate 18 Blood Pressure 101/73 Pulse Oximetry 94 L 04/19/18 01:43 04/19/18 02:00 04/19/18 03:00 Temperature Pulse Rate 89 90 Respiratory Rate 18 Blood Pressure Pulse Oximetry 04/19/18 04:00 04/19/18 05:00 04/19/18 06:00 Temperature 97.7 F Pulse Rate 88 83 83 Respiratory Rate 18 Blood Pressure 137/87 Pulse Oximetry 92 L 04/19/18 07:31 04/19/18 08:27 04/19/18 08:28 Temperature 98.2 F Pulse Rate 75 Respiratory Rate 17 Blood Pressure 134/90 Pulse Oximetry 96 95 95 04/19/18 09:51 Temperature Pulse Rate 78 Respiratory Rate 18 Blood Pressure 149/90 H Pulse Oximetry 98 Intake & Output 04/18/18 04/19/18 04/19/18 18:59 06:59 18:59 Intake Total 360 / 360 880 / 880 Output Total 200 / 200 425 / 425 Balance 160 / 160 455 / 455 Weight 110 kg 128.8 kg Intake: IV 400 / 400 Nitroglycerin Drip Premix 50 mg 200 / 200 In 250 ml @ Per Protocol IV. CONT TITRATE PRN Rx#:[id number] Cardizem Inj 125 MG In NS Inj 200 / 200 100 ML @ 5 MG/HR 5 mls/hr IV. CONT TITRATE PRN Rx#:[id number] Oral 360 / 360 480 / 480 Output: Urine 200 / 200 425 / 425 Other: Date of Last Bowel Movement 04/17/18 04/17/18 Narrative: General patient complaining of shortness of breath, improving since yesterday and lower extremity swelling. HEENT extraocular movements are intact, nasal cannula in place, poor dentition Cardiovascular S1-S2 audible, irregularly irregular rhythm. Respiratory bibasilar crackles Abdomen soft, nontender, mildly distended, normal bowel sounds Extremities 2+ pitting edema bilateral lower extremities up to the shins. Neuro the patient moves all 4 extremities, sensation is intact bilaterally Results - Labs CBC & Chem 7: 04/18/18 10:55 04/19/18 06:40 Laboratory Results - last 24 hr 04/18/18 04/18/18 04/19/18 10:55 13:30 06:40 Sodium 135 L Potassium 3.7 D Chloride 96 L Carbon Dioxide 32.9 H Anion Gap 6 BUN 17 Creatinine 1.03 Estimated GFR 87 L Random Glucose 106 Calcium 8.5 D Magnesium 2.2 Total Bilirubin 1.3 H ALT 25 Alkaline Phosphatase 154 H Total Creatine Kinase 71 Troponin I 0.19 H B-Natriuretic Peptide 928 H Total Protein 9.6 H Digoxin Less than 0.1 L Assessment and Plan - Plan This patient is a 72-year-old -[place] male with a diagnosis of hypertension, dyslipidemia, atrial fibrillation on Eliquis however is noncompliant with any of his medications, history of DVT, hepatitis C, diverticulosis. The patient also has an extensive history of tobacco use and is an active smoker. He has a history of alcohol use however as per the patient he has not drink alcohol for the past couple of years. The patient follows up with the [place], primary care doctor is Dr. Westfall. There is a cath report from 02/2017 which shows moderate to severe two-vessel disease, normal LV function. Recommendations were to continue medical management at that time. The patient was brought in after he began to have palpitations at home while watching TV. He denied having any chest pain no shortness of breath. He has also been having worsening shortness of breath and bilateral lower extremity swelling. 1. CHF exacerbation with preserved ejection fraction 2. Atrial fibrillation with rapid ventricular rate secondary to medication noncompliance 3. Troponin anemia likely secondary to #1 and 2 4. Accelerated hypertension The patient feels better today after his heart rate is better controlled. He is currently on IV Lasix. Continue p.o. Cardizem, and metoprolol. Cardiology is following the patient. Patient slight elevation of troponin is likely due to A. fib with RVR. No complaints of chest pain from the patient. Strict ins and outs Monitor on telemetry Blood pressure is now better controlled. His blood pressure medications will be adjusted if needed. Consult placed for case management as the patient states previously he was unable to get his anticoagulant medications. Patient has an elevated chads score and he will be continued on Eliquis which she was previously taking for atrial fibrillation. 5. Dyslipidemia Patient started on a statin. DVT prophylaxis, patient will be started on Eliquis
[2018-04-19] MEDS: Acetaminophen 325 MG Tablet PO PRN (12:39)
--- NOTE | 2018-04-19 18:45 | ECHRPT ---
Indication: CVA/TIA CONCLUSIONS Technically difficult study. The left ventricular systolic function is pezbzgsm-fa-naoxulk reduced with an estimated ejection fra ction in the range of 35-40%. There is global left ventricular dysfunction. Mild- moderate mitral valve regurgitation. Trace aortic valve regurgitation. There is trace tricuspid valve regurgitation. BP: / HR: Rhythm: Atrial fibrillation MEASUREMENTS (Male / Female) Normal Values Technical Quality:Technically difficult study 2D ECHO LVOT Diameter 2.2 cm Aortic Root Diameter 2.8 cm LV Ejection Fraction MOD 4C 44.0 % LV Ejection Fraction 4C AL 46.5 % M-MODE AV Cusp Separation MM 1.8 cm DOPPLER AV Peak Velocity 89.2 cm/s AV Peak Gradient 3.2 mmHg AI Peak Velocity 396.0 cm/s AI Peak Gradient 62.7 mmHg AI Pressure Half Time 639.0 ms LVOT Peak Velocity 90.8 cm/s LVOT Peak Gradient 3.3 mmHg AV Area Cont Eq pk 3.9 cm MR Peak Velocity 450.0 cm/s MR Peak Gradient 81.0 mmHg Mitral E Point Velocity 108.0 cm/s LV E' Lateral Velocity 8.3 cm/s Mitral E to LV E' Lateral Ratio 13.0 LV E' Septal Velocity 5.2 cm/s Mitral E to LV E' Septal Ratio 20.9 TR Peak Velocity 331.0 cm/s TR Peak Gradient 43.8 mmHg Right Atrial Pressure 10.0 mmHg Pulmonary Artery Systolic Pressu 53.8 mmHg Right Ventricular Systolic Press 53.8 mmHg FINDINGS LEFT VENTRICLE The left ventricle is not well visualized. The left ventricular systolic function is gxutzkab-no-wdbggzw reduced with an estimated ejection fra ction in the range of 35-40%. There is global left ventricular dysfunction. RIGHT VENTRICLE The right ventricular systoilc function is mildly decreased. LEFT ATRIUM The left atrial size is mildly dilated. RIGHT ATRIUM The right atrium is not well visualized. ATRIAL SEPTUM Normal atrial septal thickness AORTA The aortic root and proximal ascending aorta are normal in size on limited imaging. MITRAL VALVE Structurally normal mitral valve. Mild mitral annular calcification. Mild- moderate mitral valve regurgitation. No mitral valve stenosis. AORTIC VALVE Aortic valve sclerosis is present. Trace aortic valve regurgitation. No aortic valve stenosis. TRICUSPID VALVE Grossly normal There is trace tricuspid valve regurgitation. The estimated pulmonary arterial pressure is 53.8 mmHg. PULMONARY VALVE No pulmonary valve regurgitation or stenosis. VESSELS The inferior vena cava is normal in size. PERICARDIUM No pericardial effusion. Shahriar Moody DO (Electronically Signed) Final Date:19 April 2018 18:44
--- NOTE | 2018-04-19 20:07 | ECG ---
Date Performed: 04/18/2018 Time Performed: 10:38:36 PTAGE: 72 years EKG: ATRIAL FIBRILLATION WITH RAPID VENTRICULAR RESPONSE VOLTAGE CRITERIA FOR LVH NONSPECIFIC ST & T-WAVE ABNORMALITY ABNORMAL ECG INTERPRETATION BASED ON A DEFAULT AGE OF 40 YEARS PREVIOUS TRACING : 02/17/2018 09.55 Compared to previous tracing, ventricular rate has ac celerated DOCTOR: Naveen Garibay Interpretating Date/Time 04/19/2018 20:06:35
[2018-04-20] MEDS: Acetaminophen 325 MG Tablet PO PRN ×3 (02:07→20:45)
[2018-04-20 08:12] LABS: Anion Gap 5 meq/L (5-15); Blood Urea Nitrogen 18 mg/dL (7-18); Calcium 8.8 mg/dL (8.5-10.1); Carbon Dioxide 32.8 meq/L (21.0-32.0); Chloride 98 meq/L (98-107); Glomerular Filtration Rate Greater Than 89 mL/min (>89); Glucose,Random 82 mg/dL (74-106); Magnesium 2.2 mg/dL (1.5-2.5); Potassium 4.3 meq/L (3.5-5.1); Sodium 136 meq/L (136-145)
[2018-04-20] MEDS: dilTIAZem 60 MG Tablet PO SCH ×4 (09:14→20:45)
[2018-04-20] MEDS: Metoprolol Tartrate 50 MG Tablet PO SCH ×2 (09:14→20:45)
[2018-04-20] MEDS: Sodium Chloride 0.9% 2 ML Flush BID IV.FLUSH SCH ×2 (09:15→20:45)
--- NOTE | 2018-04-20 17:01 | P.PNIM ---
Subjective Interval history: Patient says he feels better than he did yesterday. Still has some swelling of bilateral lower extremities. He does not have any other complaints today. Physical Exam Vital signs: Vital Signs 04/19/18 17:00 04/19/18 18:00 04/19/18 18:53 Temperature 98.2 F Pulse Rate 100 H 90 68 Respiratory Rate 18 Blood Pressure 135/92 H Pulse Oximetry 96 04/19/18 19:00 04/19/18 20:00 04/19/18 21:00 Temperature 98.4 F Pulse Rate 84 92 H 94 H Respiratory Rate 20 Blood Pressure 129/80 Pulse Oximetry 93 L 04/19/18 22:00 04/19/18 23:00 04/19/18 23:50 Temperature Pulse Rate 92 H 84 73 Respiratory Rate 18 Blood Pressure 113/78 Pulse Oximetry 95 04/20/18 00:00 04/20/18 01:00 04/20/18 02:00 Temperature Pulse Rate 80 84 86 Respiratory Rate Blood Pressure Pulse Oximetry 04/20/18 03:00 04/20/18 03:45 04/20/18 04:00 Temperature Pulse Rate 84 64 90 Respiratory Rate 20 Blood Pressure 114/82 Pulse Oximetry 95 04/20/18 05:00 04/20/18 06:00 04/20/18 07:00 Temperature Pulse Rate 88 92 H 99 H Respiratory Rate Blood Pressure Pulse Oximetry 04/20/18 07:19 04/20/18 08:00 04/20/18 09:00 Temperature 97.9 F Pulse Rate 64 92 H 94 H Respiratory Rate 18 Blood Pressure 144/90 H Pulse Oximetry 98 98 04/20/18 10:00 04/20/18 11:00 04/20/18 11:43 Temperature 98.4 F Pulse Rate 90 77 60 Respiratory Rate 22 Blood Pressure 148/94 H Pulse Oximetry 98 04/20/18 12:00 04/20/18 13:00 04/20/18 14:00 Temperature Pulse Rate 82 86 80 Respiratory Rate Blood Pressure Pulse Oximetry 04/20/18 15:00 04/20/18 16:00 Temperature Pulse Rate 79 90 Respiratory Rate Blood Pressure Pulse Oximetry Intake & Output 04/19/18 04/20/18 04/20/18 18:59 06:59 18:59 Intake Total 505 / 505 480 / 480 Output Total 700 / 700 1150 / 1150 Balance -195 / -195 -670 / -670 Weight 129 kg Intake: IV 25 / 25 Cardizem Inj 125 MG In NS Inj 25 / 25 100 ML @ 5 MG/HR 5 mls/hr IV. CONT TITRATE PRN Rx#:[id number] Oral 480 / 480 480 / 480 Output: Urine 700 / 700 1150 / 1150 Other: Date of Last Bowel Movement 04/19/18 04/19/18 # Bowel Movements 1 Narrative: General patient shortness of breath has improved since yesterday. HEENT extraocular movements are intact, nasal cannula in place, poor dentition Cardiovascular S1-S2 audible, irregularly irregular rhythm. Respiratory bibasilar crackles Abdomen soft, nontender, mildly distended, normal bowel sounds Extremities patient still has 1-2+ pitting edema bilateral lower extremities up to the shins. Neuro the patient moves all 4 extremities, sensation is intact bilaterally Results - Labs CBC & Chem 7: 04/18/18 10:55 04/20/18 05:38 Laboratory Results - last 24 hr 04/20/18 05:38 Sodium 136 Potassium 4.3 Chloride 98 Carbon Dioxide 32.8 H Anion Gap 5 BUN 18 Creatinine 1.00 Estimated GFR Greater than 89 Random Glucose 82 Calcium 8.8 Magnesium 2.2 Assessment and Plan - Plan This patient is a 72-year-old -[place] male with a diagnosis of hypertension, dyslipidemia, atrial fibrillation on Eliquis however is noncompliant with any of his medications, history of DVT, hepatitis C, diverticulosis. The patient also has an extensive history of tobacco use and is an active smoker. He has a history of alcohol use however as per the patient he has not drink alcohol for the past couple of years. The patient follows up with the [place], primary care doctor is Dr. Westfall. There is a cath report from 02/2017 which shows moderate to severe two-vessel disease, normal LV function. Recommendations were to continue medical management at that time. The patient was brought in after he began to have palpitations at home while watching TV. He denied having any chest pain no shortness of breath. He has also been having worsening shortness of breath and bilateral lower extremity swelling. 1. CHF exacerbation with preserved ejection fraction 2. Atrial fibrillation with rapid ventricular rate secondary to medication noncompliance 3. Troponin anemia likely secondary to #1 and 2 Patient has a significant amount of bilateral lower extremity edema. Currently on IV Lasix. We will continue IV Lasix. Patient arrived with atrial fibrillation with RVR, heart rate now under control. Continue beta-sherri. Monitor strict ins and outs 1.5 L fluid restriction. Daily weight Continue Eliquis for atrial fibrillation. 5. Dyslipidemia Patient started on a statin. PT eval pending DVT prophylaxis, patient is on Eliquis
--- NOTE | 2018-04-20 17:38 | P.DCO ---
- Home Health Nursing Order: Medical education, Nursing assessment with vital signs - Case Management Consult Yes - Certification I have seen patient Breann Chatterjee on 04/20/18. My clinical findings support the need for the requested home health care services because: Medication compliance is questionable, Limited ability to care for self I certify that my clinical findings support that this patient is homebound because: Unsafe to leave home unassisted
[2018-04-20] MEDS: Gabapentin 300 MG Capsule PO SCH (19:27)
[2018-04-21] MEDS: Acetaminophen 325 MG Tablet PO PRN ×2 (07:13→15:49)
[2018-04-21] MEDS: Sodium Chloride 0.9% 2 ML Flush BID IV.FLUSH SCH ×2 (08:06→21:08)
[2018-04-21] MEDS: Metoprolol Tartrate 50 MG Tablet PO SCH ×2 (08:06→21:09)
[2018-04-21] MEDS: Gabapentin 300 MG Capsule PO SCH ×3 (08:06→17:27)
[2018-04-21] MEDS: dilTIAZem 60 MG Tablet PO SCH ×4 (08:06→21:09)
[2018-04-21 16:11] LABS: Calcium 8.6 mg/dL (8.5-10.1); Carbon Dioxide 33.2 meq/L (21.0-32.0); Magnesium 2.1 mg/dL (1.5-2.5); Potassium 4.3 meq/L (3.5-5.1)
--- NOTE | 2018-04-21 17:31 | P.PNIM ---
Subjective Interval history: Patient had complaints of shortness of breath this morning. He says he was previously on inhalers however has not been compliant with his medications for the past couple of months. Physical Exam Vital signs: Vital Signs 04/20/18 19:00 04/20/18 20:00 04/20/18 21:00 Temperature 98.4 F Pulse Rate 97 H 63 102 H Respiratory Rate 18 Blood Pressure 146/93 H Pulse Oximetry 94 L 04/20/18 22:00 04/20/18 23:00 04/20/18 23:52 Temperature Pulse Rate 90 76 66 Respiratory Rate 18 Blood Pressure 124/82 Pulse Oximetry 97 04/21/18 00:00 04/21/18 01:00 EDT 04/21/18 01:00 EST Temperature Pulse Rate 70 80 84 Respiratory Rate Blood Pressure Pulse Oximetry 04/21/18 02:00 04/21/18 03:00 04/21/18 03:53 Temperature Pulse Rate 82 89 60 Respiratory Rate 18 Blood Pressure 137/86 Pulse Oximetry 97 04/21/18 04:00 04/21/18 05:00 04/21/18 06:00 Temperature Pulse Rate 88 92 H 92 H Respiratory Rate Blood Pressure Pulse Oximetry 04/21/18 07:00 04/21/18 07:42 04/21/18 08:00 Temperature 98.0 F Pulse Rate 92 H 93 H Respiratory Rate 16 18 Blood Pressure 139/97 H Pulse Oximetry 92 L 04/21/18 09:00 04/21/18 10:00 04/21/18 10:06 Temperature Pulse Rate 108 H 84 64 Respiratory Rate 16 Blood Pressure Pulse Oximetry 04/21/18 11:00 04/21/18 12:00 04/21/18 12:49 Temperature 98.1 F Pulse Rate 90 71 101 H Respiratory Rate 22 Blood Pressure 129/86 Pulse Oximetry 90 L 04/21/18 13:13 04/21/18 15:00 04/21/18 16:00 Temperature 98.1 F Pulse Rate 71 87 79 Respiratory Rate 24 Blood Pressure 115/81 Pulse Oximetry 94 L 04/21/18 16:18 04/21/18 17:00 Temperature Pulse Rate 90 Respiratory Rate 16 Blood Pressure Pulse Oximetry Intake & Output 04/20/18 04/21/18 04/21/18 19:59 06:59 18:59 Intake Total Output Total Balance Weight Intake: Oral Output: Urine Other: # Voids Date of Last Bowel Movement # Bowel Movements Narrative: General patient shortness of breath has improved since yesterday. He does still get short of breath when ambulating. HEENT extraocular movements are intact, nasal cannula in place, poor dentition Cardiovascular S1-S2 audible, irregularly irregular rhythm. Respiratory bibasilar crackles Abdomen soft, nontender, mildly distended, normal bowel sounds Extremities patient still has 1-2+ pitting edema bilateral lower extremities up to the shins. Neuro the patient moves all 4 extremities, sensation is intact bilaterally Results - Labs CBC & Chem 7: 04/18/18 10:55 04/21/18 15:50 Laboratory Results - last 24 hr 04/21/18 15:50 Sodium 137 Potassium 4.3 Chloride 98 Carbon Dioxide 33.2 H Anion Gap 6 BUN 15 Creatinine 1.01 Estimated GFR 89 Random Glucose 104 Calcium 8.6 Magnesium 2.1 Assessment and Plan - Plan This patient is a 72-year-old -[place] male with a diagnosis of hypertension, dyslipidemia, atrial fibrillation on Eliquis however is noncompliant with any of his medications, history of DVT, hepatitis C, diverticulosis. The patient also has an extensive history of tobacco use and is an active smoker. He has a history of alcohol use however as per the patient he has not drink alcohol for the past couple of years. The patient follows up with the [place], primary care doctor is Dr. Westfall. There is a cath report from 02/2017 which shows moderate to severe two-vessel disease, normal LV function. Recommendations were to continue medical management at that time. The patient was brought in after he began to have palpitations at home while watching TV. He denied having any chest pain no shortness of breath. He has also been having worsening shortness of breath and bilateral lower extremity swelling. 1. CHF exacerbation with preserved ejection fraction 2. Atrial fibrillation with rapid ventricular rate secondary to medication noncompliance 3. Troponin anemia likely secondary to #1 and 2 4. Acute hypoxic respiratory failure secondary to #1 Patient has a significant amount of bilateral lower extremity edema Currently on IV Lasix. We will continue IV Lasix. Patient arrived with atrial fibrillation with RVR, heart rate now under control. Continue beta-sherri. Monitor strict ins and outs 1.5 L fluid restriction. Daily weight Continue Eliquis for atrial fibrillation. The patient's elevation in troponin is likely secondary to CHF exacerbation and A. fib with RVR. Will follow up with recommendation from cardiology. The patient was also requiring supplemental oxygen especially when ambulate. We will continue oxygen as needed. Breathing treatments started as the patient likely also has baseline CKD given his extensive tobacco smoking history, and labs show an elevated CO2 likely from COPD. 5. Dyslipidemia Patient started on a statin. PT evaluated the patient today. Recommendations are for the patient to go home with home health versus rehab. Will discuss this with the patient. DVT prophylaxis, patient is on Eliquis
--- NOTE | 2018-04-21 19:17 | MB ---
cc: Malachi Whiteside MD DATE: 04/21/2018 REQUESTING PHYSICIAN: Aleyda Hickman MD REASON FOR CONSULTATION: Shortness of breath and hypoxia. HISTORY OF PRESENT ILLNESS: Mr. Chatterjee is a pleasant 72-year-old male with a history of atrial fibrillation, hypertension, hyperlipidemia and history of hepatitis C. The patient has been having increasing shortness of breath, increasing swelling in his legs. He came to the hospital with increasing shortness of breath and palpitations in his chest. No chest pain. No nausea or vomiting. Because of the worsening, he was sent again to the hospital, found to have atrial fibrillation with rapid ventricular rate. Now, he is using 2 liters nasal cannula. He does not require oxygen at home and is feeling much better. He has been seen by certified pharmacist assistant. LABORATORY DATA: His lab revealed WBC 5.8, hemoglobin 15.2, hematocrit 46.8, MCV 88, platelet count 184. INR 1.4. Sodium 137, potassium 4.7, chloride 98, CO2 of 33, BUN 15, creatinine 1.01. Toxicology: Digoxin is less than 0.1. The chest x-ray shows bibasilar densities. PAST MEDICAL HISTORY: Significant for history of deep venous thrombosis, status post IVC filter placement, atrial fibrillation, hypertension, dyslipidemia, diastolic congestive heart failure, hypercholesterolemia, history of lung nodule, history of [place] in the past. MEDICATIONS: He is currently takin. Nebulizer treatment with DuoNeb. 2. Eliquis 5 mg twice a day. 3. Aspirin 81 mg. 4. Lipitor 40 mg a day. 5. Catapres p.r.n. 6. Diltiazem 60 mg every 6 hours. 5. Lasix 40 mg 3 times a day. 6. Neurontin 300 mg 3 times a day. 7. Metoprolol 50 mg twice a day. ALLERGIES: GADOLINIUM. SOCIAL HISTORY: He is single and lives alone. He has 3 children. He has history of smoking, continues to smoke half a pack of cigarettes a day. FAMILY HISTORY: Noncontributory. REVIEW OF SYSTEMS: Normally up around and active. He follows at [facility], not seeing any certified pharmacist assistant. No seizure, stroke or epilepsy. No chest pain. PHYSICAL EXAMINATION: GENERAL: Reveals a well-built, well-nourished male, not in any acute distress. VITAL SIGNS: Blood pressure 115/81, heart rate 67, respirations 20, temperature 98.1. HEENT: Pupils are equal and reactive to light. Nasal mucosa normal. NECK: Supple. JVP not raised. CHEST: Equal respirations, basilar rales. HEART: S1, S2 normal. ABDOMEN: Benign. EXTREMITIES: One plus pedal edema. ASSESSMENT AND PLAN: 1. Congestive heart failure. 2. Atrial fibrillation with rapid ventricular rate, now rate is controlled. 3. Chronic obstructive pulmonary disease. 4. Hypoxia. 5. Hypertension with history of deep venous thrombosis, status post IVC filter placement. PLAN: We will give him aerosol treatments supplemented with oxygen. We will check his room oxygen after ambulation to see if he is going to need any home oxygen therapy, also check his pulmonary function study. He is being electrolyte . Further treatment will depend on his response. MD SAÚL Gordon/greg/eliu , 04:48 PM , 04:57 PM
[2018-04-21] MEDS: Budesonide-Formoterol 80/4.5 MCG 6.9 GM Inhaler INH SCH (21:07)
[2018-04-22] MEDS: Acetaminophen 325 MG Tablet PO PRN ×4 (03:23→23:13)
[2018-04-22] MEDS: Budesonide-Formoterol 80/4.5 MCG 6.9 GM Inhaler INH SCH ×2 (08:01→23:11)
[2018-04-22] MEDS: Metoprolol Tartrate 50 MG Tablet PO SCH ×2 (08:02→21:05)
[2018-04-22] MEDS: Gabapentin 300 MG Capsule PO SCH ×3 (08:02→17:37)
[2018-04-22] MEDS: dilTIAZem 60 MG Tablet PO SCH ×4 (08:14→21:06)
[2018-04-22] MEDS: Sodium Chloride 0.9% 2 ML Flush BID IV.FLUSH SCH ×2 (08:15→21:06)
[2018-04-22 09:54] LABS: Calcium 9.1 mg/dL (8.5-10.1); Carbon Dioxide 35.5 meq/L (21.0-32.0); Magnesium 2.2 mg/dL (1.5-2.5); Potassium 4.3 meq/L (3.5-5.1)
--- NOTE | 2018-04-22 13:52 | P.PNIM ---
Subjective Interval history: Patient complaining of some abdominal pain today. He also says he feels short of breath on and off throughout the day. No other complaints from the patient. Physical Exam Vital signs: Vital Signs 04/21/18 15:00 04/21/18 16:00 04/21/18 16:18 Temperature 98.1 F Pulse Rate 87 79 Respiratory Rate 24 16 Blood Pressure 115/81 Pulse Oximetry 94 L 04/21/18 17:00 04/21/18 17:44 04/21/18 19:00 Temperature Pulse Rate 90 98 H 90 Respiratory Rate Blood Pressure Pulse Oximetry 04/21/18 20:00 04/21/18 21:00 04/21/18 22:00 Temperature 97.5 F L Pulse Rate 82 84 92 H Respiratory Rate 18 Blood Pressure 145/89 H Pulse Oximetry 95 97 04/21/18 23:00 04/21/18 23:41 04/22/18 00:00 Temperature Pulse Rate 81 75 74 Respiratory Rate 20 Blood Pressure 124/92 H Pulse Oximetry 95 04/22/18 01:00 04/22/18 02:00 04/22/18 03:00 Temperature Pulse Rate 74 78 90 Respiratory Rate Blood Pressure Pulse Oximetry 04/22/18 03:46 04/22/18 04:00 04/22/18 05:00 Temperature Pulse Rate 86 92 H 90 Respiratory Rate 18 Blood Pressure 158/89 H Pulse Oximetry 93 L 04/22/18 06:00 04/22/18 07:00 04/22/18 08:00 Temperature 98.7 F Pulse Rate 90 99 H 100 H Respiratory Rate 18 Blood Pressure 163/106 H Pulse Oximetry 95 04/22/18 09:00 04/22/18 09:06 04/22/18 09:57 Temperature Pulse Rate 85 88 Respiratory Rate 20 Blood Pressure Pulse Oximetry 04/22/18 11:00 04/22/18 12:00 04/22/18 13:00 Temperature 98.6 F Pulse Rate 78 69 76 Respiratory Rate 19 Blood Pressure 112/75 Pulse Oximetry 92 L Intake & Output 04/21/18 04/22/18 04/22/18 18:59 06:59 18:59 Intake Total 960 / 960 480 / 480 Output Total 1800 / 1800 700 / 700 Balance -840 / -840 -220 / -220 Weight 128 kg Intake: Oral 960 / 960 480 / 480 Output: Urine 1800 / 1800 700 / 700 Other: Date of Last Bowel Movement 04/21/18 04/21/18 # Bowel Movements 1 0 Narrative: General patient complains of shortness of breath on and off throughout the day. HEENT extraocular movements are intact, nasal cannula in place, poor dentition Cardiovascular S1-S2 audible, irregularly irregular rhythm. Respiratory bibasilar crackles Abdomen soft, nontender, mildly distended, normal bowel sounds Extremities patient still has 1 + pitting edema bilateral lower extremities up to the shins. Neuro the patient moves all 4 extremities, sensation is intact bilaterally Results - Labs CBC & Chem 7: 04/18/18 10:55 04/22/18 08:48 Laboratory Results - last 24 hr 04/21/18 04/22/18 15:50 08:48 Sodium 137 135 L Potassium 4.3 4.3 Chloride 98 94 L Carbon Dioxide 33.2 H 35.5 H Anion Gap 6 6 BUN 15 16 Creatinine 1.01 1.07 Estimated GFR 89 83 L Random Glucose 104 126 H Calcium 8.6 9.1 Magnesium 2.1 2.2 Assessment and Plan - Plan This patient is a 72-year-old -[place] male with a diagnosis of hypertension, dyslipidemia, atrial fibrillation on Eliquis however is noncompliant with any of his medications, history of DVT, hepatitis C, diverticulosis. The patient also has an extensive history of tobacco use and is an active smoker. He has a history of alcohol use however as per the patient he has not drink alcohol for the past couple of years. The patient follows up with the [place], primary care doctor is Dr. Westfall. There is a cath report from 02/2017 which shows moderate to severe two-vessel disease, normal LV function. Recommendations were to continue medical management at that time. The patient was brought in after he began to have palpitations at home while watching TV. He denied having any chest pain no shortness of breath. He has also been having worsening shortness of breath and bilateral lower extremity swelling. 1. CHF exacerbation with preserved ejection fraction 2. Atrial fibrillation with rapid ventricular rate secondary to medication noncompliance 3. Acute hypoxic respiratory failure secondary to #1 Patient's lower extremity edema has improved somewhat, however patient still needs some IV diuresis. Currently on IV Lasix. We will continue IV Lasix. Patient arrived with atrial fibrillation with RVR, heart rate now under control. Continue beta-sherri. Monitor strict ins and outs 1.5 L fluid restriction. Daily weight Continue Eliquis for atrial fibrillation. Patient still hypoxic and requiring supplemental oxygen on and off. Pulmonary was consulted. Will follow up with their recommendations. PT to evaluate the patient today. Patient will need rehab at a [facility] facility after discharge. Case management consulted. 5. Dyslipidemia Patient started on a statin. PT evaluated the patient today. Recommendations are for the patient to go home with home health versus rehab. Will discuss this with the patient. DVT prophylaxis, patient is on Eliquis
--- NOTE | 2018-04-22 19:03 | P.PNPL ---
Subjective Interval history: 72 YO AA male with COPD,CHF, sob Breathing better No CP No Fever or chills PFT Severe COPD Physical Exam Vital signs: Vital Signs 04/21/18 20:00 04/21/18 21:00 04/21/18 22:00 Temperature 97.5 F L Pulse Rate 82 84 92 H Respiratory Rate 18 Blood Pressure 145/89 H Pulse Oximetry 95 97 04/21/18 23:00 04/21/18 23:41 04/22/18 00:00 Temperature Pulse Rate 81 75 74 Respiratory Rate 20 Blood Pressure 124/92 H Pulse Oximetry 95 04/22/18 01:00 04/22/18 02:00 04/22/18 03:00 Temperature Pulse Rate 74 78 90 Respiratory Rate Blood Pressure Pulse Oximetry 04/22/18 03:46 04/22/18 04:00 04/22/18 05:00 Temperature Pulse Rate 86 92 H 90 Respiratory Rate 18 Blood Pressure 158/89 H Pulse Oximetry 93 L 04/22/18 06:00 04/22/18 07:00 04/22/18 08:00 Temperature 98.7 F Pulse Rate 90 99 H 100 H Respiratory Rate 18 Blood Pressure 163/106 H Pulse Oximetry 95 04/22/18 09:00 04/22/18 09:06 04/22/18 09:57 Temperature Pulse Rate 85 88 Respiratory Rate 20 Blood Pressure Pulse Oximetry 04/22/18 11:00 04/22/18 12:00 04/22/18 13:00 Temperature 98.6 F Pulse Rate 78 69 76 Respiratory Rate 19 Blood Pressure 112/75 Pulse Oximetry 92 L 04/22/18 14:00 04/22/18 14:06 04/22/18 16:00 Temperature 98.4 F Pulse Rate 73 86 87 Respiratory Rate 16 Blood Pressure 145/97 H Pulse Oximetry 98 04/22/18 17:00 04/22/18 17:46 04/22/18 18:00 Temperature Pulse Rate 91 H 80 Respiratory Rate Blood Pressure Pulse Oximetry 99 Intake & Output 04/22/18 04/22/18 04/23/18 06:59 18:59 06:59 Intake Total 480 / 480 720 / 720 Output Total 700 / 700 1600 / 1600 Balance -220 / -220 -880 / -880 Weight 128 kg Intake: Oral 480 / 480 720 / 720 Output: Urine 700 / 700 1600 / 1600 Other: Date of Last Bowel Movement 04/21/18 # Bowel Movements 0 GENERAL: WBWN AA male, NAD SKIN: Warm and dry. HEAD: Normocephalic. EYES: No scleral icterus. No injection or drainage. NECK: Supple, trachea midline. No JVD or lymphadenopathy. CARDIOVASCULAR: Regular rate and rhythm without murmurs, gallops, or rubs. RESPIRATORY: Breath sounds equal bilaterally. No accessory muscle use. GASTROINTESTINAL: Abdomen soft, non-tender, nondistended. MUSCULOSKELETAL: No cyanosis, or edema. BACK: Nontender without obvious deformity. No CVA tenderness. Assessment and Plan - Plan ASSESSMENT AND PLAN: 1. Congestive heart failure. 2. Atrial fibrillation with rapid ventricular rate, now rate is controlled. 3. Chronic obstructive pulmonary disease. 4. Hypoxia. 5. Hypertension with history of deep venous thrombosis, status post IVC filter placement. PLAN: Aerosol nebs Supplement 07 20 walk test Symbicort 2 puffs bid Eliquis 5 mg bid
[2018-04-23] MEDS: dilTIAZem 60 MG Tablet PO SCH ×4 (09:38→21:00)
[2018-04-23] MEDS: Gabapentin 300 MG Capsule PO SCH ×3 (09:38→17:24)
[2018-04-23] MEDS: Metoprolol Tartrate 50 MG Tablet PO SCH ×2 (09:38→20:59)
[2018-04-23] MEDS: Sodium Chloride 0.9% 2 ML Flush BID IV.FLUSH SCH ×2 (09:41→21:00)
[2018-04-23] MEDS: Acetaminophen 325 MG Tablet PO PRN ×2 (10:45→17:23)
--- NOTE | 2018-04-23 13:54 | P.PN ---
Subjective Interval history: Follow-up acute decompensated diastolic CHF/permanent A. fib April 23, 2018-patient seen and examined, complains of shortness of breath otherwise denies any chest pain or heart palpitation. Physical Exam Vital signs: Vital Signs 04/22/18 14:00 04/22/18 14:06 04/22/18 16:00 Temperature 98.4 F Pulse Rate 73 86 87 Respiratory Rate 16 Blood Pressure 145/97 H Pulse Oximetry 98 04/22/18 17:00 04/22/18 17:46 04/22/18 18:00 Temperature Pulse Rate 91 H 80 Respiratory Rate Blood Pressure Pulse Oximetry 99 04/22/18 20:00 04/23/18 00:00 04/23/18 04:00 Temperature 97.9 F 98.1 F 98.9 F Pulse Rate 89 75 81 Respiratory Rate 17 17 20 Blood Pressure 153/98 H 148/98 H 150/84 H Pulse Oximetry 100 100 100 04/23/18 08:00 04/23/18 10:51 04/23/18 12:00 Temperature 98 F 98 F Pulse Rate 102 H 90 Respiratory Rate 17 19 Blood Pressure 141/88 H 129/87 Pulse Oximetry 98 96 97 Intake & Output 04/22/18 04/23/18 04/23/18 18:59 06:59 18:59 Intake Total 720 / 720 480 / 480 Output Total 1600 / 1600 1100 / 1100 Balance -880 / -880 -620 / -620 Weight 125.6 kg Intake: Oral 720 / 720 480 / 480 Output: Urine 1600 / 1600 1100 / 1100 Other: Date of Last Bowel Movement 04/21/18 Narrative: GENERAL: NAD SKIN: Warm and dry. HEAD: Normocephalic. EYES: No scleral icterus. No injection or drainage. NECK: Supple, trachea midline. No JVD or lymphadenopathy. CARDIOVASCULAR: Irregular regular rate and rhythm without murmurs, gallops, or rubs. RESPIRATORY: Breath sounds equal bilaterally. No accessory muscle use. GASTROINTESTINAL: Abdomen soft, non-tender, nondistended. MUSCULOSKELETAL: No cyanosis, or edema. BACK: Nontender without obvious deformity. No CVA tenderness. Results - Labs CBC & Chem 7: 04/18/18 10:55 04/22/18 08:48 Assessment and Plan - Plan 72-year-old man with 1. Acute decompensated diastolic CHF exacerbation with preserved ejection fraction Continue with Lasix IV 40 mg twice daily, beta-sherri 2. Atrial fibrillation with rapid ventricular rate secondary to medication noncompliance Continue with Cardizem, Eliquis, aspirin 3. Acute hypoxic respiratory failure secondary to #1 Appreciate input from pulmonary medicine DuoNeb as needed 4. Dyslipidemia Continue with statin. DVT prophylaxis, patient is on Eliquis
--- NOTE | 2018-04-23 14:41 | P.DCO ---
- Diagnosis (1) Respiratory distress Status: Acute (2) Atrial fibrillation with RVR Status: Acute (3) Pulmonary edema Status: Acute (4) Congestive heart failure Status: Acute - Physical Therapy Order: Evaluate and treat - Home Health Nursing Order: Signs/symptoms of disease process, CHF education - Case Management Consult No - Certification I have seen patient Breann Chatterjee on 04/23/18. My clinical findings support the need for the requested home health care services because: Patient has SOB, Deconditioned with increased weakness I certify that my clinical findings support that this patient is homebound because: Poor cardiac reserve (3) Pulmonary edema Qualifiers: Chronicity: acute Qualified Code(s): J81.0 - Acute pulmonary edema (4) Congestive heart failure Qualifiers: Heart failure type: unspecified Heart failure chronicity: acute on chronic Qualified Code(s): I50.9 - Heart failure, unspecified
--- NOTE | 2018-04-23 19:53 | P.PNPL ---
Subjective Interval history: 72 YO AA male with COPD,CHF, sob Breathing better No CP No Fever or chills PFT Severe COPD Anxious to go home Physical Exam Vital signs: Vital Signs 04/22/18 20:00 04/23/18 00:00 04/23/18 04:00 Temperature 97.9 F 98.1 F 98.9 F Pulse Rate 89 75 81 Respiratory Rate 17 17 20 Blood Pressure 153/98 H 148/98 H 150/84 H Pulse Oximetry 100 100 100 04/23/18 08:00 04/23/18 10:51 04/23/18 12:00 Temperature 98 F 98 F Pulse Rate 102 H 111 H Respiratory Rate 17 19 Blood Pressure 141/88 H 129/87 Pulse Oximetry 98 96 97 04/23/18 16:00 Temperature 98 F Pulse Rate 86 Respiratory Rate 22 Blood Pressure 111/90 Pulse Oximetry 96 Intake & Output 04/23/18 04/23/18 04/24/18 06:59 18:59 06:59 Intake Total 480 / 480 720 / 720 Output Total 1100 / 1100 500 / 500 Balance -620 / -620 220 / 220 Weight 125.6 kg Intake: Oral 480 / 480 720 / 720 Output: Urine 1100 / 1100 500 / 500 Other: # Voids 1 Date of Last Bowel Movement 04/21/18 # Bowel Movements 1 GENERAL: Obese AA male, NAD SKIN: Warm and dry. HEAD: Normocephalic. EYES: No scleral icterus. No injection or drainage. NECK: Supple, trachea midline. No JVD or lymphadenopathy. CARDIOVASCULAR: Regular rate and rhythm without murmurs, gallops, or rubs. RESPIRATORY: Breath sounds equal bilaterally. No accessory muscle use. GASTROINTESTINAL: Abdomen soft, non-tender, nondistended. MUSCULOSKELETAL: No cyanosis, or edema. BACK: Nontender without obvious deformity. No CVA tenderness. Assessment and Plan - Plan ASSESSMENT AND PLAN: 1. Congestive heart failure. 2. Atrial fibrillation with rapid ventricular rate, now rate is controlled. 3. Chronic obstructive pulmonary disease. 4. Hypoxia. 5. Hypertension with history of deep venous thrombosis, status post IVC filter placement. PLAN: Aerosol nebs Supplement 07 20 walk test Symbicort 2 puffs bid Eliquis 5 mg bid DC plans for home
[2018-04-23] MEDS: Budesonide-Formoterol 80/4.5 MCG 6.9 GM Inhaler INH SCH ×2 (20:14→21:01)
[2018-04-24] MEDS: Acetaminophen 325 MG Tablet PO PRN ×2 (01:25→11:30)
[2018-04-24] MEDS: Gabapentin 300 MG Capsule PO SCH ×3 (08:45→17:14)
[2018-04-24] MEDS: Metoprolol Tartrate 50 MG Tablet PO SCH ×2 (08:46→21:01)
[2018-04-24] MEDS: dilTIAZem 60 MG Tablet PO SCH ×4 (08:46→21:01)
[2018-04-24] MEDS: Budesonide-Formoterol 80/4.5 MCG 6.9 GM Inhaler INH SCH ×2 (08:46→21:02)
[2018-04-24] MEDS: Sodium Chloride 0.9% 2 ML Flush BID IV.FLUSH SCH ×2 (08:46→21:02)
--- NOTE | 2018-04-24 09:51 | P.PN ---
Subjective Interval history: Follow-up acute decompensated diastolic CHF/permanent A. fib April 23, 2018-patient seen and examined, complains of shortness of breath otherwise denies any chest pain or heart palpitation. April 24, 2018-patient seen and examined, has no complaint this morning. Denies any shortness of breath. No acute event overnight. Physical Exam Vital signs: Vital Signs 04/23/18 10:51 04/23/18 12:00 04/23/18 16:00 Temperature 98 F 98 F Pulse Rate 111 H 86 Respiratory Rate 19 22 Blood Pressure 129/87 111/90 Pulse Oximetry 96 97 96 04/23/18 20:00 04/24/18 00:00 04/24/18 04:00 Temperature 98.4 F 98.7 F 98.8 F Pulse Rate 96 H 76 87 Respiratory Rate 20 20 20 Blood Pressure 147/92 H 122/91 H 131/81 Pulse Oximetry 98 96 91 L 04/24/18 08:00 Temperature 98 F Pulse Rate 77 Respiratory Rate 23 Blood Pressure 154/79 H Pulse Oximetry 97 Intake & Output 04/23/18 04/24/18 04/24/18 18:59 06:59 18:59 Intake Total 720 / 720 330 / 330 Output Total 500 / 500 800 / 800 Balance 220 / 220 -470 / -470 Weight 126.6 kg Intake: Oral 720 / 720 330 / 330 Output: Urine 500 / 500 800 / 800 Other: # Voids 1 Date of Last Bowel Movement 04/21/18 04/23/18 # Bowel Movements 1 0 Narrative: GENERAL: NAD SKIN: Warm and dry. HEAD: Normocephalic. EYES: No scleral icterus. No injection or drainage. NECK: Supple, trachea midline. No JVD or lymphadenopathy. CARDIOVASCULAR: Irregular regular rate and rhythm without murmurs, gallops, or rubs. RESPIRATORY: Breath sounds equal bilaterally. No accessory muscle use. GASTROINTESTINAL: Abdomen soft, non-tender, nondistended. MUSCULOSKELETAL: No cyanosis, or edema. BACK: Nontender without obvious deformity. No CVA tenderness. Results - Labs CBC & Chem 7: 04/18/18 10:55 04/22/18 08:48 Assessment and Plan - Assessment (1) Respiratory distress Code(s): R06.03 - Acute respiratory distress Status: Acute (2) Atrial fibrillation with RVR Code(s): I48.91 - Unspecified atrial fibrillation Status: Acute (3) Pulmonary edema Code(s): J81.1 - Chronic pulmonary edema Status: Acute (4) Congestive heart failure Code(s): I50.9 - Heart failure, unspecified Status: Acute - Plan 72-year-old man with 1. Acute decompensated diastolic CHF exacerbation with preserved ejection fraction Continue with Lasix IV 40 mg TID daily, beta-sherri 2. Atrial fibrillation with rapid ventricular rate secondary to medication noncompliance Continue with Cardizem 60 mg 4 times daily, Eliquis, aspirin 3. Acute hypoxic respiratory failure secondary to #1-resolved Appreciate input from pulmonary medicine DuoNeb as needed 4. Dyslipidemia Continue with statin. DVT prophylaxis, patient is on Eliquis (3) Pulmonary edema Qualifiers: Chronicity: acute Qualified Code(s): J81.0 - Acute pulmonary edema (4) Congestive heart failure Qualifiers: Heart failure type: unspecified Heart failure chronicity: acute on chronic Qualified Code(s): I50.9 - Heart failure, unspecified
--- NOTE | 2018-04-24 18:27 | P.PNPL ---
Subjective Interval history: 72 YO AA male with COPD,CHF, sob Breathing better No CP No Fever or chills PFT Severe COPD Ambulates. Physical Exam Vital signs: Vital Signs 04/23/18 20:00 04/24/18 00:00 04/24/18 04:00 Temperature 98.4 F 98.7 F 98.8 F Pulse Rate 96 H 76 87 Respiratory Rate 20 20 20 Blood Pressure 147/92 H 122/91 H 131/81 Pulse Oximetry 98 96 91 L 04/24/18 08:00 04/24/18 12:00 04/24/18 16:00 Temperature 98 F 98.1 F Pulse Rate 98 H 75 96 H Respiratory Rate 23 16 Blood Pressure 154/79 H 126/88 Pulse Oximetry 99 98 Intake & Output 04/23/18 04/24/18 04/24/18 18:59 06:59 18:59 Intake Total 720 / 720 330 / 330 Output Total 500 / 500 800 / 800 Balance 220 / 220 -470 / -470 Weight 126.6 kg Intake: Oral 720 / 720 330 / 330 Output: Urine 500 / 500 800 / 800 Other: # Voids 1 Date of Last Bowel Movement 04/21/18 04/23/18 # Bowel Movements 1 0 GENERAL: Obese Elderly AA male, NAD SKIN: Warm and dry. HEAD: Normocephalic. EYES: No scleral icterus. No injection or drainage. NECK: Supple, trachea midline. No JVD or lymphadenopathy. CARDIOVASCULAR: Regular rate and rhythm without murmurs, gallops, or rubs. RESPIRATORY: Breath sounds equal bilaterally. No accessory muscle use. GASTROINTESTINAL: Abdomen soft, non-tender, nondistended. MUSCULOSKELETAL: No cyanosis, or edema. BACK: Nontender without obvious deformity. No CVA tenderness. Assessment and Plan - Plan ASSESSMENT AND PLAN: 1. Congestive heart failure. 2. Atrial fibrillation with rapid ventricular rate, now rate is controlled. 3. Chronic obstructive pulmonary disease. 4. Hypoxia. 5. Hypertension with history of deep venous thrombosis, status post IVC filter placement. PLAN: Aerosol nebs Supplement 07 20 walk test Symbicort 2 puffs bid Eliquis 5 mg bid
[2018-04-25] MEDS: Acetaminophen 325 MG Tablet PO PRN (05:32)
[2018-04-25] MEDS: Sodium Chloride 0.9% 2 ML Flush BID IV.FLUSH SCH (08:42)
[2018-04-25] MEDS: Gabapentin 300 MG Capsule PO SCH ×2 (08:43→12:29)
[2018-04-25] MEDS: dilTIAZem 60 MG Tablet PO SCH ×2 (08:43→12:29)
[2018-04-25] MEDS: Metoprolol Tartrate 50 MG Tablet PO SCH (08:44)
[2018-04-25] MEDS: Budesonide-Formoterol 80/4.5 MCG 6.9 GM Inhaler INH SCH (08:45)
--- NOTE | 2018-04-25 09:53 | P.PN ---
Subjective Interval history: Follow-up acute decompensated diastolic CHF/permanent A. fib April 23, 2018-patient seen and examined, complains of shortness of breath otherwise denies any chest pain or heart palpitation. April 24, 2018-patient seen and examined, has no complaint this morning. Denies any shortness of breath. No acute event overnight. April 25, 2018-patient seen and examined, stable, T-max 100.5 at 4 AM however currently afebrile. No shortness of breath. Physical Exam Vital signs: Vital Signs 04/24/18 12:00 04/24/18 16:00 04/24/18 20:00 Temperature 98.1 F 97.2 F L Pulse Rate 75 96 H 108 H Respiratory Rate 16 18 Blood Pressure 126/88 149/95 H Pulse Oximetry 98 92 L 04/25/18 00:00 04/25/18 04:00 04/25/18 08:03 Temperature 99.3 F 100.5 F H 98.9 F Pulse Rate 90 91 H 101 H Respiratory Rate 22 20 20 Blood Pressure 164/84 H 133/78 121/60 Pulse Oximetry 95 99 100 Intake & Output 04/24/18 04/25/18 04/25/18 18:59 06:59 18:59 Intake Total 1800 / 1800 480 / 480 Output Total 0 / 0 400 / 400 Balance 1800 / 1800 80 / 80 Weight 130 kg Intake: Oral 1200 / 1200 480 / 480 Oral Supplement 600 / 600 Output: Urine 400 / 400 Stool 0 / 0 Other: Date of Last Bowel Movement 04/23/18 # Bowel Movements 0 Narrative: GENERAL: NAD SKIN: Warm and dry. HEAD: Normocephalic. EYES: No scleral icterus. No injection or drainage. NECK: Supple, trachea midline. No JVD or lymphadenopathy. CARDIOVASCULAR: Irregular regular rate and rhythm without murmurs, gallops, or rubs. RESPIRATORY: Breath sounds equal bilaterally. No accessory muscle use. GASTROINTESTINAL: Abdomen soft, non-tender, nondistended. MUSCULOSKELETAL: No cyanosis, or edema. BACK: Nontender without obvious deformity. No CVA tenderness. Results - Labs CBC & Chem 7: 04/18/18 10:55 04/22/18 08:48 - Procedures None Assessment and Plan - Assessment (1) Respiratory distress Code(s): R06.03 - Acute respiratory distress Status: Acute (2) Atrial fibrillation with RVR Code(s): I48.91 - Unspecified atrial fibrillation Status: Acute (3) Pulmonary edema Code(s): J81.1 - Chronic pulmonary edema Status: Acute (4) Congestive heart failure Code(s): I50.9 - Heart failure, unspecified Status: Acute - Plan 72-year-old man with 1. Acute decompensated diastolic CHF exacerbation with preserved ejection fraction Continue with Lasix IV 40 mg TID daily, beta-sherri. will switch to home diuretics 2. Atrial fibrillation with rapid ventricular rate secondary to medication noncompliance Continue with Cardizem 60 mg 4 times daily, Eliquis, aspirin 3. Acute hypoxic respiratory failure secondary to #1-resolved Appreciate input from pulmonary medicine DuoNeb as needed Perform walk test this AM 4. Dyslipidemia Continue with statin. DVT prophylaxis, patient is on Eliquis (3) Pulmonary edema Qualifiers: Chronicity: acute Qualified Code(s): J81.0 - Acute pulmonary edema (4) Congestive heart failure Qualifiers: Heart failure type: unspecified Heart failure chronicity: acute on chronic Qualified Code(s): I50.9 - Heart failure, unspecified
[2018-04-25 11:47] VITALS: BP 128/79; RESP 22; TEMP 98.4
[2018-04-25 12:26] VITALS: O2SAT 100
[2018-04-25 12:34] LABS: Albumin 2.4 g/dL (3.4-5.0); Anion Gap 7 meq/L (5-15); Aspartate Aminotransferase 40 U/L (15-37); Blood Urea Nitrogen 15 mg/dL (7-18); Calcium 8.5 mg/dL (8.5-10.1); Carbon Dioxide 34.2 meq/L (21.0-32.0); Chloride 95 meq/L (98-107); Glomerular Filtration Rate Greater Than 89 mL/min (>89); Glucose,Random 142 mg/dL (74-106); Potassium 3.7 meq/L (3.5-5.1); Sodium 136 meq/L (136-145)
[2018-04-25 12:40] LABS: Alanine Aminotransferase 32 U/L (12-78); Alkaline Phosphatase 175 U/L (45-117); Total Protein 8.7 g/dL (6.4-8.2)
[2018-04-25 13:28] VITALS: PULSE 84
--- NOTE | 2018-04-25 14:12 | P.DS ---
Date of admission: 04/18/18 13:54 Primary care physician: No Primary Care Physician Brief History from admission: This patient is a 72-year-old -[place] male with a diagnosis of hypertension, dyslipidemia, atrial fibrillation on Eliquis however is noncompliant with any of his medications, hepatitis C, diverticulosis. The patient also has an extensive history of tobacco use and is an active smoker. He has a history of alcohol use however as per the patient he has not drink alcohol for the past couple of years. The patient follows up with the [facility], primary care doctor is Dr. Westfall. The patient presented to our emergency department today with complaints of shortness of breath, bilateral lower extremity swelling, and palpitations that began while he was watching basketball at home. He admits that he is noncompliant with his medications and has not been taking Eliquis for his atrial fibrillation. After reviewing some documentation it appears that the patient is a history of DVT and also had an IVC filter placed in the past. He says he stopped taking Eliquis because he was unable to get it filled for unknown reasons. The patient denies any chest pain, no diarrhea, no abdominal pain, no fevers or chills. He was found to be in atrial fibrillation with rapid ventricular rate and had a slight elevation in his serum troponins. I was consulted to evaluate and admit the patient. Past medical history hypertension, dyslipidemia, atrial fibrillation previously on Eliquis however noncompliant with his medications, hepatitis C, diverticulosis. Past surgical history patient states he had a cyst removed from the left side of his face. 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 He has an extensive tobacco smoking and alcohol history. He states that he smoked about 1/2 pack of cigarettes per day for over 30 years. Family history noncontributory DS: Diagnosis - Discharge Diagnosis (1) Respiratory distress Status: Acute (2) Atrial fibrillation with RVR Status: Acute (3) Pulmonary edema Status: Acute (4) Congestive heart failure Status: Acute DS: Summary Hospital Course: While in the hospital, patient was treated for: 1. Acute decompensated diastolic CHF exacerbation with preserved ejection fraction Treated with Lasix IV 40 mg TID daily, beta-sherri. will switch to home diuretics 2. Atrial fibrillation with rapid ventricular rate secondary to medication noncompliance Treated with Cardizem 60 mg 4 times daily, Eliquis, aspirin 3. Acute hypoxic respiratory failure secondary to #1-resolved Appreciate input from pulmonary medicine Johanny as needed 4. Dyslipidemia Treated with statin. PT was consulted All electrolyte abnormalities were corrected accordingly DVT prophylaxis, patient is on Eliquis - Time Spent with Patient Total time spent providing and/or coordinating discharge services: Greater than 30 minutes - Quality: VTE Deep Vein Thrombosis/Pulmonary Embolism Present on Admission: No Exam Vital signs: Vital Signs 04/24/18 16:00 04/24/18 20:00 04/25/18 00:00 Temperature 97.2 F L 99.3 F Pulse Rate 96 H 108 H 90 Respiratory Rate 18 22 Blood Pressure 149/95 H 164/84 H Pulse Oximetry 92 L 95 Pulse Oximetry [Exertion on Room Air] Pulse Oximetry [Resting on Room Air] 04/25/18 04:00 04/25/18 08:00 04/25/18 08:03 Temperature 100.5 F H 98.9 F Pulse Rate 91 H 106 H 101 H Respiratory Rate 20 20 Blood Pressure 133/78 121/60 Pulse Oximetry 99 100 Pulse Oximetry [Exertion on Room Air] Pulse Oximetry [Resting on Room Air] 04/25/18 11:46 04/25/18 12:00 04/25/18 12:25 Temperature 98.4 F Pulse Rate 80 84 Respiratory Rate 22 Blood Pressure 128/79 Pulse Oximetry 97 Pulse Oximetry [Exertion on Room Air] 95 Pulse Oximetry [Resting on Room Air] 100 04/25/18 12:26 Temperature Pulse Rate Respiratory Rate Blood Pressure Pulse Oximetry 100 Pulse Oximetry [Exertion on Room Air] Pulse Oximetry [Resting on Room Air] Intake & Output 04/24/18 04/25/18 04/25/18 18:59 06:59 18:59 Intake Total 1800 / 1800 480 / 480 Output Total 0 / 0 400 / 400 Balance 1800 / 1800 80 / 80 Weight 130 kg Intake: Oral 1200 / 1200 480 / 480 Oral Supplement 600 / 600 Output: Urine 400 / 400 Stool 0 / 0 Other: Date of Last Bowel Movement 04/23/18 # Bowel Movements 0 Narrative: GENERAL: NAD SKIN: Warm and dry. HEAD: Normocephalic. EYES: No scleral icterus. No injection or drainage. NECK: Supple, trachea midline. No JVD or lymphadenopathy. CARDIOVASCULAR: Irregular regular rate and rhythm without murmurs, gallops, or rubs. RESPIRATORY: Breath sounds equal bilaterally. No accessory muscle use. GASTROINTESTINAL: Abdomen soft, non-tender, nondistended. MUSCULOSKELETAL: No cyanosis, or edema. BACK: Nontender without obvious deformity. No CVA tenderness. Results Procedures completed during hospitalization: None Labs on day of discharge: Labs from last 24 hours 04/25/18 11:28 Sodium 136 Potassium 3.7 Chloride 95 L Carbon Dioxide 34.2 H Anion Gap 7 BUN 15 Creatinine 0.95 Estimated GFR Greater than 89 Random Glucose 142 H Calcium 8.5 Total Bilirubin 0.6 AST 40 H ALT 32 Alkaline Phosphatase 175 H Total Protein 8.7 H Albumin 2.4 L - Impressions ITS Impressions Chest X-Ray 04/18/18 10:41 CONCLUSION: Bibasilar densities. Discharge Plan - Discharge Disposition Patient Disposition: Discharge to SNF - Discharge Condition Condition: Fair - Discharge Order Discharge Orders: Discharge Order (Routine); Ordered 04/25/18 Ordered By: Gaudencio Murillo - Physicians Team Primary Care Provider: Primary Care Josephi,Narcisa Attending Provider: Gaudencio Murillo Other Providers: Reyes Owen DO ; Malachi Whiteside MD ; [facility] ; [facility] ; [facility]ency
== END 2018-04-25 15:43 ==
LOC: NEPE 10:13 → NEDA 13:54 → HCIS 16:57 → N04 04-22 19:07
PROVIDERS: ADMIT Hospitalist; ATTEND Hospitalist